=== PATIENT | female | born 1975 | race African-American/Black ===

== ENCOUNTER 2023-04-12 12:47 | Outpatient (AMB) | payer MEDICARE, MEDICAID, SELFPAY ==
[2023-04-12 13:08] VITALS: BP 121/64; PULSE 86; RESP 14; BMI 27.8
--- NOTE | 2023-04-12 13:08 | MHC.OFFVIS ---
Intake Vital Signs 04/12/23 13:08 Height 5 ft 1 in Weight 147 lb BMI 27.8 BP 121/64 Blood Pressure Location Rt brachial Position Sitting Respiration 14 Pulse 86 Pulse Source Pulse Oximeter Intake Visit Reasons: Chronic bilateral low back pain wo sciatica Allergies Penicillins Adverse Reaction (Severe, Verified 04/12/23 13:10) rash Medication List - Last Reconciled 04/12/23 by Flora Keyes LPN levothyroxine 50 mcg PO QAM mirtazapine 30 mg PO QAM mirtazapine 45 mg PO BEDTIME naproxen 500 mg PO pregabalin 150 mg PO DAILY PRN HPI Chronic bilateral low back pain wo sciatica HPI Details 48-year-old female is presenting today for a new patient evaluation of chronic bilateral low back pain without sciatica. The patient has a past medical history of hypothyroidism, depression, anxiety, chronic left foot pain, fibromyalgia, chronic back pain, chronic bilateral knee pain, and bilateral breast fibromas. The patient has a surgical history of left foot bunion in 2012 and 2014, cholecystectomy, excision of fibromas bilateral breast, excision of cyst from right ear pinna, and back injection by pain management in [place]. The patient is presenting today for an evaluation of pain in her bilateral neck and shoulders, chest, low back, and hip regions. This has been going on for a few years. She has a history of fibromyalgia. She rates her pain at 8?9/10 in intensity, which is worse with weather changes in motion. She is unable to sleep normally. She reports chest pain which is worse in the morning. She is currently on Lyrica, 200 milligrams a day. She is currently taking 500 milligrams of naproxen a day. She was previously on Cymbalta, which did not help much. She had previously gotten trigger point injections about 10 years ago with moderate relief of upper back symptoms. [facility] Medical History (Updated 04/12/23 @ 16:09 by Baltazar Baca MD) Anxiety Bilateral chronic knee pain Chronic back pain Chronic pain in left foot Depression Fibromyalgia Hypothyroidism Review of Systems Const All systems reviewed & are unremarkable except as noted in HPI and below Physical Exam Vital Signs: Last Vital Signs Pulse 86 04/12/23 13:08 Resp 14 04/12/23 13:08 BP 121/64 04/12/23 13:08 BMI result Body Mass Index 27.8 General: Appears afebrile. Alert and oriented. Mood and affect appropriate. Follows and participates in conversation appropriately. Respiratory effort is unlabored. Able to transition from sit to stand unassisted. Ambulates with bilaterally normal heel strike and toe off. Upper Back: Tenderness on palpation in the cervical paraspinal bilaterally (right side more than left) Trapezius and occipitalis are tender on palpation. Right SCM is taught and tender to palpation. Office Procedures Injection Trigger Point Multi Pre-procedure diagnosis: Myofascial pain Post-procedure diagnosis: Myofascial pain Site and number of trigger points: Right SCM, occipitalis and trapezius Solution: Total volume administered 5 ml (5 ml lidocaine 1%) The procedure, its benefits, and its risks were explained to the patient and all questions were answered. A pulse oximeter monitor was attached and the patient was monitored throughout the procedure. Prior to the start of the procedure, a ?time out? was performed to confirm correct patient, procedure, and laterality. Trigger points were identified by manual palpation and marked. The skin was cleaned with Chloraprep. A 1.5 inch 25 G needle was used. Each of the trigger points were approximated and elevated in the direction away from the body. Dry needling then took place for five seconds. Approximately 0.5 ml to 1 ml of injectate was delivered to the trigger point followed by dry needling for five seconds. This process was repeated at each trigger point site. The patient tolerated the procedure well. Post-procedure, breath sounds were equal at both sides of the chest. The patient tolerated the procedure well, without complication. The patient denied any numbness, paresthesias, or weakness. Post-procedure vitals were recorded as part of the nursing discharge note in electronic medical record. Following a period of observation, the patient was discharged in stable condition with written discharge instructions. Trigger Point Multiple: 81460- Trigger point injection =/>3 Results Reviewed Results Reviewed: No imaging is available for review. Assessment & Plan Assessment & Plan (1) Chronic neck pain: Code(s): M54.2 - Cervicalgia; G89.29 - Other chronic pain (2) Fibromyalgia: Code(s): M79.7 - Fibromyalgia (3) Myofascial pain: Code(s): M79.18 - Myalgia, other site Plan Patient is status post trigger point injections at right SCM, occipitalis and trapezius. Patient tolerated procedure well and was discharged home in stable condition with discharge instructions. All questions were answered. Ordered a cervical x-ray for further evaluation of spondylosis. A referral was provided to physical therapy. The patient will receive a call to schedule an appointment. We will follow-up in four to six weeks depending on response to trigger point injections and repeat as needed. Scribed for Dr. Baca by Oswaldo Leigh, medical laboratory technicians, on 04/12/2023. I, Dr. Baca, have personally reviewed and agree with the information entered by the scribe. Orders: Orders PT Evaluation and Treatment Today G89.29 - Other chronic pain, M54.2 - Cervicalgia XR cervical spine 2V Today G89.29 - Other chronic pain, M54.2 - Cervicalgia Coding Level of Care Code New Pt Level 4 (20392) Diagnoses Chronic neck pain M54.2; G89.29 Fibromyalgia M79.7 Myofascial pain M79.18 CPT Codes Details - Trigger Point Multiple: 55499- Trigger point injection =/>3 ([id number])
== END 2023-04-12 14:35 | disposition home or self-care (01) ==
PROVIDERS: PCP Emergency Medicine; Visit Provider Internal Medicine
DX: M79.7 Fibromyalgia (principal); M54.2 Cervicalgia; G89.29 Other chronic pain
CPT/HCPCS: 20553; 99204

== ENCOUNTER → 2023-04-12 12:47 | Outpatient (BNVA) | payer MEDICARE, MEDICAID, SELFPAY | PROVIDERS: PCP Emergency Medicine; Visit Provider Internal Medicine | DX: M54.2 Cervicalgia (principal); G89.29 Other chronic pain; M79.7 Fibromyalgia | CPT/HCPCS: 20553; 99202 ==

== ENCOUNTER 2023-04-20 10:02 | Outpatient (REF) | payer MEDICARE, MEDICAID, SELFPAY ==
--- NOTE | ~2023-04-20 | MM_ITS ---
EXAMINATION: MM SCREENING DIGITAL BREAST TOMOSYNTHESIS, BILATERAL CLINICAL INFORMATION: Screening. Asymptomatic. COMPARISON: Mammography: There are no prior mammograms for comparison. TECHNIQUE: Digital breast tomosynthesis is performed in both the craniocaudal and mediolateral oblique views along with computer-aided detection (CAD). Synthesized 2D images are generated from the tomosynthesis. FINDINGS: There are scattered areas of fibroglandular density (ACR BI-RADS breast composition Category b). The central portion of the left breast, there are grouped calcifications which warrant additional mammographic imaging magnification. In the right breast, there are no significant masses, abnormal calcifications, or other abnormalities. There is a tissue marker in the upper outer quadrant of the right breast from prior benign percutaneous biopsy. MM/MM tomosynthesis screening BI IMPRESSION: Calcifications in the left breast warrant additional mammographic imaging magnification. No mammographic signs of malignancy right breast. ASSESSMENT: BI-RADS BI-RADS 0 - Incomplete: Needs additional Imaging. RECOMMENDATION: Additional views of the left breast. Radiology department staff will contact the patient for additional imaging. Additional Imaging required This examination should not preclude the clinical evaluation of a suspicious palpable abnormality. This patient's information was entered into a reminder system with a target due date for their next mammogram.
== END 2023-04-20 10:03 | disposition home or self-care (01) ==
LOC: HO.MAMMO 10:02
PROVIDERS: PCP Emergency Medicine; Visit Provider Emergency Medicine
DX: Z12.31 Encounter for screening mammogram for malignant neoplasm of breast (principal)
CPT/HCPCS: 77063; 77067

== ENCOUNTER → 2023-04-20 10:15 | Outpatient (BNV) | payer MEDICARE, MEDICAID, SELFPAY | PROVIDERS: PCP Emergency Medicine; Visit Provider Radiology Diagnostic Radiology | DX: Z12.31 Encounter for screening mammogram for malignant neoplasm of breast (principal) | CPT/HCPCS: 77063; 77067 ==

== ENCOUNTER 2023-06-03 13:15 | Outpatient (REF) | payer MEDICARE, MEDICAID, SELFPAY ==
--- NOTE | ~2023-06-03 | MM_ITS ---
EXAMINATION: MM DIAGNOSTIC DIGITAL MAMMOGRAPHY, LEFT CLINICAL INFORMATION: Evaluate calcifications seen central left breast, posterior one third along the nipple line in both CC and LM projections. COMPARISON: Mammography: Screening mammography dated 04/20/2023. TECHNIQUE: Digital mammography is performed in the following views: 2-D spot magnification views left breast in the CC and mediolateral projection FINDINGS: The breasts are heterogeneously dense, which may obscure small masses (ACR BI-RADS breast composition Category c). Calcifications identified on magnification views within the central left breast along the nipple line in both views, mid to posterior one third are again identified. On the CC projection, morphology of these calcifications is round, punctate, and slightly smudgy/amorphous. On the ML view, morphology changes to several calcifications demonstrating T cupping and layering, highly suggesting milk of calcium. These findings are probably benign and six-month interval follow-up left diagnostic mammography to include standard magnification views recommended to ensure stability. Calcifications in the retroareolar region are vascular in nature, and benign. No additional abnormal findings identified. MM/MM added views LT IMPRESSION: Calcifications in the central left breast have a morphology most likely related to milk of calcium and are most likely benign. Recommend six-month interval follow-up mammogram to include standard magnification views. It may be of benefit to leave the patient in the 90 degree mediolateral projection for 2 to 3 minutes to maximize layering. Benign vascular calcifications retroareolar left breast. Results were provided to the patient at time of visit by the technologist. ASSESSMENT: BI-RADS BI-RADS 3 - Probably benign finding(s) - 6 month follow-up suggested RECOMMENDATION: 6 Month F/U This patient's information was entered into a reminder system with a target due date for their next mammogram.
== END 2023-06-03 13:16 | disposition home or self-care (01) ==
LOC: HO.MAMMO 13:15
PROVIDERS: PCP Emergency Medicine; Visit Provider Emergency Medicine
DX: R92.1 Mammographic calcification found on diagnostic imaging of breast (principal)
CPT/HCPCS: 77065

== ENCOUNTER → 2023-06-03 13:30 | Outpatient (BNV) | payer MEDICARE, MEDICAID, SELFPAY | PROVIDERS: PCP Emergency Medicine; Visit Provider Radiology Diagnostic Radiology | DX: R92.1 Mammographic calcification found on diagnostic imaging of breast (principal); R92.332 Mammographic heterogeneous density, left breast | CPT/HCPCS: 77065 ==

== ENCOUNTER 2023-08-11 07:14 | Outpatient (REF) | payer MEDICARE, MEDICAID, SELFPAY ==
--- NOTE | ~2023-08-11 | XR_ITS ---
EXAMINATION: XR KNEE, LEFT CLINICAL INFORMATION: Pain. COMPARISON: None available. TECHNIQUE: AP, lateral and sunrise views of the left knee are submitted. FINDINGS: There is a mild patella hansel configuration. The lateral, medial and patellofemoral joint space compartments are well-maintained. No fracture, dislocation or unusual degenerative change is seen. There is no joint effusion. No foreign body is seen. XR/XR knee LT 3V IMPRESSION: 1. No left knee fracture, dislocation or joint effusion is seen. 2. There is a mild patella hansel configuration.
== END 2023-08-11 07:15 | disposition home or self-care (01) ==
LOC: HO.HOSX 07:14
PROVIDERS: Visit Provider Orthopaedic Surgery
DX: M25.562 Pain in left knee (principal)
CPT/HCPCS: 73562; 99202

== ENCOUNTER 2023-08-11 12:49 | Outpatient (AMB) | payer MEDICARE, MEDICAID, SELFPAY ==
--- NOTE | 2023-08-11 12:54 | A.OFFVIS_ITS ---
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 Patient reports that she has had left knee pain for quite some time now, she has pain and instability of the knee the patient states that her left knee will give out several times per day. She has tried Tylenol and anti-inflammatory medicines which gave her minimal relief. She also has intermittent discomfort in her right knee. At this point her right knee pain is tolerable to her. She has done physical therapy exercises which aggravated her pain. Allergies Penicillins Adverse Reaction (Severe, Verified 04/12/23 13:10) rash [facility] Medical History Bilateral chronic knee pain Chronic back pain Fibromyalgia Chronic pain in left foot Anxiety Depression Hypothyroidism Social History (Updated 08/11/23 @ 13:01 by Marleen Moore CMA) Current occupational status: unemployed Physical Exam Vital Signs: BMI result Body Mass Index 27.8 Const Other: Well-nourished well-developed very friendly female awake alert and oriented x3 in no acute distress Extrem Other: Bilateral lower extremity examination shows good capillary refill, no skin lesions noted, normal sensation light touch Left knee examination shows a minimal effusion, minimal crepitus with range of motion, tenderness along her medial joint line, positive Hector's test, no instability Results Reviewed Results Reviewed: Standing full weight-bearing x-rays of the patient's left knee show grade 1 Kellgren diffuse degenerative changes, no acute bony abnormalities Assessment & Plan Assessment & Plan (1) Left knee pain: Code(s): M25.562 - Pain in left knee Plan Ms. Deandra Vallejo presents with progressively worsening left knee pain and mechanical symptoms most likely due to a tear of her medial meniscus. Thus, I will send her for an MRI of her left knee for further evaluation. I will see her back once the MRI is completed to discuss the findings and treatment options. Feel free to call me at any time should questions regarding her orthopedic management arise. Thank you very much for asking me to see this very friendly patient. I spent 22 minutes in reviewing the patient's records and imaging studies, seeing the patient and documenting in the medical record. Orders: Orders XR knee LT 3V Today M25.562 - Pain in left knee MR knee LT wo con Today S83.242A - Other tear of medial meniscus, current injury, left knee, initial encounter Coding Level of Care Code New Pt Level 2 (93269) Diagnoses Left knee pain M25.562
[2023-08-11 12:55] VITALS: BMI 27.8
== END 2023-08-11 13:16 | disposition home or self-care (01) ==
PROVIDERS: PCP Emergency Medicine; Visit Provider Orthopaedic Surgery
DX: M25.562 Pain in left knee (principal)
CPT/HCPCS: 99202

== ENCOUNTER 2023-08-31 16:04 | Outpatient (REF) | payer MEDICARE, MEDICAID, SELFPAY ==
--- NOTE | ~2023-08-31 | MR_ITS ---
EXAMINATION: MR KNEE WITHOUT CONTRAST, LEFT CLINICAL INFORMATION: Left knee pain for several months, difficulty climbing upstairs COMPARISON: Left knee x-rays on 06/11/2023 TECHNIQUE: MRI of the knee without contrast was performed using routine sequences on a high-field scanner. FINDINGS: MENISCUS: The Left medial meniscus is intact. The lateral meniscus is intact. CARTILAGE: Articular cartilage of the femoral condyles and tibial plateaus are intact. LIGAMENTS: The anterior and posterior cruciate ligaments are intact. Tibial and fibular collateral ligaments, iliotibial band, biceps femoris tendon attachment are intact. PATELLA: The Left patellar tendon and patellar articular cartilage are intact. There is mild left knee effusion. Even though the patella appears to be high riding, Insall Salvati ratio equals to 1.09, within normal limits. BONES: No focal bone lesions with abnormal signal can be seen. A left medial popliteal fossa cyst is seen measuring 2.3 cm in AP diameter, 1.6 cm in width, 3.2 cm in vertical height. MR/MR knee LT wo con IMPRESSION: 1. No meniscal tear. 2. Mild left knee effusion. 3. Hunt's cyst. 4. No diagnostic findings for patella hansel.
== END 2023-08-31 16:05 | disposition home or self-care (01) ==
LOC: HO.MRI 16:04
PROVIDERS: PCP Emergency Medicine; Visit Provider Orthopaedic Surgery
DX: S83.242A Other tear of medial meniscus, current injury, left knee, initial encounter (principal)
CPT/HCPCS: 73721

== ENCOUNTER 2023-09-16 11:12 | Outpatient (AMB) | payer MEDICARE, MEDICAID, SELFPAY ==
[2023-09-16 11:13] VITALS: BMI 27.8
--- NOTE | 2023-09-16 11:13 | MHC.OFFVIS ---
Intake Vital Signs 09/16/23 11:13 Height 5 ft 1 in Weight 147 lb BMI 27.8 Intake Visit Reasons: ov- MRI Knee LT WO review Intake Note: Chhaya is a 48 year old female who presents for a MRI review of her Left knee. The patient describes her left knee discomfort as sharp in nature. She also has intermittent right knee pain as well. She does not recall any specific traumatic event preceding the onset of her pain. She has tried Tylenol and anti-inflammatory medicines which gave her minimal relief. The patient states that she does have an appointments over the next few weeks with Dr. Baca to further discuss treatment options for her chronic neck pain. Allergies Penicillins Adverse Reaction (Severe, Verified 09/16/23 11:16) rash Medication List - Last Reconciled 09/16/23 by Zackary Todd MD levothyroxine 50 mcg PO QAM mirtazapine 30 mg PO QAM mirtazapine 45 mg PO BEDTIME naproxen 500 mg PO pregabalin 150 mg PO DAILY PRN PFSH Medical History Bilateral chronic knee pain Chronic back pain Fibromyalgia Chronic pain in left foot Anxiety Depression Hypothyroidism Social History Current occupational status: unemployed Physical Exam Vital Signs: BMI result Body Mass Index 27.8 Extrem Other: Bilateral lower extremity examination shows good capillary refill, no skin lesions noted, normal sensation light touch Left knee examination shows a minimal effusion, minimal crepitus with range of motion, negative Hector's test, no instability Results Reviewed Results Reviewed: MRI of the patient's left knee shows no significant degenerative changes, no evidence of meniscus tearing Assessment & Plan Assessment & Plan (1) Left knee pain: Code(s): M25.562 - Pain in left knee Plan Ms. Liriano presents with left knee pain due to early degenerative joint disease. I had a lengthy discussion with the patient regarding the treatment options. The patient wishes to hold off on a cortisone injection or a viscosupplementation injection at this time. I did discuss the possibility of platelet rich plasma injections. The patient states that she might be interested in this or other treatment options. She will further discuss this with Dr. Baca at her upcoming appointment. She will follow up with me on an as-needed basis. Feel free to call me at any time should questions regarding her orthopedic management arise. I spent 22 minutes in reviewing the patient's records and imaging studies, seeing the patient and documenting in the medical record. Coding Level of Care Code Est Pt Level 2 (06498) Diagnoses Left knee pain M25.562
== END 2023-09-16 11:40 | disposition home or self-care (01) ==
PROVIDERS: PCP Emergency Medicine; Visit Provider Orthopaedic Surgery
DX: M17.12 Unilateral primary osteoarthritis, left knee (principal)
CPT/HCPCS: 99213

== ENCOUNTER → 2023-09-16 11:12 | Outpatient (BNVA) | payer MEDICARE, MEDICAID, SELFPAY | PROVIDERS: PCP Emergency Medicine; Visit Provider Orthopaedic Surgery | DX: M25.562 Pain in left knee (principal) | CPT/HCPCS: 99212 ==

== ENCOUNTER 2023-09-21 13:40 | Outpatient (REF) | payer MEDICARE, MEDICAID, SELFPAY ==
[2023-09-21 16:08] LABS: TSH reflex Free T4 3.32 uIU/mL (0.32-4.0)
[2023-09-27 23:49] LABS: HPV mRNA E6/E7 rflx Not Detected (Not Detected)
== END 2023-09-21 13:41 | disposition home or self-care (01) ==
LOC: HO.CHCLDS 13:40
PROVIDERS: Advanced Practice Midwife; Visit Provider Internal Medicine
DX: E03.8 Other specified hypothyroidism (principal)
CPT/HCPCS: 36415; 84443; 87624; 88142

== ENCOUNTER 2023-10-01 09:33 | Outpatient (AMB) | payer MEDICARE, MEDICAID, SELFPAY ==
--- NOTE | 2023-10-01 10:11 | A.OFFVIS_ITS ---
Intake Vital Signs 10/01/23 10:12 Height 5 ft 1 in Weight 150 lb BMI 28.3 BP 119/67 Blood Pressure Location Lt brachial Respiration 12 Pulse 95 Pulse Source Pulse Oximeter Pulse Oximetry (%) 96 Oxygen Delivery Method Room Air Intake Visit Reasons: Follow Up/Low Back Pain Park Maintainer Required: Yes Park Maintainer Name: Karen Allergies Penicillins Adverse Reaction (Severe, Verified 10/01/23 10:14) rash Medication List - Last Reconciled 10/01/23 by Flora Keyes LPN levothyroxine 50 mcg PO QAM mirtazapine 30 mg PO QAM mirtazapine 45 mg PO BEDTIME naproxen 500 mg PO pregabalin 150 mg PO DAILY PRN HPI Follow Up/Low Back Pain HPI Details 48-year-old female who presents today to the office for a follow-up low back pain. The patient returns for follow up for generalized cervicalgia and low back pain. I had referred her for physical therapy in the last appointment, but she did not end up going for any physical therapy. The patient does not want to proceed with injections in the future. She requested an MRI scan for further evaluation. She wakes up in the morning with severe pain. She reports right knee pain, which has been bothersome for a long time. She has tried physical therapy in the past with no benefit. Past procedure: 04/12/23: Trigger point injections at ri ght SCM, occipitalis and trapezius: No relief. [facility] Medical History (Updated 10/05/23 @ 17:14 by Baltazar Baca MD) Bilateral chronic knee pain Chronic back pain Fibromyalgia Chronic pain in left foot Anxiety Depression Hypothyroidism Social History Current occupational status: unemployed Review of Systems Const All systems reviewed & are unremarkable except as noted in HPI and below Physical Exam Vital Signs: Last Vital Signs Pulse 95 10/01/23 10:12 Resp 12 10/01/23 10:12 BP 119/67 10/01/23 10:12 Pulse Ox 96 10/01/23 10:12 Oxygen Delivery Method Room Air 10/01/23 10:12 BMI result Body Mass Index 28.3 General: Appears afebrile. Alert and oriented. Mood and affect appropriate. Follows and participates in conversation appropriately. Respiratory effort is unlabored. Able to transition from sit to stand unassisted. Ambulates with bilaterally normal heel strike and toe off. Results Reviewed Results Reviewed: No imaging is available for review. Assessment & Plan Assessment & Plan (1) Chronic neck pain: Code(s): M54.2 - Cervicalgia; G89.29 - Other chronic pain (2) Fibromyalgia: Code(s): M79.7 - Fibromyalgia (3) Chronic back pain: Code(s): M54.9 - Dorsalgia, unspecified; G89.29 - Other chronic pain Plan The patient is not interested in receiving injections or surgery as a treatment option for her pain. I recommended physical therapy for at least 3 months. If her pain continues to persist after the physical therapy, we will order an MRI scan of the lumbar spine. I also provided contact details of PT to call and schedule her appointment. Follow-up in four months. Scribed for Dr. Baca by Oswaldo Leigh, medical coding technician, on 10/01/2023. I, Dr. Baca, have personally reviewed and agree with the information entered by the scribe. Coding Level of Care Code Est Pt Level 3 (83768) Diagnoses Chronic neck pain M54.2; G89.29 Fibromyalgia M79.7 Chronic back pain M54.9; G89.29
[2023-10-01 10:12] VITALS: BP 119/67; PULSE 95; RESP 12; O2SAT 96; BMI 28.3
== END 2023-10-01 10:45 | disposition home or self-care (01) ==
PROVIDERS: PCP Emergency Medicine; Visit Provider Internal Medicine
DX: M54.2 Cervicalgia (principal); G89.29 Other chronic pain; M79.7 Fibromyalgia; M54.9 Dorsalgia, unspecified
CPT/HCPCS: 99213

== ENCOUNTER → 2023-10-01 09:33 | Outpatient (BNVA) | payer MEDICARE, MEDICAID, SELFPAY | PROVIDERS: PCP Emergency Medicine; Visit Provider Internal Medicine | DX: M54.2 Cervicalgia (principal); M54.9 Dorsalgia, unspecified; M79.7 Fibromyalgia; G89.29 Other chronic pain | CPT/HCPCS: 99212 ==

== ENCOUNTER 2023-10-04 10:31 | Outpatient (REF) | payer MEDICARE, MEDICAID, SELFPAY ==
[2023-10-04 13:00] LABS: HBS Num1 0.54 mIU/mL (0-7.99); HBc Num1 0.14 S/CO (0.00-0.79); HBsAGNum1 0.37 S/CO (0.00-0.99); HIV AB/AG Nonreactive (Nonreactive); HIV Num 1 0.05 S/CO (0.00-0.99); Hepatitis A Antibody IgM 0.25 Index (0-0.79); Hepatitis B Core Antibody Nonreactive (Nonreactive); Hepatitis B Surface Antigen Negative (Negative); ~HepC Num1 0.12 S/CO (0.00-0.79); ~Hepatitis A Antibody IgM Nonreactive (Nonreactive); ~Hepatitis B Surface Antibody NONREACTIVE (Nonreactive); ~Hepatitis C Antibody Nonreactive (Nonreactive)
[2023-10-04 13:10] LABS: Alanine Aminotransferase 9 U/L (0-31); Alkaline Phosphatase 67 U/L (39-117); Anion Gap 12 (12-20); Aspartate Amino Transferase 18 U/L (5-31); Bilirubin Total 0.3 mg/dL (0.0-1.0); Blood Urea Nitrogen 6 mg/dL (9-16); Calcium 9.1 mg/dL (8.4-10.2); Carbon Dioxide 24 mmol/L (22-29); Chloride 108 mmol/L (96-108); Cholesterol 179 mg/dL (<200); Estimated Glomerular Filt Rate > 60; Glucose Random 79 mg/dL (60-115); HDL Cholesterol 58 mg/dL (>40); LDL Cholesterol Calculated 108 mg/dL (<100); Potassium 3.6 mmol/L (3.3-5.1); Sodium 140 mmol/L (135-145); Total Protein 7.4 g/dL (6.5-8.0); Triglycerides 66 mg/dL (<150); Vitamin D 25-OH Total 30.4 ng/mL (>30)
[2023-10-04 13:17] LABS: Reflex LDLD? No
[2023-10-05 11:43] LABS: Mumps Virus IgG Antibody <9.00 AU/mL; Rubella IgG Antibody 1.15 Index
[2023-10-05 13:03] LABS: RPR Rapid Plasma Reagin NON-REACTIVE (NON-REACTIVE)
[2023-10-07 14:03] LABS: TS Negative Control Passed; TS Panel A 0; TS Panel B 0; TS Positive Control Passed; TSpotTB Negative (Negative)
== END 2023-10-04 10:32 | disposition home or self-care (01) ==
LOC: HO.HHCL 10:31
PROVIDERS: Visit Provider Internal Medicine
DX: Z00.00 Encounter for general adult medical examination without abnormal findings (principal); J32.9 Chronic sinusitis, unspecified; L20.82 Flexural eczema; R53.1 Weakness; Z11.59 Encounter for screening for other viral diseases; Z72.89 Other problems related to lifestyle
CPT/HCPCS: 36415; 80053; 80061; 82306; 86481; 86592; 86704; 86706; 86709; 86735; 86762; 86765; 86803; 87340; 87389

== ENCOUNTER 2023-10-20 14:00 | Outpatient (REF) | payer MEDICARE, MEDICAID, SELFPAY ==
--- NOTE | ~2023-10-20 | US_ITS ---
EXAMINATION: MM DIAGNOSTIC DIGITAL BREAST TOMOSYNTHESIS, BILATERAL US BREAST LIMITED, RIGHT MAMMOGRAPHY: CLINICAL INFORMATION: Diagnostic right mammogram for the lateral upper right breast pain. Six-month follow-up left breast central probably benign calcifications. Patient due for bilateral screening. COMPARISON: Mammography: 06/03/2023, 04/20/2023; 04/10/2022 ultrasound from [place]. TECHNIQUE: Digital breast tomosynthesis is performed in both the craniocaudal and mediolateral oblique views along with computer-aided detection (CAD). Synthesized 2D images are generated from the tomosynthesis. In addition to standard views, 2-D spot magnification left CC and ML views were obtained, as well as full-field 3-D bilateral mediolateral views, and small paddle 3-D spot compression left MLO views x3. FINDINGS: The breasts are heterogeneously dense, which may obscure small masses (ACR BI-RADS breast composition Category c). Calcifications within the central LEFT breast are unchanged in number, morphology, and appearance. Again, some appear to layer on the true lateral projection. Findings suggest milk of calcium. Six-month follow-up mammography recommended. On the LEFT MLO view, in the upper far posterior aspect, there is a stellate asymmetry which appears to completely efface on spot compression views, consistent with superimposition artifact of overlapping normal breast tissue. Region of breast pain in the lateral upper RIGHT breast posterior one third has been marked by the technologist. There is no underlying mammographic abnormality or correlate. This will be evaluated by ultrasound. Stable biopsy clip in small mass in the anterior RIGHT breast. Otherwise, no suspicious masses, new suspicious calcifications, or new areas of architectural distortion are evident in either breast. The overall parenchymal pattern is similar to the prior study. No skin or axillary abnormalities are noted. ULTRASOUND: CLINICAL INFORMATION: Right upper lateral breast pain. COMPARISON: None contributory. TECHNIQUE: Targeted sonographic evaluation was performed right breast region of pain using a high frequency linear transducer. Selected archived documentation. FINDINGS: RIGHT BREAST: In the region of pain, 10:00 axis near axilla, 15 cm from the nipple, there is a normal-appearing lymph node in the tail of Quintana which appears to correlate well with the painful focus. This has normal shakir morphology with normal fatty hilum and normal thickness cortex. There is no additional abnormality identified in the far upper outer right breast. US/US breast RT limited mamm only IMPRESSION: There are no findings in either breast suggestive of malignancy. Probably benign calcifications are unchanged in the central LEFT breast, and additional six-month interval follow-up recommended (LEFT magnification views to be performed in May 2024) to ensure stability. Region of pain in the upper outer RIGHT breast appears to relate to a normal lymph node in the tail of Quintana with normal lymph shakir morphology. Recommend clinical management. OVERALL ASSESSMENT: Mammography: BI-RADS 3 - Probably benign finding(s) - 6 month follow-up suggested Ultrasound: BI-RADS 3 - Probably benign finding(s) - 6 month follow-up suggested RECOMMENDATION: 6 Month F/U This patient's information was entered into a reminder system with a target due date for their next mammogram.
== END 2023-10-20 14:01 | disposition home or self-care (01) ==
LOC: HO.MAMMO 14:00
PROVIDERS: PCP Internal Medicine; Visit Provider Emergency Medicine
DX: N64.4 Mastodynia (principal)
CPT/HCPCS: 76642; 77062; 77066

== ENCOUNTER → 2023-10-20 14:30 | Outpatient (BNV) | payer MEDICARE, MEDICAID, SELFPAY | PROVIDERS: PCP Internal Medicine; Visit Provider Radiology Diagnostic Radiology | DX: R92.1 Mammographic calcification found on diagnostic imaging of breast (principal); N64.4 Mastodynia | CPT/HCPCS: 76642; 77066; G0279 ==

== ENCOUNTER → 2024-03-30 14:00 | Outpatient (BNV) | payer MEDICARE, SELFPAY | PROVIDERS: PCP Internal Medicine; Visit Provider Radiology Diagnostic Radiology | DX: R92.1 Mammographic calcification found on diagnostic imaging of breast (principal) | CPT/HCPCS: 77065 ==

== ENCOUNTER 2024-03-30 14:03 | Outpatient (REF) | payer MEDICARE, SELFPAY ==
--- NOTE | ~2024-03-30 | MM_ITS ---
EXAMINATION: MM DIAGNOSTIC DIGITAL MAMMOGRAPHY, LEFT CLINICAL INFORMATION: 6 month Follow-up calcifications in the central left breast middle one third. COMPARISON: Mammography: 10/12/2023, 06/03/2023, 04/20/2023. TECHNIQUE: Digital mammography is performed in the following views: 2-D spot magnification left CC and ML views. FINDINGS: The breasts are heterogeneously dense, which may obscure small masses (ACR BI-RADS breast composition Category c). Calcifications within the central LEFT breast are unchanged in number, morphology, and appearance. Again, a few appear to layer on the true lateral projection. Findings suggest milk of calcium. Continued 6-month follow-up mammography recommended. MM/MM diagnostic mammo unilat LT IMPRESSION: -No findings suspicious for malignancy. -No significant interval change in the appearance of the calcifications in the central left breast which are probably benign in morphology. Six-month interval follow-up recommended when the patient is due for bilateral screening. (Standard magnification views) ASSESSMENT: BI-RADS BI-RADS 3 - Probably benign finding(s) - 6 month follow-up suggested RECOMMENDATION: 6 Month F/U This patient's information was entered into a reminder system with a target due date for their next mammogram.
== END 2024-03-30 14:04 | disposition home or self-care (01) ==
LOC: HO.MAMMO 14:03
PROVIDERS: PCP Internal Medicine; Visit Provider Internal Medicine
DX: R92.1 Mammographic calcification found on diagnostic imaging of breast (principal)
CPT/HCPCS: 77062; 77065

== ENCOUNTER 2024-05-10 13:04 | Outpatient (AMB) | payer MEDICARE, MEDICAID, SELFPAY ==
[2024-05-10 13:11] VITALS: BP 118/74; BMI 30.6
--- NOTE | 2024-05-10 13:11 | A.OFFVIS_ITS ---
Vital Signs 05/10/24 13:11 Height 5 ft 1 in Weight 162 lb BMI 30.6 BP 118/74 Blood Pressure Location Rt brachial Position Sitting Intake Visit Reasons: ENP-GILMRE- Intake Note: Patient presents for GILMER. patient not sleeping, mid sleep she wakes up choking and gagging. she also feels tired throughout the day she believes she has restless leg syndrome. Allergies Penicillins Adverse Reaction (Severe, Verified 05/10/24 13:22) rash Medication List - Last Reconciled 05/10/24 by Paris Ramirez, FREIGHT BROKER levothyroxine 50 mcg PO QAM mirtazapine 30 mg PO QAM mirtazapine 45 mg PO BEDTIME naproxen 500 mg PO pregabalin 150 mg PO DAILY PRN HPI Comments Details: 49-yr-old female presents for new in-person patient visit for sleep consultation. Patient reports she has had sleep difficulties for a long time. She is concerned that she has sleep apnea, as her mother has sleep apnea and needs to use a CPAP. Pt herself reports snoring, gasping arousals, difficulty sleeping. Sleep questionnaire: Have you ever been diagnosed with a sleep disorder? No Have you ever had a sleep study in the past? No Have you ever been treated for a sleep disorder? No Do you take medications for a sleep disorder? No Do you have difficulty initiating sleep? Yes Do you have difficulty maintaining sleep? Yes Wakes up many times per night. Do you wake up tired? Yes Do you have daytime tiredness or fatigue? Yes Do you easily fall asleep when inactive? Yes Do you snore? Yes Do you wake up gasping at night? Yes Do you have episodes of apneas? No Do you have episodes of nocturnal chest pain or dyspnea? Discomfort in her throat when she cannot breathe well at night. Do you have bruxism? Yes If yes, do you wear a mouth guard when sleeping? No Do you have headaches upon awakening? Yes. Wakes up everyday with headache- throbbing holocranial a/w dizziness. Do you wake up with dry mouth or throat? Dry throat Do you have GERD? Yes. Takes Omeprazole which helps. Do you have nocturia? Yes- has abd pressure r/t abd hernia Do you have nocturnal leg cramps? At times, more so in LLE has h/o left bunion surgery x's 2 (hardware has been removed). Do you have symptoms of restless legs? Yes, and has Urge to move, Restlessness/jerkiness, Creepy crawling sensation, Cramps. Starts in the evening. Do you act out your dreams? Denies Do you have sleep paralysis? Denies Do you have drop attacks? Denies Do you ever have hypnogenic hallucinations? Denies Hypersomnolence questionnaire: Have you ever had episodes of sudden weakness? No Have you ever had episodes of sudden weakness associated with strong emotions? No Sleep hygiene questionnaire: What is your usual sleep routine? Goes to bedroom around 5-6pm and spends time in her room, with usual bedtime is at 10-11pm; Usual wake-up time is at 7-10am. Do you take naps? No Is your sleep environment cool, dark, and quiet? Yes Do you exercise? None- limited by her foot pain. Do you take caffeine or other stimulants? Coffee and Coke- 6-7 12 oz cans per day- last drink up to 3am. Do you use electronics in bed? Watches TV in her room. What is your work schedule? On disability. 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 Mouth: moist mucous membranes Neck Other: Bilateral posterior cervical tightness. Resp Effort & Inspection: normal respiratory effort and able to speak in complete sentences Cardio Rate: regular rate Rhythm: regular rhythm Neuro General: patient oriented x3 Motor exam (neuro): 5/5 motor strength present throughout Psych Mental Status: mental status grossly normal Speech and movement: Clear speech present Attitude: cooperative Assessment & Plan Assessment & Plan (1) Snoring: Code(s): R06.83 - Snoring Category: Medical (2) Dysphagia: Code(s): R13.10 - Dysphagia, unspecified Category: Medical (3) Retrognathia: Code(s): M26.19 - Other specified anomalies of jaw-cranial base relationship Category: Medical (4) Excessive daytime sleepiness: Code(s): G47.19 - Other hypersomnia Category: Medical (5) RLS (restless legs syndrome): Code(s): G25.81 - Restless legs syndrome Category: Medical Plan Pt is advised to undergo sleep study to assess for sleep apnea and PLMS: in-lab sleep study Check labs for common etiologies RLS. Discussed strategies to optimize sleep hygiene- encouraged pt to limit caffeine use. Pt encouraged to try an OTC mouth guard for bruxism. Future considerations- oral surgeon, PT. Will take the liberty of referring pt for ENT and GI consult d/t dysphagia and GERD s/s. Will f/u with pt after study to discuss results and appropriate treatment options. Pt to call with any worsening concerns or questions. Pt seen in collaboration w/ Dr Bell. Orders: Orders RT PSG in-lab sleep study Today G25.81 - Restless legs syndrome, G47.19 - Other hypersomnia, G47.9 - Sleep disorder, unspecified, M26.19 - Other specified anomalies of jaw-cranial base relationship, R06.83 - Snoring, R13.10 - Dysphagia, unspecified Complete Blood Count Auto Diff Today D64.9 - Anemia, unspecified, E03.9 - Hypothyroidism, unspecified, F41.9 - Anxiety disorder, unspecified, G25.81 - Restless legs syndrome, G47.19 - Other hypersomnia Vitamin B12 and Folate Today D64.9 - Anemia, unspecified, E03.9 - Hypothyroidism, unspecified, F41.9 - Anxiety disorder, unspecified, G25.81 - Restless legs syndrome, G47.19 - Other hypersomnia Homocysteine Today D64.9 - Anemia, unspecified, E03.9 - Hypothyroidism, unspecified, F41.9 - Anxiety disorder, unspecified, G25.81 - Restless legs syndrome, G47.19 - Other hypersomnia Erythrocyte Sedimentation Rate Today D64.9 - Anemia, unspecified, E03.9 - Hypothyroidism, unspecified, F41.9 - Anxiety disorder, unspecified, G25.81 - Restless legs syndrome, G47.19 - Other hypersomnia Creatine Kinase Total Today D64.9 - Anemia, unspecified, E03.9 - Hypothyroidism, unspecified, F41.9 - Anxiety disorder, unspecified, G25.81 - Restless legs syndrome, G47.19 - Other hypersomnia Magnesium Today D64.9 - Anemia, unspecified, E03.9 - Hypothyroidism, unspec ified, F41.9 - Anxiety disorder, unspecified, G25.81 - Restless legs syndrome, G47.19 - Other hypersomnia Comprehensive Met. Panel Today D64.9 - Anemia, unspecified, E03.9 - Hypothyroidism, unspecified, F41.9 - Anxiety disorder, unspecified, G25.81 - Restless legs syndrome, G47.19 - Other hypersomnia Vitamin D 25-OH (D2 and D3) Today D64.9 - Anemia, unspecified, E03.9 - Hypothyroidism, unspecified, F41.9 - Anxiety disorder, unspecified, G25.81 - Restless legs syndrome, G47.19 - Other hypersomnia Methylmalonic Acid Today D64.9 - Anemia, unspecified, E03.9 - Hypothyroidism, unspecified, F41.9 - Anxiety disorder, unspecified, G25.81 - Restless legs syndrome, G47.19 - Other hypersomnia Ferritin Today D64.9 - Anemia, unspecified, E03.9 - Hypothyroidism, unspecified, F41.9 - Anxiety disorder, unspecified, G25.81 - Restless legs syndrome, G47.19 - Other hypersomnia IRON PROFILE Today D64.9 - Anemia, unspecified, E03.9 - Hypothyroidism, unspecified, F41.9 - Anxiety disorder, unspecified, G25.81 - Restless legs syndrome, G47.19 - Other hypersomnia CRP High Sensitivity Today D64.9 - Anemia, unspecified, E03.9 - Hypothyroidism, unspecified, F41.9 - Anxiety disorder, unspecified, G25.81 - Restless legs syndrome, G47.19 - Other hypersomnia Referrals Gastroenterology Referral K21.9 - Gastro-esophageal reflux disease without esophagitis, R13.10 - Dysphagia, unspecified Ear/Nose/Throat Referral G47.19 - Other hypersomnia, M26.19 - Other specified anomalies of jaw-cranial base relationship, R06.83 - Snoring, R13.10 - Dysphagia, unspecified Coding Level of Care Code New Pt Level 4 (03689) Diagnoses Snoring R06.83 Dysphagia R13.10 Retrognathia M26.19 Excessive daytime sleepiness G47.19 RLS (restless legs syndrome) G25.81 [place] Sleepiness Scale Questions Sitting and reading: high chance of dozing Watching TV: high chance of dozing Sitting inactive in a theater, movie etc.: moderate chance of dozing As a passenger in a car for an hour without break: would never doze Lying down in the afternoon when circumstances permit: moderate chance of dozing Sitting and talking to someone: slight chance of dozing Sitting quietly after lunch without alcohol: moderate chance of dozing In a car, while stopped for a few minutes in the traffic: would never doze ESS < 10: normal, ESS > 12: pathologic: 13
== END 2024-05-10 14:37 | disposition home or self-care (01) ==
PROVIDERS: PCP Internal Medicine; Visit Provider Nurse Practitioner Family
DX: R06.83 Snoring (principal); R13.10 Dysphagia, unspecified; M26.19 Other specified anomalies of jaw-cranial base relationship; G47.19 Other hypersomnia; G25.81 Restless legs syndrome
CPT/HCPCS: 99204

== ENCOUNTER → 2024-05-10 13:04 | Outpatient (BNVA) | payer MEDICARE, MEDICAID, SELFPAY | PROVIDERS: PCP Internal Medicine; Visit Provider Nurse Practitioner Family | DX: G47.33 Obstructive sleep apnea (adult) (pediatric) (principal); R06.83 Snoring; R13.10 Dysphagia, unspecified; M26.19 Other specified anomalies of jaw-cranial base relationship; G47.19 Other hypersomnia; G25.81 Restless legs syndrome | CPT/HCPCS: 99202 ==

== ENCOUNTER → 2024-06-30 19:30 | Outpatient (REF) | payer MEDICARE, MEDICAID, SELFPAY | LOC: HO.SL 19:30 | PROVIDERS: PCP Internal Medicine; Visit Provider Nurse Practitioner Family | DX: R06.83 Snoring (principal); R13.10 Dysphagia, unspecified; M26.19 Other specified anomalies of jaw-cranial base relationship; G47.19 Other hypersomnia; G47.9 Sleep disorder, unspecified; G25.81 Restless legs syndrome | CPT/HCPCS: 95810 ==

== ENCOUNTER → 2024-06-30 23:41 | Outpatient (BNV) | payer MEDICARE, MEDICAID, SELFPAY | PROVIDERS: PCP Internal Medicine; Visit Provider Psychiatry & Neurology Neurology | DX: R06.83 Snoring (principal); G47.19 Other hypersomnia | CPT/HCPCS: 95810 ==

== ENCOUNTER 2024-07-14 08:44 | Outpatient (REF) | payer MEDICARE, MEDICAID, SELFPAY ==
[2024-07-14 11:17] LABS: MANUAL DIFF FLAG NO
[2024-07-14 11:29] LABS: Basophils Percent Auto 0.8 % (0-2); Eosinophils Absolute Auto 0.1 X10*3/uL (0.0-0.4); Eosinophils Percent Auto 2.5 % (0-4); Hematocrit 29.7 % (37.0-47.0); Imm Gran Abs Auto 0.02 X10*3/uL (0.00-0.03); Imm Gran Pct Auto 0.4 % (0.0-0.4); Lymphocytes Absolute Auto 1.1 X10*3/uL (1.2-4.9); Lymphocytes Percent Auto 20.4 % (20-40); Mean Corpuscular HGB Conc 30.3 g/dl (31.0-35.0); Mean Corpuscular Hemoglobin 17.4 pg (27.0-33.0); Monocytes Absolute Auto 0.5 X10*3/uL (0.1-1.2); Monocytes Percent Auto 9.5 % (2-11); Neutrophils Absolute Auto 3.4 x10*3/uL (2.0-8.3); Neutrophils Percent Auto 66.4 % (45-73); Platelet Count 373 X10*3/uL (160-400); Red Blood Count 5.18 X10*6/uL (4.20-5.50); Red Cell Distribution Width 21.3 % (11.0-16.0); White Blood Count 5.2 X10*3/uL (4.8-10.8)
[2024-07-14 11:30] LABS: Mean Corpuscular Volume 57.3 fL (80.0-98.0)
[2024-07-14 11:47] LABS: Alanine Aminotransferase 9 U/L (0-31); Albumin Level 3.8 g/dL (3.5-5.0); Alkaline Phosphatase 59 U/L (39-117); Anion Gap 12 (12-20); Aspartate Amino Transferase 22 U/L (5-31); Bilirubin Total 0.3 mg/dL (0.0-1.0); Blood Urea Nitrogen 7 mg/dL (9-16); Calcium 8.8 mg/dL (8.4-10.2); Carbon Dioxide 22 mmol/L (22-29); Chloride 106 mmol/L (96-108); Estimated Glomerular Filt Rate > 60; Glucose Random 92 mg/dL (60-115); Iron 14 mcg/dL (30-160); Magnesium 2.3 mg/dL (1.6-2.6); Percent Iron Saturation 4 % (15-50); Potassium 3.8 mmol/L (3.3-5.1); Sodium 136 mmol/L (135-145); Total Iron Binding Capacity 367 mcg/dL (228-428); Total Protein 6.8 g/dL (6.5-8.0); Unsaturated Iron Binding 353 ug/dL
[2024-07-14 11:55] LABS: Ferritin 6 ng/mL (10-250)
[2024-07-14 12:06] LABS: Folate 6.7 ng/mL (> or = 4.0); Vitamin B12 192 pg/mL (200-900)
[2024-07-14 12:17] LABS: Erythrocyte Sedimentation Rate 12 MM/HR (0-20)
[2024-07-17 11:28] LABS: CRP High Sensitivity 2.2 mg/L
[2024-07-17 17:04] LABS: Homocysteine 16.1 umol/L (<10.4)
[2024-07-18 21:48] LABS: Methylmalonic Acid 121 nmol/L (55-335)
[2024-07-19 17:08] LABS: Vitamin D 25-OH, D2 <4 ng/mL; Vitamin D 25-OH, D3 40 ng/mL; Vitamin D 25-OH, Total 40 ng/mL (30-100)
== END 2024-07-14 08:45 | disposition home or self-care (01) ==
LOC: HO.HHCL 08:44
PROVIDERS: Visit Provider Nurse Practitioner Family
DX: D64.9 Anemia, unspecified (principal); G25.81 Restless legs syndrome; F41.9 Anxiety disorder, unspecified; E03.9 Hypothyroidism, unspecified; G47.19 Other hypersomnia
CPT/HCPCS: 36415; 80053; 82306; 82550; 82607; 82728; 82746; 83090; 83540; 83735; 83921; 85025; 85652; 86141

== ENCOUNTER 2024-07-31 10:32 | Outpatient (AMB) | payer MEDICARE, MEDICAID, SELFPAY ==
[2024-07-31 10:35] VITALS: BP 124/74; PULSE 94; O2SAT 97; BMI 30.2
--- NOTE | 2024-07-31 10:35 | MHC.OFFVIS ---
Vital Signs 07/31/24 10:35 Height 5 ft 1 in Weight 160 lb 0.889 oz BMI 30.2 BP 124/74 Blood Pressure Location Rt brachial Position Sitting Pulse 94 Pulse Source Pulse Oximeter Pulse Oximetry (%) 97 Oxygen Delivery Method Room Air Intake Visit Reasons: Dysphagia Intake Note: NEW PATIENT Chhaya presents in office today for a scheduled initial assessment. Prior hx of colo/egd? No prior hx of colo. Pt has prior hx of EGD via [facility]. Pt has prior hx of cholecystectomy Meds reviewed? Y Allergies reviewed? Y Any significant concerns or questions? Dysphagia. Pt also reporting difficulty with reflux. Pt has been taking omeprazole per PCP with some relief. Pharmacy verified? [facility] Required: No Allergies Penicillins Adverse Reaction (Severe, Verified 07/31/24 10:41) rash HPI HPI Dysphagia: Details: 49-year-old female with past medical history of hypothyroidism, anemia, RLS, hypothyroidism, GERD, fibromyalgia is here today for initial consultation. Patient was sent to us by Neurology. Patient has been complaining of difficulty swallowing and reflux. Patient reports that she has to drink liquids with every bite. Most difficulty with rice and bread. Patient feels when the food goes down and sometimes it feels like it is scratching her whole esophagus patient denies eating late at night. Patient was sent to do sleep study, awaiting results. For the most part patient is eating [place] food. Patient denies melena, hematochezia, unintentional weight loss or ribbon like stools. Patient was started on omeprazole by her PCP, however she reports that she still will have reflux and dysphagia. However patient did report that she seen mild improvement after starting it. [facility] Medical History Bilateral chronic knee pain Chronic back pain Fibromyalgia Chronic pain in left foot Anxiety Depression Hypothyroidism Social History Current occupational status: unemployed Review of Systems Const Denies weight gain and Denies weight loss ENT Reports no additional complaints, Denies dysphagia and Denies odynophagia Card Reports no additional complaints Resp Reports no additional complaints GI Denies abdominal pain, Denies belching, Denies melena, Reports bloating, Denies change in bowel habits, Denies dysphagia, Denies excessive flatus, Denies dyspepsia, Reports heartburn, Denies diarrhea, Denies loose stools, Denies nausea, Denies odynophagia and Denies vomiting Reports no additional complaints Musc Reports no additional complaints Neuro Reports no additional complaints Psych Reports no additional complaints Endo Reports no additional complaints Physical Exam Vital Signs: Last Vital Signs Pulse 94 07/31/24 10:35 BP 124/74 07/31/24 10:35 Pulse Ox 97 07/31/24 10:35 Oxygen Delivery Method Room Air 07/31/24 10:35 BMI result Body Mass Index 30.2 Const General: healthy appearing and no acute distress Nutritional Appearance: obese Orientation/consciousness: patient oriented x3 Resp Effort & Inspection: normal respiratory effort, able to speak in complete sentences, no tracheal deviation and symmetric chest movement Auscultation: clear to auscultation bilaterally Cardio Rate: regular rate GI Inspection: Yes normal to inspection, No distended and Yes obesity Palpation (GI): Soft to palpation, not firm, nontender and No hepatosplenomegaly present Auscultation: normal bowel sounds General: Yes no CVA tenderness Back/Spine/Pelvis Back: no CVA tenderness Skin General skin exam: elasticity normal, turgor normal and dry skin Neuro General: patient oriented x3 Psych Appearance: grossly normal Mental Status: mental status grossly normal Assessment & Plan Assessment & Plan (1) Dysphagia: Code(s): R13.10 - Dysphagia, unspecified Category: Medical Qualifiers: Dysphagia type: pharyngoesophageal phase Qualified Code(s): R13.14 - Dysphagia, pharyngoesophageal phase (2) GERD (gastroesophageal reflux disease): Code(s): K21.9 - Gastro-esophageal reflux disease without esophagitis Category: Medical Qualifiers: Esophagitis presence: esophagitis presence not specified Qualified Code(s): K21.9 - Gastro-esophageal reflux disease without esophagitis (3) Postprandial abdominal bloating: Code(s): R14.0 - Abdominal distension (gaseous) (4) Postprandial epigastric pain: Code(s): R10.13 - Epigastric pain Plan Will rule out celiac. Patient will go for upper GI with barium swallow in the meantime while we waiting endoscopy. Message sent to surgical instrument technician to schedule upper endoscopy for patient. Patient is also due to go for colonoscopy. Patient reports having upper endoscopy and colonoscopy several years ago when she lived in [place]. Denies any family history of CRC. Denies any melena, hematochezia, unintentional weight loss or ribbon like stools. Discussed with patient the importance of avoiding dietary triggers and late night snacking. Staying upright for minimum 3 hours after meals discussed with patient. Patient will return in 3 months we will discuss going for upper endoscopy and colonoscopy. Patient will call our office if she will have worsening symptoms or develop any other GI concerning symptoms. She is agreeable to this plan and verbalizes understanding of instructions. She was given the opportunity to ask questions and all questions. Thank you for allowing me partake in her care Orders: Orders Transglutaminase IgA Today R10.9 - Unspecified abdominal pain FL upper GI w Ba Swallow Today K21.9 - Gastro-esophageal reflux disease without esophagitis, R13.10 - Dysphagia, unspecified Transglutaminase Ab IgG Today R10.9 - Unspecified abdominal pain Medications: New esomeprazole magnesium (Nexium) 40 mg PO DAILY 30 caps 5RF K21.9 - Gastro-esophageal reflux disease without esophagitis Coding Level of Care Code New Pt Level 4 (11531) Diagnoses Pharyngoesophageal dysphagia R13.14 Dysphagia type: pharyngoesophageal phase Gastroesophageal reflux disease, unspecified whether esophagitis present K21.9 Esophagitis presence: esophagitis presence not specified Postprandial abdominal bloating R14.0 Postprandial epigastric pain R10.13 Time Spent (min) 45 Comment 30 minutes spent with patient and additional 15 minutes spent reviewing
== END 2024-07-31 11:13 | disposition home or self-care (01) ==
PROVIDERS: PCP Internal Medicine; Visit Provider Nurse Practitioner Family
DX: R13.14 Dysphagia, pharyngoesophageal phase (principal); K21.9 Gastro-esophageal reflux disease without esophagitis; R14.0 Abdominal distension (gaseous); R10.13 Epigastric pain
CPT/HCPCS: 99204

== ENCOUNTER 2024-07-31 11:49 | Outpatient (REF) | payer MEDICARE, MEDICAID, SELFPAY ==
[2024-08-02 21:13] LABS: Transglutaminase Ab IgG <1.0 U/mL; Transglutaminase IgA <1.0 U/mL
== END 2024-07-31 11:50 | disposition home or self-care (01) ==
LOC: HO.HHCL 11:49
PROVIDERS: Visit Provider Nurse Practitioner Family
DX: R10.9 Unspecified abdominal pain (principal); R13.14 Dysphagia, pharyngoesophageal phase; K21.9 Gastro-esophageal reflux disease without esophagitis; R14.0 Abdominal distension (gaseous); R10.13 Epigastric pain
CPT/HCPCS: 36415; 86364; 99202

== ENCOUNTER → 2024-08-29 13:03 | Outpatient (BNV) | payer MEDICARE, MEDICAID, SELFPAY | PROVIDERS: PCP Internal Medicine; Visit Provider Internal Medicine | DX: D64.9 Anemia, unspecified (principal) | CPT/HCPCS: 99204; G2211 ==

== ENCOUNTER 2024-09-01 07:47 | Outpatient (REF) | payer MEDICARE, MEDICAID, SELFPAY ==
--- NOTE | ~2024-09-01 | FL_ITS ---
EXAMINATION: XR FLUOROSCOPY UPPER GI WITH AIR CLINICAL INFORMATION: Reflux. Dysphagia. COMPARISON: None TECHNIQUE: Fluoroscopic air contrast upper GI examination was performed utilizing standard techniques with thin and thick barium and effervescent granules. Numerous spot images were obtained. FINDINGS: Lateral cine images of the oropharynx and hypopharynx demonstrate normal swallow mechanism with normal epiglottic inversion and soft palate elevation. No tracheal penetration, glottic or subglottic aspiration identified. No nasopharyngeal reflux present. Hypopharyngeal structures appear normal without evidence of mass or diverticulum. There was no significant cricopharyngeal achalasia. Dual and single contrast images of the esophagus demonstrate normal caliber, contour, and mucosal pattern. No masses or ulcerations are identified. Esophageal peristalsis was normal. A nonobstructing Schatzki's ring is present. Surgical clips are present in the right upper quadrant. A small type I hiatal hernia is present. No significant gastroesophageal reflux was seen during the course of the examination and on reflux views. Dual contrast and single contrast images of the stomach demonstrated a normal contour. The areae gastricae have a thickened appearance, suggestive of gastritis. No masses or ulcerations are seen Contrast freely passed into the gastric antrum and duodenal bulb without delay. Single and air-contrast images of the duodenal bulb demonstrate no abnormality. The duodenal sweep has a normal appearance, course, and mucosal fold appearance. The imaged proximal jejunum has a normal fold pattern and caliber. FLUOROSCOPY TIME: 4 minutes 54 seconds Number of Spot Images: 8 Number of Cine: 14 DOSE AREA PRODUCT: 2204 uGy-m2 (microgray-meter squared) FL/FL upper GI w air w Ba Swallow IMPRESSION: 1. Small type I hiatal hernia. 2. Nonobstructing Schatzki's ring. 3. Thickened appearance of the areae gastricae, suggestive of gastritis. 4. Status post cholecystectomy. This procedure was performed by Steven Covarrubias PA-C, and supervised by Dr. Felton Electronically signed by: Jesse Felton MD 09/01/2024 12:40 PM [facility] [place]
== END 2024-09-01 07:48 | disposition home or self-care (01) ==
LOC: HO.XRAY 07:47
PROVIDERS: PCP Internal Medicine; Visit Provider Nurse Practitioner Family
DX: K21.9 Gastro-esophageal reflux disease without esophagitis (principal)
CPT/HCPCS: 74246

== ENCOUNTER → 2024-09-01 07:49 | Outpatient (BNV) | payer MEDICARE, MEDICAID, SELFPAY | PROVIDERS: PCP Internal Medicine; Visit Provider Physician Assistant Surgical | DX: K44.9 Diaphragmatic hernia without obstruction or gangrene (principal) | CPT/HCPCS: 74246 ==

== ENCOUNTER 2024-09-05 07:48 | Outpatient (AMB) | payer MEDICARE, MEDICAID, SELFPAY ==
--- NOTE | 2024-09-05 07:49 | A.OFFVIS_ITS ---
Intake Visit Reasons: 4mo f/u Allergies Penicillins Adverse Reaction (Severe, Verified 09/05/24 07:49) rash Medication List - Last Reconciled 09/05/24 by RENETTA Egan cyanocobalamin (vitamin B-12) 500 mcg PO DAILY 30 days esomeprazole magnesium (Nexium) 40 mg PO DAILY levothyroxine 50 mcg PO QAM lidocaine-prilocaine 2.5-2.5 % 2.5 appl topical ONCE magnesium oxide 400 mg PO BEDTIME 30 days mirtazapine 30 mg PO QAM mirtazapine 45 mg PO BEDTIME naproxen 500 mg PO DAILY pregabalin 150 mg PO DAILY PRN riboflavin (vitamin B2) 400 mg PO DAILY 30 days HPI Comments Details: 49-year-old female presents for follow-up televideo visit to discuss sleep study and lab results, however she also would like to discuss a new onset headache. 06/30/2024 In-lab PSG, did not show sleep apnea however did show periodic limb movements of sleep (PLMS)- AHI 0.2/hour of sleep, REM AHI 0/hour O2 june 89% with average SpO2 95%, soft to moderate snoring, average heart rate 74 bpm with highest heart rate of 108 bpm, PLMS 78/hr with PLMS arousal index of 12 per hour. Interval blood work, did reveal anemia and vitamin B12 deficiency. Patient has since been referred to Hematology, and had initial consult last week. Patient is scheduled for weekly iron infusions starting today. Patient has also had consult with GI for dysphagia, and is undergoing dysphagia and celiac disease workup. When we had called to relay results of sleep study above, patient had reported that she has started to have a right-sided headache. She was taking ibuprofen multiple times every day and was having GI upset.. At that time, patient was advised to stop ibuprofen, trial Tylenol p.r.n. instead, and start riboflavin 400 mg q.a.m. and magnesium 400 mg q.h.s.- which he has done with not much effect. Pt reports she started having a constant moderate-severe right sided throbbing headache in June, some days worse than others. She denies associated symptoms of photophobia/phonophobia/nausea/dizziness. However, endorses associated symptom on activity intolerance- needs to lay down, close her eyes, and rest until her as needed ibuprofen or Tylenol kicks in. The headache can w hu her up from sleep. The headache can occur during the day or night. Denies any specific triggers- states the headache can wake her up from sleep. Denies triggers such a seating, chewing, talking. She denies precipitating causes- denies accident, infection. Her menstrual cycle is usually regular, however she has missed her recent menstrual cycle. Plans to follow-up with her resin maker. Now taking Tylenol 1500mg up to 3 x's a day. States typically she may have an occasional regular headache, triggered by heat or stress, however this headache is different. States she has a h/o migraine as a teenager but this was also different- was in different parts of her head. Interval labs: 09/21/23 07/14/24 08/29/24 13:46 08:47 13:51 WBC 5.3 RBC 5.22 RBC (Send Out) 5.21 H Hgb 9.0 L 8.9 L Hgb (Send Out) 8.8 L Hct 29.7 L 29.4 L Hct (Send Out) 30.3 L MCV 57.3 L 56.3 L MCV (Send Out) 58.2 L MCH 17.4 L 17.0 L MCH (Send Out) 16.9 L MCHC 30.3 L 30.3 L RDW 21.3 H 20.1 H Red Cell Dist (Send Out) 20.4 H Plt Count 373 357 Immature Gran % (Auto) 0.4 0.4 Neut % (Auto) 66.4 56.8 Lymph % (Auto) 20.4 26.2 [place] % (Auto) 9.5 11.2 H Eos % (Auto) 2.5 4.5 H Baso % (Auto) 0.8 0.9 Lymph # (Auto) 1.1 L 1.4 [place] # (Auto) 0.5 0.6 Eos # (Auto) 0.1 0.2 Baso # (Auto) 0.0 0.1 Abs Immat Gran (auto) 0.02 0.02 Absolute Neuts (auto) 3.4 3.0 Nucleated RBC % (auto) 0.0 0.0 ESR 12 Absolute Retic 0.068 Percent Retic 1.3 Immature Retic Fraction 25.4 H Retic Hgb Equivalent 18.3 L Hemoglobin A 72.1 L Hemoglobin A2 3.0 Hemoglobin F <1.0 Sodium 136 Potassium 3.8 Chloride 106 Carbon Dioxide 22 Anion Gap 12 BUN 7 L Creatinine 0.74 Estimated GFR > 60 Random Glucose 92 Calcium 8.8 Magnesium 2.3 Iron 14 L TIBC 367 % Saturation 4 L Unsat Iron Binding 353 Ferritin 6 L 6 L Total Bilirubin 0.3 AST 22 ALT 9 Alkaline Phosphatase 59 Lactate Dehydrogenase 190 Total Creatine Kinase 105 C-React Prot High Sens 2.2 Total Protein 6.8 Albumin 3.8 Vitamin B12 192 L Methylmalonic Acid 121 Folate 6.7 25-OH Vitamin D Total 40 25-Hydroxy Vitamin D2 <4 25-Hydroxy Vitamin D3 40 Homocysteine 16.1 H TSH 3.32 05/10/2024 initial HPI: 49-yr-old female presents for new in-person patient visit for sleep consultation. Patient reports she has had sleep difficulties for a long time. She is concerned that she has sleep apnea, as her mother has sleep apnea and needs to use a CPAP. Pt herself reports snoring, gasping arousals, difficulty sleeping. Sleep questionnaire: Have you ever been diagnosed with a sleep disorder? No Have you ever had a sleep study in the past? No Have you ever been treated for a sleep disorder? No Do you take medications for a sleep disorder? No Do you have difficulty initiating sleep? Yes Do you have difficulty maintaining sleep? Yes Wakes up many times per night. Do you wake up tired? Yes Do you have daytime tiredness or fatigue? Yes Do you easily fall asleep when inactive? Yes Do you snore? Yes Do you wake up gasping at night? Yes Do you have episodes of apneas? No Do you have episodes of nocturnal chest pain or dyspnea? Discomfort in her throat when she cannot breathe well at night. Do you have bruxism? Yes If yes, do you wear a mouth guard when sleeping? No Do you have headaches upon awakening? Yes. Wakes up everyday with headache- throbbing holocranial a/w dizziness. Do you wake up with dry mouth or throat? Dry throat Do you have GERD? Yes. Takes Omeprazole which helps. Do you have nocturia? Yes- has abd pressure r/t abd hernia Do you have nocturnal leg cramps? At times, more so in LLE has h/o left bunion surgery x's 2 (hardware has been removed). Do you have symptoms of restless legs? Yes, and has Urge to move, Restlessness/jerkiness, Creepy crawling sensation, Cramps. Starts in the evening. Do you act out your dreams? Denies Do you have sleep paralysis? Denies Do you have drop attacks? Denies Do you ever have hypnogenic hallucinations? Denies Hypersomnolence questionnaire: Have you ever had episodes of sudden weakness? No Have you ever had episodes of sudden weakness associated with strong emotions? No Sleep hygiene questionnaire: What is your usual sleep routine? Goes to bedroom around 5-6pm and spends time in her room, with usual bedtime is at 10-11pm; Usual wake-up time is at 7-10am. Do you take naps? No Is your sleep environment cool, dark, and quiet? Yes Do you exercise? None- limited by her foot pain. Do you take caffeine or other stimulants? Coffee and Coke- 6-7 12 oz cans per day- last drink up to 3am. Do you use electronics in bed? Watches TV in her room. What is your work schedule? On disability. [facility] Medical History Bilateral chronic knee pain Chronic back pain Fibromyalgia Chronic pain in left foot Anxiety Depression Hypothyroidism Social History Household Members: Family Patient Tobacco Use Status: Never used Tobacco Current occupational status: unemployed Gender identity: Female Physical Exam Const General: cooperative and no acute distress Orientation/consciousness: patient oriented x3 Resp Effort & Inspection: normal respiratory effort and able to speak in complete sentences Neuro General: patient oriented x3 Cognition (Neuro): normal cognition Psych Appearance: grossly normal Mental Status: mental status grossly normal Speech and movement: Normal speech and movement present Affect: normal affect Attitude: cooperative Telehealth Telehealth Telehealth Platform: 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 Code(s): G25.81 - Restless legs syndrome Category: Medical Plan Reviewed results of in-lab sleep study, no evidence for sleep apnea, however study does demonstrate some snoring and significant periodic limb movements of sleep. Reviewed labs, notable for anemia, iron/ferritin deficiency, vitamin B12 deficiency, Follow-up with Hematology for iron infusions as scheduled. Follow-up with GI for dysphagia and celiac disease workup as scheduled. ENT consult as previously ordered. For new onset headache: Patient is advised to undergo brain MRI w/wo to assess for secondary intracranial etiologies for new onset constant moderate to severe right side locked headache, suggestive of a new daily persistent headache phenotype. Continue riboflavin 400 mg q.a.m. Continue magnesium 400 mg q.h.s. Trial Topiramate 25-50 mg q.h.s.. Potential adverse effects of Topiramate, include but are not limited to fatigue, cognitive changes, paresthesias (tingling), vision changes, kidney stones. Trial Sumatriptan 100mg tab, 1/2 - 1 tab (50-100mg) at onset of headache, may repeat in 2 hours. Max of 2 tabs (200mg) per 24 hours. May take sumatriptan with OTC Tylenol 650-1,000mg every 4-6 hours prn. Potential adverse effects of triptans, include but are not limited to nausea, fatigue, chest tightness/tingling (usually passes within a few minutes), medication overuse headaches. OTC mouth guard for bruxism. Future considerations- oral surgeon, PT. Orders: Orders MR head/brain wo/w con Today R51.9 - Headache, unspecified Medications: New sumatriptan succinate max 2 tabs per day or 4 tabs/week (may take with Tylenol) 100 mg PO Q2H 30 days PRN 12 tabs 6RF migraine headache topiramate 25 - 50 mg (1 - 2 x 25 mg) PO BEDTIME 30 days 60 tabs 3RF Coding Level of Care Code Tele Est Pt Level 4 (73368) Diagnoses New onset headache R51.9 Snoring R06.83 Retrognathia M26.19 Excessive daytime sleepiness G47.19 RLS (restless legs syndrome) G25.81
== END 2024-09-05 14:48 | disposition home or self-care (01) ==
PROVIDERS: PCP Internal Medicine; Visit Provider Nurse Practitioner Family
DX: R51.9 Headache, unspecified (principal); R06.83 Snoring; M26.19 Other specified anomalies of jaw-cranial base relationship; G47.19 Other hypersomnia; G25.81 Restless legs syndrome
CPT/HCPCS: 98016; 99214

== ENCOUNTER → 2024-09-05 07:48 | Outpatient (BNVA) | payer MEDICARE, MEDICAID, SELFPAY | PROVIDERS: PCP Internal Medicine; Visit Provider Nurse Practitioner Family ==

== ENCOUNTER 2024-09-11 13:16 | Outpatient (AMB) | payer MEDICARE, MEDICAID, SELFPAY ==
[2024-09-11 13:21] VITALS: BP 108/56; PULSE 82; O2SAT 98; BMI 30.5
--- NOTE | 2024-09-11 13:21 | MHC.OFFVIS ---
Vital Signs 09/11/24 13:21 Height 5 ft 1 in Weight 161 lb 6.054 oz BMI 30.5 BP 108/56 L Blood Pressure Location Rt brachial Position Sitting Pulse 82 Pulse Source Pulse Oximeter Pulse Oximetry (%) 98 Oxygen Delivery Method Room Air Intake Visit Reasons: Discuss colo/egd Intake Note: ESTABLISHED PATIENT Reason; 1 mos FU. BA FL and Labs done. Changes/concerns? No significant GI concerns per pt. Financial Analyst Intern Required: No Allergies Penicillins Adverse Reaction (Severe, Verified 09/11/24 13:24) rash HPI HPI Discuss colo/egd: Details: LAST VISIT Dysphagia GERD (gastroesophageal reflux disease) Postprandial abdominal bloating Postprandial epigastric pain Plan Will rule out celiac. Patient will go for upper GI with barium swallow in the meantime while we waiting endoscopy. Message sent to felt cementer to schedule upper endoscopy for patient. Patient is also due to go for colonoscopy. Patient reports having upper endoscopy and colonoscopy several years ago when she lived in [place]. Denies any family history of CRC. Denies any melena, hematochezia, unintentional weight loss or ribbon like stools. Discussed with patient the importance of avoiding dietary triggers and late night snacking. Staying upright for minimum 3 hours after meals discussed with patient. Patient will return in 3 months we will discuss going for upper endoscopy and colonoscopy. Patient will call our office if she will have worsening symptoms or develop any other GI concerning symptoms. She is agreeable to this plan and verbalizes understanding of instructions. She was given the opportunity to ask questions and all questions. ? Thank you for allowing me partake in her care Orders Orders Transglutaminase IgA Today R10.9 FL upper GI w Ba Swallow Today K21.9, R13.10 Transglutaminase Ab IgG Today R10.9 Medications New esomeprazole magnesium (Nexium) 40 mg PO DAILY 30 caps 5RF K21.9 TODAY'S VISIT Patient is here today for follow-up. Patient reports that she has been doing well since last visit. Patient is taking as omeprazole daily. Trying to avoid dietary triggers. History of anemia. Patient reports blood transfusions in the past when she lived in [place]. Patient was seen by Hematology and is set up for iron infusion. She is due start iron infusion tomorrow for the next 6 weeks. Patient denies melena, hematochezia, anal weight loss or ribbon like stools. No family history of CRC. No trouble with anesthesia in the past. Not on any anticoagulation medication. Patient does report having menstruation. Upper GI Barium swallow x-ray showed nonobstructive Schatzki ring, thickened appearance of the areae gastricae suggestive of gastritis. Patient denies any dyspepsia, dysphagia or odynophagia. [facility] Medical History Bilateral chronic knee pain Chronic back pain Fibromyalgia Chronic pain in left foot Anxiety Depression Hypothyroidism Social History Household Members: Family Patient Tobacco Use Status: Never used Tobacco Current occupational status: unemployed Gender identity: Female Review of Systems Const Denies weight gain and Denies weight loss ENT Reports no additional complaints, Denies dysphagia and Denies odynophagia Card Reports no additional complaints Resp Reports no additional complaints GI Denies abdominal pain, Denies belching, Denies melena, Denies bloating, Denies change in bowel habits, Denies dysphagia, Denies excessive flatus, Denies dyspepsia, Reports heartburn (Improved), Denies diarrhea, Denies loose stools, Denies nausea, Denies odynophagia and Denies vomiting Reports no additional complaints Musc Reports no additional complaints Neuro Reports no additional complaints Psych Reports no additional complaints Endo Reports no additional complaints Physical Exam Vital Signs: Last Vital Signs Pulse 82 09/11/24 13:21 BP 108/56 L 09/11/24 13:21 Pulse Ox 98 09/11/24 13:21 Oxygen Delivery Method Room Air 09/11/24 13:21 BMI result Body Mass Index 30.5 Const General: healthy appearing and no acute distress Nutritional Appearance: obese Orientation/consciousness: patient oriented x3 Resp Effort & Inspection: normal respiratory effort, able to speak in complete sentences, no tracheal deviation and symmetric chest movement Auscultation: clear to auscultation bilaterally Cardio Rate: regular rate GI Inspection: Yes normal to inspection, No distended and Yes obesity Palpation (GI): Soft to palpation, not firm, nontender and No hepatosplenomegaly present Auscultation: normal bowel sounds General: Yes no CVA tenderness Back/Spine/Pelvis Back: no CVA tenderness Skin General skin exam: elasticity normal, turgor normal and dry skin Neuro General: patient oriented x3 Psych Appearance: grossly normal Mental Status: mental status grossly normal Results Reviewed Results Reviewed: UPPER GI BARIUM SWALLOW X-RAY 09/01/2024 FINDINGS: Lateral cine images of the oropharynx and hypopharynx demonstrate normal swallow mechanism with normal epiglottic inversion and soft palate elevation. No tracheal penetration, glottic or subglottic aspiration identified. No nasopharyngeal reflux present. Hypopharyngeal structures appear normal without evidence of mass or diverticulum. There was no significant cricopharyngeal achalasia. Dual and single contrast images of the esophagus demonstrate normal caliber, contour, and mucosal pattern. No masses or ulcerations are identified. Esophageal peristalsis was normal. A nonobstructing Schatzki's ring is present. Surgical clips are present in the right upper quadrant. A small type I hiatal hernia is present. No significant gastroesophageal reflux was seen during the course of the examination and on reflux views. Dual contrast and single contrast images of the stomach demonstrated a normal contour. The areae gastricae have a thickened appearance, suggestive of gastritis. No masses or ulcerations are seen Contrast freely passed into the gastric antrum and duodenal bulb without delay. Single and air-contrast images of the duodenal bulb demonstrate no abnormality. The duodenal sweep has a normal appearance, course, and mucosal fold appearance. The imaged proximal jejunum has a normal fold pattern and caliber. FLUOROSCOPY TIME: 4 minutes 54 seconds Number of Spot Images: 8 Number of Cine: 14 DOSE AREA PRODUCT: 2204 uGy-m2 (microgray-meter squared) FL/FL upper GI w air w Ba Swallow IMPRESSION: 1. Small type I hiatal hernia. 2. Nonobstructing Schatzki's ring. 3. Thickened appearance of the areae gastricae, suggestive of gastritis. 4. Status post cholecystectomy. Assessment & Plan Assessment & Plan (1) Iron deficiency: Code(s): E61.1 - Iron deficiency Category: Medical (2) Anemia: Code(s): D64.9 - Anemia, unspecified Category: Medical Qualifiers: Anemia type: iron deficiency Iron deficiency anemia type: other iron deficiency Qualified Code(s): D50.8 - Other iron deficiency anemias (3) GERD (gastroesophageal reflux disease): Code(s): K21.9 - Gastro-esophageal reflux disease without esophagitis Category: Medical Qualifiers: Esophagitis presence: esophagitis presence not specified Qualified Code(s): K21.9 - Gastro-esophageal reflux disease without esophagitis (4) Dysphagia: Code(s): R13.10 - Dysphagia, unspecified Category: Medical Qualifiers: Dysphagia type: pharyngoesophageal phase Qualified Code(s): R13.14 - Dysphagia, pharyngoesophageal phase (5) Postprandial abdominal bloating: Code(s): R14.0 - Abdominal distension (gaseous) (6) Postprandial epigastric pain: Code(s): R10.13 - Epigastric pain (7) Screen for colon cancer: Code(s): Z12.11 - Encounter for screening for malignant neoplasm of colon Plan Patient will be scheduled for upper endoscopy and colonoscopy. Message sent to surgical schedulers and patient will be sent to speak with them. Patient denies melena, hematochezia, unintentional weight loss or ribbon like stools. Patient reports that she is moving her bowels without any issues. Patient states that Nexium has been helpful. Patient denies any dyspepsia, dysphagia or odynophagia. Patient denies any family history of colorectal cancer. No issues with anesthesia in the past. No history of sleep apnea. Not on any anticoagulation medication. Patient denies any cardiac or respiratory symptoms. I will see her after the procedure. Patient is agreeable to this plan and verbalizes understanding of instructions. She was given the opportunity to ask questions and all questions answered. Thank you for allowing me to participate in her care Medications: New bisacodyl (Dulcolax (bisacodyl)) take 4 tabs at noon the day before your colonoscopy 20 mg (4 x 5 mg) PO ONCE 4 tabs 0RF 1 day Z12.11 - Encounter for screening for malignant neoplasm of colon polyethylene glycol 3350 (Miralax) As directed by gastroenterology department at [facility] 238 grams PO ONCE 238 grams 0RF Z12.11 - Encounter for screening for malignant neoplasm of colon Coding Level of Care Code Est Pt Level 4 (02379) Diagnoses Iron deficiency E61.1 Other iron deficiency anemia D50.8 Anemia type: iron deficiency Iron deficiency anemia type: other iron deficiency Gastroesophageal reflux disease, unspecified whether esophagitis present K21.9 Esophagitis presence: esophagitis presence not specified Pharyngoesophageal dysphagia R13.14 Dysphagia type: pharyngoesophageal phase Postprandial abdominal bloating R14.0 Postprandial epigastric pain R10.13 Screen for colon cancer Z12.11 Time Spent (min) 40 Comment 25 minutes spent with patient and additional 15 minutes spent reviewing her records
== END 2024-09-11 15:42 | disposition home or self-care (01) ==
PROVIDERS: PCP Internal Medicine; Visit Provider Nurse Practitioner Family
DX: D50.8 Other iron deficiency anemias (principal); K21.9 Gastro-esophageal reflux disease without esophagitis; R13.14 Dysphagia, pharyngoesophageal phase; R14.0 Abdominal distension (gaseous); Z12.11 Encounter for screening for malignant neoplasm of colon
CPT/HCPCS: 99214

== ENCOUNTER → 2024-09-11 13:16 | Outpatient (BNVA) | payer MEDICARE, MEDICAID, SELFPAY | PROVIDERS: PCP Internal Medicine; Visit Provider Nurse Practitioner Family | DX: Z12.11 Encounter for screening for malignant neoplasm of colon (principal); K21.9 Gastro-esophageal reflux disease without esophagitis; R13.14 Dysphagia, pharyngoesophageal phase; R14.0 Abdominal distension (gaseous); R10.13 Epigastric pain; D50.8 Other iron deficiency anemias | CPT/HCPCS: 99212 ==

== ENCOUNTER 2024-09-25 09:10 | Outpatient (REF) | payer MEDICARE, SELFPAY ==
--- NOTE | ~2024-09-25 | MR_ITS ---
EXAMINATION: MR BRAIN WITHOUT THEN WITH IV CONTRAST HISTORY: R51.9 - Headache, unspecified TECHNIQUE: Sagittal T1, and axial T1, FLAIR, T2, gradient echo, and diffusion weighted MR images of the brain were obtained. Subsequently, axial, and coronal T1-weighted images were obtained after the administration of intravenous gadolinium. 7 mL Gadavist was administered. COMPARISON: None FINDINGS: A single nonspecific white matter hyperintensities seen in the subcortical right frontal lobe. Noel/white differentiation is otherwise normal. There is no mass effect or midline shift. The ventricular system is normal in size and configuration. No intra or extra-axial fluid collections are identified. There are no foci of restricted diffusion. There is no abnormal contrast enhancement. Normal vascular flow voids are noted in the basilar and carotid arteries. There is mild mucosal thickening in the dependent portions of the bilateral maxillary sinuses. MR/MR head/brain wo/w con IMPRESSION: Essentially unremarkable MRI of the brain without and with contrast. Electronically signed by: Nitish Lin MD 09/25/2024 10:49 AM [facility]
--- OUTSIDE RECORDS SUMMARY | 2024-09-25 09:27 | XMS_ITS | Encounter Summary ---
Author Organization [employer] Address [address] [place] [address] Care Team Providers Care Ammunition Components Inspector Name Role Phone Richie Raines MD Primary Care Prov ider Encounter Details Date Type Department Care Team (Latest Contact Info) Description 09/21/2024 Travel Social History Tobacco Use Types Packs/Day Years Used Date Smoking Tobacco: Never Passive Smoke Exposure: Never Smokeless Tobacco: Never Alcohol Use Standard Drinks/Week Comments Never 0 (1 standard drink = 0.6 oz pur e alcohol) Depression Answer Date Recorded Patient Health Questionnaire-9 Score 0 08/10/2023 Patient Health Questionnaire-9 Score 0 08/10/2023 Last PHQ-9: Questionnaire Data Not on file 1 10/11/2022 Housing Stability Answer Date Recorded What is your housing situation today? I have eros rose 08/10/[address] you li ve. Do you have problems with any of the following? None of the above 08/10/2023 Food Insecurity Answer Date Recorded Within the past 12 months, y ou worried that your food would run out before you got money to buy more: Never True 08/10/2023 Within the past 12 months,th e food you bought just didn't last and you didn't have enough money to get more: Never True Transportation Answer Date Recorded In the past 12 months, has l ack of transportation kept you from medical appts, meetings, work or from getting things needed for daily living? I am not sure 08/10/2023 Utilities Answer Date Recorded In the past 12 months, has t he electric, gas, oil or water company threatened to shut off services in your home? I am not sure 08/10/2023 Depression Answer Date Recorded Patient Health Questionnaire-2 Score 0 08/10/2023 Comments No Sex and Gender Information Value Date Recorded Sex Assigned at Female 03/22/2023 10:40 AM EDT Legal Sex Female 4:11 PM EDT Gender Identity Female 03/22/2023 10:40 AM EDT Sexual Orientation Don't know 08/10/2023 2: 41 PM EST Sexual Orientation Demisexual 08/10/2023 2: 41 PM EST documented as of this encounter Plan of Treatment Upcoming Encounters Date Type Department Care Team (Late st Contact Info) Description 10/05/2024 9:00 AM EST Office Visit [facility] [address] [place] [address] Richie Raines MD [address] [place] [address] documented as of this encounter Visit Diagnoses Not on filedocumented in this encounter Additional Health Concerns Assessment Noted Time PHQ-9 Depression Total Score: 0 08/10/20 2:42 PM EST documented as of this encounter Care Teams Ammunition Components Inspector Relationship Specialty Start Date End Date Richie Raines MD [address] [place] [address] PCP - General Internal Medicine 08/19/23 documented as of this encounter
--- OUTSIDE RECORDS SUMMARY | 2024-09-25 09:27 | XMS_ITS | Encounter Summary ---
Author Organization [employer] Address [address] [facility] 7t [place] [address] Care Team Providers Care Artificial Limb Maker Name Role Phone Richie Raines MD Primary Care Prov ider Encounter Details Date Type Department Care Team ([facility] st Contact Info) Description 04/09/2024 Orders Only [facility] CHC MED & PEDS [address] [place], [place] [phone] Richie Raines MD [address] [place] [address] Social History Tobacco Use Types Packs/Day Years [...] Upcoming Encounters Date Type Department Care Team ([facility] st Contact Info) Description 10/05/2024 9:00 AM EST Office Visit [facility] MED & PEDS [address] [place] [address] Richie Raines MD [address] [place] [address] documented as of this encounter Visit Diagnoses Not on filedocumented in this encounter Additional Health Concerns Assessment Noted Time PHQ-9 Depression Total Score: 0 08/10/20 2:42 PM EST documented as of this encounter Care Teams Artificial Limb Maker Relationship Specialty Start Date End Date Richie Raines MD [address] [place] [address] PCP - General Internal Medicine 08/19/23 documented as of this encounter
--- OUTSIDE RECORDS SUMMARY | 2024-09-25 09:27 | XMS_ITS | Encounter Summary ---
Author Organization [employer] Address [address] [facility] 7t [place] [address] Care Team Providers Care Dental Biller Name Role Phone Richie Raines MD Primary Care Prov ider Encounter Details Date Type Department Care Team ([facility] st Contact Info) Description 09/28/2023 Telephone [facility] CHC MED & PEDS [address] [place], [place] [phone] Richie Raines MD [address] [place] [address] Social History Tobacco Use Types Packs/Day Years [...] Upcoming Encounters Date Type Department Care Team ([facility] st Contact Info) Description 10/05/2024 9:00 AM EST Office Visit [facility] MED & PEDS [address] [place] [address] Richie Raines MD [address] [place] [address] documented as of this encounter Visit Diagnoses Not on filedocumented in this encounter Additional Health Concerns Assessment Noted Time PHQ-9 Depression Total Score: 0 08/10/20 2:42 PM EST documented as of this encounter Care Teams Dental Biller Relationship Specialty Start Date End Date Richie Raines MD [address] [place] [address] PCP - General Internal Medicine 08/19/23 documented as of this encounter
--- OUTSIDE RECORDS SUMMARY | 2024-09-25 09:27 | XMS_ITS | Encounter Summary ---
Author Organization [employer] Address [address] [facility] 7t [place] [address] Care Team Providers Care Him Clerk Name Role Phone Richie Raines MD Primary Care Prov ider Encounter Details Date Type Department Care Team (Late st Contact Info) Description 09/01/2024 Orders Only [facility] External Provider, [facility] Social History Tobacco Use Types Packs/Day Years [...] Upcoming Encounters Date Type Department Care Team ([facility] st Contact Info) Description 10/05/2024 9:00 AM EST Office Visit [facility] CHC MED & PEDS [address] [place] [address] Richie Raines MD [address] [place] [address] documented as of this encounter Procedures Procedure Name Priority Date/Time Associated Diagnosis Comments FL UPPER GI W AIR W BARIUM SWALLOW Routine 09/01/2024 7:49 AM EST documented in this encounter Results * FL Upper GI w/air w/Barium Swallow (09/01/2024 7:49 AM EST) Anatomical Region Laterality Modality Body Radiographic Mariana ging 09/01/2024 7:49 AM EST Narrative 09/01/2024 12:43 PM EST ? [facility] ?[address] ?[place] [address] ? Fluoroscopy Report ? Signed ? Patient: Deandra Vallejo,Chhaya ?MR#: ?? [id number] ? : 1975 ?Acct:[id number] ? Age/Sex: 49 / F ?ADM Date: 01/10/25 ? Loc: HO.XRAY ? Attending : Deidre Dowling DIESEL ELECTRICIAN-BC ? Ordering Physician: Deidre Dowling [facility] ?? Date of Service: 09/01/24 ?? Procedure(s): FL upper GI w air w Ba Swallow ?? Accession Number(s): [id number] ? cc: Lolly French MD; Deidre Dowling [facility] ? EXAMINATION: ?? XR FLUOROSCOPY UPPER GI WITH AIR ? CLINICAL INFORMATION: ?? Reflux. Dysphagia. ? COMPARISON: ?? None ? TECHNIQUE: ?? Fluoroscopic air contrast upper GI examination was performed utilizing ?? standard techniques with thin and thick barium and effervescent ?? granules. Numerous spot images were obtained. ? FINDINGS: ?? Lateral cine images of the oropharynx and hypopharynx demonstrate ?? normal swallow mechanism with normal epiglottic inversion and soft ?? palate elevation. No tracheal penetration, glottic or subglottic ?? aspiration identified. No nasopharyngeal reflux present. Hypopharyngeal ?? structures appear normal without evidence of mass or diverticulum. ?? There was no significant cricopharyngeal achalasia. ? Dual and single contrast images of the esophagus demonstrate normal ?? caliber, contour, and mucosal pattern. No masses or ulcerations are ?? identified. Esophageal peristalsis was normal. A nonobstructing ?? Schatzki's ring is present. ? Surgical clips are present in the right upper quadrant. ? A small type I hiatal hernia is present. No significant ?? gastroesophageal reflux was seen during the course of the examination ?? and on reflux views. ? Dual contrast and single contrast images of the stomach demonstrated a ?? normal contour. The areae gastricae have a thickened appearance, ?? suggestive of gastritis. No masses or ulcerations are seen Contrast ?? freely passed into the gastric antrum and duodenal bulb without delay. ? Single and air-contrast images of the duodenal bulb demonstrate no ?? abnormality. The duodenal sweep has a normal appearance, course, and ?? mucosal fold appearance. The imaged proximal jejunum has a normal fold ?? pattern and caliber. ? FLUOROSCOPY TIME: ?? 4 minutes 54 seconds ? Number of Spot Images: 8 ?? Number of Cine: 14 ? DOSE AREA PRODUCT: ?? 2204 uGy-m2 (microgray-meter squared) ? FL/FL upper GI w air w Ba Swallow ?? IMPRESSION: ?? 1. Small type I hiatal hernia. ?? 2. Nonobstructing Schatzki's ring. ?? 3. Thickened appearance of the areae gastricae, suggestive of ?? gastritis. ? 4. Status post cholecystectomy. ? This procedure was performed by Steven Covarrubias PA-C, and supervised by ?? Dr. Felton ? Electronically signed by: ??Jesse Felton MD ??09/01/2024 12:40 PM EST RP ? Dictated By: ?Steven Covarrubias ? Signed By: ?<Electronically signed by Steven Covarrubias in OV> ? 09/01/24 124 ?<Electronically signed by Jesse Felton MD in OV> ? 09/01/24 124 ? DD/ 0749 ? TD/TT: 09/01/24 0836 ? Burner Tender: ? Procedure Note Donotuseinterpreter, Image - 09/01/2024 [place] [id number] Fluoroscopy Report Signed Patient: Shelia Dey#: [id number] : 1975Acct:[id number] Age/Sex: 49 / FADM Date: 09/01/24 Loc: [facility] Attending Dr: Deidre Dowling DIESEL ELECTRICIAN- Ordering Physician: Deidre Dowling Date of Service: 09/01/24 Procedure(s): FL upper GI w air w Ba Swallow Accession Number(s): [id number] cc: Lolly French MD; Deidre Dowling DIESEL ELECTRICIANTRACE EXAMINATION: XR FLUOROSCOPY UPPER GI WITH AIR CLINICAL INFORMATION: Reflux. Dysphagia. COMPARISON: None TECHNIQUE: Fluoroscopic air contrast upper GI examination was performed utilizing standard techniques with thin and thick barium and effervescent granules. Numerous spot images were obtained. FINDINGS: Lateral cine images of the oropharynx and hypopharynx demonstrate normal swallow mechanism with normal epiglottic inversion and soft palate elevation. No tracheal penetration, glottic or subglottic aspiration identified. No nasopharyngeal reflux present. Hypopharyngeal structures appear normal without evidence of mass or diverticulum. There was no significant cricopharyngeal achalasia. Dual and single contrast images of the esophagus demonstrate normal caliber, contour, and mucosal pattern. No masses or ulcerations are identified. Esophageal peristalsis was normal. A nonobstructing Schatzki's ring is present. Surgical clips are present in the right upper quadrant. A small type I hiatal hernia is present. No significant gastroesophageal reflux was seen during the course of the examination and on reflux views. Dual contrast and single contrast images of the stomach demonstrated a normal contour. The areae gastricae have a thickened appearance, suggestive of gastritis. No masses or ulcerations are seen Contrast freely passed into the gastric antrum and duodenal bulb without delay. Single and air-contrast images of the duodenal bulb demonstrate no abnormality. The duodenal sweep has a normal appearance, course, and mucosal fold appearance. The imaged proximal jejunum has a normal fold pattern and caliber. FLUOROSCOPY TIME: 4 minutes 54 seconds Number of Spot Images: 8 Number of Cine: 14 DOSE AREA PRODUCT: 2204 uGy-m2 (microgray-meter squared) FL/FL upper GI w air w Ba Swallow IMPRESSION: 1. Small type I hiatal hernia. 2. Nonobstructing Schatzki's ring. 3. Thickened appearance of the areae gastricae, suggestive of gastritis. 4. Status post cholecystectomy. This procedure was performed by Steven Covarrubias PA-C, and supervised by Dr. Felton Electronically signed by: Jesse eFlton MD 09/01/2024 12:40 PM EST RP Dictated By: Steven Covarrubias Signed By: <Electronically signed by Steven Covarrubias in OV> 09/01/24 1240 <Electronically signed by Jesse Felton MD in OV> 09/01/24 1242 DD/ 0749 TD/TT: 09/01/24 0836 Burner Tender: [facility] External Provider IMG FLU OROSCOPY PROCEDURES Final Result documented in this encounter Visit Diagnoses Not on filedocumented in this encounter Additional Health Concerns Assessment Noted Time PHQ-9 Depression Total Score: 0 08/10/20 2:42 PM EST documented as of this encounter Care Teams Him Clerk Relationship Specialty Start Date End Date Richie Raines MD [address] [place] [address] PCP - General Internal Medicine 08/19/23 documented as of this encounter
--- OUTSIDE RECORDS SUMMARY | 2024-09-25 09:27 | XMS_ITS | Encounter Summary ---
Author Organization [employer] Address [address] [facility] 7t [place] [address] Care Team Providers Care Early Intervention Specialist Name Role Phone Richie Raines MD Primary Care Prov ider Encounter Details Date Type Department Care Team ([facility] st Contact Info) Description 11/22/2023 Orders Only [facility] CHC MED & PEDS [address] [place], [place] [phone] Matthias Maria MD [address] [place] [address] Pain in both knees, unspecified chronicity (Primary Dx) Social History Tobacco Use Types Packs/Day Years [...] Upcoming Encounters Date Type Department Care Team ([facility] st Contact Info) Description 10/05/2024 9:00 AM EST Office Visit [facility] MED & PEDS [address] [place] [address] Richie Raines MD [address] [place] [address] documented as of this encounter Visit Diagnoses Diagnosis Pain in both knees, unspecified chronicity- Primary documented in this encounter Additional Health Concerns Assessment Noted Time PHQ-9 Depression Total Score: 0 08/10/20 2:42 PM EST documented as of this encounter Care Teams Early Intervention Specialist Relationship Specialty Start Date End Date Richie Raines MD [address] [place] [address] PCP - General Internal Medicine 08/19/23 documented as of this encounter
--- OUTSIDE RECORDS SUMMARY | 2024-09-25 09:27 | XMS_ITS | Encounter Summary ---
Author Organization [employer] Address [address] [facility] 7t [place] [address] Care Team Providers Care Lumber Grader Name Role Phone Richie Raines MD Primary Care Prov ider Reason for Visit * Reason Onset Date Comments Results 07/24/2024 Encounter Details Date Type Department Care Team (Late st Contact Info) Description 07/24/2024 Telephone [facility] MEDICINE [address] [place] [address] Richie Raines MD [address] [place], [place] [phone] Results Social History Tobacco Use Types Packs/Day Years [...] PM EST documented as of this encounter Miscellaneous Notes * Telephone Encounter - Yeni Orosco - 07/24/2024 11:22 AM EST Tc from pt requesting lab results and sleep study results. Please contact at [phone] Tongan documented in this encounter Plan of Treatment Upcoming Encounters Date Type Department Care Team (Late st Contact Info) Description 10/05/2024 9:00 AM EST Office Visit [facility] MED & PEDS [address] [place] [address] Richie Raines MD [address] [place] [address] documented as of this encounter Visit Diagnoses Not on filedocumented in this encounter Additional Health Concerns Assessment Noted Time PHQ-9 Depression Total Score: 0 08/10/20 2:42 PM EST documented as of this encounter Care Teams Lumber Grader Relationship Specialty Start Date End Date Richie Raines MD [address] [place] [address] PCP - General Internal Medicine 08/19/23 documented as of this encounter
--- OUTSIDE RECORDS SUMMARY | 2024-09-25 09:27 | XMS_ITS | Encounter Summary ---
Author Organization [employer] Address [address] [facility] 7t [place] [address] Care Team Providers Care Clerical Office Name Role Phone Richie Raines MD Primary Care Prov ider Reason for Referral * Imaging (Urgent) - Authorized Specialty Diagnoses / Procedures Referred By Contac t Referred To Contact Radiology Diagnoses Menorrhagia with regular cycle Procedures Us Pelvis complete Elizabeth Ring CNM [address] [place] [address] Phone: tel: fax: [address] Phone: tel: fax: Referral ID Status Reason Start Date Expiration Date V isits Requested Visits Authorized [id number] Authorized 09/21/2024 09/21/2025 1 1 * Imaging (Urgent) - Authorized Specialty Diagnoses / Procedures Referred By Contac t Referred To Contact Radiology Diagnoses Menorrhagia with regular cycle Procedures US Pelvis Transvaginal Elizabeth Ring CNM [address] [place] [address] Phone: tel: fax: [address] Phone: tel: fax: Referral ID Status Reason Start Date Expiration Date V isits Requested Visits Authorized [id number] Authorized 09/21/2024 09/21/2025 1 1 Reason for Visit * Reason Comments Gynecologic Exam Encounter Details Date Type Department Care Team (Late st Contact Info) Description 09/21/2024 1:45 PM EST Office Visit [facility] MEDICINE [address] [place] [address] Elizabeth Ring CNM [address] [place] [address] Menorrhagia with regular cycle (Primary Dx) Social History Tobacco Use Types [...] PM EST documented as of this encounter Last Filed Vital Signs Vital Sign Reading Time Taken Comments Blood Pressure 121/79 09/21/2024 1:56 PM EST Pulse 100 09/21/2024 1:56 PM EST Temperature 36.1 ??C (97 ??F) 09/21/2024 1:56 PM EST Respiratory Rate 16 09/21/2024 1:56 PM EST Oxygen Saturation 98% 09/21/2024 1:56 PM EST Inhaled Oxygen Concentration - - Weight 72.2 kg (159 lb 3.2 oz) 09/21/2024 1:56 P M EST Height 154.9 cm (5' 1 ) 09/21/2024 1:56 PM EST Body Mass Index 30.08 09/21/2024 1:56 PM EST documented in this encounter Progress Notes * Elizabeth Ring CNM - 09/21/2024 1:45 PM EST Subjective Patient ID: Chhaya Vallejo is a 49 y.o. female who presents for LOGISTICS OPERATIONS MANAGER visit Pap NIL/HPV neg 08/2023. Mammogram BIRADS 3 with benign appearing right breast lymph node and left breast calcifications 09/2023. Diagnostic mammogram and ultrasound from 03/2024 BIRADS 3, cat c. No appreciable change in calcifications, 6m followup advised with routine screening due 09/2024. Has appointment 10/03. Notes some right breast tenderness which seems to correlate with previously noted lymph node. Not sexually active, no new partners. Notes menstrual interval increased recently. LMP 09/05 x 7d. Previous menses 07/25 x 8 days. Typically approx 28d cycle. Can bleed up to 10 days at times, heavily. She was told by provider in [place] that this was normal. No intermenstrual bleeding. No vasomotor symptoms. Menarche at 16. Review of Systems HENT: Negative for nosebleeds. Genitourinary: Positive for menstrual problem. Negative for dyspareunia, dysuria, frequency, genital sores, hematuria, pelvic pain, urgency, vaginal bleeding, vaginal discharge and vaginal pain. No abnormal pap, no breast mass, no nipple discharge Hematological: Does not bruise/bleed easily. Objective BP 121/79 (BP Location: Left arm, Patient Position: Sitting, BP Cuff Size: Adult) Pulse 100 Temp 97 ??F (36.1 ??C) (Temporal) Resp 16 Ht 5' 1 (1.549 m) Wt 159 lb 3.2 oz (72.2 kg) SpO2 98% BMI 30.08 kg/m?? Physical Exam Constitutional: Appearance: Normal appearance. Chest: Breasts: Right: Normal. No swelling, bleeding, inverted nipple, mass, nipple discharge, skin change or tenderness. Left: Normal. No swelling, bleeding, inverted nipple, mass, nipple discharge, skin change or tenderness. Comments: Well healed scars bilateral periareolar. Tenderness right breast at 9'oclock Genitourinary: General: Normal vulva. Labia: Right: No rash, tenderness, lesion or injury. Left: No rash, tenderness, lesion or injury. Vagina: Normal. No signs of injury and foreign body. No vaginal discharge, erythema, tenderness, bleeding or lesions. Cervix: No cervical motion tenderness, discharge, friability, lesion, erythema, cervical bleeding or eversion. Uterus: Normal. Not enlarged and not tender. Adnexa: Right adnexa normal and left adnexa normal. Right: No mass, tenderness or fullness. Left: No mass, tenderness or fullness. Lymphadenopathy: Upper Body: Right upper body: No supraclavicular or axillary adenopathy. Left upper body: No supraclavicular or axillary adenopathy. Neurological: Mental Status: She is alert. Psychiatric: Mood and Affect: Mood normal. Behavior: Behavior normal. Assessment/Plan Diagnoses and all orders for this visit: Menorrhagia with regular cycle - US Pelvis Transvaginal; Future - Us Pelvis complete; Future Normal TSH 08/2023. Will check ultrasound and call with results. May need referral for Endometrial biopsy depending on ultrasound results and menstrual pattern. Continue to track cycles. Report prolonged (more than 7 days), heavy or frequent bleeding. Report bleeding after a year of no bleeding. Pap/HPV 2028. Keep mammogram appt for 10/03 as planned. Consider referral to breast surgeon depending on results. Chronic FLOYD followed by Dr. Roche. Last vist 08/29/2024, it sounds like plan is for iron infusions. documented in this encounter Plan of Treatment Upcoming Encounters Date Type Department Care Team (Late st Contact Info) Description 10/05/2024 9:00 AM EST Office Visit [facility] MED & PEDS [address] [place] [address] Richie Raines MD [address] [place] [address] Scheduled Orders Name Type Priority Associated Diagnoses Orde r Schedule US Pelvis Transvaginal Imaging Urgent Menorrhagia with regular cycle Expected: 09/21/2024, Expires: 09/21/2025 Us Pelvis complete Imaging Urgent Menorrhagia with regular cycle Expected: 09/21/2024, Expires: 09/21/2025 documented as of this encounter Visit Diagnoses Diagnosis Menorrhagia with regular cycle- Primary documented in this encounter Additional Health Concerns Assessment Noted Time PHQ-9 Depression Total Score: 0 08/10/20 2:42 PM EST documented as of this encounter Care Teams Clerical Office Relationship Specialty Start Date End Date Richie Raines MD [address] [place] [address] PCP - General Internal Medicine 08/19/23 documented as of this encounter
--- OUTSIDE RECORDS SUMMARY | 2024-09-25 09:27 | XMS_ITS | Encounter Summary ---
Author Organization [employer] Address [address] [facility] 7t [place] [address] Care Team Providers Care Tire Setter Name Role Phone Richie Raines MD Primary Care Prov ider Reason for Visit * Reason Onset Date Comments Appointment Request 09/16/2023 Encounter Details Date Type Department Care Team (Late st Contact Info) Description 09/16/2023 Telephone [facility] MEDICINE [address] [place] [address] Richie Raines MD [address] [place], [place] [phone] Appointment Request Social History Tobacco Use Types Packs/Day Years [...] Patient Health Questionnaire-2 Score 0 08/10/2023 Comments Unknown Sex and Gender Information Value Date Recorded Sex Assigned at Female 03/22/2023 10:40 AM EDT Legal Sex Female 4:11 PM EDT Gender Identity Female 03/22/2023 10:40 AM EDT Sexual Orientation Don't know 08/10/2023 2: 41 PM EST Sexual Orientation Demisexual 08/10/2023 2: 41 PM EST documented as of this encounter Miscellaneous Notes * Telephone Encounter - Marisela Feliciano - 09/16/2023 12:40 PM EST Tc from pt daughter requesting appt with PCP, no concerns at the moment with health, but is requesting blood work. documented in this encounter Plan of Treatment Upcoming Encounters Date Type Department Care Team (Late st Contact Info) Description 10/05/2024 9:00 AM EST Office Visit [facility] CHC MED & PEDS [address] [place] [address] Richie Raines MD [address] [place] [address] documented as of this encounter Visit Diagnoses Not on filedocumented in this encounter Additional Health Concerns Assessment Noted Time PHQ-9 Depression Total Score: 0 08/10/20 2:42 PM EST documented as of this encounter Care Teams Tire Setter Relationship Specialty Start Date End Date Richie Raines MD [address] [place] [address] PCP - General Internal Medicine 08/19/23 documented as of this encounter
--- OUTSIDE RECORDS SUMMARY | 2024-09-25 09:27 | XMS_ITS | Encounter Summary ---
Author Organization [employer] Address [address] [facility] 7t [place] [address] Care Team Providers Care Dental Practice Manager Name Role Phone Richie Raines MD Primary Care Prov ider Reason for Visit * Reason Onset Date Comments Referral 02/18/2024 Encounter Details Date Type Department Care Team (Late st Contact Info) Description 02/18/2024 Telephone [facility] MEDICINE [address] [place] [address] Richie Raines MD [address] [place], [place] [phone] Referral Social History Tobacco Use Types Packs/Day Years [...] encounter Miscellaneous Notes * Telephone Encounter - Wing Stephy RN - 03/28/2024 12:33 PM EDT Please review and advise, pt is requesting a referral to pulmonology in interim until pt can see sleep medicine in April. PCP last spoke to pt on 01/21/24 via telephone visit. * Telephone Encounter - Marisela Feliciano - 03/28/2024 12:17 PM EDT Tc from pt calling back in regards below, please advise. * Telephone Encounter - Jen Ramos RN - 02/23/2024 3:51 PM EDT Please review and advise. Pt last seen on 01/21/24 for telemedicine. Pt is requesting a referral to pulmonology in the interim until pt can see sleep medicine. * Telephone Encounter - Kenneth Garcia - 02/18/2024 11:15 AM EDT Images from the original note were not included. Tc from patient calling to request a referral for a Clamp Jig Assembler states has a appt for sleep studyin April and like is having breathing problems at night and the patient would like to be seen at [facility] [address] [place] [address] [place], [address] Dr. Dipesh Contreras MD documented in this encounter Plan of Treatment Upcoming Encounters Date Type Department Care Team (Late st Contact Info) Description 10/05/2024 9:00 AM EST Office Visit [facility] MED & PEDS [address] [place] [address] Richie Raines MD [address] [place] [address] documented as of this encounter Visit Diagnoses Diagnosis Fibromyalgia Unspecified myalgia and myositis documented in this encounter Additional Health Concerns Assessment Noted Time PHQ-9 Depression Total Score: 0 08/10/20 23 2:42 PM EST documented as of this encounter Care Teams Dental Practice Manager Relationship Specialty Start Date End Date Richie Raines MD [address] [place] [address] PCP - General Internal Medicine 08/19/23 documented as of this encounter
--- OUTSIDE RECORDS SUMMARY | 2024-09-25 09:27 | XMS_ITS | Encounter Summary ---
Author Organization [employer] Address [address] [facility] 7t [place] [address] Care Team Providers Care Tugboat Engineer Name Role Phone Richie Raines MD Primary Care Prov ider Reason for Visit * Reason Comments Med Change Request Encounter Details Date Type Department Care Team ([facility] st Contact Info) Description 11/11/2023 Refill [facility] [address] [place] [address] Matthias Maria MD [address] [place] [address] Chronic bilateral low back pain without sciatica Social History Tobacco Use Types Packs/Day Years [...] Upcoming Encounters Date Type Department Care Team ([facility] st Contact Info) Description 10/05/2024 9:00 AM EST Office Visit [facility] [address] [place] [address] Richie Raines MD [address] [place] [address] documented as of this encounter Visit Diagnoses Diagnosis Chronic bilateral low back pain without sciatica documented in this encounter Additional Health Concerns Assessment Noted Time PHQ-9 Depression Total Score: 0 08/10/20 2:42 PM EST documented as of this encounter Care Teams Tugboat Engineer Relationship Specialty Start Date End Date Richie Raines MD [address] [place] [address] PCP - General Internal Medicine 08/19/23 documented as of this encounter
--- OUTSIDE RECORDS SUMMARY | 2024-09-25 09:27 | XMS_ITS | Encounter Summary ---
Author Organization [employer] Address [address] [facility] 7t [place] [address] Care Team Providers Care Resizer Operator Name Role Phone Richie Raines MD Primary Care Prov ider Reason for Visit * Reason Comments Med Refill Encounter Details Date Type Department Care Team (Late Contact Info) Description 08/05/2023 Refill [facility] [address] [place] [address] Heath Woodson MD [address] [place] [address] Social History Tobacco Use Types Packs/Day Years Used Date Smoking Tobacco: Never Passive Smoke Exposure: Never Smokeless Tobacco: Never Depression Answer Date Recorded Patient Health Questionnaire-9 Score 17 07/08/2023 Patient Health Questionnaire-9 Score 17 07/08/2023 Last PHQ-9: Questionnaire Data Not on file 1 09/07/2022 Depression Answer Date Recorded Patient Health Questionnaire-2 Score 6 07/08/2023 Comments Unknown Sex and Gender Information Value Date Recorded Sex Assigned at Female 03/22/2023 10:40 AM EDT Legal Sex Female 4:11 PM EDT Gender Identity Female 03/22/2023 10:40 AM EDT Sexual Orientation Don't know 08/10/2023 2: 41 PM EST Sexual Orientation Demisexual 08/10/2023 2: 41 PM EST documented as of this encounter Plan of Treatment Upcoming Encounters Date Type Department Care Team ([facility] Contact Info) Description 10/05/2024 9:00 AM EST Office Visit [facility] [address] [place] [address] Richie Raines MD [address] [place] [address] documented as of this encounter Visit Diagnoses Not on filedocumented in this encounter Additional Health Concerns Assessment Noted Time PHQ-9 Depression Total Score: 17 023 4:25 PM EST documented as of this encounter Care Teams Resizer Operator Relationship Specialty Start Date End Date العراقيRichie Dean MD [address] [place] [address] PCP - General Internal Medicine 08/19/23 documented as of this encounter
--- OUTSIDE RECORDS SUMMARY | 2024-09-25 09:27 | XMS_ITS | Encounter Summary ---
Author Organization [employer] Address [address] [facility] 7t [place] [address] Care Team Providers Care Electric Switch Repairer Name Role Phone Richie Raines MD Primary Care Prov ider Reason for Visit * Reason Comments Med Change Request Encounter Details Date Type Department Care Team ([facility] st Contact Info) Description 11/02/2023 Refill [facility] [address] [place] [address] Matthias Maria MD [address] [place] [address] Chronic bilateral low back pain without sciatica [...] Upcoming Encounters Date Type Department Care Team ([facility] st Contact Info) Description 10/05/2024 9:00 AM EST Office Visit [facility] [address] [place] [address] Richie Raines MD [address] [place] [address] documented as of this encounter Visit Diagnoses Diagnosis Chronic bilateral low back pain without sciatica documented in this encounter Additional Health Concerns Assessment Noted Time PHQ-9 Depression Total Score: 0 08/10/20 2:42 PM EST documented as of this encounter Care Teams Electric Switch Repairer Relationship Specialty Start Date End Date Richie Raines MD [address] [place] [address] PCP - General Internal Medicine 08/19/23 documented as of this encounter
--- OUTSIDE RECORDS SUMMARY | 2024-09-25 09:27 | XMS_ITS | Encounter Summary ---
Author Organization [employer] Address [address] [facility] 7t [place] [address] Care Team Providers Care Community Director Name Role Phone Richie Raines MD Primary Care Prov ider Reason for Visit * Reason Comments Med Refill Encounter Details Date Type Department Care Team (Late Contact Info) Description 07/29/2023 Refill [facility] [address] [place] [address] Heath Woodson MD [address] [place] [address] Social History Tobacco Use Types Packs/Day Years [...] Description 10/05/2024 9:00 AM EST Office Visit [facility] [address] [place] [address] Richie Raines MD [address] [place] [address] documented as of this encounter Visit Diagnoses Not on filedocumented in this encounter Additional Health Concerns Assessment Noted Time PHQ-9 Depression Total Score: 17 023 4:25 PM EST documented as of this encounter Care Teams Community Director Relationship Specialty Start Date End Date العراقيRichie Dean MD [address] [place] [address] PCP - General Internal Medicine 08/19/23 documented as of this encounter
--- OUTSIDE RECORDS SUMMARY | 2024-09-25 09:27 | XMS_ITS | Encounter Summary ---
Author Organization [employer] Address [address] [facility] 7 [place] [address] Care Team Providers Care Supervisor Beet End Name Role Phone Richie Raines MD Primary Care Prov ider Reason for Visit * Reason Onset Date Comments Reschedule Request 11/30/2023 Encounter Details Date Type Department Care Team (Late st Contact Info) Description 11/30/2023 Telephone [facility] MEDICINE [address] [place] [address] Richie Raines MD [address] [place], [place] [id number] Reschedule Request Social History Tobacco Use Types Packs/Day [...] encounter Miscellaneous Notes * Telephone Encounter - Andra Thompson RN - 11/30/2023 11:51 AM EDT Triage call to Pt with Guild Supervisor [employer] Equipment ID [id number]. Pt didn't answer. Left voice message to call [facility] triage line [phone] * Telephone Encounter - Raimundo Contreras - 11/30/2023 11:41 AM EDT Tc from pt requesting to reschedule today's same day visit. Please contact pt at [phone]. documented in this encounter Plan of Treatment Upcoming Encounters Date Type Department Care Team (Late st Contact Info) Description 10/05/2024 9:00 AM EST Office Visit [facility] [address] [place] [address] Richie Raines MD [address] [place] [address] documented as of this encounter Visit Diagnoses Not on filedocumented in this encounter Additional Health Concerns Assessment Noted Time PHQ-9 Depression Total Score: 0 08/10/20 23 2:42 PM EST documented as of this encounter Care Teams Supervisor Beet End Relationship Specialty Start Date End Date Richie Raines MD [address] [place] [id number] PCP - General Internal Medicine 08/19/23 documented as of this encounter
--- OUTSIDE RECORDS SUMMARY | 2024-09-25 09:27 | XMS_ITS | Encounter Summary ---
Author Organization [employer] Address [address] [facility] 7t [place] [address] Care Team Providers Care Hand Bulldozer Name Role Phone Richie Raines MD Primary Care Prov ider Reason for Visit * Reason Comments Med Refill Encounter Details Date Type Department Care Team (Late st Contact Info) Description 09/20/2023 Refill [facility] [address] [place] [address] Kaleigh Kiran, MARV [address] [place] [address] Fibromyalgia Social History Tobacco Use Types Packs/Day Years [...] 9:00 AM EST Office Visit [facility] [address] [place] [address] Richie Raines MD [address] [place] [address] documented as of this encounter Visit Diagnoses Diagnosis Fibromyalgia Unspecified myalgia and myositis documented in this encounter Additional Health Concerns Assessment Noted Time PHQ-9 Depression Total Score: 0 08/10/20 2:42 PM EST documented as of this encounter Care Teams Hand Bulldozer Relationship Specialty Start Date End Date Richie Raines MD [address] [place] [address] PCP - General Internal Medicine 08/19/23 documented as of this encounter
--- OUTSIDE RECORDS SUMMARY | 2024-09-25 09:28 | XMS_ITS | Encounter Summary ---
Author Organization [employer] Address [address] [facility] 7t [place] [address] Care Team Providers Care Rn On Site Name Role Phone Richie Raines MD Primary Care Prov ider Reason for Visit * Reason Comments Med Refill Encounter Details Date Type Department Care Team ([facility] st Contact Info) Description 08/26/2024 Refill [facility] [address] [place] [address] Richie Raines MD [address] [place], [place] [id number] Social History Tobacco Use Types Packs/Day Years [...] 10/05/2024 9:00 AM EST Office Visit [facility] [address] [place] [address] Richie Raines MD [address] [place] [address] documented as of this encounter Visit Diagnoses Not on filedocumented in this encounter Additional Health Concerns Assessment Noted Time PHQ-9 Depression Total Score: 0 08/10/20 2:42 PM EST documented as of this encounter Care Teams Rn On Site Relationship Specialty Start Date End Date Richie Raines MD [address] [place] [address] PCP - General Internal Medicine 08/19/23 documented as of this encounter
--- OUTSIDE RECORDS SUMMARY | 2024-09-25 09:28 | XMS_ITS | Clinical Summary ---
Author Organization [employer] Address [address] [facility] [address] [place] [address] Care Team Providers Care Knife Operator Name Role Phone Richie Raines MD Primary Care Prov ider Allergies Active Allergy Reactions Criticality Noted Date Comments Penicillins 03/22/2023 Medications * This document contains information received from the source organization and may not represent a complete record from that organization. DULoxetine (Cymbalta) [address] capsule Take 1 capsule (30 mg) by mouth 2 times daily. Do not crush or chew. 60 capsule 11 09/22/19 24 Active fluticasone (Flonase) 50 MCG/ACT nasal sprayIndication s:Rhinosinusiti s Administer 1 spray into each nostril in the morning. 16 g 2 10/04/19 24 Active ammonium lactate (Amlactin) 12 % creamIndication s:Flexural eczema Apply topically if needed for dry skin. 385 g 10/04/19 24 025 Active naproxen (Naprosyn) 500 MG tabletIndicatio ns:Chronic bilateral low back pain without sciatica Take 1 tablet (500 mg) by mouth if needed in the morning and at bedtime for moderate pain. 30 tablet 03/29/20 24 025 Active Omeprazole 20 MG tablet delayed-release Take 20 mg by mouth Once per day. 90 tablet 3 04/17/20 24 025 Active naproxen (Naprosyn) 500 MG tabletIndicatio ns:Chronic bilateral low back pain without sciatica TAKE 1 TABLET BY MOUTH TWICE A DAY IF NEEDED FOR MODERATE PAIN 30 tablet 05/30/20 24 Active lidocaine-prilo esther (Emla) 2.5-2.5 % creamIndication s:Pain in both knees, unspecified chronicity APPLY TOPICALLY ONCE FOR 1 DOSE DIRECTED 30 g 2 07/24/20 24 Active pregabalin (Lyrica) 150 MG capsuleIndicati ons:Fibromyalgi a TAKE 1 CAPSULE BY MOUTH TWICE A DAY 60 capsule 07/28/20 24 Active mirtazapine (Remeron) 45 MG tablet TAKE 1 TABLET BY MOUTH AT BEDTIME 30 tablet 08/28/19 25 Active levothyroxine (Synthroid, Levoxyl) 50 MCG tablet TAKE 1 TABLET BY MOUTH ONCE DAILY BEFORE BREAKFAST 30 tablet 08/28/19 25 Active mirtazapine (Remeron) 30 MG tablet TAKE 1 TABLET BY MOUTH ONCE DAILY AT BEDTIME 30 tablet 08/28/19 25 Active levothyroxine (Synthroid, Levoxyl) 50 MCG tablet Take 1 tablet (50 mcg) by mouth before breakfast. 30 tablet 3 03/29/20 24 025 Discontinued mirtazapine (Remeron) 45 MG tablet Take 1 tablet (45 mg) by mouth at bedtime. 30 tablet 3 03/29/20 24 025 Discontinued mirtazapine (Remeron) 30 MG tablet Take 1 tablet (30 mg) by mouth at bedtime. 30 tablet 3 03/29/20 24 025 Discontinued Active Problems Problem Noted Date Diagnosed Date Menorrhagia with regular cycle 09/21/2024 Rhinosinusitis 10/04/2023 Assessment & Plan (10/06/2023 8:49 AM EST): Use Flonase prn, she will call for anti histaminic if sxs seem to last longer Re consult prn fever, change in color of rhinorrhea, worsening headache Flexural eczema 10/04/2023 Assessment & Plan (01/21/2024 1:35 PM EDT): Patient wants dermatology evaluation will place referal Assessment & Plan (10/06/2023 8:50 AM EST): On axillas and perineal area. Use lac hydrin cream, avoid scented soaps and laundry detergents. Use Lotrisone cream bid x 1-2w if irritation occurs on creases, re consult prn. Weakness 10/04/2023 Assessment & Plan (10/06/2023 8:59 AM EST): Order labs to ro organic condition Counseled re more frequent low calorie/carb meals. Encouraged physical activity as tolerated. FU with PCP Obstructive sleep apnea syndrome 09/22/2023 Assessment & Plan (07/25/2024 9:40 AM EST): Seen by neurologist, test ordered by specialist but not on chart, told to follow up with specialist, will also upload into chart for review Assessment & Plan (01/21/2024 1:26 PM EDT): Patient wants to be referred to [facility] for sleep study, will send new referal Assessment & Plan (09/22/2023 12:27 PM EST): Patient with stop bang score 4 points, will refer for sleep apnea study Fibromyalgia 08/11/2023 Assessment & Plan (09/22/2023 12:24 PM EST): Renewed cymbalta and pregabalin, follow up with therapist, increase physical activity Assessment & Plan (08/11/2023 8:26 AM EST): On cymbalta and pregabalin, no changes will be made, exercise daily as tolerated Screening for colon cancer 08/11/2023 Assessment & Plan (10/06/2023 8:51 AM EST): Reportedly done in [place] less than 5y ago She will bring report at next appt and FU with PCP Assessment & Plan (08/11/2023 8:34 AM EST): Will refer to gi for screening colon cancer Encounter for preventive health examination 07/24 Assessment & Plan (10/06/2023 8:58 AM EST): Patient is encouraged to exercise moderately 4-5x/week. Counseled to increase consumption of fresh fruit, veggies and water. To have frequent and small meals. I have discussed re having protected sex at all times for STI purposes. Pat does not smoke, uses alcohol or any illicit drugs, seems to feel safe at home PAP smear: Up to date, nest one due on 2024 Adult Izs: Over due, order MMR, Hep B titers, T-spot. I recommended Influenza, Covid and Tdap but she declined. Colonoscopy done in [place], she will bring report to PCP Mammogram: Up to date, has 6mo fu on 11/2023 BMD test: NA yet Ophthalmology : Over dueTo be referred Labs: [facility] Dental visit: Over due, I gave her info re dental clinics. Assessment & Plan (08/11/2023 8:36 AM EST): Urmila had mammogram done, need to be repeated in 6 months birads 3 Screening for cervical cancer 08/11/2023 Assessment & Plan (08/11/2023 8:37 AM EST): Will refer for screening cervical cancer Problem related to stress 07/05/2023 Assessment & Plan (07/08/2023 4:51 PM EST): Patient with symptoms of depression and severe anxiety. Reason for visit was to assess symptoms, provide intervention and offer referral. Chronic pain, relocation from [place] and severe depression are exacerbating symptoms. No risk for SI, nor self-harm. Provided psychoeducation around depression, anxiety and coping mechanisms to use when experiencing chronic pain. Recommended a referral for OP individual therapy and psychopharmacology, Patient hasn't been connected with a PCP yet. Provided [facility] number to get sooner appointment for psychiatry evaluation. At this time Chhaya Vallejo meets criteria for Visit Diagnoses: Problem List Items Addressed This Visit Other Depression Anxiety Problem related to stress Patient ready to address current needs Yes Strengths include motivation and readiness to take actions. PLAN: 1. Follow up with C: Not recommended for follow-up 2. Patient goal is to be connected with services (BH and PCP) 3. Behavioral Recommendations a. Referral for OP individual therapy b. Referral for psychopharmacology (needs to be connected with PCP; provided [facility] # to get sooner appt for psych eval) c. Incorporate breathing mechanisms into daily routine to decrease symptoms d. Follow PCP recommendations regarding pain management (see PCP note) Chronic bilateral low back pain without sciatica 03/22/2023 Chronic bilateral thoracic back pain 03/22/2023 Chronic pain of both knees 03/22/2023 Chronic pain in left foot 03/22/2023 Other specified hypothyroidism 03/22/2023 Assessment & Plan (09/22/2023 12:24 PM EST): Clinically and chemically stable, no changes will be made Assessment & Plan (08/11/2023 8:25 AM EST): On levothyroxine, will place new lab order for guidance of therapy Depression 03/22/2023 Assessment & Plan (08/11/2023 8:33 AM EST): No suicidal/homicidal ideas, she used to take mirtazapine 30mg am and 45mg pm provided by her psych, she has been refer to therapist, pending psych appointment Assessment & Plan (07/08/2023 4:50 PM EST): Patient with symptoms of depression and severe anxiety. Reason for visit was to assess symptoms, provide intervention and offer referral. Chronic pain, relocation from [place] and severe depression are exacerbating symptoms. No risk for SI, nor self-harm. Provided psychoeducation around depression, anxiety and coping mechanisms to use when experiencing chronic pain. Recommended a referral for OP individual therapy and psychopharmacology, Patient hasn't been connected with a PCP yet. Provided [facility] number to get sooner appointment for psychiatry evaluation. At this time Chhaya Vallejo meets criteria for Visit Diagnoses: Problem List Items Addressed This Visit Other Depression Anxiety Problem related to stress Patient ready to address current needs Yes Strengths include motivation and readiness to take actions. PLAN: 1. Follow up with [facility]: Not recommended for follow-up 2. Patient goal is to be connected with services ( and PCP) 3. Behavioral Recommendations a. Referral for OP individual therapy b. Referral for psychopharmacology (needs to be connected with PCP; provided [facility] # to get sooner appt for psych eval) c. Incorporate breathing mechanisms into daily routine to decrease symptoms d. Follow PCP recommendations regarding pain management (see PCP note) Anxiety 03/22/2023 Assessment & Plan (07/08/2023 4:50 PM EST): Patient with symptoms of depression and severe anxiety. Reason for visit was to assess symptoms, provide intervention and offer BH referral. Chronic pain, relocation from [place] and severe depression are exacerbating symptoms. No risk for SI, nor self-harm. Provided psychoeducation around depression, anxiety and coping mechanisms to use when experiencing chronic pain. Recommended a referral for OP individual therapy and psychopharmacology, Patient hasn't been connected with a PCP yet. Provided [facility] number to get sooner appointment for psychiatry evaluation. At this time Chhaya Vallejo meets criteria for Visit Diagnoses: Problem List Items Addressed This Visit Other Depression Anxiety Problem related to stress Patient ready to address current needs Yes Strengths include motivation and readiness to take actions. PLAN: 1. Follow up with C: Not recommended for follow-up 2. Patient goal is to be connected with services ( and PCP) 3. Behavioral Recommendations a. Referral for OP individual therapy b. Referral for psychopharmacology (needs to be connected with PCP; provided [facility] # to get sooner appt for psych eval) c. Incorporate breathing mechanisms into daily routine to decrease symptoms d. Follow PCP recommendations regarding pain management (see PCP note) History of cholecystectomy 03/22/2023 History of bunionectomy of left great toe 2022 Breast fibroadenoma, right 03/22/2023 Breast fibroadenoma, left 03/22/2023 Encounters Date Type Department Care Team Description 09/21/2024 1:45 PM EST Office Visit [facility] [address] [place] [address] Devi Diaz CNM Menorrhagia with regular cycle (Primary Dx) 09/21/2024 Travel 09/01/2024 Orders Only [facility] External Provider, [facility] 08/26/2024 Refill [facility] [address] [place] [address] Richie Raines MD 08/07/2024 Telephone [facility] & PEDS [address] [facility] [place] [address] Richie Raines MD Results 07/26/2024 Refill [facility] [address] [place] [address] Richie Raines MD Fibromyalgia 07/24/2024 2:30 PM EST Telemedicine [facility] [address] [place] [address] Richie Raines MD Obstructive sleep apnea syndrome (Primary Dx); Shortness of breath 07/24/2024 Travel 07/24/2024 Telephone [facility] P[facility] [address] [place] [address] Richie Raines MD 07/24/2024 Telephone [facility] [address] [place] [phone] Richie Raines MD Nurse Triage 07/24/2024 Telephone [facility] [address] [place] [phone] Richie Raines MD Results 07/21/2024 Refill [facility] [address] [place] [address] Richie Raines MD Pain in both knees, unspecified chronicity 07/13/2024 Travel from Last 3 Months Family History Medical History Relation Name Comments Hypothyroidism Brother No Known Problems Father Breast cancer Father's Sister Breast cancer Maternal Cousin Diabetes Mother Hypothyroidism Mother Hypothyroidism Sister Relation Name Status Comments Brother Father Father's Sister Maternal Cousin Other Mother Sister Social History Tobacco Use Types Packs/Day Years Used Date Smoking Tobacco: Never Passive Smoke Exposure: Never Smokeless Tobacco: Never Tobacco Cessation:Counseling Given: Not Answered Alcohol Use Standard Drinks/Week Comments Never 0 [...] Orientation Demisexual 08/10/2023 2: 41 PM EST Last Filed Vital Signs Vital Sign Reading [...] Mass Index 30.08 09/21/2024 1:56 PM EST Plan of Treatment Upcoming Encounters Date Type Department Care Team (Late st Contact Info) Description 10/05/2024 9:00 AM EST Office Visit [facility] P[facility] [address] [place] [address] Richie Raines MD [address] [place] [phone] Health Maintenance Due Date Last Done Comments CT Colonography 1977 Colonoscopy 1977 Colorectal Cancer Screening 1977 FIT DNA/Cologuard 1977 FIT 1975 FOBT 1975 Sigmoidoscopy 1977 Alcohol/Substance Use Screening 1989 DTaP/Tdap/Td Vaccines (1 - Tdap) 1996 Hepatitis B Vaccines (1 of 3 - 19+ 3-dose series) 1996 COVID-19 Vaccine ( - season) 2024 Influenza Vaccine (#1) 2024 Depression Screening 08/10/2024 08/10/2023, 08/10/20 23 SDOH Screening 08/10/2024 08/10/2023 Diagnostic Breast Imaging 09/30/20242023, 10/20/2023, 10/20/2023, Additional history exists Mammogram 09/30/2024 03/30/2024, 09/24, 10/20/2023, Additional history exists Tobacco Screening 04/06/2025 04/06/2024 Family Planning (PISQ) 09/21/2025 09/21/2024 Zoster Vaccines (1 of 2) 2027 Cervical Cancer Screening 09/21/2028 HPV/Cotest 09/21/2028 09/21/2023 Pap Smear 09/21/2028 09/21/2023 RSV Patients and Patients Aged 60 years or older (1 - 1-dose 75+ series) 2052 HIV Screening Completed 10/04/2023 Hepatitis C Screening Completed 10/04/2023 HIB Vaccines Aged Out No longer eligi ble based on patient's age to complete this topic HPV Vaccines Aged Out No longer eligi ble based on patient's age to complete this topic Hepatitis A Vaccines Aged Out No long er eligible based on patient's age to complete this topic IPV Vaccines Aged Out No longer eligi ble based on patient's age to complete this topic Meningococcal Vaccine Aged Out No gregoria mitch eligible based on patient's age to complete this topic Pneumococcal Vaccine: Pediatrics (0 to 5 Years) and At-Risk Patients (6 to 49) Years) Aged Out No longer eligible based on patient's age to complete this topic RSV under 20 months Aged Out No longe r eligible based on patient's age to complete this topic Rotavirus Vaccines Aged Out No longer eligible based on patient's age to complete this topic Procedures Procedure Name Priority Date/Time Associated Diagnosis Comments FL UPPER GI W AIR W BARIUM SWALLOW Routine 09/01/2024 7:49 AM EST BI MAMMOGRAM DIAGNOSTIC LEFT Routine 03/30/2024 2:30 PM EDT HEPATITIS PANEL, GENERAL Routine 10/04/2023 10:36 AM EST Encounter for preventive health examination Rhinosinusitis Flexural eczema Weakness Encounter for screening for other viral diseases HIV 1/2 ANTIGEN/ANTIBODY, FOURTH GENERATION W/RFL Routine 10/04/2023 10:36 AM EST Encounter for preventive health examination Rhinosinusitis Flexural eczema Weakness HPV MRNA E6/E7 REFLEX TO HPV 16, 18/45 Routine 09/21/2023 1:23 PM EST PAP SMEAR Routine 09/21/2023 1:23 PM EST Cervical cancer screening from Last 3 Months or Most Recently Relevant to Health Maintenance Results * FL Upper GI w/air w/Barium Swallow (09/01/2024 7:49 AM EST) Anatomical Region Laterality Modality Body Radiographic Mariana ging 09/01/2024 7:49 AM EST Narrative 09/01/2024 12:43 PM EST ? [facility] ?[address] ?[place] [address] ? Fluoroscopy Report ? Signed ? Patient: Antonetty Vallejo,Chhaya ?MR#: ?? [id number] ? : 1975 ?Acct:[id number] ? Age/Sex: 49 / F ?ADM Date: 01/10/25 ? Loc: HO.XRAY ? Attending Dr: Deidre INIGUEZ ? Ordering Physician: Deidre Dowling ?? Date of Service: 09/01/24 ?? Procedure(s): FL upper GI w air w Ba Swallow ?? Accession Number(s): [id number] ? cc: Lolly French MD; Deidre Dowling ? EXAMINATION: ?? XR FLUOROSCOPY UPPER GI [...] by Steven Covarrubias in OV> ? 09/01/24 1240 ?<Electronically signed by Jesse Felton MD in OV> ? 09/01/24 1242 ? DD/ 0749 ? TD/TT: 09/01/24 0836 ? Tactical Debriefer Officer: ? Procedure Note Donsandra, Image - 09/01/2024 [place] [address] Fluoroscopy Report Signed Patient: Chhaya DeyMR#: [id number] : 1975Acct:[id number] Age/Sex: 49 / FADM Date: 09/01/24 Loc: [facility] Attending Dr: Deidre GARCIAPMISTY Ordering Physician: Deidre Dowling Date of Service: 09/01/24 Procedure(s): FL upper GI w air w Ba Swallow Accession Number(s): [id number] cc: Lolly French MD; Deidre Dowling PIPE OUT WORKERTRACE EXAMINATION: XR FLUOROSCOPY UPPER GI WITH AIR [...] by Dr. Felton Electronically signed by: Jesse Felton MD 09/01/2024 12:40 PM [facility] Dictated By: Steven Covarrubias Signed By: <Electronically signed by Steven Covarrubias in OV> 09/01/24 1240 <Electronically signed by Jesse Felton MD in OV> 09/01/24 1242 DD/ 0749 TD/TT: 09/01/24 0836 Tactical Debriefer Officer: [facility] External Provider IMG FLU OROSCOPY PROCEDURES Final Result * BI Mammogram Diagnostic Left (03/30/2024 2:30 PM EDT) Anatomical Region Laterality Modality Breast Left Mammography 03/30/2024 2:30 PM EDT Narrative 03/30/2024 2:51 PM EDT ? [place] [facility] ? [address] ?[place] [address] ? Mammography Report ? Signed ? Patient: Antonetty Vallejo,Chhaya ?MR#: ?? [id number] ? : 1975 ?Acct:[id number] ? Age/Sex: 49 / F ?ADM Date: 03/30/24 ? Loc: HO.MAMMO ? Attending Dr: Lolly French MD ? Ordering Physician: Lolly French MD ?Results: 3.6MProbably Benign Finding - Short 6 M F/U ?? Suggested ? Date of Service: 03/30/24 ?Follow Up: 6 Month F/U ? Procedure(s): MM diagnostic mammo unilat LT ?? Accession Number(s): [id number] ? cc: Lolly French MD ? EXAMINATION: ?? MM DIAGNOSTIC DIGITAL MAMMOGRAPHY, LEFT ? CLINICAL INFORMATION: ? 6 month Follow-up calcifications in the central left breast middle one ?? third. ? COMPARISON: ?? Mammography: 10/12/2023, 06/03/2023, 04/20/2023. ? TECHNIQUE: ?? Digital mammography is performed in the following views: 2-D spot ?? magnification left CC and ML views. ? FINDINGS: ?? The breasts are heterogeneously dense, which may obscure small masses ?? (ACR BI-RADS breast composition Category c). ? Calcifications within the central LEFT breast are unchanged in number, ?? morphology, and appearance. Again, a few appear to layer on the true ?? lateral projection. Findings suggest milk of calcium. Continued 6-month ?? follow-up mammography recommended. ? MM/MM diagnostic mammo unilat LT ?? IMPRESSION: ?? -No findings suspicious for malignancy. ? -No significant interval change in the appearance of the calcifications ?? in the central left breast which are probably benign in morphology. ?? Six-month interval follow-up recommended when the patient is due for ?? bilateral screening. (Standard magnification views) ? ASSESSMENT: ? BI-RADS BI-RADS 3 - Probably benign finding(s) - 6 month follow-up ?? suggested ? RECOMMENDATION: ?? 6 Month F/U ? This patient's information was entered into a reminder system with a ?? target due date for their next mammogram. ? Dictated By: ?Jesse Felton MD ? Signed By: ?<Electronically signed by Jesse Felton MD in OV> ?03/30/24 1448 ? DD/ 1430 ? TD/TT: ? Tactical Debriefer Officer: ? Procedure Note Ivanna, Image - 03/30/2024 [facility] [address] [place] [address] [place] [address] Mammography Report Signed Patient: Chhaya DeyMR#: [id number] : 1975Acct:[id number] Age/Sex: 49 / FADM Date: 03/30/24 Loc: HASEE[facility] Attending Dr: Lolly French MD Ordering Physician: Lolly French MD Results: 3.6MProbably Benign Finding - Short 6 M F/U Suggested Date of Service: 03/30/24Follow Up: 6 Month F/U Procedure(s): MM diagnostic mammo unilat LT Accession Number(s): [id number] cc: Lolly French MD EXAMINATION: MM DIAGNOSTIC DIGITAL MAMMOGRAPHY, LEFT CLINICAL INFORMATION: 6 month Follow-up calcifications in the central left breast middle one third. COMPARISON: Mammography: 10/12/2023, 06/03/2023, 04/20/2023. TECHNIQUE: Digital mammography is performed in the following views: 2-D spot magnification left CC and ML views. FINDINGS: The breasts are heterogeneously dense, which may obscure small masses (ACR BI-RADS breast composition Category c). Calcifications within the central LEFT breast are unchanged in number, morphology, and appearance. Again, a few appear to layer on the true lateral projection. Findings suggest milk of calcium. Continued 6-month follow-up mammography recommended. MM/MM diagnostic mammo unilat LT IMPRESSION: -No findings suspicious for malignancy. -No significant interval change in the appearance of the calcifications in the central left breast which are probably benign in morphology. Six-month interval follow-up recommended when the patient is due for bilateral screening. (Standard magnification views) ASSESSMENT: BI-RADS BI-RADS 3 - Probably benign finding(s) - 6 month follow-up suggested RECOMMENDATION: 6 Month F/U This patient's information was entered into a reminder system with a target due date for their next mammogram. Dictated By: Jesse Felton MD Signed By: <Electronically signed by Jesse Felton MD in OV> 03/30/24 1448 DD/ 1430 TD/TT: Tactical Debriefer Officer: Lolly French MD IMG BI PROCEDURES Final Result * Hepatitis Panel, General (10/04/2023 10:36 AM EST) Hepatitis A IgM Nonreactive Nonreactive [facility] Comment:IgM antibodies to ARREAGA V not detected; does not exclude earlyacute or recovered HAV infection. ~Hepatitis B Surface Antibody NONREACTIVE Nonreactive [facility] Comment:Nonreactive: < 8.00 mIU/mL Hepatitis B Core Antibody Nonreactive Nonreactive [facility] Hepatitis C Antibody Nonreactive Nonreactive [facility] Comment:Antibodies to HCV no t detected; does not exclude early acuteHCV infection. Hepatitis B Surface Ag Negative Negative [facility] Blood 10/04/2023 10:3 6 AM EST 10/04/2023 11:34 AM EST Lolly French MD LAB BLOOD ORDERABLES Fin al Result Performing Organization Address City/[facility]/ZIP Co de Phone Number [facility] [address] [place] [address] [phone] * HIV-1/2 Antigen and Antibodies, Fourth Generation, with Reflexes (10/04/2023 10:36 AM EST) HIV AB/AG Nonreactive Nonreactive [facility] Comment:HIV-1 p24 Ag and/or HIV-1/HIV-2 Ab not detected.A test result that is nonreactive does not exclude thepossibility of exposure to or infection with HIV-1 and/orHIV-2. Nonreactive results in this assay for individualswith prior exposure to HIV-1 and/or HIV-2 may be due toantigen and antibody levels that are below the limit ofdetection of this assay.The [employer] HIV Ag/Ab Combo assay result andsupplemental assay results should be interpreted inconjunction with the patient's clinical presentation,history and other laboratory results. If the results areinconsistent with clinical evidence, additional testing issuggested to confirm the result. Blood Venous blood specimen / Unknown 10/04/2023 10:36 AM EST 10/04/2023 11:34 AM EST us Lolly French MD LAB BLOOD ORDERABLES Fin al Result Performing Organization Address City/[facility]/ZIP Co de Phone Number [facility] [address] [place] [phone] * HPV mRNA E6/E7 w/Reflex to HPV Genotypes 16, 18/45 (09/21/2023 1:23 PM EST) HPV nRNA E6/E7 Not Detected Not Detected [facility] Comment:Methodology: Transcr iption-Mediated AmplificationThis assay detects E6/E7 viral messenger RNA (mRNA) from 14high-risk HPV types (16,18,31,33,35,39,45,51,52,56,58,59,66,68).Cervical sources are required for HPV testing.If a vaginal source from a patient who has had atotal hysterectomy with removal of cervix wassubmitted, please contact the testing laboratoryfor alternative testing options.For additional information, please refer tohttp://education.[employer]faq/FKL735u8(This link if provided for information/educational purposes only.)THIS TEST WAS PERFORMED AT:[facility] [place] [phone] RIOS MD HPV mRNA E6/E7 [facility] HPV 16 RNA [facility] HPV 18/45 RNA [facility] 09/21/2023 1:23 PM EST 09/23/2023 9:50 AM EST us Devi Diaz [facility] CYTOLOGY ORDERABLES F inal Result [facility] [address] [place] [phone] * Pap Smear (09/21/2023 1:23 PM EST) Swab Cervix uteri structure / Unknown 09/21/2023 1:23 PM EST 09/23/2023 9:50 AM EST Narrative [facility] - 10/06/2023 2:23 PM EST ----- ------- Name: Antonetty Vallejo,Chhaya ? Age/Sex: 48/F ? : 1975 Unit#: [id number] ?? Attend Dr: Richie Raines MD ??Re09/21/23 ?Status: DEP REF ? Location: [facility]DS ? Disch: ? ----- ------- SPEC : [id number] ? RECD: 09/23/23 ? STATUS: ??SOUT ? REQ NUM: [id number] ? CAN: 09/21/23-3 ? SUBM DR: DEVI DIAZ CNM ? ENTERED: ??09/23/23 ?SP TYPE: Pap Smr ?OTHR : ? ORDERED: ??Pap Smear, PAP path review ? Interpretation ?? General Category: ? Negative for intraepithelial lesion/malignancy. ?? Adequacy: ? Endocervical component present. ?? Interpretation: ? Reactive cellular changes. ?Blood and few endometrial cells present. ? HPV mRNA E6/E7: ?Not Detected ? This assay detects E6/E7 viral messenger RNA (mRNA) from 14 high-risk HPV types (16, 18, ?? 31, 33, 35, 39, 45, 51, 52, 56, 58, 59, 66, 68) ? HPV testing performed by [facility], [place], [place]. ??See reference laboratory ?? portion of the EMR for entire report. ?Clinical Information LMP: Unknown date Previous PAP test:Unknown date/findings ? Material Received ?? ThinPrep-Cervical ----- ------- Signed (signature on file) Flori Delton 10/06/23 1423 ? ----- ------- ? END OF REPORT ? us Devi [facility] CYTOLOGY ORDERABLES F inal Result [facility] [address] [place] [address] [phone] from Last 3 Months or Most Recently Relevant to Health [place] [address] [facility] STANDARD [employer] MEDICARE REPLACEMENT Care Teams Knife Operator Relationship Specialty Start Date End Date Richie Raines MD [address] [place] [phone] PCP - General Internal Medicine 08/19/23
--- OUTSIDE RECORDS SUMMARY | 2024-09-25 09:28 | XMS_ITS | Encounter Summary ---
Author Organization [employer] Address 75 [facility] 7 [place] [address] Care Team Providers Care Multi Share Program Coordinator Name Role Phone Richie Raines MD Primary Care Prov ider Reason for Visit * Reason Onset Date Comments Med Refill 02/18/2024 Encounter Details Date Type Department Care Team (Late st Contact Info) Description 02/18/2024 Telephone [facility] MEDICINE [address] [place] [address] Richie Raines MD [address] [place], [place] [phone] Med Refill Social History Tobacco Use Types Packs/Day Years [...] encounter Miscellaneous Notes * Telephone Encounter - Kenneth Garcia - 02/18/2024 11:11 AM EDT TC from pt requesting medication refill. Medications needing refill : pregabalin (Lyrica) 150 MG capsule To be sent to: [facility][id number] - [address] documented in this encounter Plan of Treatment Upcoming Encounters Date Type Department Care Team (Late st Contact Info) Description 10/05/2024 9:00 AM EST Office Visit [facility] P[facility] [address] [place] [address] Richie Raines MD [address] [place] [address] documented as of this encounter Visit Diagnoses Not on filedocumented in this encounter Additional Health Concerns Assessment Noted Time PHQ-9 Depression Total Score: 0 08/10/20 2:42 PM EST documented as of this encounter Care Teams Multi Share Program Coordinator Relationship Specialty Start Date End Date Richie Raines MD [address] [place] [address] PCP - General Internal Medicine 08/19/23 documented as of this encounter
--- OUTSIDE RECORDS SUMMARY | 2024-09-25 09:28 | XMS_ITS | Encounter Summary ---
Author Organization [employer] Address 75 [facility] 7t [place] [address] Care Team Providers Care Planner Scheduler Name Role Phone Richie Raines MD Primary Care Prov ider Reason for Visit * Reason Onset Date Comments Referral 11/29/2023 Encounter Details Date Type Department Care Team (Late st Contact Info) Description 11/29/[address] [facility] MEDICINE [address] [place] [address] Richie Raines MD [address] [place], [place] [phone] Referral Social History Tobacco Use Types Packs/Day [...] encounter Miscellaneous Notes * Telephone Encounter - Eliot Olivo - 12/09/2023 11:48 AM EDT Tc from pt requesting status on location change for referral above. * Telephone Encounter - Raimundo Contreras - 11/29/2023 12:36 PM EDT Tc from [place] [facility] [place] they're not [place] out until April andpt is requesting a sooner appt. Pt would like to be referred to [facility] instead. Please contact pt at [phone]. documented in this encounter Plan of Treatment Upcoming Encounters Date Type Department Care Team (Late st Contact Info) Description 10/05/2024 9:00 AM EST Office Visit [facility]EDS [address] [place] [address] Richie Raines MD 505 [place] [address] documented as of this encounter Visit Diagnoses Not on filedocumented in this encounter Additional Health Concerns Assessment Noted Time PHQ-9 Depression Total Score: 0 08/10/20 23 2:42 PM EST documented as of this encounter Care Teams Planner Scheduler Relationship Specialty Start Date End Date Richie Raines MD [address] [place] [phone] PCP - General Internal Medicine 08/19/23 documented as of this encounter
[2024-09-25] MEDS: gadobutroL 7.5 ML VIAL IVPUSH (10:16)
== END 2024-09-25 09:11 | disposition home or self-care (01) ==
LOC: HO.MRI 09:10
PROVIDERS: PCP Internal Medicine; Visit Provider Nurse Practitioner Family
DX: R51.9 Headache, unspecified (principal)
CPT/HCPCS: 70553; A9585

== ENCOUNTER → 2024-09-25 09:15 | Outpatient (BNV) | payer MEDICARE, SELFPAY | PROVIDERS: PCP Internal Medicine; Visit Provider Radiology Diagnostic Radiology | DX: R90.82 White matter disease, unspecified (principal) | CPT/HCPCS: 70553 ==

== ENCOUNTER 2024-10-03 11:57 | Outpatient (REF) | payer MEDICARE, SELFPAY ==
--- NOTE | ~2024-10-03 | MM_ITS ---
EXAMINATION: MM DIAGNOSTIC DIGITAL BREAST TOMOSYNTHESIS, BILATERAL CLINICAL INFORMATION: Left retroareolar calcifications. COMPARISON: Mammography: Comparison is made with relevant prior exams. TECHNIQUE: Digital breast mammography with tomosynthesis is performed in both the craniocaudal and mediolateral oblique views along with computer-aided detection (CAD). FINDINGS: The breasts are heterogeneously dense, which may obscure small masses (ACR BI-RADS breast composition Category c). Left: Previously seen grouped punctate calcifications in the left retroareolar region are not significantly changed from priors dating back to May 2023. No suspicious masses or other abnormal findings. Right: Postsurgical changes are stable. Marker clip. There are no significant masses, abnormal calcifications, or other abnormalities. Results are provided to the patient at time of visit by the technologist. MM/MM tomosynthesis diagnostic BI IMPRESSION: Punctate calcifications in the retroareolar region of the left breast are not significantly changed from prior magnification views dating back for one year. Recommend 12 month follow-up with magnification views when the patient will be due for bilateral mammography. ASSESSMENT: BI-RADS BI-RADS 3 - Probably benign finding(s) - 12 month follow-up suggested RECOMMENDATION: 12 month diagnostic follow up This patient's information was entered into a reminder system with a target due date for their next mammogram. Electronically signed by: Alecia Rose DO 10/03/2024 01:41 PM YADI
--- OUTSIDE RECORDS SUMMARY | 2024-10-03 13:24 | XMS_ITS | Encounter Summary ---
Author Organization [employer] Address 75 [facility] 7t [place] [address] Care Team Providers Care Fur Farmer Name Role Phone Richie Raines MD Primary Care Prov ider Reason for Visit * Reason Comments Med Refill Encounter Details Date Type Department Care Team (Late Contact Info) Description 07/29/2023 Refill [facility] [address] [place] [address] Heath Woodson MD 230 [place] [address] Social History Tobacco Use Types Packs/Day Years [...] Encounters Date Type Department Care Team ([facility] Contact Info) Description 10/05/2024 9:00 AM EST Office Visit [facility] [address] [place] [address] Richie Raines MD [address] [place] [address] documented as of this encounter Visit Diagnoses Not on filedocumented in this encounter Additional Health Concerns Assessment Noted Time PHQ-9 Depression Total Score: 17 023 4:25 PM EST documented as of this encounter Care Teams Fur Farmer Relationship Specialty Start Date End Date العراقيRichie Dean MD 505 [place] [address] PCP - General Internal Medicine 08/19/23 documented as of this encounter
--- OUTSIDE RECORDS SUMMARY | 2024-10-03 13:24 | XMS_ITS | Encounter Summary ---
Author Organization [employer] Address 75 [facility] 7t [place] [address] Care Team Providers Care Principal Planner Name Role Phone Richie Raines MD Primary Care Prov ider Reason for Visit * Reason Comments Med Change Request Encounter Details Date Type Department Care Team ([facility] st Contact Info) Description 11/02/2023 Refill [facility] [address] [place] [address] Matthias Maria MD 505 [place] [address] Chronic bilateral low back pain without sciatica [...] Upcoming Encounters Date Type Department Care Team ([facility] st Contact Info) Description 10/05/2024 9:00 AM EST Office Visit [facility] MED & PEDS 505 [place] [address] Richie Raines MD [address] [place] [address] documented as of this encounter Visit Diagnoses Diagnosis Chronic bilateral low back pain without sciatica documented in this encounter Additional Health Concerns Assessment Noted Time PHQ-9 Depression Total Score: 0 08/10/20 2:42 PM EST documented as of this encounter Care Teams Principal Planner Relationship Specialty Start Date End Date Richie Raines MD [address] [place] [address] PCP - General Internal Medicine 08/19/23 documented as of this encounter
--- OUTSIDE RECORDS SUMMARY | 2024-10-03 13:24 | XMS_ITS | Encounter Summary ---
Author Organization [employer] Address 75 [facility] 7t [place] [address] Care Team Providers Care Seismometer Operator Name Role Phone Richie Raines MD Primary Care Prov ider Encounter Details Date Type Department Care Team ([facility] st Contact Info) Description 04/09/2024 Orders Only [facility]EDS [address] [place], [place] [phone] Richie Raines MD [address] [place] [address] Social History Tobacco Use Types Packs/Day Years [...] Upcoming Encounters Date Type Department Care Team ([facility] st Contact Info) Description 10/05/2024 9:00 AM EST Office Visit [facility] MED & PEDS [address] [place] [address] Richie Raines MD [address] [place] [address] documented as of this encounter Visit Diagnoses Not on filedocumented in this encounter Additional Health Concerns Assessment Noted Time PHQ-9 Depression Total Score: 0 08/10/20 2:42 PM EST documented as of this encounter Care Teams Seismometer Operator Relationship Specialty Start Date End Date Richie Raines MD [address] [place] [address] PCP - General Internal Medicine 08/19/23 documented as of this encounter
--- OUTSIDE RECORDS SUMMARY | 2024-10-03 13:24 | XMS_ITS | Encounter Summary ---
Author Organization [employer] Address 75 [facility] 7t [place] [address] Care Team Providers Care Machine Steak Tenderizer Name Role Phone Richie Raines MD Primary Care Prov ider Reason for Referral * Imaging (Urgent) - Authorized Specialty Diagnoses / Procedures Referred By Contac t Referred To Contact Radiology Diagnoses Menorrhagia with regular cycle Procedures Us Pelvis complete Elizabeth Ring CNM [address] [place] [address] Phone: tel: fax: [address] Phone: tel: fax: Referral ID Status Reason Start Date Expiration Date V isits Requested Visits Authorized [id number] Authorized 09/21/2024 09/21/2025 1 1 * Imaging (Urgent) - Authorized Specialty Diagnoses / Procedures Referred By Contac t Referred To Contact Radiology Diagnoses Menorrhagia with regular cycle Procedures US Pelvis Transvaginal Elizabeth Ring CNM [address] [place] [address] Phone: tel: fax: [address] Phone: tel: fax: Referral ID Status Reason Start Date Expiration Date V isits Requested Visits Authorized [id number] Authorized 09/21/2024 09/21/2025 1 1 Reason for Visit * Reason Comments Gynecologic Exam Encounter Details Date Type Department Care Team (Late st Contact Info) Description 09/21/2024 1:45 PM EST Office Visit [facility] MEDICINE [address] [place] [address] Elizabeth Ring CNM [address] [place] [address] Menorrhagia with regular cycle (Primary Dx) Social [...] a 49 y.o. female who presents for NONPROFIT FINANCIAL CONTROLLER visit Pap NIL/HPV neg 08/2023. Mammogram BIRADS [...] heavily. She was told by provider in [place] that this was normal. No intermenstrual bleeding. [...] AM EST Office Visit [facility] MED & PEDS [address] [place] [address] Richie Raines MD 505 [place] [address] Scheduled Orders Name Type Priority Associated Diagnoses [...] documented as of this encounter Care Teams Machine Steak Tenderizer Relationship Specialty Start Date End Date Richie Raines MD [address] [place] [address] PCP - General Internal Medicine 08/19/23 documented as of this encounter
--- OUTSIDE RECORDS SUMMARY | 2024-10-03 13:24 | XMS_ITS | Encounter Summary ---
Author Organization [employer] Address 75 [facility] 7t [place] [address] Care Team Providers Care Protozoology Teacher Name Role Phone Richie Raines MD Primary Care Prov ider Encounter Details Date Type Department Care Team ([facility] st Contact Info) Description 09/28/2023 Telephone [facility]S [address] [place], [place] [phone] Richie Raines MD [address] [place] [address] Social History Tobacco Use Types Packs/Day Years [...] Upcoming Encounters Date Type Department Care Team ([facility] st Contact Info) Description 10/05/2024 9:00 AM EST Office Visit [facility] MED & PEDS [address] [place] [address] Richie Raines MD [address] [place] [address] documented as of this encounter Visit Diagnoses Not on filedocumented in this encounter Additional Health Concerns Assessment Noted Time PHQ-9 Depression Total Score: 0 08/10/20 2:42 PM EST documented as of this encounter Care Teams Protozoology Teacher Relationship Specialty Start Date End Date Richie Raines MD [address] [place] [address] PCP - General Internal Medicine 08/19/23 documented as of this encounter
--- OUTSIDE RECORDS SUMMARY | 2024-10-03 13:24 | XMS_ITS | Encounter Summary ---
Author Organization [employer] Address [address] [facility] [address] 7t [place] [address] Care Team Providers Care Billet Heater Operator Name Role Phone Richie Raines MD [...] [facility] 505 [place] [address] Richie Raines MD [address] [place] [address] documented as of this encounter Visit Diagnoses Not on filedocumented in this encounter Additional Health Concerns Assessment Noted Time PHQ-9 Depression Total Score: 0 08/10/20 2:42 PM EST documented as of this encounter Care Teams Billet Heater Operator Relationship Specialty Start Date End Date Richie Raines MD [address] [place] [address] PCP - General Internal Medicine 08/19/23 documented as of this encounter
--- OUTSIDE RECORDS SUMMARY | 2024-10-03 13:24 | XMS_ITS | Encounter Summary ---
Author Organization [employer] Address 75 [facility] 7t [place] [address] Care Team Providers Care Electric Organ Assembler And Checker Name Role Phone Richie Raines MD Primary Care Prov ider Reason for Visit * Reason Comments Med Refill Encounter Details Date Type Department Care Team (Late st Contact Info) Description 09/20/2023 Refill [facility] 230 [place] [address] Kaleigh Kiran, MARV 230 [place] [address] Fibromyalgia Social History Tobacco Use Types Packs/Day [...] Description 10/05/2024 9:00 AM EST Office Visit [facility] MED & PEDS [address] [place] [address] Richie Raines MD [address] [place] [address] documented as of this encounter Visit Diagnoses Diagnosis Fibromyalgia Unspecified myalgia and myositis documented in this encounter Additional Health Concerns Assessment Noted Time PHQ-9 Depression Total Score: 0 08/10/20 2:42 PM EST documented as of this encounter Care Teams Electric Organ Assembler And Checker Relationship Specialty Start Date End Date Richie Raines MD [address] [place] [address] PCP - General Internal Medicine 08/19/23 documented as of this encounter
--- OUTSIDE RECORDS SUMMARY | 2024-10-03 13:24 | XMS_ITS | Encounter Summary ---
Author Organization [employer] Address 75 [facility] 7t [place] [address] Care Team Providers Care Dressing Room Porter Name Role Phone Richie Raines MD Primary Care Prov ider Encounter Details Date Type Department Care Team ([facility] st Contact Info) Description 11/22/2023 Orders Only [facility]EDS 505 [place], [place] [phone] Matthias Maria MD [address] [place] [address] Pain in both knees, unspecified chronicity (Primary [...] Upcoming Encounters Date Type Department Care Team ([facility] st Contact Info) Description 10/05/2024 9:00 AM EST Office Visit [facility] MED & PEDS [address] [place] [address] Richie Raines MD 505 [place] [address] documented as of this encounter Visit Diagnoses Diagnosis Pain in both knees, unspecified chronicity- Primary documented in this encounter Additional Health Concerns Assessment Noted Time PHQ-9 Depression Total Score: 0 08/10/20 2:42 PM EST documented as of this encounter Care Teams Dressing Room Porter Relationship Specialty Start Date End Date Richie Raines MD [address] [place] [address] PCP - General Internal Medicine 08/19/23 documented as of this encounter
--- OUTSIDE RECORDS SUMMARY | 2024-10-03 13:24 | XMS_ITS | Encounter Summary ---
Author Organization [employer] Address 75 [facility] 7t [place] [address] Care Team Providers Care Inventory Administrator Name Role Phone Richie Raines MD Primary Care Prov ider Reason for Visit * Reason Comments Med Refill Encounter Details Date Type Department Care Team (Late Contact Info) Description 08/05/[address] [facility] [address] [place] [address] Heath Wodoson MD [address] [place] [address] Social History Tobacco Use Types Packs/Day Years [...] Upcoming Encounters Date Type Department Care Team ([facility] Contact Info) Description 10/05/2024 9:00 AM EST Office Visit [facility]S 505 [place] [address] Richie Raines MD [address] [place] [address] documented as of this encounter Visit Diagnoses Not on filedocumented in this encounter Additional Health Concerns Assessment Noted Time PHQ-9 Depression Total Score: 17 023 4:25 PM EST documented as of this encounter Care Teams Inventory Administrator Relationship Specialty Start Date End Date العراقيRichie Dean MD [address] [place] [address] PCP - General Internal Medicine 08/19/23 documented as of this encounter
--- OUTSIDE RECORDS SUMMARY | 2024-10-03 13:24 | XMS_ITS | Encounter Summary ---
Author Organization [employer] Address 75 [facility] 7t [place] [address] Care Team Providers Care Band Salvager Name Role Phone Richie Raines MD Primary Care Prov ider Reason for Visit * Reason Onset Date Comments Appointment Request 09/16/2023 Encounter Details Date Type Department Care Team ([facility] st Contact Info) Description 09/16/2023 Telephone [facility] MEDICINE 230 [place] [address] Richie Raines MD [address] [place], [place] [phone] Appointment Request Social History Tobacco Use Types [...] Description 10/05/2024 9:00 AM EST Office Visit [facility] 505 [place] [address] Richie Raines MD [address] [place] [address] documented as of this encounter Visit Diagnoses Not on filedocumented in this encounter Additional Health Concerns Assessment Noted Time PHQ-9 Depression Total Score: 0 08/10/20 2:42 PM EST documented as of this encounter Care Teams Band Salvager Relationship Specialty Start Date End Date Richie Raines MD [address] [place] [address] PCP - General Internal Medicine 08/19/23 documented as of this encounter
--- OUTSIDE RECORDS SUMMARY | 2024-10-03 13:25 | XMS_ITS | Encounter Summary ---
Author Organization [employer] Address 75 [facility] 7t [place] [address] Care Team Providers Care Health Assistant Name Role Phone Richie Raines MD Primary Care Prov ider Reason for Visit * Reason Onset Date Comments Referral 11/29/2023 Encounter Details Date Type Department Care Team (Late st Contact Info) Description 11/29/2023 Telephone [facility]IC[facility] 230 [place] [address] Richie Raines MD 505 [place], [place] [phone] Referral Social History Tobacco Use Types Packs/Day [...] has a referral for sleep ap[place] [facility] [place] but they're not scheduling out until April andpt is requesting a sooner appt. Pt would like to be referred to [facility] instead. Please contact pt at [phone]. documented in this encounter Plan of Treatment Upcoming Encounters Date Type Department Care Team (Late st Contact Info) Description 10/05/2024 9:00 AM EST Office Visit [facility] [address] [place] [address] Richie Raines MD [address] [place] [address] documented as of this encounter Visit Diagnoses Not on filedocumented in this encounter Additional Health Concerns Assessment Noted Time PHQ-9 Depression Total Score: 0 08/10/20 23 2:42 PM EST documented as of this encounter Care Teams Health Assistant Relationship Specialty Start Date End Date Richie Raines MD [address] [place] [address] PCP - General Internal Medicine 08/19/23 documented as of this encounter
--- OUTSIDE RECORDS SUMMARY | 2024-10-03 13:25 | XMS_ITS | Encounter Summary ---
Author Organization [employer] Address 75 [facility] 7t [place] [address] Care Team Providers Care Saddle Mechanic Name Role Phone Richie Raines MD Primary Care Prov ider Reason for Visit * Reason Onset Date Comments Referral 02/18/2024 Encounter Details Date Type Department Care Team (Late st Contact Info) Description 02/18/2024 Telephone [facility] MEDICINE [address] [place] [address] Richie Raines MD [address] [place], [place] [phone] Referral Social History Tobacco Use Types Packs/Day [...] calling to request a referral for a Engine Designer states has a appt for sleep studyin April and like is having breathing problems at night and the patient would like to be seen at [facility] [address] [place] [address] [place], [address] Dr. Dipesh Contreras MD documented in this encounter Plan of Treatment Upcoming Encounters Date Type Department Care Team (Late st Contact Info) Description 10/05/2024 9:00 AM EST Office Visit [facility] 505 [place] [address] iRchie Raines MD [address] [place] [address] documented as of this encounter Visit Diagnoses Diagnosis Fibromyalgia Unspecified myalgia and myositis documented in this encounter Additional Health Concerns Assessment Noted Time PHQ-9 Depression Total Score: 0 08/10/20 23 2:42 PM EST documented as of this encounter Care Teams Saddle Mechanic Relationship Specialty Start Date End Date Richie Raines MD [address] [place] [address] PCP - General Internal Medicine 08/19/23 documented as of this encounter
--- OUTSIDE RECORDS SUMMARY | 2024-10-03 13:25 | XMS_ITS | Encounter Summary ---
Author Organization [employer] Address [address] [facility] 7 [place] [address] Care Team Providers Care Sheet Metal Pattern Cutter Name Role Phone Richie Raines MD Primary Care Prov ider Reason for Visit * Reason Onset Date Comments Med Refill 02/18/2024 Encounter Details Date Type Department Care Team (Late st Contact Info) Description 02/18/2024 Telephone [facility] [address] [place] [address] Richie Raines MD [address] [place], [place] [phone] Med Refill Social History Tobacco Use Types [...] 150 MG capsule To be sent to: [id number] - [address] documented in this encounter Plan of Treatment Upcoming Encounters Date Type Department Care Team (Late st Contact Info) Description 10/05/2024 9:00 AM EST Office Visit [facility] [address] [place] [address] Richie Raines MD [address] [place] [phone] documented as of this encounter Visit Diagnoses Not on filedocumented in this encounter Additional Health Concerns Assessment Noted Time PHQ-9 Depression Total Score: 0 08/10/20 2:42 PM EST documented as of this encounter Care Teams Sheet Metal Pattern Cutter Relationship Specialty Start Date End Date Richie Raines MD [address] [place] [address] PCP - General Internal Medicine 08/19/23 documented as of this encounter
--- OUTSIDE RECORDS SUMMARY | 2024-10-03 13:25 | XMS_ITS | Encounter Summary ---
Author Organization [employer] Address [address] [place] [address] 7 [place] [address] Care Team Providers Care Wastewater Treatment Supervisor Name Role Phone Richie Raines MD Primary Care Prov ider Reason for Visit * Reason Comments Pre-visit Planning SDOH negative, Tobac co screening negative. Encounter Details Date Type Department Care Team ([facility] Contact Info) Description 09/27/2024 Patient Outreach [facility] [address] [place], [place] [phone] Richie Raines MD [address] [place] [address] Pre-visit Planning (SDOH negative, Tobacco screening negative. ) Social History Tobacco Use Types Packs/Day Years [...] housing situation today? I have eros rose 09/27/[address] you li ve. Do you have problems with any of the following? None of the above 09/27/2024 Food Insecurity Answer Date Recorded Within the past 12 months, y ou worried that your food would run out before you got money to buy more: Never True 09/27/2024 Within the past 12 months,th e food you bought just didn't last and you didn't have enough money to get more: Never True 12/2024 Transportation Answer Date Recorded In the past 12 months, has l ack of transportation kept you from medical appts, meetings, work or from getting things needed for daily living? No 09/27/2024 Utilities Answer Date Recorded In the past 12 months, has t he electric, gas, oil or water company threatened to shut off services in your home? No 09/27/2024 Depression Answer Date Recorded Patient Health Questionnaire-2 Score 0 08/10/2023 Internet Access Answer Date Recorded Internet Access Q1 Yes 09/27/2024 Internet Access Q2 Not on file 09/27/2024 Comments No Sex and Gender Information Value Date Recorded Sex Assigned at Female 03/22/2023 10:40 AM EDT Legal Sex Female 4:11 PM EDT Gender Identity Female 03/22/2023 10:40 AM EDT Sexual Orientation Don't know 08/10/2023 2: 41 PM EST Sexual Orientation Demisexual 08/10/2023 2: 41 PM EST documented as of this encounter Progress Notes * Roxanna Munguia - 09/27/2024 2:38 PM EST GIFTY Ortez placed successful outbound call to patient for pre-visit planning. Patient name and confirmed. Patient confirms appt date and time, and has transportation arrangements. Biggest concern for appointment at this time is no concerns. Appropriate screenings completed in anticipation ofappointment. documented in this encounter Plan of Treatment Upcoming Encounters Date Type Department Care Team (Late st Contact Info) Description 10/05/2024 9:00 AM EST Office Visit [facility] [address] [place] [address] Richie Raines MD [address] [place] [address] documented as of this encounter Visit Diagnoses Not on filedocumented in this encounter Additional Health Concerns Assessment Noted Time PHQ-9 Depression Total Score: 0 08/10/20 2:42 PM EST documented as of this encounter Care Teams Wastewater Treatment Supervisor Relationship Specialty Start Date End Date Richie Raines MD [address] [place] [phone] PCP - General Internal Medicine 08/19/23 documented as of this encounter
--- OUTSIDE RECORDS SUMMARY | 2024-10-03 13:25 | XMS_ITS | Encounter Summary ---
Author Organization [employer] Address [address] [facility] 7t [place] [address] Care Team Providers Care Shredded Filler Cigar Maker Machine Name Role Phone Richie Raines MD Primary Care Prov ider Reason for Visit * Reason Comments Med Change Request Encounter Details Date Type Department Care Team ([facility] st Contact Info) Description 11/11/2023 Refill [facility] [address] [place] [address] Matthias Maria MD [address] [place] [address] Chronic bilateral low back pain without sciatica [...] Upcoming Encounters Date Type Department Care Team ([facility] st Contact Info) Description 10/05/2024 9:00 AM EST Office Visit [facility] & [facility]S [address] [place] [address] Richie Raines MD [address] [place] [address] documented as of this encounter Visit Diagnoses Diagnosis Chronic bilateral low back pain without sciatica documented in this encounter Additional Health Concerns Assessment Noted Time PHQ-9 Depression Total Score: 0 08/10/20 2:42 PM EST documented as of this encounter Care Teams Shredded Filler Cigar Maker Machine Relationship Specialty Start Date End Date Richie Raines MD [address] [place] [address] PCP - General Internal Medicine 08/19/23 documented as of this encounter
--- OUTSIDE RECORDS SUMMARY | 2024-10-03 13:25 | XMS_ITS | Clinical Summary ---
Author Organization [employer] Address 75 [facility] 7t [place] [address] Care Team Providers Care Black Top Spreader Machine Operator Name Role Phone Richie Raines MD [...] not crush or chew. 60 capsule 11 4 Active fluticasone (Flonase) 50 MCG/ACT nasal sprayIndications :Rhinosinusitis Administer 1 spray into each nostril in the morning. 16 g 2 4 Active ammonium lactate (Amlactin) 12 % creamIndications :Flexural eczema Apply topically if needed for dry skin. 385 g 4 10/03/19 25 Active naproxen (Naprosyn) 500 MG tabletIndication s:Chronic bilateral low back pain without sciatica Take 1 tablet (500 mg) by mouth if needed in the morning and at bedtime for moderate pain. 30 tablet 4 03/29/20 25 Active Omeprazole 20 MG tablet delayed-release Take 20 mg by mouth Once per day. 90 tablet 3 4 04/17/20 25 Active naproxen (Naprosyn) 500 MG tabletIndication s:Chronic bilateral low back pain without sciatica TAKE 1 TABLET BY MOUTH TWICE A DAY IF NEEDED FOR MODERATE PAIN 30 tablet 4 Active lidocaine-priloc mary (Emla) 2.5-2.5 % creamIndications :Pain in both knees, unspecified chronicity APPLY TOPICALLY ONCE FOR 1 DOSE DIRECTED 30 g 2 4 Active pregabalin (Lyrica) 150 MG capsuleIndicatio ns:Fibromyalgia TAKE 1 CAPSULE BY MOUTH TWICE A DAY 60 capsule 4 Active mirtazapine (Remeron) 45 MG tablet TAKE 1 TABLET BY MOUTH AT BEDTIME 30 tablet 5 Active levothyroxine (Synthroid, Levoxyl) 50 MCG tablet TAKE 1 TABLET BY MOUTH ONCE DAILY BEFORE BREAKFAST 30 tablet 5 Active mirtazapine (Remeron) 30 MG tablet TAKE 1 TABLET BY MOUTH ONCE DAILY AT BEDTIME 30 tablet 5 Active Active Problems Problem Noted Date Diagnosed Date [...] EDT): Patient wants to be referred to [facility] for sleep study, will send new referal [...] (10/06/2023 8:51 AM EST): Reportedly done in [place] less than 5y ago She will bring [...] Tdap but she declined. Colonoscopy done in [place], she will bring report to PCP Mammogram: [...] and offer referral. Chronic pain, relocation from [place] to [place] and severe depression are exacerbating symptoms. No [...] and offer referral. Chronic pain, relocation from [place] to [place] and severe depression are exacerbating symptoms. No [...] take actions. PLAN: 1. Follow up with [facility]: Not recommended for follow-up 2. Patient goal [...] and offer referral. Chronic pain, relocation from [place] to [place] and severe depression are exacerbating symptoms. No [...] take actions. PLAN: 1. Follow up with [facility]: Not recommended for follow-up 2. Patient goal [...] Encounters Date Type Department Care Team Description 09/27/2024 Patient Outreach [facility] [address] [place] [address] Richie Raines MD Pre-visit Planning (SDOH negative, Tobacco screening negative. ) 09/21/2024 1:45 PM EST Office Visit [facility] [address] [place] [phone] Devi Diaz, CNChepe Menorrhagia with regular cycle (Primary Dx) 09/21/2024 Travel 09/01/2024 Orders Only [facility] External Provider, [facility] 08/26/2024 Refill [facility] [address] [place] [phone] Richie Raines MD 08/07/2024 Telephone [facility] [address] [place] [address] Richie Raines MD Results 07/26/2024 Refill [facility] [address] [place] [address] Richie Raines MD Fibromyalgia 07/24/2024 2:30 PM EST Telemedicine [facility] [address] [place] [address] Richie Raines MD Obstructive sleep apnea syndrome (Primary Dx); Shortness of breath 07/24/2024 Travel 07/24/2024 Telephone [facility] [address] [place] [address] Richie Raines MD 07/24/2024 Telephone [facility] [address] [place] [address] Richie Raines MD Nurse Triage 07/24/2024 Telephone [facility] [address] [place] [address] Richie Raines MD Results 07/21/2024 Refill [facility] [address] [place] [address] Richie Raines MD Pain in both knees, [...] your housing situation today? I have eros sing 09/27/[address] you li [...] Description 10/05/2024 9:00 AM EST Office Visit [facility] [address] [place], [place] [phone] Richie Raines MD [address] [place], [place] [phone] Health Maintenance Due Date Last Done Comments CT Colonography 1975 Colonoscopy 1977 Colorectal Cancer Screening 1977 FIT DNA/Cologuard 1977 FIT 1975 FOBT 1975 Sigmoidoscopy 1977 Alcohol/Substance Use Screening 1989 DTaP/Tdap/Td Vaccines (1 - Tdap) 1996 Hepatitis B Vaccines (1 of 3 - 19+ 3-dose series) 1996 COVID-19 Vaccine ( - season) 2024 Influenza Vaccine (#1) 2024 Depression Screening 08/10/2024 08/10/2023, 08/10/20 23 Diagnostic Breast Imaging 09/30/20242023, 10/20/2023, 10/20/2023, Additional history exists Mammogram 09/30/2024 03/30/2024, 09/24, 10/20/2023, Additional history exists Tobacco Screening 04/06/2025 04/06/2024 Family Planning (PISQ) 09/21/2025 09/21/2024 SDOH Screening 09/27/2025 09/27/2024 Zoster Vaccines (1 of 2) 2027 Cervical [...] Procedure Name Priority Date/Time Associated Diagnosis Comments MR BRAIN W AND WO CONTRAST Routine 09/25/2024 9:15 AM EST FL UPPER GI W AIR W BARIUM [...] Recently Relevant to Health Maintenance Results * Mr Brain w/ and w/o Contrast (09/25/2024 9:15 AM EST) Anatomical Region Laterality Modality Brain Magnetic Resonan ce 09/25/2024 9:15 AM EST Narrative 09/25/2024 10:51 AM EST ? [facility] ?[address] ?[place] [address] ? Magnetic Resonance Report ? Signed ? Patient: Antonetty Vallejo,Chhaya ?MR#: ?? [id number] ? : 1975 ?Acct:[id number] ? Age/Sex: 49 / F ?ADM Date: 02/03/25 ? Loc: HO.MRI ? Attending Dr: Paris JACKSON ? Ordering Physician: Paris Ramirez ?? Date of Service: 09/25/24 ?? Procedure(s): MR head/brain wo/w con ?? Accession Number(s): [id number] ? cc: Lolly French MD; Paris Ramirez ? EXAMINATION: ??MR BRAIN WITHOUT THEN WITH IV CONTRAST ? HISTORY: ??R51.9 - Headache, unspecified ? TECHNIQUE: ?Sagittal T1, and axial T1, FLAIR, T2, gradient echo, and ?? diffusion weighted MR images of the brain were obtained. ??Subsequently, ?? axial, and coronal T1-weighted images were obtained after the ?? administration of intravenous gadolinium. ??7 mL Gadavist was ?? administered. ? COMPARISON: None ? FINDINGS: ? A single nonspecific white matter hyperintensities seen in the ?? subcortical right frontal lobe. Noel/white differentiation is otherwise ?? normal. ??There is no mass effect or midline shift. ??The ventricular ?? system is normal in size and configuration. No intra or extra-axial ?? fluid collections are identified. There are no foci of restricted ?? diffusion. ??There is no abnormal contrast enhancement. ? Normal vascular flow voids are noted in the basilar and carotid ?? arteries. ??There is mild mucosal thickening in the dependent portions ?? of the bilateral maxillary sinuses. ? MR/MR head/brain wo/w con ?? IMPRESSION: ? Essentially unremarkable MRI of the brain without and with contrast. ? Electronically signed by: ??Nitish Lin MD ??09/25/2024 10:49 AM EST ? Dictated By: ?Nitish Lin MD ? Signed By: ?<Electronically signed by Nitish Lin MD in OV> ?09/25/24 1049 ? DD/ 0915 ? TD/TT: 09/25/24 0958 ? Pile Operator: ? Procedure Note Ethel Goncalves - 09/25/[address] [address] Magnetic Resonance Report Signed Patient: Chhaya Dey#: [id number] : 1975Acct:[id number] Age/Sex: 49 / FADM Date: 09/25/24 Loc: HO.MRI Attending Dr: Paris JACKSON Ordering Physician: Paris Ramirez Date of Service: 09/25/24 Procedure(s): MR head/brain wo/w con Accession Number(s): [id number] cc: Lolly French MD; Paris Ramirez EXAMINATION: MR BRAIN WITHOUT THEN WITH IV CONTRAST HISTORY: R51.9 - Headache, unspecified TECHNIQUE: Sagittal T1, and axial T1, FLAIR, T2, gradient echo, and diffusion weighted MR images of the brain were obtained. Subsequently, axial, and coronal T1-weighted images were obtained after the administration of intravenous gadolinium. 7 mL Gadavist was administered. COMPARISON: None FINDINGS: A single nonspecific white matter hyperintensities seen in the subcortical right frontal lobe. Noel/white differentiation is otherwise normal. There is no mass effect or midline shift. The ventricular system is normal in size and configuration. No intra or extra-axial fluid collections are identified. There are no foci of restricted diffusion. There is no abnormal contrast enhancement. Normal vascular flow voids are noted in the basilar and carotid arteries. There is mild mucosal thickening in the dependent portions of the bilateral maxillary sinuses. MR/MR head/brain wo/w con IMPRESSION: Essentially unremarkable MRI of the brain without and with contrast. Electronically signed by: Nitish Lin MD 09/25/2024 10:49 AM EST Dictated By: Nitish Lin MD Signed By: <Electronically signed by Nitish Lin MD in OV> 09/25/24 1049 DD/ 0915 TD/TT: 09/25/24 0958 Pile Operator: [facility] External Provider IMG MRI PROCEDURES Final Result * FL Upper GI w/air w/Barium Swallow (09/01/2024 7:49 AM EST) Anatomical Region Laterality Modality Body Radiographic Mariana ging 09/01/2024 7:49 AM EST Narrative 09/01/2024 12:43 PM EST ? [facility] ?[address] ?[place], [place] [address] ? Fluoroscopy Report ? Signed ? Patient: Antonetty Vallejo,Chhaya ?MR#: ?? [id number] ? : 1975 ?Acct:[id number] ? Age/Sex: 49 / F ?ADM Date: 09/01/24 ? Loc: HO.XRAY ? Attending Dr: Deidre INIGUEZ ? Ordering Physician: Deidre Dowling ?? Date of Service: 09/01/24 ?? Procedure(s): FL upper GI w air w Ba Swallow ?? Accession Number(s): [id number] ? cc: Lolly French MD; Deidre Dowling [...] Felton MD ??09/01/2024 12:40 PM EST RP ?? Workstation: [id number] ? Dictated By: ?Steven Covarrubias ? Signed By: ?<Electronically signed by Steven Covarrubias in OV> ? 09/01/24 1240 ?<Electronically signed by Jesse Felton MD in OV> ? 09/01/24 1242 ? DD/ 0749 ? TD/TT: 09/01/24 0836 ? Pile Operator: ? Procedure Note Ethel Goncalves - 09/01/[address] [address] Fluoroscopy Report Signed Patient: Chhaya DeyMR#: [id number] : 1975Acct:[id number] Age/Sex: 49 / FADM Date: 09/01/24 Loc: [facility] Attending Dr: Deidre JACKSON-LLOYD Ordering Physician: Deidre Dowling Date of Service: 09/01/24 Procedure(s): FL upper GI w air w Ba Swallow Accession Number(s): [id number] cc: Lolly French MD; Deidre Dowling [facility]- EXAMINATION: XR FLUOROSCOPY UPPER GI WITH AIR [...] by: Jesse Felton MD 09/01/2024 12:[address] [facility] Dictated By: Steven Covarrubias Signed By: <Electronically signed by Steven Covarrubias in OV> 09/01/24 1240 <Electronically signed by Jesse Felton MD in OV> 09/01/24 1242 DD/ 0749 TD/TT: 09/01/24 0836 Pile Operator: [facility] External Provider IMG FLU OROSCOPY PROCEDURES Final Result * BI Mammogram Diagnostic Left (03/30/2024 2:30 PM EDT) Anatomical Region Laterality Modality Breast Left Mammography 03/30/2024 2:30 PM EDT Narrative 03/30/2024 2:51 PM EDT ? [facility] [place] ? [address] ?[place] [address] ? Mammography Report ? Signed ? Patient: Chhaya Dey ?MR#: ?? [id number] ? : 1975 ?Acct:[id number] ? Age/Sex: 49 / F ?ADM Date: 03/30/24 ? Loc: HO.MAMMO ? Attending Dr: Lolly French MD ? Ordering Physician: Lolly French MD ?Results: 3.6MProbably Benign Finding - Short 6 M F/U ?? Suggested ? Date of Service: 03/30/24 ?Follow Up: 6 Month F/U ? Procedure(s): MM diagnostic mammo unilat LT ?? Accession Number(s): [id number] ? cc: Lolly French MD ? EXAMINATION: [...] 1448 ? DD/ 1430 ? TD/TT: ? Pile Operator: ? Procedure Note Ethel Goncalves - 03/30/2024 [facility] [address] [place] [address] Mammography Report Signed Patient: Chhaya DeyMR#: [id number] : 1975Acct:[id number] Age/Sex: 49 / FADM Date: 03/30/24 Loc: HO.MAMMO Attending Dr: Lolly French MD Ordering Physician: Lolly French MD Results: 3.6MProbably Benign Finding - Short 6 M F/U Suggested Date of Service: 03/30/24Follow Up: 6 Month F/U Procedure(s): MM diagnostic mammo unilat LT Accession Number(s): [id number] cc: Lolly French MD EXAMINATION: MM DIAGNOSTIC [...] in OV> 03/30/24 1448 DD/ 1430 TD/TT: Pile Operator: us Lolly French MD IMG BI PROCEDURES Final Result * Hepatitis Panel, General (10/04/2023 10:36 AM EST) Hepatitis A IgM Nonreactive Nonreactive [facility] Comment:IgM antibodies to ARREAGA V not detected; does not exclude earlyacute or recovered HAV infection. ~Hepatitis B Surface Antibody NONREACTIVE Nonreactive [facility] Comment:Nonreactive: < 8.00 mIU/mL Hepatitis B Core Antibody Nonreactive Nonreactive [facility] Hepatitis C Antibody Nonreactive Nonreactive [facility] Comment:Antibodies to HCV no t detected; does not exclude early acuteHCV infection. Hepatitis B Surface Ag Negative Negative [facility] Blood 10/04/2023 10:3 6 AM EST 10/04/2023 11:34 AM EST Lolly French MD LAB BLOOD ORDERABLES Fin al Result [facility] [address] [place] [phone] * HIV-1/2 Antigen and Antibodies, Fourth Generation, with Reflexes (10/04/2023 10:36 AM EST) HIV AB/AG Nonreactive Nonreactive [facility] Comment:HIV-1 p24 Ag and/or HIV-1/HIV-2 Ab not detected.A test result that is nonreactive does not exclude thepossibility of exposure to or infection with HIV-1 and/orHIV-2. Nonreactive results in this assay for individualswith prior exposure to HIV-1 and/or HIV-2 may be due toantigen and antibody levels that are below the limit ofdetection of this assay.The Porphyrio HIV Ag/Ab Combo assay result andsupplemental assay results should be interpreted inconjunction with the patient's clinical presentation,history and other laboratory results. If the results areinconsistent with clinical evidence, additional testing issuggested to confirm the result. Blood Venous blood specimen / Unknown 10/04/2023 10:36 AM EST 10/04/2023 11:34 AM EST us Lolly French MD LAB BLOOD ORDERABLES Fin al Result Performing Organization Address [facility]/ZIP Co de Phone Number [facility] [address] [place] [phone] * HPV mRNA E6/E7 w/Reflex to HPV Genotypes 16, 18/45 (09/21/2023 1:23 PM EST) HPV nRNA E6/E7 Not Detected Not Detected [facility] Comment:Methodology: Transcr iption-Mediated AmplificationThis assay detects E6/E7 viral messenger RNA (mRNA) from 14high-risk HPV types (16,18,31,33,35,39,45,51,52,56,58,59,66,68).Cervical sources are required for HPV testing.If a vaginal source from a patient who has had atotal hysterectomy with removal of cervix wassubmitted, please contact the testing laboratoryfor alternative testing options.For additional information, please refer tohttp://education.Pufferfish/faq/SHQ477e6(This link if provided for information/educational purposes only.)THIS TEST WAS PERFORMED AT:[facility] [place] [phone] RIOS MD HPV mRNA E6/E7 [facility] HPV 16 RNA [facility] HPV 18/45 RNA [facility] 09/21/2023 1:23 PM EST 09/23/2023 9:50 AM EST us Devi Diaz CNM LAB CYTOLOGY ORDERABLES F inal Result Performing Organization Address City/[facility]/ZIP Co de Phone Number [facility] [address] [place] [phone] * Pap Smear (09/21/2023 1:23 PM EST) Swab Cervix uteri structure / Unknown 09/21/2023 1:23 PM EST 09/23/2023 9:50 AM EST Narrative [facility] - 10/06/2023 2:23 PM EST ----- ------- Name: Chhaya Dey ? Age/Sex: 48/F ? : 1975 Unit#: [id number] ?? Attend Dr: Richie Raines MD ??Re09/21/23 ?Status: DEP REF ? [facility] ? Disch: ? ----- ------- SPEC : [id number] ? RECD: 09/23/23 ? STATUS: ??SOUT ? REQ NUM: [id number] ? CAN: 09/21/23-1322 ? SUBM DR: DEVI DIAZ CNM ? ENTERED: ??09/23/23-1128 ?SP TYPE: Pap Smr ?OTHR : ? [...] 66, 68) ? HPV testing performed by [facility], [place], [place]. ??See reference laboratory ?? portion of the EMR for entire report. ?Clinical Information LMP: Unknown date Previous PAP test:Unknown date/findings ? Material Received ?? ThinPrep-Cervical ----- ------- Signed (signature on file) Flori Membreno 10/06/23 1423 ? ----- ------- ? END OF REPORT ? us Devi Diaz CNM LAB CYTOLOGY ORDERABLES F inal Result [facility] [address] [place] [address] [phone] from Last 3 Months or Most Recently Relevant to Health Maintenance Insurance [place] [id number] [facility] STANDARD [employer] MEDICARE REPLACEMENT Care Teams Black Top Spreader Machine Operator Relationship Specialty Start Date End Date Richie Raines MD [address] [place] [phone] PCP - General Internal Medicine 08/19/23
--- OUTSIDE RECORDS SUMMARY | 2024-10-03 13:25 | XMS_ITS | Encounter Summary ---
Author Organization [employer] Address 75 [facility] 7 [place] [address] Care Team Providers Care Library Media Assistant Name Role Phone Richie Raines MD Primary Care Prov ider Reason for Visit * Reason Onset Date Comments Reschedule Request 11/30/2023 Encounter Details Date Type Department Care Team (Late st Contact Info) Description 11/30/2023 Telephone [facility] MEDICINE [address] [place] [address] Richie Raines MD [address] [place], [place] [phone] Reschedule Request Social History Tobacco Use Types [...] AM EDT Triage call to Pt with [employer] ID [id number]. Pt didn't answer. Left voice message to call [facility] triage line [phone] * Telephone Encounter - Raimundo Contreras - 11/30/2023 11:41 AM EDT Tc from pt requesting to reschedule today's same day visit. Please contact pt at [phone]. documented in this encounter Plan of Treatment Upcoming Encounters Date Type Department Care Team (Late st Contact Info) Description 10/05/2024 9:00 AM EST Office Visit [facility] CHC MED & PEDS [address] [place] [address] Richie Raines MD [address] [place] [address] documented as of this encounter Visit Diagnoses Not on filedocumented in this encounter Additional Health Concerns Assessment Noted Time PHQ-9 Depression Total Score: 0 08/10/20 23 2:42 PM EST documented as of this encounter Care Teams Library Media Assistant Relationship Specialty Start Date End Date Richie Raines MD [address] [place] [address] PCP - General Internal Medicine 08/19/23 documented as of this encounter
== END 2024-10-03 11:58 | disposition home or self-care (01) ==
LOC: HO.MAMMO 11:57
PROVIDERS: PCP Internal Medicine; Visit Provider Internal Medicine
DX: R92.1 Mammographic calcification found on diagnostic imaging of breast (principal)
CPT/HCPCS: 77062; 77066

== ENCOUNTER → 2024-10-03 12:00 | Outpatient (BNV) | payer MEDICARE, SELFPAY | PROVIDERS: PCP Internal Medicine; Visit Provider Internal Medicine | DX: R92.1 Mammographic calcification found on diagnostic imaging of breast (principal) | CPT/HCPCS: 77066; G0279 ==

== ENCOUNTER 2024-10-10 08:45 | Outpatient (RCR) | payer MEDICARE, MEDICAID, SELFPAY ==
[2024-09-05 09:00] VITALS: BP 111/71; PULSE 83; RESP 20; TEMP 36.6; O2SAT 98
[2024-09-05] MEDS: Iron Sucrose Complex 200 MG/10 ML VIAL IVPUSH (09:06)
[2024-09-12 09:41] VITALS: BP 113/70; PULSE 85; RESP 20; TEMP 36.2; O2SAT 99
[2024-09-12] MEDS: Iron Sucrose Complex 200 MG/10 ML VIAL IVPUSH (09:48)
[2024-09-19 09:02] VITALS: BP 113/68; PULSE 88; RESP 14; TEMP 36.6; O2SAT 97
[2024-09-19] MEDS: Iron Sucrose Complex 200 MG/10 ML VIAL IVPUSH (09:06)
[2024-09-26 08:44] VITALS: BP 111/67; PULSE 88; RESP 14; TEMP 37; O2SAT 97
[2024-09-26] MEDS: Iron Sucrose Complex 200 MG/10 ML VIAL IVPUSH (08:47)
[2024-10-03 09:01] VITALS: TEMP 36.4
[2024-10-03] MEDS: Iron Sucrose Complex 200 MG/10 ML VIAL IVPUSH (09:22)
[2024-10-03] MEDS: 0.9 % Sodium Chloride Flush 10 ML SYRINGE 5 ML IVFLUSH (09:28)
[2024-10-10 08:38] VITALS: BP 108/58; PULSE 95; RESP 16; TEMP 36.2; O2SAT 97
[2024-10-10] MEDS: Iron Sucrose Complex 200 MG/10 ML VIAL IVPUSH (08:57)
[2024-10-10 09:09] LABS: Hematocrit 38.6 % (37.0-47.0); Hemoglobin 11.9 g/dl (12.0-16.0); Mean Corpuscular HGB Conc 30.8 g/dl (31.0-35.0); Mean Corpuscular Hemoglobin 20.1 pg (27.0-33.0); Mean Corpuscular Volume 65.1 fL (80.0-98.0); Platelet Count 290 X10*3/uL (160-400); Red Blood Count 5.93 X10*6/uL (4.20-5.50); White Blood Count 3.5 X10*3/uL (4.8-10.8)
[2024-10-10 09:41] LABS: Ferritin 295 ng/mL (10-250)
== END 2024-10-10 14:40 | disposition home or self-care (01) ==
LOC: HO.INF 08:45
PROVIDERS: Visit Provider Internal Medicine
DX: D64.9 Anemia, unspecified (principal)
CPT/HCPCS: 36415; 82728; 85027; 96374; J1756

== ENCOUNTER 2024-10-19 11:22 | Outpatient (REF) | payer MEDICARE, SELFPAY ==
--- NOTE | ~2024-10-19 | US_ITS ---
EXAMINATION: US PELVIS CLINICAL INFORMATION: Menorrhagia. COMPARISON: None available. TECHNIQUE: Ultrasound of the pelvis is performed using both transabdominal and transvaginal transducers along with Doppler. Transvaginal imaging is performed due to inadequate visualization transabdominally. FINDINGS: Uterus: The uterus is anteverted, anteflexed, and measures 8.0 x 4.4 x 4.7 cm. Normal sonographic appearance of the cervix. The double wall endometrial thickness is 17 mm. It is uniform without irregularity. The uterus is smooth in contour and has normal myometrial echogenicity. No visible fibroid. Adnexa: Both ovaries are visualized. There is normal color flow to the adnexa. There is no ovarian torsion. There is no pelvic ascites or fluid collection. There are no adnexal masses. Right ovary measures 3.4 x 3.2 x 3.3 cm. Volume = 18.8 mL. Sonographic appearance. Dominant follicle present measuring 1.9 cm. Left ovary is not well seen, obscured by gas. US/US pelvic and transvaginal IMPRESSION: 1. Normal-appearing uterus and endometrium. Normal endometrial thickness at 17 mm. It is uniform without irregularity. 2. No definite fibroid tumors identified. 3. Normal right ovary. The left ovary could not be definitively identified, obscured by gas. Electronically signed by: Jesse Felton MD 10/19/2024 11:59 AM [facility]
--- OUTSIDE RECORDS SUMMARY | 2024-10-19 13:48 | XMS_ITS | Encounter Summary ---
Author Organization [employer] Address 75 [facility] 7t [place] [address] Care Team Providers Care Seating And Mobility Technologist Name Role Phone Richie Raines MD Primary Care Prov ider Reason for Visit * Reason Comments Med Change Request Encounter Details Date Type Department Care Team ([facility] st Contact Info) Description 11/02/2023 Refill [facility]ALK[facility]IN [facility] [address] [place] [address] Matthias Maria MD [address] [place] [address] Chronic bilateral low back pain without sciatica [...] Care Team (Late st Contact Info) Description 11/28/2024 10:00 AM EDT Office Visit [facility] MEDICINE [address] [place] [address] Lolly French MD [address] [place] [address] documented as of this encounter Visit Diagnoses Diagnosis Chronic bilateral low back pain without sciatica documented in this encounter Additional Health Concerns Assessment Noted Time PHQ-9 Depression Total Score: 0 08/10/20 2:42 PM EST documented as of this encounter Care Teams Seating And Mobility Technologist Relationship Specialty Start Date End Date Richie Raines MD [address] [place] [address] PCP - General Internal Medicine 08/19/23 documented as of this encounter
--- OUTSIDE RECORDS SUMMARY | 2024-10-19 13:48 | XMS_ITS | Encounter Summary ---
Author Organization [employer] Address 75 [facility] 7t [place] [address] Care Team Providers Care Custodial Officer Name Role Phone Richie Raines MD Primary Care Prov ider Reason for Visit * Reason Comments Med Change Request Encounter Details Date Type Department Care Team ([facility] st Contact Info) Description 11/11/2023 Refill [facility] [address] [place] [address] Matthias Maria MD [address] [place] [address] Chronic bilateral low back pain without sciatica [...] Description 11/28/2024 10:00 AM EDT Office Visit [facility] MEDICINE [address] [place] [address] Lolly French MD [address] [place] [address] documented as of this encounter Visit Diagnoses Diagnosis Chronic bilateral low back pain without sciatica documented in this encounter Additional Health Concerns Assessment Noted Time PHQ-9 Depression Total Score: 0 08/10/20 2:42 PM EST documented as of this encounter Care Teams Custodial Officer Relationship Specialty Start Date End Date Richie Raines MD [address] [place] [address] PCP - General Internal Medicine 08/19/23 documented as of this encounter
--- OUTSIDE RECORDS SUMMARY | 2024-10-19 13:48 | XMS_ITS | Encounter Summary ---
Author Organization [employer] Address 75 [facility] 7t [place] [address] Care Team Providers Care Renal Technician Name Role Phone Richie Raines MD Primary Care Prov ider Reason for Visit * Reason Onset Date Comments Referral 02/18/2024 Encounter Details Date Type Department Care Team (Late st Contact Info) Description 02/18/2024 Telephone [facility] MEDICINE [address] [place] [address] Richie Raines MD [address] [place], [place] [phone] Referral Social History Tobacco Use Types Packs/Day [...] calling to request a referral for a Gripper Machine Operator states has a appt for sleep studyin April and fell like is having breathing problems at night and the patient would like to be seen at [facility] [address] [place] [address] [place], [address] Dr. Dipesh Contreras MD documented in this encounter Plan of Treatment Upcoming Encounters Date Type Department Care Team (Late st Contact Info) Description 11/28/2024 10:00 AM EDT Office Visit [facility] MEDICINE [address] [place], [place] [phone] Lolly French MD 230 [place], [place] [phone] documented as of this encounter Visit Diagnoses Diagnosis Fibromyalgia Unspecified myalgia and myositis documented in this encounter Additional Health Concerns Assessment Noted Time PHQ-9 Depression Total Score: 0 08/10/20 2:42 PM EST documented as of this encounter Care Teams Renal Technician Relationship Specialty Start Date End Date Richie Raines MD [address] [place] [address] PCP - General Internal Medicine 08/19/23 documented as of this encounter
--- OUTSIDE RECORDS SUMMARY | 2024-10-19 13:48 | XMS_ITS | Encounter Summary ---
Author Organization [employer] Address 75 [facility] [address], [place] [address] Care Team Providers Care Stone Carver Name Role Phone Richie Raines MD Primary Care Prov ider Reason for Referral * Consultation (Routine) - Authorized Specialty Diagnoses / Procedures Referred By Sindy burleson Referred To Contact Breast Surgery Diagnoses Breast pain, right Elizabeth Ring CNM [address] [place] [address] Phone: tel: fax: [address] Phone: tel: fax: Referral ID Status Reason Start Date Expiration Date Visits Requested Visits Authorized [id number] Authorized Specialty Services Required 10/04/2024 10/04/2025 1 1 Encounter Details Date Type Department Care Team (Late st Contact Info) Description 10/04/2024 Orders Only [facility] MEDICINE [address] [place] [address] Elizabeth Ring CNM [address] [place], [place] [phone] Cervical cancer screening (Primary Dx); Breast pain, right Social History Tobacco Use Types Packs/Day Years [...] Description 11/28/2024 10:00 AM EDT Office Visit [facility] MEDICINE [address] [place] [address] Lolly French MD [address] [place] [address] Scheduled Referrals Name Type Priority Associated Diagnoses Orde r Schedule Referral to Breast Surgery Outpatient Referral Routine Breast pain, right Expected: 10/04/2024 (Approximate), Expires: 10/04/2025 documented as of this encounter Visit Diagnoses Diagnosis Cervical cancer screening- Primary Screening for malignant neoplasm of the cervix Breast pain, right documented in this encounter Additional Health Concerns Assessment Noted Time PHQ-9 Depression Total Score: 0 08/10/20 2:42 PM EST documented as of this encounter Care Teams Stone Carver Relationship Specialty Start Date End Date Richie Raines MD [address] [place] [address] PCP - General Internal Medicine 08/19/23 documented as of this encounter
--- OUTSIDE RECORDS SUMMARY | 2024-10-19 13:48 | XMS_ITS | Encounter Summary ---
Author Organization [employer] Address 75 [facility] 7t [place] [address] Care Team Providers Care Route Supervisor Name Role Phone Richie Raines MD Primary Care Prov ider Encounter Details Date Type Department Care Team ([facility] st Contact Info) Description 11/22/2023 Orders Only [facility] CHC MED & PEDS [address] [place], [place] [phone] Matthias Maria MD 505 [place] [address] Pain in both knees, unspecified chronicity (Primary [...] Description 11/28/2024 10:00 AM EDT Office Visit [facility] MEDICINE [address] [place] [address] Lolly French MD [address] [place] [address] documented as of this encounter Visit Diagnoses Diagnosis Pain in both knees, unspecified chronicity- Primary documented in this encounter Additional Health Concerns Assessment Noted Time PHQ-9 Depression Total Score: 0 08/10/20 2:42 PM EST documented as of this encounter Care Teams Route Supervisor Relationship Specialty Start Date End Date Richie Raines MD [address] [place] [address] PCP - General Internal Medicine 08/19/23 documented as of this encounter
--- OUTSIDE RECORDS SUMMARY | 2024-10-19 13:48 | XMS_ITS | Encounter Summary ---
Author Organization [employer] Address 75 [facility] 7t [place] [address] Care Team Providers Care Quiller Operator Name Role Phone Richie Raines MD Primary Care Prov ider Encounter Details Date Type Department Care Team ([facility] st Contact Info) Description 10/19/2024 Telephone [facility] MEDICINE [address] [place] [address] Elizabeth Ring, CN [address] [place] [address] Social History Tobacco Use Types Packs/Day Years [...] encounter Miscellaneous Notes * Telephone Encounter - Zara Francis RN - 10/19/2024 1:12 PM EST Telephone call to pt who declined family educator. Explained results of pelvic ultrasound, that there were no obvious abnormalities however provider would like to correlate the results with the pt's lastmenstrual period. Pt reports that first day of LMP was around 09/27/24 to 09/29/24. Advised her to callback [facility] or message on [facility] if prolonged or frequent bleeding returns. Pt verbalized understanding, no further questions. * Telephone Encounter - Zara Francis RN - 10/19/2024 12:54 PM EST ----- Message from Elizabeth Ring sent at 10/19/2024 12:10 PM EST ----- Pelvic ultrasound reviewed. No obvious abnormalities, but I need to correlate with last menses. Please ask Chhaya for first day of last period. If she continues to have prolonged or frequent bleeding,I will refer to [facility] for further evaluation. Th juana! documented in this encounter Plan of Treatment Upcoming Encounters Date Type Department Care Team (Late st Contact Info) Description 11/28/2024 10:00 AM EDT Office Visit [facility] MEDICINE [address] [place] [address] Lolly French MD [address] [place] [address] documented as of this encounter Visit Diagnoses Not on filedocumented in this encounter Additional Health Concerns Assessment Noted Time PHQ-9 Depression Total Score: 0 08/10/20 2:42 PM EST documented as of this encounter Care Teams Quiller Operator Relationship Specialty Start Date End Date Richie Raines MD [address] [place] [address] PCP - General Internal Medicine 08/19/23 documented as of this encounter
--- OUTSIDE RECORDS SUMMARY | 2024-10-19 13:48 | XMS_ITS | Encounter Summary ---
Author Organization [employer] Address 75 [facility] 7t [place] [address] Care Team Providers Care Dairy Grazer Name Role Phone Richie Raines MD Primary Care Prov ider Reason for Visit * Reason Onset Date Comments Appointment Request 09/16/2023 Encounter Details Date Type Department Care Team ([facility] st Contact Info) Description 09/16/2023 Telephone [facility] MEDICINE [address] [place] [address] Richie Raines MD [address] [place], [place] [phone] Appointment Request Social History Tobacco Use Types [...] Description 11/28/2024 10:00 AM EDT Office Visit [facility] MEDICINE [address] [place] [address] Lolly French MD 230 [place] [address] documented as of this encounter Visit Diagnoses Not on filedocumented in this encounter Additional Health Concerns Assessment Noted Time PHQ-9 Depression Total Score: 0 08/10/20 2:42 PM EST documented as of this encounter Care Teams Dairy Grazer Relationship Specialty Start Date End Date Richie Raines MD [address] [place] [address] PCP - General Internal Medicine 08/19/23 documented as of this encounter
--- OUTSIDE RECORDS SUMMARY | 2024-10-19 13:48 | XMS_ITS | Encounter Summary ---
Author Organization [employer] Address 75 [facility] 7t [place] [address] Care Team Providers Care Assistant Community Director Name Role Phone Richie Raines MD Primary Care Prov ider Reason for Visit * Reason Comments Med Refill Encounter Details Date Type Department Care Team (Late st Contact Info) Description 08/05/2023 Refill [facility] WALK-IN CENTER 230 [place] [address] Heath Woodson MD [address] [place] [address] Social History Tobacco Use Types Packs/Day Years [...] Description 11/28/2024 10:00 AM EDT Office Visit [facility] MEDICINE 230 [place] [address] Lolly French MD [address] [place] [address] documented as of this encounter Visit Diagnoses Not on filedocumented in this encounter Additional Health Concerns Assessment Noted Time PHQ-9 Depression Total Score: 17 07/08/ 023 4:25 PM EST documented as of this encounter Care Teams Assistant Community Director Relationship Specialty Start Date End Date Richie Raines MD [address] [place] [address] PCP - General Internal Medicine 08/19/23 documented as of this encounter
--- OUTSIDE RECORDS SUMMARY | 2024-10-19 13:48 | XMS_ITS | Encounter Summary ---
Author Organization [employer] Address 75 [facility] 7t [place] [address] Care Team Providers Care Automatic Pilot Mechanic Name Role Phone Richie Raines MD Primary Care Prov ider Reason for Visit * Reason Comments Med Refill Encounter Details Date Type Department Care Team (Late st Contact Info) Description 07/29/2023 Refill [facility] WALK[facility]IN [facility] [address] [place] [address] Heath Woodson MD [address] [place] [address] Social History Tobacco Use Types Packs/Day Years [...] [facility] [address] [place] [address] Lolly French MD [address] [place] [address] documented as of this encounter Visit Diagnoses Not on filedocumented in this encounter Additional Health Concerns Assessment Noted Time PHQ-9 Depression Total Score: 17 07/08/ 023 4:25 PM EST documented as of this encounter Care Teams Automatic Pilot Mechanic Relationship Specialty Start Date End Date Richie Raines MD [address] [place] [address] PCP - General Internal Medicine 08/19/23 documented as of this encounter
--- OUTSIDE RECORDS SUMMARY | 2024-10-19 13:48 | XMS_ITS | Encounter Summary ---
Author Organization [employer] Address [address] [facility] 7t [place] [address] Care Team Providers Care Vp Communications Name Role Phone Richie Raines MD Primary Care Prov ider Reason for Referral * Imaging (Urgent) - Authorized Specialty Diagnoses / Procedures Referred By Contac t Referred To Contact Radiology Diagnoses Menorrhagia with regular cycle Procedures Us Pelvis complete Elizabeth Diaz CNM [address] [place] [address] Phone: tel: fax: [address] Phone: tel: fax: Referral ID Status Reason Start Date Expiration Date V isits Requested Visits Authorized [id number] Authorized 09/21/2024 09/21/2025 1 1 * Imaging (Urgent) - Authorized Specialty Diagnoses / Procedures Referred By Contac t Referred To Contact Radiology Diagnoses Menorrhagia with regular cycle Procedures US Pelvis Transvaginal Elizabeth Diaz CNM [address] [place] [address] Phone: tel: fax: [address] Phone: tel: fax: Referral ID Status Reason Start Date Expiration Date V isits Requested Visits Authorized [id number] Authorized 09/21/2024 09/21/2025 1 1 Reason for Visit * Reason Comments Gynecologic Exam Encounter Details Date Type Department Care Team (Late st Contact Info) Description 09/21/2024 1:45 PM EST Office Visit [facility] [address] [place] [address] Elizabeth Diaz CNM [address] [place] [address] Menorrhagia with regular cycle (Primary Dx) Social [...] in this encounter Progress Notes * Elizabeth Diaz CNM - 09/21/2024 1:45 PM EST Subjective Patient ID: Chhaya Vallejo is a 49 y.o. female who presents for [employer] visit Pap NIL/HPV neg 08/2023. Mammogram BIRADS [...] heavily. She was told by provider in [place] that this was normal. No intermenstrual bleeding. [...] for iron infusions. documented in this encounter Miscellaneous Notes * Result Encounter Note - Elizabeth Diaz CNM - 09/21/2024 1:45 PM EST Pelvic ultrasound reviewed. No obvious abnormalities, but I need to correlate with last menses. Please ask Chhaya for first day of last period. If she continues to have prolonged or frequent bleeding,I will refer to [employer] [facility] for further evaluation. Thanks! documented in this encounter Plan of Treatment Upcoming Encounters Date Type Department Care Team (Late st Contact Info) Description 11/28/2024 10:00 AM EDT Office Visit [facility] [address] [place] [address] Lolly French MD [address] [place] [address] Scheduled Orders Name Type Priority Associated Diagnoses Orde r Schedule Us Pelvis complete Imaging Urgent Menorrhagia with regular cycle Expected: 09/21/2024, Expires: 09/21/2025 documented as of this encounter Procedures Procedure Name Priority Date/Time Associated Diagnosis Comments US PELVIS TRANSVAGINAL Urgent 10/19/2024 11:29 AM EST Menorrhagia with regular cycle documented in this encounter Results * US Pelvis Transvaginal (10/19/2024 11:29 AM EST) Anatomical Region Laterality Modality Pelvis Ultrasound 10/19/2024 11:2 9 AM EST Narrative 10/19/2024 12:02 PM EST ? [facility] ?[address] ?[place] [address] ? Ultrasound Report ? Signed ? Patient: Antonetty Vallejo,Chhaya ?MR#: ?? [id number] ? : 1975 ?Acct:[id number] ? Age/Sex: 49 / F ?ADM Date: 02/27/25 ? Loc: HO.US ? Attending Dr: Elizabeth Diaz CNM ? Ordering Physician: ELIZABETH DIAZ CNM ?? Date of Service: 10/19/24 ?? Procedure(s): US pelvic and transvaginal ?? Accession Number(s): [id number] ? cc: Lolly French MD; ELIZABETH DIAZ CNM ? EXAMINATION: ? US PELVIS ? CLINICAL INFORMATION: ? Menorrhagia. ? COMPARISON: ?? None available. ? TECHNIQUE: ?? Ultrasound of the pelvis is performed using both transabdominal and ?? transvaginal transducers along with Doppler. Transvaginal imaging is ?? performed due to inadequate visualization transabdominally. ? FINDINGS: ?? Uterus: ?? The uterus is anteverted, anteflexed, and measures 8.0 x 4.4 x 4.7 cm. ? Normal sonographic appearance of the cervix. ? The double wall endometrial thickness is 17 mm. ??It is uniform without ?? irregularity. ? The uterus is smooth in contour and has normal myometrial echogenicity. ?No visible fibroid. ? Adnexa: ?? Both ovaries are visualized. There is normal color flow to the adnexa. ?? There is no ovarian torsion. ??There is no pelvic ascites or fluid ?? collection. There are no adnexal masses. ? Right ovary measures 3.4 x 3.2 x 3.3 cm. Volume = 18.8 mL. Sonographic ?? appearance. Dominant follicle present measuring 1.9 cm. ? Left ovary is not well seen, obscured by gas. ? US/US pelvic and transvaginal ?? IMPRESSION: ? 1. Normal-appearing uterus and endometrium. Normal endometrial ?? thickness at 17 mm. It is uniform without irregularity. ?? 2. No definite fibroid tumors identified. ?? 3. Normal right ovary. The left ovary could not be definitively ?? identified, obscured by gas. ? Electronically signed by: ??Jesse Felton MD ??10/19/2024 11:59 AM EST RP ? Dictated By: ?Jesse Felton MD ? Signed By: ?<Electronically signed by Jesse Felton MD in OV> ?10/19/24 1159 ? DD/ 1129 ? TD/TT: 10/19/24 1142 ? Director Of Advertising Sales: ? Procedure Note Donotuseinterpreter, Image - 10/19/2024 [place] [id number] Ultrasound Report Signed Patient: Chhaya DeyMR#: [id number] : 1975Acct:[id number] Age/Sex: 49 / FADM Date: 10/19/24 Loc: HO.US Attending Dr: Elizabeth Diaz CNM Ordering Physician: ELIZABETH DIAZ CNM Date of Service: 10/19/24 Procedure(s): US pelvic and transvaginal Accession Number(s): [id number] cc: Lolly French MD; ELIZABETH DIAZ CNM EXAMINATION: US PELVIS CLINICAL INFORMATION: Menorrhagia. COMPARISON: None available. TECHNIQUE: Ultrasound of the pelvis is performed using both transabdominal and transvaginal transducers along with Doppler. Transvaginal imaging is performed due to inadequate visualization transabdominally. FINDINGS: Uterus: The uterus is anteverted, anteflexed, and measures 8.0 x 4.4 x 4.7 cm. Normal sonographic appearance of the cervix. The double wall endometrial thickness is 17 mm. It is uniform without irregularity. The uterus is smooth in contour and has normal myometrial echogenicity. No visible fibroid. Adnexa: Both ovaries are visualized. There is normal color flow to the adnexa. There is no ovarian torsion. There is no pelvic ascites or fluid collection. There are no adnexal masses. Right ovary measures 3.4 x 3.2 x 3.3 cm. Volume = 18.8 mL. Sonographic appearance. Dominant follicle present measuring 1.9 cm. Left ovary is not well seen, obscured by gas. US/US pelvic and transvaginal IMPRESSION: 1. Normal-appearing uterus and endometrium. Normal endometrial thickness at 17 mm. It is uniform without irregularity. 2. No definite fibroid tumors identified. 3. Normal right ovary. The left ovary could not be definitively identified, obscured by gas. Electronically signed by: Jesse Felton MD 10/19/2024 11:59 AM EST RP Dictated By: Jesse Felton MD Signed By: <Electronically signed by Jesse Felton MD in OV> 10/19/24 1159 DD/ 1129 TD/TT: 10/19/24 1142 Director Of Advertising Sales: us Elizabeth Diaz CNM IMG US PROCEDURES Final R esult documented in this encounter Visit Diagnoses Diagnosis Menorrhagia with regular cycle- Primary documented in this encounter Additional Health Concerns Assessment Noted Time PHQ-9 Depression Total Score: 0 08/10/20 2:42 PM EST documented as of this encounter Care Teams Vp Communications Relationship Specialty Start Date End Date Richie Raines MD [address] [place] [address] PCP - General Internal Medicine 08/19/23 documented as of this encounter
--- OUTSIDE RECORDS SUMMARY | 2024-10-19 13:48 | XMS_ITS | Encounter Summary ---
Author Organization [employer] Address [address] [facility] 7 [place] [address] Care Team Providers Care It Business Process Architect Name Role Phone Richie Raines MD Primary Care Prov ider Reason for Visit * Reason Onset Date Comments Reschedule Request 11/30/2023 Encounter Details Date Type Department Care Team (Late st Contact Info) Description 11/30/2023 Telephone [facility] [address] [place] [address] Richie Raines MD [address] [place], [place] [phone] Reschedule Request Social History Tobacco Use Types [...] AM EDT Triage call to Pt with [place] Round Cutter Operator ID [id number]. Pt didn't answer. Left voice message to call [facility] triage line [phone] * Telephone Encounter - Raimundo Contreras - 11/30/2023 11:41 AM EDT Tc from pt requesting to reschedule today's same day visit. Please contact pt at [phone]. documented in this encounter Plan of Treatment Upcoming Encounters Date Type Department Care Team (Late st Contact Info) Description 11/28/2024 10:00 AM EDT Office Visit [facility] [address] [place] [address] Lolly French MD [address] [place] [address] documented as of this encounter Visit Diagnoses Not on filedocumented in this encounter Additional Health Concerns Assessment Noted Time PHQ-9 Depression Total Score: 0 08/10/20 23 2:42 PM EST documented as of this encounter Care Teams It Business Process Architect Relationship Specialty Start Date End Date Richie Raines MD [address] [place] [address] PCP - General Internal Medicine 08/19/23 documented as of this encounter
--- OUTSIDE RECORDS SUMMARY | 2024-10-19 13:48 | XMS_ITS | Encounter Summary ---
Author Organization [employer] Address [address] [facility] 7t [place] [address] Care Team Providers Care Machine Tailer Name Role Phone Richie Raines MD Primary Care Prov ider Encounter Details Date Type Department Care Team ([facility] st Contact Info) Description 09/28/2023 Telephone [facility] [address] [place], [place] [phone] Richie Raines MD [address] [place] [address] Social History Tobacco Use Types Packs/Day Years [...] Description 11/28/2024 10:00 AM EDT Office Visit [facility] [address] [place] [address] Lolly French MD [address] [place] [address] documented as of this encounter Visit Diagnoses Not on filedocumented in this encounter Additional Health Concerns Assessment Noted Time PHQ-9 Depression Total Score: 0 08/10/20 2:42 PM EST documented as of this encounter Care Teams Machine Tailer Relationship Specialty Start Date End Date Richie Raines MD [address] [place] [address] PCP - General Internal Medicine 08/19/23 documented as of this encounter
--- OUTSIDE RECORDS SUMMARY | 2024-10-19 13:48 | XMS_ITS | Encounter Summary ---
Author Organization [employer] Address [address] [facility] 7t [place] [address] Care Team Providers Care Telescope Maintenance Name Role Phone Richie Raines MD Primary Care Prov ider Encounter Details Date Type Department Care Team (Late st Contact Info) Description 10/03/2024 Orders Only [facility] [address] [place] [address] Lolly French MD [address] [place] [address] Social History Tobacco Use Types Packs/Day Years [...] Description 11/28/2024 10:00 AM EDT Office Visit [facility] [address] [place] [address] Lolly French MD [address] [place] [address] documented as of this encounter Procedures Procedure Name Priority Date/Time Associated Diagnosis Comments BI MAMMOGRAM DIAGNOSTIC TOMOSYNTHESIS BILATERAL Routine 10/03/2024 12:20 PM EST documented in this encounter Results * BI Mammogram Diagnostic Tomosynthesis Bilateral (10/03/2024 12:20 PM EST) Anatomical Region Laterality Modality Breast Bilateral Mammography 10/03/2024 12:2 0 PM EST Narrative 10/03/2024 1:44 PM EST ? [facility] ? [address] ?[place] [address] ? Mammography Report ? Signed ? Patient: Antonetty Vallejo,Chhaya ?MR#: ?? [id number] ? : 1975 ?Acct:[id number] ? Age/Sex: 49 / F ?ADM Date: //25 ? Loc: HO.MAMMO ? Attending Dr: Lolly French MD ? Ordering Physician: Lolly French MD ?Results: 3.12MProbably Benign Finding - 12 month F/U ?? Suggested ? Date of Service: 10/03/24 ?Follow Up: 12 month diagnos ?? tic follow up ? Procedure(s): MM tomosynthesis diagnostic BI ?? Accession Number(s): [id number] ? cc: Lolly French MD ? EXAMINATION: ?? MM DIAGNOSTIC DIGITAL BREAST TOMOSYNTHESIS, BILATERAL ? CLINICAL INFORMATION: ? Left retroareolar calcifications. ? COMPARISON: ?? Mammography: Comparison is made with relevant prior exams. ? TECHNIQUE: ?? Digital breast mammography with tomosynthesis is performed in both the ?? craniocaudal and mediolateral oblique views along with computer-aided ?? detection (CAD). ? FINDINGS: ?? The breasts are heterogeneously dense, which may obscure small masses ?? (ACR BI-RADS breast composition Category c). ?? Left: ?? Previously seen grouped punctate calcifications in the left ?? retroareolar region are not significantly changed from priors dating ?? back to May 2023. ?? No suspicious masses or other abnormal findings. ? Right: ?? Postsurgical changes are stable. ?? Marker clip. ?? There are no significant masses, abnormal calcifications, or other ?? abnormalities. ? Results are provided to the patient at time of visit by the ?? technologist. ? MM/MM tomosynthesis diagnostic BI ?? IMPRESSION: ?? Punctate calcifications in the retroareolar region of the left breast ?? are not significantly changed from prior magnification views dating ?? back for one year. Recommend 12 month follow-up with magnification ?? views when the patient will be due for bilateral mammography. ? ASSESSMENT: ? BI-RADS BI-RADS 3 - Probably benign finding(s) - 12 month follow-up ?? suggested ? RECOMMENDATION: ?? 12 month diagnostic follow up ? This patient's information was entered into a reminder system with a ?? target due date for their next mammogram. ? Electronically signed by: ??Alecia Rose DO ??10/03/2024 01:41 PM EST ? Dictated By: ?Alecia Rose DO ? Signed By: ?<Electronically signed by Alecia Rose, DO in OV> ? 10/03/24 1341 ? DD/ 1220 ? TD/TT: 10/03/24 1257 ? Barrel Builder: ? Procedure Note Ethel Goncalves - 10/03/2024 Jennifer [facility] [address] [place] [address] Mammography Report Signed Patient: Chhaya Dey#: [id number] : 1975Acct:[id number] Age/Sex: 49 / FADM Date: 10/03/24 Loc: HO.MAMMO Attending Dr: Lolly French MD Ordering Physician: Lolly French MD Results: 3.12MProbably Benign Finding - 12 month F/U Suggested Date of Service: 10/03/24Follow Up: 12 month diagnos tic follow up Procedure(s): MM tomosynthesis diagnostic BI Accession Number(s): [id number] cc: Lolly French MD EXAMINATION: MM DIAGNOSTIC DIGITAL BREAST TOMOSYNTHESIS, BILATERAL CLINICAL INFORMATION: Left retroareolar calcifications. COMPARISON: Mammography: Comparison is made with relevant prior exams. TECHNIQUE: Digital breast mammography with tomosynthesis is performed in both the craniocaudal and mediolateral oblique views along with computer-aided detection (CAD). FINDINGS: The breasts are heterogeneously dense, which may obscure small masses (ACR BI-RADS breast composition Category c). Left: Previously seen grouped punctate calcifications in the left retroareolar region are not significantly changed from priors dating back to May 2023. No suspicious masses or other abnormal findings. Right: Postsurgical changes are stable. Marker clip. There are no significant masses, abnormal calcifications, or other abnormalities. Results are provided to the patient at time of visit by the technologist. MM/MM tomosynthesis diagnostic BI IMPRESSION: Punctate calcifications in the retroareolar region of the left breast are not significantly changed from prior magnification views dating back for one year. Recommend 12 month follow-up with magnification views when the patient will be due for bilateral mammography. ASSESSMENT: BI-RADS BI-RADS 3 - Probably benign finding(s) - 12 month follow-up suggested RECOMMENDATION: 12 month diagnostic follow up This patient's information was entered into a reminder system with a target due date for their next mammogram. Electronically signed by: Alecia oRse DO 10/03/2024 01:41 PM EST Dictated By: Alecia Rose DO Signed By: <Electronically signed by Alecia Rose DO in OV> 10/03/24 1341 DD/ 1220 TD/TT: 10/03/24 1257 Barrel Builder: us Lolly French MD IMG BI PROCEDURES Final Result documented in this encounter Visit Diagnoses Not on filedocumented in this encounter Additional Health Concerns Assessment Noted Time PHQ-9 Depression Total Score: 0 08/10/20 2:42 PM EST documented as of this encounter Care Teams Telescope Maintenance Relationship Specialty Start Date End Date Richie Raines MD [address] [place] [address] PCP - General Internal Medicine 08/19/23 documented as of this encounter
--- OUTSIDE RECORDS SUMMARY | 2024-10-19 13:48 | XMS_ITS | Encounter Summary ---
Author Organization [employer] Address [address] [facility] [address] 7t [place] [address] Care Team Providers Care Iron Installer Name Role Phone Richie Raines MD Primary [...] your housing situation today? I have eros rsoe 08/10/[address] you li [...] Description 11/28/2024 10:00 AM EDT Office Visit [facility] [address] [place] [address] Lolly French MD [address] [place] [address] documented as of this encounter Visit Diagnoses Not on filedocumented in this encounter Additional Health Concerns Assessment Noted Time PHQ-9 Depression Total Score: 0 08/10/20 2:42 PM EST documented as of this encounter Care Teams Iron Installer Relationship Specialty Start Date End Date Richie Raines MD [address] [place] [address] PCP - General Internal Medicine 08/19/23 documented as of this encounter
--- OUTSIDE RECORDS SUMMARY | 2024-10-19 13:48 | XMS_ITS | Encounter Summary ---
Author Organization [employer] Address [address] [facility] 7t [place] [address] Care Team Providers Care Flying Ii Instructor Name Role Phone Richie Raines MD Primary Care Prov ider Reason for Visit * Reason Onset Date Comments Referral 11/29/2023 Encounter Details Date Type Department Care Team (Late st Contact Info) Description 11/29/2023 Telephone [facility] [address] [place] [address] Richie Raines MD [address] [place], [place] [phone] Referral Social History Tobacco Use Types Packs/Day [...] has a referral for sleep apnea in [facility] but they're not scheduling out until April andpt is requesting a sooner appt. Pt would like to be referred to [facility] instead. Please contact pt at [phone]. documented in this encounter Plan of Treatment Upcoming Encounters Date Type Department Care Team (Late st Contact Info) Description 11/28/2024 10:00 AM EDT Office Visit [facility] [address] [place] [address] Lolly French MD [address] [place] [address] documented as of this encounter Visit Diagnoses Not on filedocumented in this encounter Additional Health Concerns Assessment Noted Time PHQ-9 Depression Total Score: 0 08/10/20 23 2:42 PM EST documented as of this encounter Care Teams Flying Ii Instructor Relationship Specialty Start Date End Date Richie Raines MD [address] [place] [address] PCP - General Internal Medicine 08/19/23 documented as of this encounter
--- OUTSIDE RECORDS SUMMARY | 2024-10-19 13:48 | XMS_ITS | Encounter Summary ---
Author Organization [employer] Address [address] [facility] 7t [place] [address] Care Team Providers Care Hvac Sales Engineer Name Role Phone Richie Raines MD Primary Care Prov ider Reason for Visit * Reason Comments Med Refill Encounter Details Date Type Department Care Team (Late st Contact Info) Description 09/20/2023 Refill [facility] [address] [place] [address] Kaleigh Kiran, MARV [address] [place] [address] Fibromyalgia Social History Tobacco Use Types Packs/Day [...] Description 11/28/2024 10:00 AM EDT Office Visit [facility] [address] [place] [address] Lolly French MD [address] [place] [address] documented as of this encounter Visit Diagnoses Diagnosis Fibromyalgia Unspecified myalgia and myositis documented in this encounter Additional Health Concerns Assessment Noted Time PHQ-9 Depression Total Score: 0 08/10/20 2:42 PM EST documented as of this encounter Care Teams Hvac Sales Engineer Relationship Specialty Start Date End Date Richie Raines MD [address] [place] [address] PCP - General Internal Medicine 08/19/23 documented as of this encounter
--- OUTSIDE RECORDS SUMMARY | 2024-10-19 13:48 | XMS_ITS | Encounter Summary ---
Author Organization [employer] Address [address] [facility] 7 [place] [address] Care Team Providers Care Targeting Acquisition Officer Name Role Phone Richie Raines MD Primary Care Prov ider Reason for Visit * Reason Onset Date Comments Med Refill 02/18/2024 Encounter Details Date Type Department Care Team (Late st Contact Info) Description 02/18/2024 Telephone [facility] [address] [place] [address] Richie Raines MD [address] [place], [place] [phone] Med Refill Social History Tobacco Use Types [...] 150 MG capsule To be sent to: [id number] documented in this encounter Plan of Treatment Upcoming Encounters Date Type Department Care Team (Late st Contact Info) Description 11/28/2024 10:00 AM EDT Office Visit [facility] [address] [place] [address] Lolly French MD [address] [place] [address] documented as of this encounter Visit Diagnoses Not on filedocumented in this encounter Additional Health Concerns Assessment Noted Time PHQ-9 Depression Total Score: 0 08/10/20 2:42 PM EST documented as of this encounter Care Teams Targeting Acquisition Officer Relationship Specialty Start Date End Date Richie Raines MD [address] [place] [address] PCP - General Internal Medicine 08/19/23 documented as of this encounter
--- OUTSIDE RECORDS SUMMARY | 2024-10-19 13:48 | XMS_ITS | Encounter Summary ---
Author Organization [employer] Address [address] [place] [address] 7 [place] [address] Care Team Providers Care Neuropsychology Division Chief Name Role Phone Richie Raines MD Primary Care Prov ider Reason for Visit * Reason Onset Date Comments Med Refill 10/06/2024 Encounter Details Date Type Department Care Team ([facility] st Contact Info) Description 10/06/2024 Refill [facility] [address] [place] [address] Richie Raines MD [address] [place] [address] Social History Tobacco Use Types Packs/Day Years [...] Description 11/28/2024 10:00 AM EDT Office Visit [facility] MED[facility] [address] [place] [address] Lolly French MD [address] [place] [address] documented as of this encounter Visit Diagnoses Not on filedocumented in this encounter Additional Health Concerns Assessment Noted Time PHQ-9 Depression Total Score: 0 08/10/20 2:42 PM EST documented as of this encounter Care Teams Neuropsychology Division Chief Relationship Specialty Start Date End Date Richie Raines MD [address] [place] [address] PCP - General Internal Medicine 08/19/23 documented as of this encounter
--- OUTSIDE RECORDS SUMMARY | 2024-10-19 13:48 | XMS_ITS | Encounter Summary ---
Author Organization [employer] Address [address] [place] [address] 7 [place] [address] Care Team Providers Care Time Motion Analyst Name Role Phone Richie Raines MD Primary Care Prov ider Reason for Visit * Reason Comments Pre-visit Planning SDOH negative, Tobac co screening negative. Encounter Details Date Type Department Care Team ([facility] Contact Info) Description 09/27/2024 Patient Outreach [facility] [address] [place], [place] [phone] Richie Raines MD [address] [place] [address] Pre-visit Planning (SDOH negative, Tobacco screening negative. [...] Roxanna Munguia - 09/27/2024 2:38 PM EST CC Roxanna Ortez placed successful outbound call to patient [...] Description 11/28/2024 10:00 AM EDT Office Visit [facility] [address] [place] [address] Lolly French MD [address] [place] [address] documented as of this encounter Visit Diagnoses Not on filedocumented in this encounter Additional Health Concerns Assessment Noted Time PHQ-9 Depression Total Score: 0 08/10/20 2:42 PM EST documented as of this encounter Care Teams Time Motion Analyst Relationship Specialty Start Date End Date Richie Raines MD [address] [place] [id number] PCP - General Internal Medicine 08/19/23 documented as of this encounter
--- OUTSIDE RECORDS SUMMARY | 2024-10-19 13:48 | XMS_ITS | Encounter Summary ---
Author Organization [employer] Address [address] [place] [address] 7 [place] [address] Care Team Providers Care Tax Agent Name Role Phone Richie Raines MD Primary Care Prov ider Reason for Visit * Reason Onset Date Comments No Show 10/05/2024 Encounter Details Date Type Department Care Team ([facility] st Contact Info) Description 10/05/2024 Telephone [facility] [address] [place] [address] Richie Raines MD [address] [place] [address] No Show Social History Tobacco Use Types Packs/Day Years [...] encounter Miscellaneous Notes * Telephone Encounter - Hiram Ramos - 10/05/2024 11:39 AM EST No Show for pe 10/05/24 documented in this encounter Plan of Treatment Upcoming Encounters Date Type Department Care Team (Late st Contact Info) Description 11/28/2024 10:00 AM EDT Office Visit [facility] [address] [place] [address] Lolly French MD [address] [place] [address] documented as of this encounter Visit Diagnoses Not on filedocumented in this encounter Additional Health Concerns Assessment Noted Time PHQ-9 Depression Total Score: 0 08/10/20 2:42 PM EST documented as of this encounter Care Teams Tax Agent Relationship Specialty Start Date End Date Richie Raines MD [address] [place] [address] PCP - General Internal Medicine 08/19/23 documented as of this encounter
--- OUTSIDE RECORDS SUMMARY | 2024-10-19 13:48 | XMS_ITS | Encounter Summary ---
Author Organization [employer] Address [address] [facility] 7t [place] [address] Care Team Providers Care Dining Service Worker Name Role Phone Richie Raines MD Primary Care Prov ider Reason for Visit * Reason Onset Date Comments Results 10/04/2024 Encounter Details Date Type Department Care Team (Late st Contact Info) Description 10/04/2024 Telephone [facility] [address] [place] [address] Ratna Gonzalez RN [address] [place] [address] Results Social History Tobacco Use Types Packs/Day [...] encounter Miscellaneous Notes * Telephone Encounter - Elizabeth Ring CNM - 10/04/2024 9:14 AM EST Will do - thanks! * Telephone Encounter - Ratna Gonzalez RN - 10/04/2024 9:08 AM EST Telephone call placed to pt regarding below results and POC. Informed mammo with no worrisome findings. Inquired if still having pain. Pt reports ongoing right breast pain. Not worsened but also not improved since her appt. Pt agreeable to referral to breast surgeon for further evaluation. Informedreferral to be placed. If she doesn't hear from anyone to schedule an appt within 2 weeks, let us know. Pt verbalized understanding and denied having any further questions or concerns at this time. Please let Chhaya know her mammogram showed no worrisome findings. Is she still having breast pain?If so, I will refer to breast surgeon. Thanks! documented in this encounter Plan of Treatment Upcoming Encounters Date Type Department Care Team (Late st Contact Info) Description 11/28/2024 10:00 AM EDT Office Visit [facility] [address] [place] [address] Lolly French MD [address] [place] [address] documented as of this encounter Visit Diagnoses Not on filedocumented in this encounter Additional Health Concerns Assessment Noted Time PHQ-9 Depression Total Score: 0 08/10/20 2:42 PM EST documented as of this encounter Care Teams Dining Service Worker Relationship Specialty Start Date End Date Richie Raines MD [address] [place] [id number] PCP - General Internal Medicine 08/19/23 documented as of this encounter
--- OUTSIDE RECORDS SUMMARY | 2024-10-19 13:48 | XMS_ITS | Encounter Summary ---
Author Organization [employer] Address [address] [facility] 7t [place] [address] Care Team Providers Care Websphere Process Server Developer Name Role Phone Richie Raines MD Primary Care Prov ider Reason for Visit * Reason Comments Med Refill Encounter Details Date Type Department Care Team ([facility] [address] Contact Info) Description 10/03/2024 Refill [facility] [address] [place] [address] Richie Raines MD [address] [place] [address] Fibromyalgia Social History Tobacco Use Types Packs/Day [...] 10:00 AM EDT Office Visit [facility] [address] [place] [address] Lolly French MD [address] [place] [address] documented as of this encounter Visit Diagnoses Diagnosis Fibromyalgia Unspecified myalgia and myositis documented in this encounter Additional Health Concerns Assessment Noted Time PHQ-9 Depression Total Score: 0 08/10/20 2:42 PM EST documented as of this encounter Care Teams Websphere Process Server Developer Relationship Specialty Start Date End Date Richie Raines MD [address] [place] [id number] PCP - General Internal Medicine 08/19/23 documented as of this encounter
--- OUTSIDE RECORDS SUMMARY | 2024-10-19 13:48 | XMS_ITS | Encounter Summary ---
Author Organization [employer] Address [address] [facility] 7t [place] [address] Care Team Providers Care Tip Out Worker Name Role Phone Richie Raines MD Primary Care Prov ider Encounter Details Date Type Department Care Team ([facility] st Contact Info) Description 04/09/2024 Orders Only [facility] [address] [place], [place] [phone] Richie Raines MD [address] [place] [address] Social History Tobacco Use Types Packs/Day Years [...] Description 11/28/2024 10:00 AM EDT Office Visit [facility] [address] [place] [address] Lolly French MD [address] [place] [address] documented as of this encounter Visit Diagnoses Not on filedocumented in this encounter Additional Health Concerns Assessment Noted Time PHQ-9 Depression Total Score: 0 08/10/20 2:42 PM EST documented as of this encounter Care Teams Tip Out Worker Relationship Specialty Start Date End Date Richie Raines MD [address] [place] [address] PCP - General Internal Medicine 08/19/23 documented as of this encounter
--- OUTSIDE RECORDS SUMMARY | 2024-10-19 13:49 | XMS_ITS | Clinical Summary ---
Author Organization [employer] Address [address] [facility] [address] [place] [address] Care Team Providers Care Cage Shift Manager Name Role Phone Richie Raines MD [...] 24 Active fluticasone (Flonase) 50 MCG/ACT nasal sprayIndicatio ns:Rhinosinusi tis Administer 1 spray into each nostril in the morning. 16 g 2 10/04/19 24 Active naproxen (Naprosyn) 500 MG tabletIndicati ons:Chronic bilateral low back pain without sciatica Take 1 tablet (500 mg) by mouth if needed in the morning and at bedtime for moderate pain. 30 tablet 03/29/20 24 025 Active Omeprazole 20 MG tablet delayed-releas e Take 20 mg by mouth Once per day. 90 tablet 3 04/17/20 24 025 Active naproxen (Naprosyn) 500 MG tabletIndicati ons:Chronic bilateral low back pain without sciatica TAKE 1 TABLET BY MOUTH TWICE A DAY IF NEEDED FOR MODERATE PAIN 30 tablet 05/30/20 24 Active lidocaine-pril ocaine (Emla) 2.5-2.5 % creamIndicatio ns:Pain in both knees, unspecified chronicity APPLY TOPICALLY ONCE FOR 1 DOSE DIRECTED 30 g 2 07/24/20 24 Active pregabalin (Lyrica) 150 MG capsuleIndicat ions:Fibromyal felecia TAKE 1 CAPSULE BY MOUTH TWICE A DAY 60 capsule 10/04/19 25 Active levothyroxine (Synthroid, Levoxyl) 50 MCG tablet Take 1 tablet (50 mcg) by mouth before breakfast. TAKE 1 TABLET BY MOUTH ONCE DAILY BEFORE BREAKFAST 30 tablet 10/06/19 25 Active mirtazapine (Remeron) 45 MG tablet Take 1 tablet (45 mg) by mouth at bedtime. 30 tablet 10/06/19 25 Active mirtazapine (Remeron) 30 MG tablet Take 1 tablet (30 mg) by mouth at bedtime. 30 tablet 10/06/19 25 Active ammonium lactate (Amlactin) 12 % creamIndicatio ns:Flexural eczema Apply topically if needed for dry skin. 385 g 10/04/19 24 025 pregabalin (Lyrica) 150 MG capsuleIndicat ions:Fibromyal felecia TAKE 1 CAPSULE BY MOUTH TWICE A DAY 60 capsule 07/28/20 24 025 Discontinued mirtazapine (Remeron) 45 MG tablet TAKE 1 TABLET BY MOUTH AT BEDTIME 30 tablet 08/28/19 25 025 Discontinued(Re order (will not trigger notification to Pharmacy)) levothyroxine (Synthroid, Levoxyl) 50 MCG tablet TAKE 1 TABLET BY MOUTH ONCE DAILY BEFORE BREAKFAST 30 tablet 08/28/19 25 025 Discontinued(Re order (will not trigger notification to Pharmacy)) mirtazapine (Remeron) 30 MG tablet TAKE 1 TABLET BY MOUTH ONCE DAILY AT BEDTIME 30 tablet 08/28/19 25 025 Discontinued(Re order (will not trigger notification to Pharmacy)) Active Problems Problem Noted Date Diagnosed Date [...] EDT): Patient wants to be referred to [facility] for sleep study, will send new [...] (10/06/2023 8:51 AM EST): Reportedly done [place] less than 5y ago She will bring [...] Tdap but she declined. Colonoscopy done in [place], she will bring report to PCP Mammogram: [...] and offer referral. Chronic pain, relocation [place] and severe depression are exacerbating [...] take actions. PLAN: 1. Follow up with [facility] [place]: Not recommended for follow-up 2. Patient goal [...] and offer referral. Chronic pain, relocation [place] and severe depression are exacerbating [...] take actions. PLAN: 1. Follow up with [facility] [place]: Not recommended for follow-up 2. Patient goal [...] and offer referral. Chronic pain, relocation [place] and severe depression are exacerbating [...] take actions. PLAN: 1. Follow up with [facility] [place]: Not recommended for follow-up 2. Patient goal [...] Encounters Date Type Department Care Team Description 10/19/2024 Telephone [facility] [address] [place] [phone] Devi Diaz CNM 10/06/2024 Refill [facility] [address] [place] [address] Richie Raines MD 10/05/2024 Telephone [facility] [address] [place] [address] Richei Raines MD No Show 10/04/2024 Orders Only [facility] [address] [place] [phone] Devi Diaz CNM Cervical cancer screening (Primary Dx); Breast pain, right 10/04/2024 Telephone [facility] [address] [place] [phone] Ratna Gonzalez RN Results 10/03/2024 Refill [facility] [address] [place] [address] Richie Raines MD Fibromyalgia 10/03/2024 Orders Only [facility] [address] [place] [phone] Lolly French MD 09/27/2024 Patient Outreach [facility] [address] [place] [address] Richie Raines MD Pre-visit Planning (SDOH negative, Tobacco screening negative. ) 09/21/2024 1:45 PM EST Office Visit [facility] [address] [place] [phone] Devi Daiz CNM Menorrhagia with regular cycle (Primary Dx) 09/21/2024 Travel 09/01/2024 Orders Only [facility] External Provider, [facility] 08/26/2024 Refill [facility] [address] [place] [phone] Richie Raines MD 08/07/2024 Telephone [facility] [address] [place] [address] Richie Raines MD Results 07/26/2024 Refill [facility] [address] [place] [address] Richie Raines MD Fibromyalgia 07/24/2024 2:30 PM EST Telemedicine [facility] [address] [place] [address] Richie Raines MD Obstructive sleep apnea syndrome (Primary Dx); Shortness of breath 07/24/2024 Travel 07/24/2024 Telephone [facility] [address] [place] [address] Richie Raines MD 07/24/2024 Telephone [facility] [address] [place] [address] Richie Raines MD Nurse Triage 07/24/2024 Telephone [facility] [address] [place] [address] Richie Raines MD Results 07/21/2024 Refill [facility] [address] [place] [address] Richie Raines MD Pain in both knees, unspecified chronicity from Last 3 Months Family History Medical [...] Description 11/28/2024 10:00 AM EDT Office Visit [facility] [address] [place] [address] Lolly French MD [address] [place] [address] Health Maintenance Due Date Last Done Comments CT Colonography 1975 Colonoscopy 1977 Colorectal Cancer Screening 1975 FIT DNA/Cologuard 1975 FIT 1975 FOBT 1975 Sigmoidoscopy 1977 Alcohol/Substance Use Screening 1989 DTaP/Tdap/Td Vaccines (1 - Tdap) 1996 Hepatitis B Vaccines (1 of 3 - 19+ 3-dose series) 1996 COVID-19 Vaccine ( - season) 2024 Influenza Vaccine (#1) 2024 Depression Screening 08/10/2024 08/10/2023, 08/10/20 23 Tobacco Screening 04/06/2025 04/06/2024 Family Planning (PISQ) 09/21/2025 09/21/2024 SDOH Screening 09/27/2025 09/27/2024 Diagnostic Breast Imaging 10/03/20252024, 03/30/2024, 10/20/2023, Additional history exists Mammogram 10/03/2025 10/03/2024, 08/0 03/2024, 10/20/2023, Additional history exists Zoster Vaccines (1 of 2) 2027 Cervical [...] Associated Diagnosis Comments US PELVIS TRANSVAGINAL Urgent 11:29 AM EST Menorrhagia with regular cycle BI MAMMOGRAM DIAGNOSTIC TOMOSYNTHESIS BILATERAL Routine 10/03/2024 12:20 PM EST MR BRAIN W AND WO CONTRAST Routine 09/25/2024 9:15 AM EST FL UPPER GI W AIR W BARIUM SWALLOW Routine 09/01/2024 7:49 AM EST HEPATITIS PANEL, GENERAL Routine 10/04/2023 10:36 AM [...] Recently Relevant to Health Maintenance Results * US Pelvis Transvaginal (10/19/2024 11:29 AM EST) Anatomical Region Laterality Modality Pelvis Ultrasound 10/19/2024 11:2 9 AM EST Narrative 10/19/2024 12:02 PM EST ? [facility] ?[address] ?[place] [address] ? Ultrasound Report ? Signed ? Patient: Antonetty Vallejo,Chhaya ?MR#: ?? [id number] ? : 1975 ?Acct:[id number] ? Age/Sex: 49 / F ?ADM Date: 02/27/25 ? Loc: HO.US ? Attending Dr: Devi Diaz CNM ? Ordering Physician: DEVI DIAZ CNM ?? Date of Service: 10/19/24 ?? Procedure(s): US pelvic and transvaginal ?? Accession Number(s): [id number] ? cc: Lolly French MD; DEVI DIAZ CNM ? EXAMINATION: ? US PELVIS [...] DD/ 1129 ? TD/TT: 10/19/24 1142 ? Enrollment Coordinator: ? Procedure Note Donotuseinterpreter, Image - 10/19/[address] [address] Ultrasound Report Signed Patient: Chhaya DeyMR#: [id number] : 1975Acct:[id number] Age/Sex: 49 / FADM Date: 10/19/24 Loc: HO.US Attending Dr: Devi Diaz CNM Ordering Physician: DEVI DIAZ CNM Date of Service: 10/19/24 Procedure(s): US pelvic and transvaginal Accession Number(s): [id number] cc: Lolly French MD; DEVI DIAZ CNM EXAMINATION: US PELVIS CLINICAL INFORMATION: [...] 10/19/24 1159 DD/ 1129 TD/TT: 10/19/24 1142 Enrollment Coordinator: us Devi Diaz CNM IMG US PROCEDURES Final R esult * BI Mammogram Diagnostic Tomosynthesis Bilateral (10/03/2024 12:20 PM EST) Anatomical Region Laterality Modality Breast Bilateral Mammography 10/03/2024 12:2 0 PM EST Narrative 10/03/2024 1:44 PM EST ? [facility] ? [address] ?[place] [address] ? Mammography Report ? Signed ? Patient: Alfalolita Vallejo,Chhaya ?MR#: ?? [id number] ? : 1975 ?Acct:[id number] ? Age/Sex: 49 / F ?ADM Date: 10/03/ ? Loc: HO.MAMMO ? Attending Dr: Lolly French MD ? Ordering Physician: Lolly French MD ?Results: 3.12MProbably Benign Finding - 12 month F/U ?? Suggested ? Date of Service: 10/03/24 ?Follow Up: 12 month diagnos ?? tic follow up ? Procedure(s): MM tomosynthesis diagnostic BI ?? Accession Number(s): [id number] ? cc: Lolly French MD ? EXAMINATION: [...] ??Alecia Rose DO ??10/03/2024 01:41 PM EST ?? RP ? Dictated By: ?Alecia Rose DO ? Signed By: ?<Electronically signed by Alecia Rose, DO in OV> ? 10/03/24 1341 ? DD/ 1220 ? TD/TT: 10/03/24 1257 ? Enrollment Coordinator: ? Procedure Note Donotuseinterpreter, Image - 10/03/2024 [place] [facility] [address] [place], [place] [address] Mammography Report Signed Patient: Chhaya DeyMR#: [id number] : 1975Acct:[id number] Age/Sex: 49 / FADM Date: 10/03/24 Loc: HO.MAMMO Attending Dr: Lolly French MD Ordering Physician: Lolly French MD Results: 3.12MProbably Benign Finding - 12 month F/U Suggested Date of Service: 10/03/24Follow Up: 12 month diagnos tic follow up Procedure(s): MM tomosynthesis diagnostic BI Accession Number(s): [id number] cc: Lolly French MD EXAMINATION: MM DIAGNOSTIC [...] their next mammogram. Electronically signed by: Alecia Rose DO 10/03/2024 01:41 PM EST RP Dictated By: Alecia Rose DO Signed By: <Electronically signed by Alecia Rose DO in OV> 10/03/24 1341 DD/ 1220 TD/TT: 10/03/24 1257 Enrollment Coordinator: us Lolly French MD IMG BI PROCEDURES Final Result * Mr Brain w/ and w/o Contrast (09/25/2024 9:15 AM EST) Anatomical Region Laterality Modality Brain Magnetic Resonan ce 09/25/2024 9:15 AM EST Narrative 09/25/2024 10:51 AM EST ? [facility] ?[address] ?[place] [address] ? Magnetic Resonance Report ? Signed ? Patient: Chhaya Dey ?MR#: ?? [id number] ? : 1975 ?Acct:[id number] ? Age/Sex: 49 / F ?ADM Date: 09/25/24 ? Loc: HO.MRI ? Attending Dr: Paris Ramirez SUPERVISING LAW ENFORCEMENT ANALYST ? Ordering Physician: Paris Ramirez ?? Date of Service: 09/25/24 ?? Procedure(s): MR head/brain wo/w con ?? Accession Number(s): [id number] ? cc: Lolly French MD; Paris RamirezP ? EXAMINATION: ??MR BRAIN WITHOUT THEN WITH [...] DD/ 0915 ? TD/TT: 09/25/24 0958 ? Enrollment Coordinator: ? Procedure Note Ethel Goncalves - 09/25/2024 [place] [address] Magnetic Resonance Report Signed Patient: Chhaya Dey#: [id number] : 1975Acct:[id number] Age/Sex: 49 / FADM Date: 09/25/24 Loc: HO.MRI Attending Dr: Paris JACKSON Ordering Physician: Paris Ramirez Date of Service: 09/25/24 Procedure(s): MR head/brain wo/w con Accession Number(s): [id number] cc: Lolly French MD; Paris Ramirez EXAMINATION: [...] 09/25/24 1049 DD/ 0915 TD/TT: 09/25/24 0958 Enrollment Coordinator: [facility] External Provider IMG MRI PROCEDURES Final Result * FL Upper GI w/air w/Barium Swallow (09/01/2024 7:49 AM EST) Anatomical Region Laterality Modality Body Radiographic Mariana ging 09/01/2024 7:49 AM EST Narrative 09/01/2024 12:43 PM EST ? [facility] ?[address] ?[place] [address] ? Fluoroscopy Report ? Signed ? Patient: Antonetty Vallejo,Chhaya ?MR#: ?? [id number] ? : 1975 ?Acct:[id number] ? Age/Sex: 49 / F ?ADM Date: 01/10/25 ? Loc: HO.XRAY ? Attending Dr: Deidre INIGUEZ ? Ordering Physician: Deidre Dowling ?? Date of Service: 09/01/24 ?? Procedure(s): FL upper GI w air w Ba Swallow ?? Accession Number(s): [id number] ? cc: Lolly French MD; Deidre Dowling [...] signed by Steven Covarrubias in OV> ? 09/01/240 ?<Electronically signed by Jesse Felton MD in OV> ? 09/01/24 1242 ? DD/ 0749 ? TD/TT: 09/01/24 0836 ? Enrollment Coordinator: ? Procedure Note Donsandra, Image - 09/01/2024 [place] [address] Fluoroscopy Report Signed Patient: Chhaya DeyMR#: [id number] : 1975Acct:[id number] Age/Sex: 49 / FADM Date: 09/01/24 Loc: KOLBY Attending Dr: Deidre INIGUEZ Ordering Physician: Deidre Dowling Date of Service: 09/01/24 Procedure(s): FL upper GI w air w Ba Swallow Accession Number(s): [id number] cc: Lolly French MD; Deidre Dowling EXAMINATION: XR FLUOROSCOPY UPPER GI WITH AIR [...] by: Jesse Felton MD 09/01/2024 12:40 PM EST Dictated By: Steven Covarrubias Signed By: <Electronically signed by Steven Covarrubias in OV> 09/01/24 1240 <Electronically signed by Jesse Felton MD in OV> 09/01/24 1242 DD/ 0749 TD/TT: 09/01/24 0836 Enrollment Coordinator: us [facility] External Provider IMG FLU OROSCOPY PROCEDURES Final Result * Hepatitis Panel, General (10/04/2023 10:36 AM EST) Hepatitis A IgM Nonreactive Nonreactive [facility] Comment:IgM antibodies to ARREAGA V not detected; does not exclude earlyacute or recovered HAV infection. ~Hepatitis B Surface Antibody NONREACTIVE Nonreactive [facility] Comment:Nonreactive: < 8.00 mIU/mL Hepatitis B Core Antibody Nonreactive Nonreactive [facility] Hepatitis C Antibody Nonreactive Nonreactive [facility] Comment:Antibodies to HCV no t detected; does not exclude early acuteHCV infection. Hepatitis B Surface Ag Negative Negative [facility] Blood 10/04/2023 10:3 6 AM EST 10/04/2023 11:34 AM EST us Lolly French MD LAB BLOOD ORDERABLES Fin al Result Performing Organization Address [facility]/ZIP Co de Phone Number [facility] [address] [place] [phone] * HIV-1/2 Antigen and Antibodies, Fourth Generation, with Reflexes (10/04/2023 10:36 AM EST) HIV AB/AG Nonreactive Nonreactive [facility] Comment:HIV-1 p24 Ag and/or HIV-1/HIV-2 Ab not detected.A test result that is nonreactive does not exclude thepossibility of exposure to or infection with HIV-1 and/orHIV-2. Nonreactive results in this assay for individualswith prior exposure to HIV-1 and/or HIV-2 may be due toantigen and antibody levels that are below the limit ofdetection of this assay.The [employer] HIV Ag/Ab Combo assay result andsupplemental assay results should be interpreted inconjunction with the patient's clinical presentation,history and other laboratory results. If the results areinconsistent with clinical evidence, additional testing issuggested to confirm the result. Blood Venous blood specimen / Unknown 10/04/2023 10:36 AM EST 10/04/2023 11:34 AM EST us Lolly French MD LAB BLOOD ORDERABLES Fin al Result Performing Organization Address [facility]/ZIP Co de Phone Number [facility] [address] [place] [phone] * HPV mRNA E6/E7 w/Reflex to HPV Genotypes 16, 18/45 (09/21/2023 1:23 PM EST) HPV nRNA E6/E7 Not Detected Not Detected [facility] Comment:Methodology: Transcr iption-Mediated AmplificationThis assay detects E6/E7 viral messenger RNA (mRNA) from 14high-risk HPV types (16,18,31,33,35,39,45,51,52,56,58,59,66,68).Cervical sources are required for HPV testing.If a vaginal source from a patient who has had atotal hysterectomy with removal of cervix wassubmitted, please contact the testing laboratoryfor alternative testing options.For additional information, please refer tohttp://education.GRAVIDI/faq/AFX641o2(This link if provided for information/educational purposes only.)THIS TEST WAS PERFORMED AT:[facility] [place] [phone] RIOS MD HPV mRNA E6/E7 [facility] HPV 16 RNA [facility] HPV 18/45 RNA [facility] 09/21/2023 1:23 PM EST 09/23/2023 9:50 AM EST Devi Diaz [facility] CYTOLOGY ORDERABLES F inal Result [facility] [address] [place] [phone] * Pap Smear (09/21/2023 1:23 PM EST) Swab Cervix uteri structure / Unknown 09/21/2023 1:23 PM EST 09/23/2023 9:50 AM EST Narrative [facility] - 10/06/2023 2:23 PM EST ----- ------- Name: Ihsanfaith SmithChhaya sterling ? Age/Sex: 48/F ? : 1975 Unit#: [id number] ?? Attend Dr: Richie Raines MD ??Re09/21/23 ?Status: DEP REF ? Location: HO.[facility]CLDS ? Disch: ? ----- ------- SPEC : [id number] ? RECD: 09/23/23 ? STATUS: ??SOUT ? REQ NUM: [id number] ? CAN: 09/21/23 ? SUBM DR: DEVI DIAZ CNM ? [...] 66, 68) ? HPV testing performed by [facility], [place], [place]. ??See reference laboratory ?? portion of the EMR for entire report. ?Clinical Information LMP: Unknown date Previous PAP test:Unknown date/findings ? Material Received ?? ThinPrep-Cervical ----- ------- Signed (signature on file) Flori Haseeb 10/06/23 1423 ? ----- ------- ? END OF REPORT ? us Devi Diaz CNM LAB CYTOLOGY ORDERABLES F inal Result [facility] [address] [place] [phone] [phone] from Last 3 Months or Most Recently Relevant to Health Maintenance [place] [id number] [facility] STANDARD [employer] MEDICARE REPLACEMENT Care Teams Cage Shift Manager Relationship Specialty Start Date End Date Richie Raines MD [address] [place] [phone] PCP - General Internal Medicine 08/19/23
== END 2024-10-19 11:23 | disposition home or self-care (01) ==
LOC: HO.US 11:22
PROVIDERS: PCP Internal Medicine; Visit Provider Advanced Practice Midwife
DX: N92.0 Excessive and frequent menstruation with regular cycle (principal)
CPT/HCPCS: 76830; 76856

== ENCOUNTER → 2024-10-19 11:24 | Outpatient (BNV) | payer MEDICARE, SELFPAY | PROVIDERS: PCP Internal Medicine; Visit Provider Radiology Diagnostic Radiology | DX: N92.0 Excessive and frequent menstruation with regular cycle (principal) | CPT/HCPCS: 76830; 76856 ==

== ENCOUNTER 2024-10-31 10:29 | Day surgery (SDC) | payer MEDICARE, MEDICAID, SELFPAY ==
[2024-10-27 10:51] VITALS: BMI 30.5
--- NOTE | 2024-10-30 10:37 | HO.ANESPROP2 ---
Documented by User: Maryanne Cuello NP 10/30/24 10:38 HPI - Anesthesia Eval Consult details Narrative: 49yo F for Upper Endoscopy and Colonoscopy PMF Active Problems Active Problems: All Active Problems New onset headache (Acute) Vitamin B12 deficiency (Acute) Iron deficiency (Acute) Anemia (Chronic) Morning headache (Acute) RLS (restless legs syndrome) (Acute) GERD (gastroesophageal reflux disease) (Acute) Sleep difficulties (Acute) Excessive daytime sleepiness (Acute) Retrognathia (Acute) Dysphagia (Acute) Snoring (Acute) Left knee pain (Acute) Myofascial pain (Acute) Chronic neck pain (Acute) Hypothyroidism (Acute) Anxiety (Acute) Chronic back pain (Acute) Fibromyalgia (Acute) Past Medical History Medical History (Updated 10/27/24 @ 09:10 by Shae Abad RN) Dysphagia RLS (restless legs syndrome) GERD (gastroesophageal reflux disease) Bilateral chronic knee pain Chronic back pain Fibromyalgia Chronic pain in left foot Anxiety Depression Hypothyroidism Surgical History Surgical History (Updated 10/27/24 @ 09:42 by Shae Abad RN) History of esophagogastroduodenoscopy (EGD) H/O colonoscopy Social History Social History Household Members: Family Do you presently have visiting nurse or other home services: No Patient Tobacco Use Status: Never used Tobacco Use of substances other than those prescribed or required for medical reasons: No Have you been hit, kicked, punched, or otherwise hurt by someone within the past year? If so, by whom?: No Are you DNR?: No Advance Directives: No Advance Directives Information Provided: Yes Recently lost weight without trying: No Current occupational status: unemployed Gender identity: Female Meds Allergies Allergy/AdvReac Type Severity Reaction Status Date / Time Penicillins AdvReac Severe rash Verified 09/11/24 13:24 Home Medications ?Medication ?Instructions ?Recorded ?Confirmed ?Last Taken ?Type levothyroxine 50 mcg tablet 50 mcg PO QAM 04/12/23 10/27/24 Unknown History mirtazapine 30 mg tablet 30 mg PO QAM 04/12/23 10/27/24 Unknown History mirtazapine 45 mg tablet 45 mg PO BEDTIME 04/12/23 10/27/24 Unknown History naproxen 500 mg tablet 500 mg PO DAILY moderate pain 04/12/23 10/27/24 Unknown History pregabalin 150 mg capsule 150 mg PO DAILY PRN pain 04/12/23 10/27/24 Unknown History Exam Height,Weight and Vital Signs: Height 5 ft 1 in Weight 73.2 kg Assessment and Plan Assessment Anesthesia Assessment: Chart Reviewed Documented by User: Roddy Shaw MD 10/31/24 12:40 PMF Past Medical History Medical History (Updated 10/27/24 @ 09:10 by Shae Abad RN) Dysphagia RLS (restless legs syndrome) GERD (gastroesophageal reflux disease) Bilateral chronic knee pain Chronic back pain Fibromyalgia Chronic pain in left foot Anxiety Depression Hypothyroidism Family History Family history of problems with anesthesia: No Surgical History Surgical History (Updated 10/27/24 @ 09:42 by Shae Abad RN) History of esophagogastroduodenoscopy (EGD) H/O colonoscopy History of Problems with Anesthesia: No Social History Social History Household Members: Family Do you presently have visiting nurse or other home services: No Patient Tobacco Use Status: Never used Tobacco Use of substances other than those prescribed or required for medical reasons: No Have you been hit, kicked, punched, or otherwise hurt by someone within the past year? If so, by whom?: No Are you DNR?: No Advance Directives: No Advance Directives Information Provided: Yes Recently lost weight without trying: No Current occupational status: unemployed Gender identity: Female Meds Allergies Allergy/AdvReac Type Severity Reaction Status Date / Time Penicillins AdvReac Severe rash Verified 09/11/24 13:24 Home Medications ?Medication ?Instructions ?Recorded ?Confirmed ?Last Taken ?Type levothyroxine 50 mcg tablet 50 mcg PO QAM 04/12/23 10/27/24 Unknown History mirtazapine 30 mg tablet 30 mg PO QAM 04/12/23 10/27/24 Unknown History mirtazapine 45 mg tablet 45 mg PO BEDTIME 04/12/23 10/27/24 Unknown History naproxen 500 mg tablet 500 mg PO DAILY moderate pain 04/12/23 10/27/24 Unknown History pregabalin 150 mg capsule 150 mg PO DAILY PRN pain 04/12/23 10/27/24 Unknown History Exam Airway Mallampati Class: II TM Dist: <=3cm Neck ROM: Full Loose/Missing/Broken Teeth: Yes, Upper and Lower Heart: ok Lungs: ok Assessment and Plan Assessment Anesthesia Assessment: Anesthesia Plan Discussed Final Anesthetic Review Family History of Problems with Anesthesia: No History of Problems with Anesthesia: No NPO: Yes ASA Class: II Final Preanesthetic Review: No Changes in Pt Med Stat, Meds/Allgs Chart Reviewed, Consent Obtained/Reviewed and Anes Risks/Benef Reviewed Patient Risk: Intermediate Procedure Risk: Intermediate Anesthetic Plan Anesthetic Plan: Agree w/ Assess. and Plan and TIVA Disposition: Standard PACU
[2024-10-31 11:11] VITALS: BP 103/62; PULSE 100; RESP 16; TEMP 36.7; O2SAT 97
[2024-10-31 11:14] LABS: UPreg QC Valid YES; Urine Pregnancy NEGATIVE (NEGATIVE)
[2024-10-31] MEDS: Lactated Ringers 1,000 ML 100 ML IVCONT (11:19)
--- NOTE | 2024-10-31 12:22 | P.HPSUR_ITS ---
Pre-Procedural Eval Section A - 24 Hr Update-Section A only Date of Service: 10/31/24 Section B - Complete if H&P > 30 days Chief Complaint: Anemia, schatzki's ring Details of Present Illness: Medical History Bilateral chronic knee pain Chronic back pain Fibromyalgia Chronic pain in left foot Anxiety Depression Hypothyroidism Present Medications: see Short Stay Collaborative assessment Allergies: Allergies Allergy/AdvReac Type Severity Reaction Status Date / Time Penicillins AdvReac Severe rash Verified 09/11/24 13:24 Review of Systems Review of Systems Comment: 10 point ROS negative Exam Exam Comment: Gen appear: No acute distress HEENT: no icterus Chest: No overt resp distress Abd: soft, nontender, nondistended Psych: Stable affect, answering questions appropriately Neuro: A/Ox3 noted to move all extremities spontaneously Ext: no peripheral edema Plan Diagnosis/Plan: Unchanged I have reviewed the history and physical and performed a pertinent physical examination on my patient. No changes have occurred unless specified. Time Spent With Patient Time: Total time managing care of this patient today ____ minutes.
--- NOTE | 2024-10-31 13:27 | P.OPN-COLO_ITS ---
Colonoscopy Operative Note Operative Note Date of Service: 10/31/24 Narrative: Procedure: Upper endoscopy and colonoscopy Indication: Endoscopist: Cindi Moreno MD Anesthesia Provider: Anesthesia type: MAC Instrument: [id number] and [id number] EGD Procedure:?? The procedure, indications, preparation and potential complications were reviewed with the patient, who indicated understanding and gave written informed consent to proceed. The endoscope was introduced through the mouth, and advanced to the 2nd part of the duodenum. The mucosa was carefully examined on slow withdrawal of the endoscope. The patient tolerated the procedure well. There were no immediate complications.? EGD Findings:? * Esophagus:?Normal esophageal mucosa was noted. A non-obstructing Schatzki's ring was noted just above the GE junction. The Z-line was at 36 cm. Cold forceps biopsies were taken from middle and lower esophagus to rule out eosinophilic esophagitis. * Stomach:? Erythema and erosions in the antrum. Retroflexion was performed in the cardia. Random cold forceps biopsies were taken from the stomach. * Duodenum:? Normal duodenal mucosa. Cold forceps biopsies were taken from the duodenal bulb and 2nd portion of the duodenum to rule out celiac sprue. Additional intervention: A lcatgik-stk-shovp balloon dilator was advanced to the level of Schatzki's ring and then incrementally insufflated from 18 to 20 mm. A tear was not noted - as expected from non-obstructing schatzki's ring. Colonoscopy Procedure:? The patient was then turned for the colonoscopy. A digital rectal exam was performed which was abnormal for ext hemorrhoids.? A distal attachment cap was affixed to the tip of the scope and the colonoscope was then inserted through the anus and advanced through the colon and advanced to the cecum at 75 cm and terminal ileum.? Appendiceal orifice and ileocecal valve were identified. Mucosa was carefully examined under high definition white light as the instrument was slowly withdrawn in a retrograde panoramic fashion. Retroflexion was performed in ascending colon and rectum. The procedure was not difficult. The quality of the prep was BBPS: 3+2+3 = adequate Withdrawal time 7 minutes Limitations: No limitations Findings: Mucosa: Normal colon and terminal ileum mucosa. Protruding lesions: * Small internal hemorrhoids without stigmata of recent bleeding. Impression: 1. Normal esophagus (biopsy) 2. Non-obstructing Schatzki's ring (dilation) 3. Gastritis (biopsy) 4. Normal duodenum (biopsy) 5. Normal colon and terminal ileum mucosa 6. Internal and external hemorrhoids Recommendations:?? * Follow-up path results * Avoid NSAIDs * H Pylori treatment if biopsies + * Repeat colonoscopy for CRC screening in 10 years.
[2024-10-31 13:32] VITALS: BP 98/51; PULSE 92; RESP 18; TEMP 36.4; O2SAT 98
[2024-10-31 13:47] VITALS: BP 111/60; PULSE 78; RESP 18; O2SAT 98
== END 2024-10-31 14:10 | disposition home or self-care (01) ==
PROVIDERS: Nurse Practitioner; PCP Internal Medicine; Visit Provider Internal Medicine
PROC: (CPT 43249; principal; 2024-10-31 12:20)
DX: Z12.11 Encounter for screening for malignant neoplasm of colon (principal); K64.8 Other hemorrhoids; K64.4 Residual hemorrhoidal skin tags; K21.9 Gastro-esophageal reflux disease without esophagitis; R13.14 Dysphagia, pharyngoesophageal phase; K29.50 Unspecified chronic gastritis without bleeding; K22.2 Esophageal obstruction; D50.8 Other iron deficiency anemias; M79.7 Fibromyalgia; G89.29 Other chronic pain; M54.9 Dorsalgia, unspecified; M25.562 Pain in left knee; M25.561 Pain in right knee; M79.672 Pain in left foot; F32.A Depression, unspecified; F41.9 Anxiety disorder, unspecified; E03.9 Hypothyroidism, unspecified; Z88.0 Allergy status to penicillin
CPT/HCPCS: 43249; 43239; G0121; 81025; 88305; 88313; 88342; C1726; J2003; J2704; J3010

== ENCOUNTER → 2024-10-31 10:29 | Outpatient (BNV) | payer MEDICARE, MEDICAID, SELFPAY | PROVIDERS: PCP Internal Medicine; Visit Provider Internal Medicine | DX: Z12.11 Encounter for screening for malignant neoplasm of colon (principal); K64.8 Other hemorrhoids; K21.9 Gastro-esophageal reflux disease without esophagitis; K22.2 Esophageal obstruction; K29.70 Gastritis, unspecified, without bleeding | CPT/HCPCS: 43239; 43249; G0121 ==

== ENCOUNTER 2024-11-20 11:50 | Outpatient (AMB) | payer MEDICARE, MEDICAID, SELFPAY ==
--- NOTE | 2024-11-20 11:54 | A.OFFVIS_ITS ---
Vital Signs 11/20/24 11:56 Height 5 ft 1 in Weight 161 lb BMI 30.4 BP 107/58 L Blood Pressure Location Lt brachial Position Sitting Pulse 85 Pulse Oximetry (%) 97 Oxygen Delivery Method Room Air Intake Visit Reasons: S/P Double; Dr. Moreno Intake Note: Patient follow up for EGD/Colonoscopy results. Patient cc: acid reflex and esophagus discomfort when swallowing solid food and sometimes with liquid, too. Denies any other GI issues for today visit. Sports Writer Required: No Accompanied by: Self / Same As Patient Allergies Penicillins Adverse Reaction (Severe, Verified 11/20/24 11:54) rash HPI HPI S/P Double; Dr. Moreno: Details: LAST VISIT: Iron deficiency Anemia GERD (gastroesophageal reflux disease) Dysphagia Postprandial abdominal bloating Postprandial epigastric pain Screen for colon cancer Plan Patient will be scheduled for upper endoscopy and colonoscopy. Message sent to surgical schedulers and patient will be sent to speak with them. Patient denies melena, hematochezia, unintentional weight loss or ribbon like stools. Patient reports that she is moving her bowels without any issues. Patient states that Nexium has been helpful. Patient denies any dyspepsia, dysphagia or odynophagia. Patient denies any family history of colorectal cancer. No issues with anesthesia in the past. No history of sleep apnea. Not on any anticoagulation medication. Patient denies any cardiac or respiratory symptoms. I will see her after the procedure. Patient is agreeable to this plan and verbalizes understanding of instructions. She was given the opportunity to ask questions and all questions answered. ? Thank you for allowing me to participate in her care Medications New bisacodyl (Dulcolax (bisacodyl)) take 4 tabs at noon the day before your colonoscopy 20 mg (4 x 5 mg) PO ONCE 4 tabs 0RF 1 day Z12.11 polyethylene glycol 3350 (Miralax) As directed by gastroenterology department at [facility] 238 grams PO ONCE 238 grams 0RF Z12.11 UPPER ENDOSCOPY AND COLONOSCOPY: EGD Findings:? * Esophagus:?Normal esophageal mucosa was noted. A non-obstructing Schatzki's ring was noted just above the GE junction. The Z-line was at 36 cm. Cold forceps biopsies were taken from middle and lower esophagus to rule out eosinophilic esophagitis. * Stomach:? Erythema and erosions in the antrum. Retroflexion was performed in the cardia. Random cold forceps biopsies were taken from the stomach. * Duodenum:? Normal duodenal mucosa. Cold forceps biopsies were taken from the duodenal bulb and 2nd portion of the duodenum to rule out celiac sprue. Additional intervention: A jwxbnre-yaj-dzxvd balloon dilator was advanced to the level of Schatzki's ring and then incrementally insufflated from 18 to 20 mm. A tear was not noted - as expected from non-obstructing schatzki's ring. Colonoscopy Procedure:? The patient was then turned for the colonoscopy. A digital rectal exam was performed which was abnormal for ext hemorrhoids.? A distal attachment cap was affixed to the tip of the scope and the colonoscope was then inserted through the anus and advanced through the colon and advanced to the cecum at 75 cm and terminal ileum.? Appendiceal orifice and ileocecal valve were identified. Mucosa was carefully examined under high definition white light as the instrument was slowly withdrawn in a retrograde panoramic fashion. Retroflexion was performed in ascending colon and rectum. The procedure was not difficult. The quality of the prep was BBPS: 3+2+3 = adequate Withdrawal time 7 minutes Limitations: No limitations Findings: Mucosa: Normal colon and terminal ileum mucosa. Protruding lesions: * Small internal hemorrhoids without stigmata of recent bleeding.Impression: 1. Normal esophagus (biopsy) 2. Non-obstructing Schatzki's ring (dilation) 3. Gastritis (biopsy) 4. Normal duodenum (biopsy) 5. Normal colon and terminal ileum mucosa 6. Internal and external hemorrhoids Recommendations:?? * Follow-up path results * Avoid NSAIDs * H Pylori treatment if biopsies + * Repeat colonoscopy for CRC screening in 10 years. PATHOLOGY Diagnosis A. Duodenum, biopsy: Duodenal mucosa with predominantly preserved villi and features of chronic/non- specific duodenitis B. Stomach, biopsy: Gastric antral and body mucosa with mild reactive changes and minimal chronic inactive gastritis; negative for H. pylori, intestinal metaplasia and dysplasia. C. Esophagus, lower, biopsy: Squamous mucosa with no specific change; no columnar mucosa present. D. Esophagus, middle, biopsy: Squamous mucosa with no specific change; no columnar mucosa present. TODAY'S VISIT: Patient is here today for follow-up and to discuss upper endoscopy and colonoscopy results. Patient denies any ill effects from the prep, anesthesia or procedure itself. Patient reports that she continues to have reflux despite trying to change her diet. Patient avoids he waited night. Trouble swallowing solids and sometimes liquids. Upper endoscopy showed Schatzki ring and was dilated. No H pylori, mild reactive changes and minimal chronic inactive gastritis. Patient denies any nausea or vomiting. Denies any other GI concerning symptoms. Colonoscopy normal. Patient will return for colorectal screening in 10 years, sooner if clinically necessary. Patient reports that she is moving her bowels well without any issues. Denies any melena, hematochezia. She PFSH Medical History (Updated 11/27/24 @ 13:39 by Lucy Roche MD) Dysphagia RLS (restless legs syndrome) GERD (gastroesophageal reflux disease) Bilateral chronic knee pain Chronic back pain Fibromyalgia Chronic pain in left foot Anxiety Depression Hypothyroidism Surgical History History of esophagogastroduodenoscopy (EGD) H/O colonoscopy Social History Household Members: Family Do you presently have visiting nurse or other home services: No Patient Tobacco Use Status: Never used Tobacco Current occupational status: unemployed Gender identity: Female Review of Systems Const Denies weight gain and Denies weight loss ENT Reports no additional complaints, Reports dysphagia and Denies odynophagia Card Reports no additional complaints Resp Reports no additional complaints GI Denies abdominal pain, Denies belching, Denies melena, Denies bloating, Denies change in bowel habits, Reports dysphagia, Denies excessive flatus, Denies dyspepsia, Reports heartburn (Improved), Denies diarrhea, Denies loose stools, Denies nausea, Denies odynophagia and Denies vomiting Reports no additional complaints Musc Reports no additional complaints Neuro Reports no additional complaints Psych Reports no additional complaints Endo Reports no additional complaints Physical Exam Vital Signs: Last Vital Signs Pulse 85 11/20/24 11:56 BP 107/58 L 11/20/24 11:56 Pulse Ox 97 11/20/24 11:56 Oxygen Delivery Method Room Air 11/20/24 11:56 BMI result Body Mass Index 30.4 Const General: healthy appearing and no acute distress Nutritional Appearance: obese Orientation/consciousness: patient oriented x3 Resp Effort & Inspection: normal respiratory effort, able to speak in complete sentences, no tracheal deviation and symmetric chest movement Auscultation: clear to auscultation bilaterally Cardio Rate: regular rate GI Inspection: Yes normal to inspection, No distended and Yes obesity Palpation (GI): Soft to palpation, not firm, nontender and No hepatosplenomegaly present Auscultation: normal bowel sounds General: Yes no CVA tenderness Back/Spine/Pelvis Back: no CVA tenderness Skin General skin exam: elasticity normal, turgor normal and dry skin Neuro General: patient oriented x3 Psych Appearance: grossly normal Mental Status: mental status grossly normal Assessment & Plan Assessment & Plan (1) Dysphagia: Code(s): R13.10 - Dysphagia, unspecified Category: Medical Qualifiers: Dysphagia type: pharyngoesophageal phase Qualified Code(s): R13.14 - Dysphagia, pharyngoesophageal phase (2) GERD (gastroesophageal reflux disease): Code(s): K21.9 - Gastro-esophageal reflux disease without esophagitis Category: Medical Qualifiers: Esophagitis presence: esophagitis presence not specified Qualified Code(s): K21.9 - Gastro-esophageal reflux disease without esophagitis (3) Postprandial abdominal bloating: Code(s): R14.0 - Abdominal distension (gaseous) (4) Postprandial epigastric pain: Code(s): R10.13 - Epigastric pain Plan Will stop Nexium and patient will start taking lansoprazole in the morning and famotidine at bedtime. Avoid dietary triggers of late night snacking. Staying upright for minimum 3 hours after meals discussed with patient. Patient will try to change her diet. Colonoscopy in 10 years, sooner if clinically necessary. Patient will follow-up in 3 months, sooner on as needed basis. Patient is agreeable to this plan and verbalizes understanding of instructions. She was given the opportunity to ask questions and all questions answered. Thank you for allowing me to participate in her care Medications: New famotidine (Pepcid) 20 mg PO BEDTIME 30 tabs 3RF K21.9 - Gastro-esophageal reflux disease without esophagitis lansoprazole 30 mg PO DAILY 30 caps 3RF K21.9 - Gastro-esophageal reflux disease without esophagitis Discontinued esomeprazole magnesium Discontinued Reason: Doctor's Order 40 mg PO DAILY 30 caps 5RF K21.9 - Gastro-esophageal reflux disease without esophagitis Coding Level of Care Code Est Pt Level 4 (16088) Complex EM visit Add On G2211 Diagnoses Pharyngoesophageal dysphagia R13.14 Dysphagia type: pharyngoesophageal phase Gastroesophageal reflux disease, unspecified whether esophagitis present K21.9 Esophagitis presence: esophagitis presence not specified Postprandial abdominal bloating R14.0 Postprandial epigastric pain R10.13 Time Spent (min) 35 Comment 25 minutes spent with patient and additional 10 minutes spent reviewing her records he
[2024-11-20 11:56] VITALS: BP 107/58; PULSE 85; O2SAT 97; BMI 30.4
--- OUTSIDE RECORDS SUMMARY | 2024-11-20 13:37 | XMS_ITS | Encounter Summary ---
Author Organization [employer] Address [address] [facility] [address] [place] [address] Care Team Providers Care Scrapper Name Role Phone Richie Raines MD Primary Care Prov ider Encounter Details Date Type Department Care Team ([facility] st Contact Info) Description 11/22/2023 Orders Only [facility] [address] [place], [place] [phone] Matthias Maria MD [address] [place] [address] Pain in both knees, unspecified chronicity (Primary [...] 11/28/2024 10:00 AM EDT Office Visit [facility] [address] [place] [address] Lolly French MD [address] [place] [address] 01/10/2025 9:45 AM EDT Office Visit [facility] [address] [place] [address] Richie Rianes MD [address] [place] [address] documented as of this encounter Visit Diagnoses Diagnosis Pain in both knees, unspecified chronicity- Primary documented in this encounter Additional Health Concerns Assessment Noted Time PHQ-9 Depression Total Score: 0 08/10/20 2:42 PM EST documented as of this encounter Care Teams Scrapper Relationship Specialty Start Date End Date Richie Raines MD [address] [place] [address] PCP - General Internal Medicine 08/19/23 documented as of this encounter
--- OUTSIDE RECORDS SUMMARY | 2024-11-20 13:37 | XMS_ITS | Encounter Summary ---
Author Organization [employer] Address [address] [facility] [address] [place] [address] Care Team Providers Care Nail Maker Name Role Phone Richie Raines MD Primary Care Prov ider Reason for Visit * Reason Comments Med Refill Encounter Details Date Type Department Care Team (Late st Contact Info) Description 09/20/2023 Refill [facility] [address] [place] [address] Kaleigh Kiran, MARV [address] [place] [address] Fibromyalgia Social History Tobacco Use Types Packs/Day [...] Description 11/28/2024 10:00 AM EDT Office Visit [facility] [address] [place] [address] Lolly French MD [address] [place] [address] 01/10/2025 9:45 AM EDT Office Visit [facility] [address] [place] [address] Richie Raines MD [address] [place] [address] documented as of this encounter Visit Diagnoses Diagnosis Fibromyalgia Unspecified myalgia and myositis documented in this encounter Additional Health Concerns Assessment Noted Time PHQ-9 Depression Total Score: 0 08/10/20 2:42 PM EST documented as of this encounter Care Teams Nail Maker Relationship Specialty Start Date End Date Richie Raines MD [address] [place] [address] PCP - General Internal Medicine 08/19/23 documented as of this encounter
--- OUTSIDE RECORDS SUMMARY | 2024-11-20 13:37 | XMS_ITS | Encounter Summary ---
Author Organization [employer] Address [address] [facility] [address] [place] [address] Care Team Providers Care Sandfill Operator Name Role Phone Richie Raines MD Primary Care Prov ider Reason for Visit * Reason Onset Date Comments Appointment Request 09/16/2023 Encounter Details Date Type Department Care Team ([facility] st Contact Info) Description 09/16/2023 Telephone [facility] [address] [place] [address] Richie Raines MD [address] [place], [place] [phone] Appointment Request Social History Tobacco Use Types [...] 11/28/2024 10:00 AM EDT Office Visit [facility] [address] [place] [address] Lolly French MD [address] [place] [address] 01/10/2025 9:45 AM EDT Office Visit [facility] [address] [place] [address] Richie Raines MD [address] [place] [address] documented as of this encounter Visit Diagnoses Not on filedocumented in this encounter Additional Health Concerns Assessment Noted Time PHQ-9 Depression Total Score: 0 08/10/20 2:42 PM EST documented as of this encounter Care Teams Sandfill Operator Relationship Specialty Start Date End Date Richie Raines MD [address] [place] [id number] PCP - General Internal Medicine 08/19/23 documented as of this encounter
--- OUTSIDE RECORDS SUMMARY | 2024-11-20 13:37 | XMS_ITS | Encounter Summary ---
Author Organization [employer] Address [address] [facility] [address] [place] [address] Care Team Providers Care Flash Designer Name Role Phone Richie Raines MD Primary Care Prov ider Encounter Details Date Type Department Care Team ([facility] st Contact Info) Description 09/28/2023 Telephone [facility] [address] [place], [place] [phone] Richie Raines MD [address] [place] [address] Social History Tobacco Use Types Packs/Day Years [...] Description 11/28/2024 10:00 AM EDT Office Visit [facility] [address] [place] [address] Lolly French MD [address] [place] [address] 01/10/2025 9:45 AM EDT Office Visit [facility] [address] [place] [address] Richie Raines MD [address] [place] [address] documented as of this encounter Visit Diagnoses Not on filedocumented in this encounter Additional Health Concerns Assessment Noted Time PHQ-9 Depression Total Score: 0 08/10/20 2:42 PM EST documented as of this encounter Care Teams Flash Designer Relationship Specialty Start Date End Date Richie Raines MD [address] [place] [address] PCP - General Internal Medicine 08/19/23 documented as of this encounter
--- OUTSIDE RECORDS SUMMARY | 2024-11-20 13:37 | XMS_ITS | Encounter Summary ---
Author Organization [employer] Address [address] [facility] 7t [place] [address] Care Team Providers Care Marinator Name Role Phone Richie Raines MD Primary Care Prov ider Reason for Visit * Reason Comments Med Change Request Encounter Details Date Type Department Care Team ([facility] st Contact Info) Description 11/02/2023 Refill [facility] [address] [place] [address] Matthias Maria MD [address] [place] [address] Chronic bilateral low back pain without sciatica [...] Description 11/28/2024 10:00 AM EDT Office Visit [facility] MED[facility] [address] [place] [address] Lolly French MD 230 [place] [address] 01/10/2025 9:45 AM EDT Office Visit [facility] PEDS [address] [place] [address] Richie Raines MD [address] [place] [address] documented as of this encounter Visit Diagnoses Diagnosis Chronic bilateral low back pain without sciatica documented in this encounter Additional Health Concerns Assessment Noted Time PHQ-9 Depression Total Score: 0 08/10/20 2:42 PM EST documented as of this encounter Care Teams Marinator Relationship Specialty Start Date End Date Richie Raines MD [address] [place] [address] PCP - General Internal Medicine 08/19/23 documented as of this encounter
--- OUTSIDE RECORDS SUMMARY | 2024-11-20 13:37 | XMS_ITS | Encounter Summary ---
Author Organization [employer] Address 75 [facility] 7t [place] [address] Care Team Providers Care Die Repairer Stamping Name Role Phone Richie Raines MD Primary Care Prov ider Reason for Visit * Reason Comments Med Refill Encounter Details Date Type Department Care Team (Late st Contact Info) Description 08/05/[address] [facility] [address] [place] [address] Heath Woodson MD [address] [place] [address] Social History Tobacco Use Types Packs/Day Years [...] 11/28/2024 10:00 AM EDT Office Visit [facility] [address] [place] [address] Lolly French MD [address] [place] [address] 01/10/2025 9:45 AM EDT Office Visit [facility]S [address] [place], [place] [phone] Richie Raines MD [address] [place], [place] [phone] documented as of this encounter Visit Diagnoses Not on filedocumented in this encounter Additional Health Concerns Assessment Noted Time PHQ-9 Depression Total Score: 17 07/08/ 023 4:25 PM EST documented as of this encounter Care Teams Die Repairer Stamping Relationship Specialty Start Date End Date Richie Raines MD [address] [place], [place] [phone] PCP - General Internal Medicine 08/19/23 documented as of this encounter
--- OUTSIDE RECORDS SUMMARY | 2024-11-20 13:37 | XMS_ITS | Encounter Summary ---
Author Organization [employer] Address [address] [facility] 7 [place] [address] Care Team Providers Care Pathology Laboratory Aide Name Role Phone Richie Raines MD Primary Care Prov ider Reason for Visit * Reason Onset Date Comments Reschedule Request 11/30/2023 Encounter Details Date Type Department Care Team (Late st Contact Info) Description 11/30/2023 Telephone [facility] MEDICINE [address] [place] [address] Richie Raines MD [address] [place], [place] [phone] Reschedule Request Social History Tobacco Use Types [...] AM EDT Triage call to Pt with [place] [employer] ID [id number]. Pt didn't answer. Left voice message to call [facility] triage line [phone] * Telephone Encounter - Raimundo Contreras - 11/30/2023 11:41 AM EDT Tc from pt requesting to reschedule today's same day visit. Please contact pt at [phone]. documented in this encounter Plan of Treatment Upcoming Encounters Date Type Department Care Team (Late st Contact Info) Description 11/28/2024 10:00 AM EDT Office Visit [facility] MEDICINE [address] [place] [address] Lolly French MD [address] [place] [address] 01/10/2025 9:45 AM EDT Office Visit [facility] MED [facility] PEDS [address] [place] [address] Richie Raines MD [address] [place] [address] documented as of this encounter Visit Diagnoses Not on filedocumented in this encounter Additional Health Concerns Assessment Noted Time PHQ-9 Depression Total Score: 0 08/10/20 2:42 PM EST documented as of this encounter Care Teams Pathology Laboratory Aide Relationship Specialty Start Date End Date العراقيRichie Michaud MD [address] [place] [address] PCP - General Internal Medicine 08/19/23 documented as of this encounter
--- OUTSIDE RECORDS SUMMARY | 2024-11-20 13:37 | XMS_ITS | Encounter Summary ---
Author Organization [employer] Address [address] [facility] 7 [place] [address] Care Team Providers Care Preconstruction Manager Name Role Phone Richie Raines MD Primary Care Prov ider Reason for Visit * Reason Onset Date Comments Med Refill 02/18/2024 Encounter Details Date Type Department Care Team (Late st Contact Info) Description 02/18/2024 Telephone [facility] MED[facility] [address] [place] [address] Richie Raines MD [address] [place], [place] [phone] Med Refill Social History Tobacco Use Types [...] Miscellaneous Notes * Telephone Encounter - Kenneth Perez - 02/18/2024 11:11 AM EDT TC from pt requesting medication refill. Medications needing refill : pregabalin (Lyrica) 150 MG capsule To be sent to: [id number] documented in this encounter Plan of Treatment Upcoming Encounters Date Type Department Care Team (Late st Contact Info) Description 11/28/2024 10:00 AM EDT Office Visit [facility] MEDICINE [address] [place] [address] Lolly French MD [address] [place] [address] 01/10/2025 9:45 AM EDT Office Visit [facility]EDS [address] [place] [address] Richie Raines MD [address] [place] [address] documented as of this encounter Visit Diagnoses Not on filedocumented in this encounter Additional Health Concerns Assessment Noted Time PHQ-9 Depression Total Score: 0 08/10/20 23 2:42 PM EST documented as of this encounter Care Teams Preconstruction Manager Relationship Specialty Start Date End Date Richie Raines MD [address] [place] [address] PCP - General Internal Medicine 08/19/23 documented as of this encounter
--- OUTSIDE RECORDS SUMMARY | 2024-11-20 13:37 | XMS_ITS | Encounter Summary ---
Author Organization [employer] Address [address] [facility] 7t [place] [address] Care Team Providers Care Certified Surgical First Assistant Name Role Phone Richie Raines MD Primary Care Prov ider Encounter Details Date Type Department Care Team ([facility] st Contact Info) Description 04/09/2024 Orders Only [facility] MED & PEDS [address] [place], [place] [phone] Richie Raines MD [address] [place] [address] Social History Tobacco Use Types Packs/Day Years [...] Description 11/28/2024 10:00 AM EDT Office Visit [facility] MEDICINE [address] [place] [address] Lolly French MD [address] [place] [address] 01/10/2025 9:45 AM EDT Office Visit [facility] MED & PEDS [address] [place] [address] Richie Raines MD [address] [place] [address] documented as of this encounter Visit Diagnoses Not on filedocumented in this encounter Additional Health Concerns Assessment Noted Time PHQ-9 Depression Total Score: 0 08/10/20 2:42 PM EST documented as of this encounter Care Teams Certified Surgical First Assistant Relationship Specialty Start Date End Date Richie Raines MD [address] [place] [address] PCP - General Internal Medicine 08/19/23 documented as of this encounter
--- OUTSIDE RECORDS SUMMARY | 2024-11-20 13:37 | XMS_ITS | Encounter Summary ---
Author Organization [employer] Address [address] [facility] 7t [place] [address] Care Team Providers Care Dog Daycare Provider Name Role Phone Richie Raines MD Primary Care Prov ider Reason for Visit * Reason Onset Date Comments Referral 11/29/2023 Encounter Details Date Type Department Care Team (Late st Contact Info) Description 11/29/2023 Telephone [facility] MEDICINE [address] [place] [address] Richie Raines MD [address] [place], [place] [phone] Referral Social History Tobacco Use Types Packs/Day [...] has a referral for sleep apnea in [facility] but they're not scheduling out until April andpt is requesting a sooner appt. Pt would like to be referred to [facility] instead. Please contact pt at [phone]. documented in this encounter Plan of Treatment Upcoming Encounters Date Type Department Care Team (Late st Contact Info) Description 11/28/2024 10:00 AM EDT Office Visit [facility] MEDICINE [address] [place] [address] Lolly French MD [address] [place] [address] 01/10/2025 9:45 AM EDT Office Visit [facility] MED [facility] PEDS [address] [place] [address] Richie Raines MD [address] [place] [address] documented as of this encounter Visit Diagnoses Not on filedocumented in this encounter Additional Health Concerns Assessment Noted Time PHQ-9 Depression Total Score: 0 08/10/20 2:42 PM EST documented as of this encounter Care Teams Dog Daycare Provider Relationship Specialty Start Date End Date Richie Raines MD [address] [place] [address] PCP - General Internal Medicine 08/19/23 documented as of this encounter
--- OUTSIDE RECORDS SUMMARY | 2024-11-20 13:37 | XMS_ITS | Encounter Summary ---
Author Organization [employer] Address [address] [facility] 7t [place] [address] Care Team Providers Care Cost Recorder Name Role Phone Richie Raines MD Primary Care Prov ider Reason for Visit * Reason Comments Med Change Request Encounter Details Date Type Department Care Team ([facility] st Contact Info) Description 11/11/2023 Refill [facility] [address] [place] [address] Matthias Maria MD [address] [place] [address] Chronic bilateral low back pain without sciatica [...] Visit [facility] MEDICINE [address] [place] [address] Lolly French MD 230 [place] [address] 01/10/2025 9:45 AM EDT Office Visit [facility] MED & PEDS [address] [place] [address] Richie Raines MD [address] [place] [address] documented as of this encounter Visit Diagnoses Diagnosis Chronic bilateral low back pain without sciatica documented in this encounter Additional Health Concerns Assessment Noted Time PHQ-9 Depression Total Score: 0 08/10/20 2:42 PM EST documented as of this encounter Care Teams Cost Recorder Relationship Specialty Start Date End Date Richie Raines MD [address] [place] [address] PCP - General Internal Medicine 08/19/23 documented as of this encounter
--- OUTSIDE RECORDS SUMMARY | 2024-11-20 13:37 | XMS_ITS | Encounter Summary ---
Author Organization [employer] Address [address] [facility] 7 [place] [address] Care Team Providers Care Patient Educator Name Role Phone Richie Raines MD Primary Care Prov ider Reason for Visit * Reason Comments Pre-visit Planning SDOH screening compl eted on 09/27/2024 Encounter Details Date Type Department Care Team (Late st Contact Info) Description 11/20/2024 Patient Outreach [facility] [address] [place] [address] Richie Raines MD [address] [place] [phone] Pre-visit Planning (SDOH screening completed on 09/27/2024) Social History Tobacco Use Types Packs/Day Years [...] as of this encounter Progress Notes * Charissa Coto - 11/20/2024 9:50 AM EDT CC Charissa placed successful outbound call to patient for pre-visit planning. Patient name and confirmed. Patient confirms appt date and time, and has transportation. Biggest concern for appointment at this time is none Patient advised to bring to appointment a photo id and insurance card. Appropriate screenings completed in anticipation of appointment. documented in this encounter Plan of Treatment Upcoming Encounters Date Type Department Care Team (Late st Contact Info) Description 11/28/2024 10:00 AM EDT Office Visit [facility] MED[facility] [address] [place] [address] Lolly French MD [address] [place] [address] 01/10/2025 9:45 AM EDT Office Visit [facility] MED [facility] PEDS 505 [place] [address] Richie Raines MD [address] [place] [address] documented as of this encounter Visit Diagnoses Not on filedocumented in this encounter Additional Health Concerns Assessment Noted Time PHQ-9 Depression Total Score: 0 08/10/20 2:42 PM EST documented as of this encounter Care Teams Patient Educator Relationship Specialty Start Date End Date Richie Raines MD [address] [place] [id number] PCP - General Internal Medicine 08/19/23 documented as of this encounter
--- OUTSIDE RECORDS SUMMARY | 2024-11-20 13:37 | XMS_ITS | Encounter Summary ---
Author Organization [employer] Address [address] [facility] 7t [place] [address] Care Team Providers Care Drilling Engineering Manager Name Role Phone Richie Raines MD Primary Care Prov ider Reason for Visit * Reason Onset Date Comments Referral 02/18/2024 Encounter Details Date Type Department Care Team (Late st Contact Info) Description 02/18/2024 Telephone [facility] MEDICINE [address] [place] [address] Richie Raines MD [address] [place], [place] [phone] Referral Social History Tobacco Use Types Packs/Day [...] calling to request a referral for a Finance Associate states has a appt for sleep studyin April and like is having breathing problems at night and the patient would like to be seen at [facility] [address] [place] [address] [place], [address] Dr. Dipesh Contreras MD documented in this encounter Plan of Treatment Upcoming Encounters Date Type Department Care Team (Late st Contact Info) Description 11/28/2024 10:00 AM EDT Office Visit [facility] MEDICINE [address] [place] [address] Lolly French MD [address] [place] [address] 01/10/2025 9:45 AM EDT Office Visit [facility] MED [facility] PEDS [address] [place] [address] Richie Raines MD [address] [place] [address] documented as of this encounter Visit Diagnoses Diagnosis Fibromyalgia Unspecified myalgia and myositis documented in this encounter Additional Health Concerns Assessment Noted Time PHQ-9 Depression Total Score: 0 08/10/20 23 2:42 PM EST documented as of this encounter Care Teams Drilling Engineering Manager Relationship Specialty Start Date End Date Richie Raines MD [address] [place] [address] PCP - General Internal Medicine 08/19/23 documented as of this encounter
--- OUTSIDE RECORDS SUMMARY | 2024-11-20 13:37 | XMS_ITS | Encounter Summary ---
Author Organization [employer] Address [address] [facility] 7t [place] [address] Care Team Providers Care Rivet Catcher Name Role Phone Richie Raines MD Primary Care Prov ider Reason for Visit * Reason Comments Med Refill Encounter Details Date Type Department Care Team (Late st Contact Info) Description 07/29/2023 Refill [facility] [address] [place] [address] Heath Woodson MD [address] [place] [address] Social History Tobacco Use Types Packs/Day Years [...] Description 11/28/2024 10:00 AM EDT Office Visit [facility] MEDICINE [address] [place] [address] Lolly French MD [address] [place] [address] 01/10/2025 9:45 AM EDT Office Visit [facility] MED & PEDS 505 [place], [place] [phone] Richie Raines MD [address] [place], [place] [phone] documented as of this encounter Visit Diagnoses Not on filedocumented in this encounter Additional Health Concerns Assessment Noted Time PHQ-9 Depression Total Score: 17 07/08/ 023 4:25 PM EST documented as of this encounter Care Teams Rivet Catcher Relationship Specialty Start Date End Date Richie Raines MD [address] [place], [place] [phone] PCP - General Internal Medicine 08/19/23 documented as of this encounter
--- OUTSIDE RECORDS SUMMARY | 2024-11-20 13:38 | XMS_ITS | Clinical Summary ---
Author Organization [employer] Address [address] [facility] [address] [place] [address] Care Team Providers Care Monitoring And Evaluation Advisor Name Role Phone Richie Ranies MD Primary Care Prov ider Allergies Active [...] 90 tablet 3 04/17/20 24 025 Active lidocaine-pril ocaine (Emla) 2.5-2.5 % creamIndicatio [...] at bedtime. 30 tablet 10/06/19 25 Active naproxen (Naprosyn) 500 MG tabletIndicati ons:Chronic bilateral low back pain without sciatica TAKE 1 TABLET BY MOUTH TWICE A DAY IF NEEDED FOR MODERATE PAIN 30 tablet 11/07/19 25 Active naproxen (Naprosyn) 500 MG tabletIndicati ons:Chronic bilateral low back pain without sciatica TAKE 1 TABLET BY MOUTH TWICE A DAY IF NEEDED FOR MODERATE PAIN 30 tablet 05/30/20 24 025 Discontinued(Re order (will not trigger notification [...] EDT): Patient wants to be referred [facility] for [facility], will send new [...] (10/06/2023 8:51 AM EST): Reportedly done in [place] less than 5y ago She will bring [...] Tdap but she declined. Colonoscopy done in [place], she will bring report to PCP Mammogram: [...] and offer referral. Chronic pain, relocation from [place] to [place] and severe depression are exacerbating [...] take actions. PLAN: 1. Follow up with [facility]: Not recommended for follow-up 2. Patient goal [...] and offer referral. Chronic pain, relocation from [place] to [place] and severe depression are exacerbating [...] take actions. PLAN: 1. Follow up with [facility]: Not recommended for follow-up 2. Patient goal [...] and offer referral. Chronic pain, relocation from [place] and severe depression are exacerbating [...] take actions. PLAN: 1. Follow up with [facility]: Not recommended for follow-up 2. Patient goal [...] Encounters Date Type Department Care Team Description 11/20/2024 Patient Outreach [facility] [address] [place] [phone] Richie Raines MD Pre-visit Planning (SDOH screening completed on 09/27/2024) 11/06/2024 Refill [facility] [address] [place] [phone] Richie Raines MD Chronic bilateral low back pain without sciatica 10/31/2024 Orders Only GENERIC EXTERNAL DATA DEPARTMENT Provider, Generic External Data 10/31/2024 Travel 10/19/2024 Telephone [facility] [address] [place] [address] Devi Diaz CNM 10/06/2024 Refill [facility] [address] [place] [address] Richie Raines MD 10/05/2024 Telephone [facility] [address] [place] [address] Richie Raines MD No Show 10/04/2024 Orders Only [facility] [address] [place] [address] Devi Diaz CNM Cervical cancer screening (Primary Dx); Breast pain, right 10/04/2024 Telephone [facility] [address] [place] [address] Ratna Gonzalez RN Results 10/03/2024 Refill [facility] [address] [place] [address] Richie Raines MD Fibromyalgia 10/03/2024 Orders Only [facility] [address] [place] [address] Lolly French MD 09/27/2024 Patient Outreach [facility] [address] [place], [place] [phone] Richie Raines MD Pre-visit Planning (SDOH negative, Tobacco screening negative. ) 09/21/2024 1:45 PM EST Office Visit [facility] [address] [place] [address] Devi Diaz CNM Menorrhagia with regular cycle (Primary Dx) 09/21/2024 Travel 09/01/2024 Orders Only [facility] External Provider, [facility] 08/26/2024 Refill [facility] [address] [place] [address] Richie Raines MD from Last 3 Months Family History Medical [...] Description 11/28/2024 10:00 AM EDT Office Visit [facility] [address] [place], [place] [phone] Lolly French MD [address] [place], [place] [phone] 01/10/2025 9:45 AM EDT Office Visit [facility] [address] [place], [place] [phone] Richie Raines MD [address] [place], [place] [phone] Health Maintenance Due Date Last Done Comments [...] Procedure Name Priority Date/Time Associated Diagnosis Comments HEMATOXYLIN AND EOSIN STAIN Routine 10/31/2024 1:17 PM EDT HCG, QL, URINE Routine 10/31/2024 11:01 AM EDT US PELVIS TRANSVAGINAL Urgent 11:29 AM EST [...] Recently Relevant to Health Maintenance Results * Hematoxylin and Eosin Stain (10/31/2024 1:17 PM EDT) 10/31/2024 1:17 PM EDT 10/31/2024 1:33 PM EDT [facility] - 11/02/2024 10:48 AM EDT ----- ------- Name: Chhaya Dey ? Age/Sex: 49/F ? : 1975 Unit#: [id number] ?? Attend Dr: Cindi Moreno MD ?Re10/31/24 ?Status: DEP SDC ? Location: HO.SSS ?Disch: ? ----- ------- SPEC : [id number] ? RECD: 10/31/24 ? STATUS: ??SOUT ? REQ NUM: [id number] ? CAN: 10/31/24-1316 ? SUBM DR: Cindi Moreno MD ? ENTERED: ??10/31/24 ?SP TYPE: Surgical ? OTHR DR: Lolly French MD ? ORDERED: ??HE Stain/12, Gross Micro L4/4, IHC, Special st. 2, H. pylori, AB/PAS ? Diagnosis ?? A. ??Duodenum, biopsy: ??Duodenal mucosa with predominantly preserved villi and features of ?? chronic/non-specific duodenitis ? B. ??Stomach, biopsy: ??Gastric antral and body mucosa with mild reactive changes and ?? minimal chronic inactive gastritis; negative for H. pylori, intestinal metaplasia and ?? dysplasia. ? C. ??Esophagus, lower, biopsy: ??Squamous mucosa with no specific change; no columnar ?? mucosa present. ? D. ??Esophagus, middle, biopsy: ??Squamous mucosa with no specific change; no columnar ?? mucosa present. ?Clinical History Pre-Op Dx: ??GERD, anemia Post-Op Dx: Gastritis, Schatzki's ring, external hemorrhoids ?Microscopic Description Microscopic sections reviewed. ??AB/PAS on A shows evidence of chronic injury.? Immunostain for H. pylori on B is negative.? Controls stain appropriately. ? Material Received ?? A. Duodenum ?? B. Gastric ?? C. Lower esophagus ?? D. Middle esophagus ? Gross Description Received in four parts. Part A: ??Received in formalin labeled ?duodenum? are 3 medina-pink irregular tissue fragments each measuring 0.3 cm, submitted in toto in a cassette labeled A. Part B: ??Received in formalin labeled ?gastric? are 4 medina-pink irregular tissue fragments ranging from 0.2-0.3 cm, submitted in toto in a cassette labeled B. Part C: ??Received in formalin labeled ?lower esophagus? are 4 medina- pink irregular tissue fragments ranging from 0.2-0.25 cm, submitted in toto in a cassette labeled C. ? CONTINUED ON NEXT PAGE ----- ------- Name: Chhaya Dey ? Age/Sex: 49/F ? : 1975 Unit#: [id number] ?? Attend Dr: Cindi Moreno MD ?Re10/31/24 ?Status: DEP SDC ? Location: HO.SSS ?Disch: ? ----- ------- SPEC : [id number] ? RECD: 10/31/24 ? STATUS: ??SOUT ? REQ NUM: [id number] ? CAN: 10/31/24-1316 ? SUBM DR: Cindi Moreno MD ? ENTERED: ??10/31/24-1343 ?SP TYPE: Surgical ? OTHR DR: Lolly French MD ? ORDERED: ??HE Stain/12, Gross Micro L4/4, IHC, Special st. 2, H. pylori, AB/PAS ? Gross Description ?(Continued) Part D: ??Received in formalin labeled ?middle esophagus? are 3 noel- white irregular and rectangular tissue fragments ranging from 0.25-0.3 cm, submitted in toto in a cassette labeled D. CEDS Special studies ordered and performed: Immunostain for H. pylori on B1; AB/PAS stains on A1. Copies To: ?? Lolly French MD ?? [facility] ?? [address] [facility] ?? [place] [address] ?? [phone] ?? Cindi Moreno MD ?? [facility] ?? [address] ?? [place] [address] ?? [phone] ?? ----- ------- Signed (signature on file) Flori Van Alstyne 11/02/24 1048 ? ----- ------- ? END OF REPORT ? us Generic External Data Provider LAB BLOOD ORDERAB LES Final Result Performing Organization Address [facility] de Phone Number [facility] [address] [place] [phone] * HCG, Qualitative, Urine (10/31/2024 11:01 AM EDT) Pathologist [facility] Urine NEGATIVE NEGATIVE [facility] Comment:This test was develo ped to detect early . Falsenegative results may occur after the 5th - 7th week ofpregnancy when using this test method. If clinicallyindicated, consider a serum hCG. 10/31/2024 11:0 1 AM EDT 10/31/2024 11:10 AM EDT us Generic External Data Provider LAB URINE ORDERAB LES Final Result Performing Organization Address [facility] de Phone Number [facility] [address] [place] [phone] * US Pelvis Transvaginal (10/19/2024 11:29 AM EST) Anatomical Region Laterality Modality Pelvis Ultrasound 10/19/2024 11:2 9 AM EST Narrative 10/19/2024 12:02 PM EST ? [facility] ?[address] ?[place] [address] ? Ultrasound Report ? Signed ? Patient: Antonetty Vallejo,Chhaya ?MR#: ?? [id number] ? : 1975 ?Acct:[id number] ? Age/Sex: 49 / F ?ADM Date: 10/19/24 ? Loc: HO.US ? Attending Dr: Devi Diaz CNM ? Ordering Physician: DEVI DIAZ CNM ?? Date of Service: 10/19/24 ?? Procedure(s): US pelvic and transvaginal ?? Accession Number(s): [id number] ? cc: Lolly French MD; DEVI DIZA CNM ? EXAMINATION: ? US PELVIS ? [...] DD/ 1129 ? TD/TT: 10/19/24 1142 ? Heel Attacher: ? Procedure Note Dontejter, Image - 10/19/2024 [place] [address] Ultrasound Report Signed Patient: Chhaya DeyMR#: [id number] : 1975Acct:[id number] Age/Sex: 49 / FADM Date: 10/19/24 Loc: HO.US Attending Dr: Devi Diaz CNM Ordering Physician: DEVI DIAZ CNM Date of Service: 10/19/24 Procedure(s): US pelvic and transvaginal Accession Number(s): [id number] cc: Lolly French MD; DEVI DIAZ CNM [...] Jesse [place] MD 10/19/2024 11:59 AM EST Dictated By: Jesse [place] MD Signed By: <Electronically signed by Jesse [place] MD in OV> 10/19/24 1159 DD/ 1129 TD/TT: 10/19/24 1142 Heel Attacher: us Devi Diaz CNM IMG US PROCEDURES Final R esult * BI Mammogram Diagnostic Tomosynthesis Bilateral (10/03/2024 12:20 PM EST) Anatomical Region Laterality Modality Breast Bilateral Mammography 10/03/2024 12:2 0 PM EST Narrative 10/03/2024 1:44 PM EST ? [facility] [place] ? [address] ?[place] [address] ? Mammography Report ? Signed ? Patient: Antonetty Vallejo,Chhaya ?MR#: ?? [id number] ? : 1975 ?Acct:[id number] ? Age/Sex: 49 / F ?ADM Date: 02//25 ? Loc: HO.MAMMO ? Attending Dr: Lolly French MD ? Ordering Physician: Lolly French MD ?Results: 3.12MProbably Benign Finding - 12 month F/U ?? Suggested ? Date of Service: 10/03/24 ?Follow Up: 12 month diagnos ?? tic follow up ? Procedure(s): MM tomosynthesis diagnostic BI ?? Accession Number(s): [id number] ? cc: Lolly French MD ? EXAMINATION: [...] DD/ 1220 ? TD/TT: 10/03/24 1257 ? Heel Attacher: ? Procedure Note Donotuseinterpreter, Image - 10/03/2024 [place] [facility] [address] [place] [address] Mammography Report Signed Patient: Shelia Dey#: [id number] : 1975Acct:[id number] Age/Sex: 49 / FADM Date: 10/03/24 Loc: HO.MAMMO Attending Dr: Lolly French MD Ordering Physician: Lolly French MD Results: 3.12MProbably Benign Finding - 12 month F/U Suggested Date of Service: 10/03/24Follow Up: 12 month diagnos tic follow up Procedure(s): MM tomosynthesis diagnostic BI Accession Number(s): [id number] cc: Lolly French MD EXAMINATION: MM DIAGNOSTIC [...] 10/03/24 1341 DD/ 1220 TD/TT: 10/03/24 1257 Heel Attacher: Lolly French MD IMG BI PROCEDURES Final Result * Mr Brain w/ and w/o Contrast (09/25/2024 9:15 AM EST) Anatomical Region Laterality Modality Brain Magnetic Resonan ce 09/25/2024 9:15 AM EST Narrative 09/25/2024 10:51 AM EST ? [facility] ?[address] ?[place] [address] ? Magnetic Resonance Report ? Signed ? Patient: Antonetty Vallejo,Chhaya ?MR#: ?? [id number] ? : 1975 ?Acct:[id number] ? Age/Sex: 49 / F ?ADM Date: 02/03/25 ? Loc: HO.MRI ? Attending Dr: Paris JACKSON ? Ordering Physician: Paris Ramirez ?? Date of Service: 09/25/24 ?? Procedure(s): MR head/brain wo/w con ?? Accession Number(s): [id number] ? cc: Lolly French MD; Paris Ramirez [...] DD/ 0915 ? TD/TT: 09/25/24 0958 ? Heel Attacher: ? Procedure Note Ethel Goncalves - 09/25/[address] [address] Magnetic Resonance Report Signed Patient: Chhaya Dey#: [id number] : 1975Acct:[id number] Age/Sex: 49 / FADM Date: 09/25/24 Loc: HO.MRI Attending Dr: Paris JACKSON Ordering Physician: Paris Ramirez Date of Service: 09/25/24 Procedure(s): MR head/brain wo/w con Accession Number(s): [id number] cc: Lolly French MD; Paris Ramirez EXAMINATION: [...] 09/25/24 1049 DD/ 0915 TD/TT: 09/25/24 0958 Heel Attacher: [facility] External Provider IMG MRI PROCEDURES Final Result * FL Upper GI w/air w/Barium Swallow (09/01/2024 7:49 AM EST) Anatomical Region Laterality Modality Body Radiographic Mariana ging 09/01/2024 7:49 AM EST Narrative 09/01/2024 12:43 PM EST ? [facility] ?[address] ?[place], [place] [address] ? Fluoroscopy Report ? Signed ? Patient: Antonetty Vallejo,Chhaya ?MR#: ?? [id number] ? : 1975 ?Acct:[id number] ? Age/Sex: 49 / F ?ADM Date: 09/01/24 ? Loc: HO.XRAY ? Attending Dr: Deidre INIGUEZ ? Ordering Physician: Deidre Dowling ?? Date of Service: 09/01/24 ?? Procedure(s): FL upper GI w air w Ba Swallow ?? Accession Number(s): [id number] ? cc: Lolly French MD; Deidre Dowling [...] ??09/01/2024 12:40 PM EST RP ?? [id number] ? Dictated By: ?Steven Covarrubias ? Signed By: ?<Electronically signed by Steven Covarrubias in OV> ? 09/01/24 1240 ?<Electronically signed by Jesse [place] MD in OV> ? 09/01/24 1242 ? DD/ 0749 ? TD/TT: 09/01/24 0836 ? Heel Attacher: ? Procedure Note Ethel Goncalves - 09/01/[address] [address] Fluoroscopy Report Signed Patient: Chhaya DeyMR#: [id number] : 1975Acct:[id number] Age/Sex: 49 / FADM Date: 09/01/24 Loc: K[facility]BY Attending Dr: Diedre JACKSON-LLOYD Ordering Physician: Deidre Dowling Date of Service: 09/01/24 Procedure(s): FL upper GI w air w Ba Swallow Accession Number(s): [id number] cc: Lolly French MD; Deidre Dowling [facility]- EXAMINATION: XR FLUOROSCOPY UPPER GI WITH AIR [...] by: Jesse [place] MD 09/01/2024 12:40 PM [facility] Dictated By: Steven Covarrubias Signed By: <Electronically signed by Steven Covarrubias in OV> 09/01/24 1240 <Electronically signed by Jesse [place] MD in OV> 09/01/24 1242 DD/ 0749 TD/TT: 09/01/24 0836 Heel Attacher: [facility] External Provider IMG FLU OROSCOPY PROCEDURES Final Result * Hepatitis Panel, General (10/04/2023 10:36 AM EST) Hepatitis A IgM Nonreactive Nonreactive [facility] Comment:IgM antibodies to ARREAGA V not detected; does not exclude earlyacute or recovered HAV infection. ~Hepatitis B Surface Antibody NONREACTIVE Nonreactive [facility] Comment:Nonreactive: < 8.00 mIU/mL Hepatitis B Core Antibody Nonreactive Nonreactive [facility] Hepatitis C Antibody Nonreactive Nonreactive [facility] Comment:Antibodies to HCV no t detected; does not exclude early acuteHCV infection. Hepatitis B Surface Ag Negative Negative [facility] Blood 10/04/2023 10:3 6 AM EST 10/04/2023 11:34 AM EST Lolly French MD LAB BLOOD ORDERABLES Fin al Result [facility] [address] [place] [phone] * HIV-1/2 Antigen and Antibodies, Fourth Generation, with Reflexes (10/04/2023 10:36 AM EST) HIV AB/AG Nonreactive Nonreactive [facility] Comment:HIV-1 p24 Ag and/or HIV-1/HIV-2 Ab not detected.A test result that is nonreactive does not exclude thepossibility of exposure to or infection with HIV-1 and/orHIV-2. Nonreactive results in this assay for individualswith prior exposure to HIV-1 and/or HIV-2 may be due toantigen and antibody levels that are below the limit ofdetection of this assay.The Mashape HIV Ag/Ab Combo assay result andsupplemental assay results should be interpreted inconjunction with the patient's clinical presentation,history and other laboratory results. If the results areinconsistent with clinical evidence, additional testing issuggested to confirm the result. Blood Venous blood specimen / Unknown 10/04/2023 10:36 AM EST 10/04/2023 11:34 AM EST Lolly French MD LAB BLOOD ORDERABLES Fin al Result Performing Organization Address [facility] Co de Phone Number [facility] [address] [place] [phone] * HPV mRNA E6/E7 w/Reflex to HPV Genotypes 16, 18/45 (09/21/2023 1:23 PM EST) HPV nRNA E6/E7 Not Detected Not Detected [facility] Comment:Methodology: Transcr iption-Mediated AmplificationThis assay detects E6/E7 viral messenger RNA (mRNA) from 14high-risk HPV types (16,18,31,33,35,39,45,51,52,56,58,59,66,68).Cervical sources are required for HPV testing.If a vaginal source from a patient who has had atotal hysterectomy with removal of cervix wassubmitted, please contact the testing laboratoryfor alternative testing options.For additional information, please refer tohttp://education.Gini.net/faq/YBH349r7(This link if provided for information/educational purposes only.)THIS TEST WAS PERFORMED AT:[employer] [place] [phone] RIOS MD HPV mRNA E6/E7 [facility] HPV 16 RNA [facility] HPV 18/45 RNA [facility] 09/21/2023 1:23 PM EST 09/23/2023 9:50 AM EST us Devi Diaz CNM LAB CYTOLOGY ORDERABLES F inal Result Performing Organization Address [facility]/ZIP Co de Phone Number [facility] [address] [place] [phone] * Pap Smear (09/21/2023 1:23 PM EST) Swab Cervix uteri structure / Unknown 09/21/2023 1:23 PM EST 09/23/2023 9:50 AM EST Narrative [facility] - 10/06/2023 2:23 PM EST ----- ------- Name: Chhaya Dey ? Age/Sex: 48/F ? : 1975 Unit#: [id number] ?? Attend Dr: Richie Raines MD ??Re09/21/23 ?Status: DEP REF ? [facility] ? Disch: ? ----- ------- SPEC : [id number] ? RECD: 09/23/23-949 ? STATUS: ??SOUT ? REQ NUM: [id number] ? CAN: 09/21/23-2852 ? SUBM DR: DEVI DIAZ CNM ? [...] 66, 68) ? HPV testing performed by [facility], [place], [place]. ??See reference laboratory ?? portion of the EMR for entire report. ?Clinical Information LMP: Unknown date Previous PAP test:Unknown date/findings ? Material Received ?? ThinPrep-Cervical ----- ------- Signed (signature on file) Flori Van Alstyne 10/06/23 1423 ? ----- ------- ? END OF REPORT ? us Devi Diaz [facility] CYTOLOGY ORDERABLES F inal Result [facility] [address] [place] [phone] [phone] from Last 3 Months or Most Recently Relevant to Health [place] [address] [facility] STANDARD AETNA MEDICARE REPLACEMENT Care Teams Monitoring And Evaluation Advisor Relationship Specialty Start Date End Date Richie Raines MD [address] [place] [phone] PCP - General Internal Medicine 08/19/23
--- OUTSIDE RECORDS SUMMARY | 2024-11-20 13:38 | XMS_ITS | Clinical Summary ---
Author Organization [facility] Address [address] [place] [address] Phone Care Team Providers Care Wire Spinner Name Role Phone Unavailable Primary Care Provider Unavailabl e Social History Tobacco Use Types Packs/Day Years Used Date Smoking Tobacco: Never Assessed Comments Unknown Sex and Gender Information Value Date Recorded Sex Assigned at Not on file Legal Sex Female 1:05 PM EDT Gender Identity Not on file Sexual Orientation Not on file Plan of Treatment Upcoming Encounters Date Type Department Care Team ([facility] st Contact Info) Description 12/06/2024 9:15 AM EDT Consult [facility] [address] [facility] [address] [place] [address] Bogdan Souza MD [address] [facility] [address] [place] [address] Health Maintenance Due Date Last Done Comments Breast Cancer Screening 1975 DTaP,Tdap,and Td Vaccines (1 - Tdap) 1996 Hepatitis B Vaccines (1 of 3 - 19+ 3-dose series) 1996 Cervical Cancer Screening: P ap Smear 1998 COVID-19 Vaccine (2023-2 5 season) 2024 Influenza Vaccine (#1) 2024 Colorectal Cancer Screening: Colonoscopy 10/30/2024 Depression Screening 10/30/2024 HIV Screening 10/30/2024 Hepatitis C Screening 10/30/2024 Medicare Annual Wellness Visit 10/30/2024 Social Influencers of Health Screening 10/30/2024 HIB Vaccines Aged Out No longer eligi [...] on patient's age to complete this topic MMR Vaccines Aged Out No longer eligi ble based on patient's age to complete this topic Meningococcal ACWY Vaccine Aged Out N o longer eligible based on patient's age to complete this topic Meningococcal B Vacine Aged Out No lo nger eligible based on patient's age to complete this topic Pneumococcal Vaccine: Pediat rics (0 to 5 Years) and At-Risk Patients (6 to 64 Years) Aged Out No longer eligible b ased on patient's age to complete this topic RSV Immunization Patients Un jayson 20 months Aged Out No longer eligible b ased on patient's age to complete this topic Varicella Vaccines Aged Out No longer eligible based on patient's age to complete [place] [address] MEDICA[place] - [place] AET[place] MEDICARE ADVANTAGE
== END 2024-11-20 12:38 | disposition home or self-care (01) ==
LOC: HO.HGI 11:50
PROVIDERS: PCP Internal Medicine; Visit Provider Nurse Practitioner Family
DX: R13.14 Dysphagia, pharyngoesophageal phase (principal); K21.9 Gastro-esophageal reflux disease without esophagitis; R14.0 Abdominal distension (gaseous); R10.13 Epigastric pain
CPT/HCPCS: 99214; G2211

== ENCOUNTER → 2024-11-20 11:50 | Outpatient (BNVA) | payer MEDICARE, MEDICAID, SELFPAY | PROVIDERS: PCP Internal Medicine; Visit Provider Nurse Practitioner Family | DX: K21.9 Gastro-esophageal reflux disease without esophagitis (principal); R13.14 Dysphagia, pharyngoesophageal phase; R14.0 Abdominal distension (gaseous); R10.13 Epigastric pain | CPT/HCPCS: 99212 ==

== ENCOUNTER 2024-11-28 11:41 | Outpatient (REF) | payer MEDICARE, MEDICAID, SELFPAY ==
--- NOTE | ~2024-11-28 | XR_ITS ---
EXAMINATION: XR FOOT, LEFT CLINICAL INFORMATION: left heel pain COMPARISON: None available. TECHNIQUE: AP, lateral, and oblique views of the left foot. FINDINGS: The bones and soft tissues are normal. No fracture. Alignment is anatomic. Joint spaces are maintained. XR/XR foot LT min 3V IMPRESSION: Normal left foot. Electronically signed by: Jesse [place] MD 11/28/2024 01:05 PM EDT
[2024-11-28 13:33] LABS: Basophils Percent Auto 0.5 % (0-2); Eosinophils Absolute Auto 0.1 X10*3/uL (0.0-0.4); Eosinophils Percent Auto 2.5 % (0-4); Hematocrit 40.8 % (37.0-47.0); Hemoglobin 13.2 g/dl (12.0-16.0); Imm Gran Abs Auto 0.01 X10*3/uL (0.00-0.03); Imm Gran Pct Auto 0.2 % (0.0-0.4); Lymphocytes Absolute Auto 1.3 X10*3/uL (1.2-4.9); Lymphocytes Percent Auto 30.8 % (20-40); MANUAL DIFF FLAG SCAN; Mean Corpuscular HGB Conc 32.4 g/dl (31.0-35.0); Mean Corpuscular Hemoglobin 22.7 pg (27.0-33.0); Mean Corpuscular Volume 70.1 fL (80.0-98.0); Monocytes Absolute Auto 0.3 X10*3/uL (0.1-1.2); Monocytes Percent Auto 7.9 % (2-11); Neutrophils Absolute Auto 2.4 x10*3/uL (2.0-8.3); Neutrophils Percent Auto 58.1 % (45-73); PLT CLUMP 1; Red Blood Count 5.82 X10*6/uL (4.20-5.50); Red Cell Distribution Width 19.1 % (11.0-16.0); SCAN SMEAR FLAG 1
[2024-11-28 14:06] LABS: Platelet Count 275 X10*3/uL (160-400); SLIDE REVIEW VERIFIED; White Blood Count 4.1 X10*3/uL (4.8-10.8)
--- OUTSIDE RECORDS SUMMARY | 2024-11-28 14:23 | XMS_ITS | Clinical Summary ---
Author Organization [facility] Address [address] [place] [address] Phone Care Team Providers Care Converting Supervisor Name Role Phone Unavailable Primary Care Provider [...] [facility] st Contact Info) Description 12/06/2024 9:15 AM EDT Consult [facility] [address] [facility] [address] [place] [address] Bogdan Souza MD [address] [facility] [address] [place] [address] Health Maintenance Due Date Last Done Comments Breast Cancer Screening 1975 DTaP,Tdap,and Td Vaccines (1 - Tdap) 1996 Hepatitis B Vaccines (1 of 3 - 19+ 3-dose series) 1996 Cervical Cancer Screening: P ap Smear 1998 COVID-19 Vaccine (2023-2 5 season) 2024 Colorectal Cancer Screening: Colonoscopy 10/30/2024 Depression Screening 10/30/2024 HIV Screening 10/30/2024 Hepatitis C Screening 10/30/2024 Medicare Annual Wellness Visit 10/30/2024 Social Influencers of Health Screening 10/30/2024 Influenza Vaccine (Season Ended) 2025 HIB Vaccines Aged Out No longer eligi [...] age to complete this topic Meningococcal B Vaccine Aged Out No l onger eligible based on patient's age to complete [...] to [place] [address] MEDICA[place] AET[place] MEDICARE ADVANTAGE
[2024-11-28 14:35] LABS: Alanine Aminotransferase 13 U/L (0-31); Albumin Level 4.1 g/dL (3.5-5.0); Alkaline Phosphatase 56 U/L (39-117); Anion Gap 12 (12-20); Aspartate Amino Transferase 27 U/L (5-31); Bilirubin Total 0.3 mg/dL (0.0-1.0); Blood Urea Nitrogen 9 mg/dL (9-16); Calcium 9.2 mg/dL (8.4-10.2); Carbon Dioxide 23 mmol/L (22-29); Chloride 107 mmol/L (96-108); Estimated Glomerular Filt Rate > 60; Glucose Random 83 mg/dL (60-115); Iron 110 mcg/dL (30-160); Percent Iron Saturation 42 % (15-50); Potassium 3.9 mmol/L (3.3-5.1); Sodium 138 mmol/L (135-145); Total Iron Binding Capacity 261 mcg/dL (228-428); Total Protein 7.2 g/dL (6.5-8.0); Unsaturated Iron Binding 151 ug/dL
[2024-11-28 14:44] LABS: Ferritin 90 ng/mL (10-250)
[2024-11-28 14:46] LABS: Folate 6.5 ng/mL (> or = 4.0); Vitamin B12 198 pg/mL (200-900)
[2024-11-30 23:39] LABS: TS Negative Control Passed; TS Panel A 0; TS Panel B 0; TS Positive Control Passed; TSpotTB Negative (Negative)
[2024-12-01 01:29] LABS: Methylmalonic Acid 109 nmol/L (55-335)
== END 2024-11-28 11:42 | disposition home or self-care (01) ==
LOC: HO.HHCL 11:41
PROVIDERS: Nurse Practitioner Family; Visit Provider Internal Medicine
DX: Z00.00 Encounter for general adult medical examination without abnormal findings (principal); E53.8 Deficiency of other specified B group vitamins; E61.1 Iron deficiency; D64.9 Anemia, unspecified; M79.672 Pain in left foot; G89.29 Other chronic pain
CPT/HCPCS: 36415; 73630; 80053; 82607; 82728; 82746; 83540; 83921; 85025; 86481

== ENCOUNTER → 2024-11-28 12:11 | Outpatient (BNV) | payer MEDICARE, MEDICAID, SELFPAY | PROVIDERS: Visit Provider Radiology Diagnostic Radiology | DX: M79.672 Pain in left foot (principal) | CPT/HCPCS: 73630 ==

== ENCOUNTER 2025-01-05 10:51 | Outpatient (AMB) | payer MEDICARE, MEDICAID, SELFPAY ==
--- NOTE | 2025-01-05 10:56 | A.OFFVIS_ITS ---
Vital Signs 01/05/25 10:57 Height 5 ft 1 in Weight 164 lb BMI 31.0 BP 108/60 Intake Visit Reasons: Menorrhagia with regular cycle Intake Note: Heavy periods for a long time Pediatric Immunologist Required: Yes Pediatric Immunologist Language: Albanian Information Interpreted: non-clinical & clinical Shredded Filler Cigar Maker Machine: Shredded Filler Cigar Maker Machine Present Accompanied by: Self / Same As Patient Allergies Penicillins Adverse Reaction (Severe, Verified 01/05/25 10:58) rash Medication List - Last Reconciled 01/05/25 by Radha Loera CNM cyanocobalamin (vitamin B-12) 500 mcg PO DAILY 30 days famotidine (Pepcid) 20 mg PO BEDTIME lansoprazole 30 mg PO DAILY levothyroxine 50 mcg PO QAM magnesium oxide 400 mg PO BEDTIME 30 days mirtazapine 30 mg PO QAM mirtazapine 45 mg PO BEDTIME naproxen 500 mg PO DAILY pregabalin 150 mg PO DAILY PRN riboflavin (vitamin B2) 400 mg PO DAILY 30 days sumatriptan succinate 100 mg PO Q2H PRN 30 days topiramate 25 - 50 mg (1 - 2 x 25 mg) PO BEDTIME 30 days Is last menstrual period known: Yes Last menstrual period: 01/04/25 HPI HPI Menorrhagia with regular cycle: Details: Patient is here for visit to discuss heavy periods with regular cycle. She said she normally sees [facility] at the [facility] her listed primary care prefer provider's Dr. العراقي but she says she has never met him. She says she has never been here before most information was elicited on questioning she believes she was referred here. She tells me that she has always had regular periods but last fall she was found to be anemic so she started being seen by Hematology and she got iron transfusions because she has been unable to tolerate the oral iron it makes her sick and various ways. She tells me she also was sent for an ultrasound that she had some months ago and she did not talk with her provider after the results of that is so she does not know the results though she did see it on her portal she has a number of other health issues including various orthopedic and pain issues and mental health issues she does have a mental health provider and is on meds and she has fibromyalgia and she takes meds for her thyroid. She is not sexually active and has not been for 5 or 6 years she never needed to use any kind of control though what 1 time she was given control pills to help with her. They have always always always been long and heavy she does not get a lot of pain with them though although she gets pain in her joints that tells her that her periods coming. After this history was elicited as I did find a referral in the office. I reviewed her history with her I reviewed the ultrasound that I was able to find in the system that was done in September that showed normal findings. I reviewed her blood work and she indeed had been very anemic but her hemoglobin at the last draw was 12 so it has improved after the iron transfusions. Her periods started yesterday she she is not bleeding exceptionally heavy today but expects to. More the issue is that it lasts for 9 days. I reviewed with her that with their normal ultrasound that the next step to do would be to assess her endometrial lining to make sure there is no abnormal or cancerous cells there and the best thing to do would be an endometrial biopsy just to be sure. Discussed that it will hurt and cramps somewhat but since she is here and she has had this issue for a while it makes sense to try and do it now. Discussed that the depending on the results if there is no abnormal cells then the most likely recommendation would be hormone therapy to make her periods efficiency expert options usually would include control pills but not usually ones with estrogen or a Mirena with a hormone in it to help lighten her periods. [facility] Medical History Dysphagia RLS (restless legs syndrome) GERD (gastroesophageal reflux disease) Bilateral chronic knee pain Chronic back pain Fibromyalgia Chronic pain in left foot Anxiety Depression Hypothyroidism Surgical History History of esophagogastroduodenoscopy (EGD) H/O colonoscopy Family History (Updated 01/05/25 @ 11:05 by Liliya Mckeon CMA) Mother Diabetes Hypothyroid Family/Other Breast cancer Brother Hypothyroid Father Hypothyroid Daughter Hypothyroid Social History (Updated 01/05/25 @ 11:06 by Liliya Mckeon CMA) Household Members: Family Housing: Apartment Do you presently have visiting nurse or other home services: No Alcohol intake: never Patient Tobacco Use Status: Never used Tobacco Current occupational status: unemployed Sexual orientation: Straight/Heterosexual Gender identity: Female Female Reproductive History Menstrual Duration of menses: 8-10 days Date of last menstrual period: 01/04/25 Total pregnancies: 2 Full term: 2 Number of Living Children: 2 Date of last pap smear: 09/23/23 Date of Mammogram: 10/03/24 Physical Exam Vital Signs: Last Vital Signs BP 108/60 01/05/25 10:57 BMI result Body Mass Index 31.0 Other: Bimanual exam was done the cervix is anterior and the uterus is midposition to retroverted. Patient has moderate to heavy menses. Speculum was placed cultures obtained cervix swabbed with Betadine then held with tenaculum. Uterus sounded easily for 7-1/2 cm and Pipelle advanced x3 for adequate specimen. Patient tolerated well moderate bleeding consisted of mense s. Discussed possible findings... External Female Exam: normal external appearance Speculum Exam - Vagina: normal appearance of the vagina and normal vaginal discharge Speculum Exam - Cervix: normal appearance of the cervix Bimanual exam- vagina & uterus: normal bimanual exam, uterine size normal, consistency normal, uterine mobility normal, uterine shape normal and non-tender Bimanual Exam- Adnexa, other: normal adnexae, no masses and No adnexal tenderness Office Procedures Endometrial Biopsy Details: Patient is here for an endometrial biopsy. I explained the procedure and what the goal of the obtaining the sample is, and why we need need to do it today. Patient signed consent form, and appropriate testing was done beforehand. test is negative Patient was placed in recumbent position. Speculum was placed to visualize cervix the cervix was cleansed with Betadine. A tenaculum was gently placed to straighten the axis. The uterus was sounded to [7.5]cm. The endometrial biopsy Pipelle was inserted gently, and withdrawn to obtain sampling of the endometrial tissue for 3 passes. The tenaculum was removed and the cervix was swabbed gently as any bleeding sub sided. the patient sat up after removal of the speculum. She is to return for discussion of the results and review of any other testing. [id number] Biopsy Results Reviewed Results Reviewed: atient: Chhaya Dey MR#: [id number] : 1975 Acct:[id number] Age/Sex: 49 / F ADM Date: 10/19/24 Loc: HO.US Attending Dr: Devi Diaz CNM Ordering Physician: DEVI DIAZ CNM Date of Service: 10/19/24 Procedure(s): US pelvic and transvaginal Accession Number(s): [id number] cc: Lolly French MD; DEVI DIAZ CNM~ EXAMINATION: US PELVIS CLINICAL INFORMATION: Menorrhagia. COMPARISON: None available. TECHNIQUE: Ultrasound of the pelvis is performed using both transabdominal and transvaginal transducers along with Doppler. Transvaginal imaging is performed due to inadequate visualization transabdominally. FINDINGS: Uterus: The uterus is anteverted, anteflexed, and measures 8.0 x 4.4 x 4.7 cm. Normal sonographic appearance of the cervix. The double wall endometrial thickness is 17 mm. It is uniform without irregularity. The uterus is smooth in contour and has normal myometrial echogenicity. No visible fibroid. Adnexa: Both ovaries are visualized. There is normal color flow to the adnexa. There is no ovarian torsion. There is no pelvic ascites or fluid collection. There are no adnexal masses. Right ovary measures 3.4 x 3.2 x 3.3 cm. Volume = 18.8 mL. Sonographic appearance. Dominant follicle present measuring 1.9 cm. Left ovary is not well seen, obscured by gas. US/US pelvic and transvaginal IMPRESSION: 1. Normal-appearing uterus and endometrium. Normal endometrial thickness at 17 mm. It is uniform without irregularity. 2. No definite fibroid tumors identified. 3. Normal right ovary. The left ovary could not be definitively identified, obscured by gas. Electronically signed by: Jesse Felton MD 10/19/2024 11:59 AM [facility] Dictated By: Jesse Felton MD Signed By: <Electronically signed by Jesse Felton MD in OV> 10/19/24 1159 DD/ 1129 TD/TT: 10/19/24 1142 Endocrinology Nurse: Name: Chhaya Dey Age/Sex: 48/F Attending: Richie Raines MD : 1975 Submitted by: DEVI DIAZ [facility] Copies to: MR #: [id number] Status: DEP REF Collected: 09/21/23 Location: [facility] Received: 09/23/23 Interpretation General Category: Negative for intraepithelial lesion/malignancy. Adequacy: Endocervical component present. Interpretation: Reactive cellular changes. Blood and few endometrial cells present. HPV mRNA E6/E7: Not Detected This assay detects E6/E7 viral messenger RNA (mRNA) from 14 high-risk HPV types (16, 18, 31, 33, 35, 39, 45, 51, 52, 56, 58, 59, 66, 68) HPV testing performed by [facility], [place], [place]. See reference laboratory portion of the EMR for entire report. Clinical Information LMP: Unknown date Previous PAP test:Unknown date/findings Material Received ThinPrep-Cervical Electronically Signed By: Flori Membreno 10/06/23 1423 The Pap Test is a screening procedure with the inherent possibility of both false negative and false positive results. Results should be interpreted in the context of historic and current clinical findings. Reliability of the Pap Test is enhanced by performing the test on a regular repetitive basis. Patient: Chhaya Dey Age/Sex: 48/F MR#: [id number] Page 1 of 1 Assessment & Plan Assessment & Plan (1) Menorrhagia, premenopausal: Code(s): N92.4 - Excessive bleeding in the premenopausal period Category: Medical (2) Anemia: Comment: Improved with iron transfusions. Investigating menorrhagia 01/05/2025 with plan... Code(s): D64.9 - Anemia, unspecified Category: Medical Qualifiers: Anemia type: iron deficiency Iron deficiency anemia type: other iron deficiency Qualified Code(s): D50.8 - Other iron deficiency anemias Plan See HPI and physical notes and procedure notes. EMB done and patient we will be seen or possibly communicated with by a tele visit next week. I asked her permission for this as I normally do not like to give results by tele visit in case there is worrisome news we discussed that if there was worrisome findings such as cancer then we would be ordering extra testing and she would be referred to [facility]. If it turns out that that is not the case my recommendation is that we consider doing something to make her periods efficiency expert and the 2 most available options to her at this time would be oral contraceptive pills which would be progestin only and the Mirena IU S that would help make her periods efficiency expert and they might even go away and that would be my best recommendation given that she is on so many other medications. It is also easier to place with her period. As she tolerated this EMB very well with her menses so it would best be planned for with next menses but we will see with the results of the EMB 1st next week. Patient tolerated well and did not have any other questions and we discussed the range of possibilities. Orders: Orders AMB Endometrial Biopsy Today D50.8 - Other iron deficiency anemias, N92.4 - Excessive bleeding in the premenopausal period Coding Level of Care Code New Pt Level 4 (44285) Diagnoses Menorrhagia, premenopausal N92.4 Other iron deficiency anemia D50.8 Anemia type: iron deficiency Iron deficiency anemia type: other iron deficiency CPT Codes Endometrial Biopsy - CPT: [id number] Biopsy ([id number])
[2025-01-05 10:57] VITALS: BP 108/60; BMI 31.0
--- OUTSIDE RECORDS SUMMARY | 2025-01-05 11:22 | XMS_ITS | Encounter Summary ---
Author Organization [employer] Address [address] [facility] 7t [place] [address] Care Team Providers Care Cnc Mill Programmer Name Role Phone Richie Raines MD Primary Care Prov ider Encounter Details Date Type Department Care Team ([facility] st Contact Info) Description 04/09/2024 Orders Only [facility] MED & PEDS [address] [place], [place] [phone] Richie Raines MD [address] [place] [address] Social History Tobacco Use Types Packs/Day Years [...] Upcoming Encounters Date Type Department Care Team ([facility] st Contact Info) Description 01/10/2025 9:45 AM EDT Office Visit [facility] MED & PEDS [address] [place] [address] Richie Raines MD [address] [place] [address] documented as of this encounter Visit Diagnoses Not on filedocumented in this encounter Additional Health Concerns Assessment Noted Time PHQ-9 Depression Total Score: 0 08/10/20 2:42 PM EST documented as of this encounter Care Teams Cnc Mill Programmer Relationship Specialty Start Date End Date Richie Raines MD [address] [place] [address] PCP - General Internal Medicine 08/19/23 documented as of this encounter
--- OUTSIDE RECORDS SUMMARY | 2025-01-05 11:23 | XMS_ITS | Encounter Summary ---
Author Organization [employer] Address [address] [facility] 7 [place] [address] Care Team Providers Care Ssis Architect Name Role Phone Richie Raines MD Primary Care Prov ider Reason for Visit * Reason Onset Date Comments Med Refill 02/18/2024 Encounter Details Date Type Department Care Team (Late st Contact Info) Description 02/18/2024 Telephone [facility] MEDICINE [address] [place] [address] Richie Raines MD [address] [place], [place] [phone] Med Refill Social History Tobacco Use Types [...] 150 MG capsule To be sent to: [id number] - [address] documented in this encounter Plan of Treatment Upcoming Encounters Date Type Department Care Team (Late st Contact Info) Description 01/10/2025 9:45 AM EDT Office Visit [facility] MED & PEDS [address] [place] [address] Richie Raines MD [address] [place] [address] documented as of this encounter Visit Diagnoses Not on filedocumented in this encounter Additional Health Concerns Assessment Noted Time PHQ-9 Depression Total Score: 0 08/10/20 2:42 PM EST documented as of this encounter Care Teams Ssis Architect Relationship Specialty Start Date End Date Richie Raines MD [address] [place] [address] PCP - General Internal Medicine 08/19/23 documented as of this encounter
--- OUTSIDE RECORDS SUMMARY | 2025-01-05 11:23 | XMS_ITS | Encounter Summary ---
Author Organization [employer] Address [address] [facility] 7t [place] [address] Care Team Providers Care Brick Pointer Name Role Phone Richie Raines MD Primary Care Prov ider Reason for Visit * Reason Comments Med Change Request Encounter Details Date Type Department Care Team ([facility] st Contact Info) Description 11/02/2023 Refill [facility] [address] [place] [address] Matthias Maria MD [address] [place] [address] Chronic bilateral low back pain without sciatica [...] Upcoming Encounters Date Type Department Care Team ([facility] st Contact Info) Description 01/10/2025 9:45 AM EDT Office Visit [facility] MED & PEDS [address] [place] [address] Richie Raines MD [address] [place] [address] documented as of this encounter Visit Diagnoses Diagnosis Chronic bilateral low back pain without sciatica documented in this encounter Additional Health Concerns Assessment Noted Time PHQ-9 Depression Total Score: 0 08/10/20 2:42 PM EST documented as of this encounter Care Teams Brick Pointer Relationship Specialty Start Date End Date Richie Raines MD [address] [place] [address] PCP - General Internal Medicine 08/19/23 documented as of this encounter
--- OUTSIDE RECORDS SUMMARY | 2025-01-05 11:23 | XMS_ITS | Encounter Summary ---
Author Organization [employer] Address [address] [facility] 7t [place] [address] Care Team Providers Care Temper Mill Operator Name Role Phone Richie Raines MD Primary Care Prov ider Encounter Details Date Type Department Care Team ([facility] st Contact Info) Description 11/22/2023 Orders Only [facility] MED & PEDS [address] [place], [place] [phone] Matthias Maria MD [address] [place] [address] Pain in both knees, unspecified chronicity (Primary [...] Description 01/10/2025 9:45 AM EDT Office Visit [facility] MED & PEDS [address] [place] [address] Richie Raines MD [address] [place] [address] documented as of this encounter Visit Diagnoses Diagnosis Pain in both knees, unspecified chronicity- Primary documented in this encounter Additional Health Concerns Assessment Noted Time PHQ-9 Depression Total Score: 0 08/10/20 2:42 PM EST documented as of this encounter Care Teams Temper Mill Operator Relationship Specialty Start Date End Date Richie Raines MD [address] [place] [address] PCP - General Internal Medicine 08/19/23 documented as of this encounter
--- OUTSIDE RECORDS SUMMARY | 2025-01-05 11:23 | XMS_ITS | Encounter Summary ---
Author Organization [employer] Address [address] [facility] 7 [place] [address] Care Team Providers Care Structural Iron Worker Name Role Phone Richie Raines MD Primary Care Prov ider Reason for Visit * Reason Onset Date Comments Reschedule Request 11/30/2023 Encounter Details Date Type Department Care Team (Late st Contact Info) Description 11/30/2023 Telephone [facility] MEDICINE [address] [place] [address] Richie Raines MD [address] [place], [place] [phone] Reschedule Request Social History Tobacco Use Types [...] AM EDT Triage call to Pt with [employer] Cutting Machine Operator ID [id number]. Pt didn't answer. Left voice message to call [facility] triage line [phone] * Telephone Encounter - Raimundo Contreras - 11/30/2023 11:41 AM EDT Tc from pt requesting to reschedule today's same day visit. Please contact pt at [phone]. documented in this encounter Plan of Treatment Upcoming Encounters Date Type Department Care Team (Late st Contact Info) Description 01/10/2025 9:45 AM EDT Office Visit [facility] CHC MED & PEDS [address] [place] [address] Richie Raines MD [address] [place] [address] documented as of this encounter Visit Diagnoses Not on filedocumented in this encounter Additional Health Concerns Assessment Noted Time PHQ-9 Depression Total Score: 0 08/10/20 23 2:42 PM EST documented as of this encounter Care Teams Structural Iron Worker Relationship Specialty Start Date End Date Richie Raines MD [address] [place] [address] PCP - General Internal Medicine 08/19/23 documented as of this encounter
--- OUTSIDE RECORDS SUMMARY | 2025-01-05 11:23 | XMS_ITS | Encounter Summary ---
Author Organization [employer] Address [address] [facility] 7t [place] [address] Care Team Providers Care Vascular Tech Name Role Phone Richie Raines MD Primary Care Prov ider Reason for Visit * Reason Comments Med Refill Encounter Details Date Type Department Care Team ([facility] st Contact Info) Description 11/22/2024 Refill [facility] MED & PEDS [address] [place] [address] Richie Raines MD [address] [place] [address] Fibromyalgia Social History Tobacco Use Types Packs/Day [...] Upcoming Encounters Date Type Department Care Team ([facility] st Contact Info) Description 01/10/2025 9:45 AM EDT Office Visit [facility] MED & PEDS [address] [place] [address] Richie Raines MD [address] [place] [address] documented as of this encounter Visit Diagnoses Diagnosis Fibromyalgia Unspecified myalgia and myositis documented in this encounter Additional Health Concerns Assessment Noted Time PHQ-9 Depression Total Score: 0 08/10/20 2:42 PM EST documented as of this encounter Care Teams Vascular Tech Relationship Specialty Start Date End Date Richie Raines MD [address] [place] [address] PCP - General Internal Medicine 08/19/23 documented as of this encounter
--- OUTSIDE RECORDS SUMMARY | 2025-01-05 11:23 | XMS_ITS | Encounter Summary ---
Author Organization [employer] Address [address] [facility] 7t [place] [address] Care Team Providers Care Biometric Technician Name Role Phone Richie Raines MD Primary Care Prov ider Reason for Visit * Reason Comments Med Refill Encounter Details Date Type Department Care Team (Late st Contact Info) Description 09/20/2023 Refill [facility] [address] [place] [address] Kaleigh Kiran, MARV [address] [place] [address] Fibromyalgia Social History Tobacco Use Types Packs/Day [...] [facility] MED & PEDS [address] [place] [address] Richie Raines MD [address] [place] [address] documented as of this encounter Visit Diagnoses Diagnosis Fibromyalgia Unspecified myalgia and myositis documented in this encounter Additional Health Concerns Assessment Noted Time PHQ-9 Depression Total Score: 0 08/10/20 2:42 PM EST documented as of this encounter Care Teams Biometric Technician Relationship Specialty Start Date End Date Richie Raines MD [address] [place] [address] PCP - General Internal Medicine 08/19/23 documented as of this encounter
--- OUTSIDE RECORDS SUMMARY | 2025-01-05 11:23 | XMS_ITS | Encounter Summary ---
Author Organization [employer] Address [address] [facility] [address]t [place] [address] Care Team Providers Care Stoker Erector Name Role Phone Richie Raines MD Primary Care Prov ider Reason for Visit * Reason Comments Med Refill Encounter Details Date Type Department Care Team ([facility] Contact Info) Description 08/05/2023 Refill [facility] [address] [place] [address] Heath Woodson MD [address] [place] [address] Social History Tobacco Use Types Packs/Day Years [...] Upcoming Encounters Date Type Department Care Team ([facility] Contact Info) Description 01/10/2025 9:45 AM EDT Office Visit [facility] MED & PEDS [address] [place] [address] Richie Raines MD [address] [place] [address] documented as of this encounter Visit Diagnoses Not on filedocumented in this encounter Additional Health Concerns Assessment Noted Time PHQ-9 Depression Total Score: 17 023 4:25 PM EST documented as of this encounter Care Teams Stoker Erector Relationship Specialty Start Date End Date العراقي Richie Blanc MD [address] [place] [address] PCP - General Internal Medicine 08/19/23 documented as of this encounter
--- OUTSIDE RECORDS SUMMARY | 2025-01-05 11:23 | XMS_ITS | Encounter Summary ---
Author Organization [employer] Address [address] [facility] 7t [place] [address] Care Team Providers Care Disability Representative Name Role Phone Richie Raines MD Primary Care Prov ider Reason for Visit * Reason Onset Date Comments Appointment Request 09/16/2023 Encounter Details Date Type Department Care Team (Late st Contact Info) Description 09/16/2023 Telephone [facility] MEDICINE [address] [place] [address] Richie Raines MD [address] [place], [place] [phone] Appointment Request Social History Tobacco Use Types [...] Description 01/10/2025 9:45 AM EDT Office Visit [facility] MED & PEDS [address] [place] [address] Richie Raines MD [address] [place] [address] documented as of this encounter Visit Diagnoses Not on filedocumented in this encounter Additional Health Concerns Assessment Noted Time PHQ-9 Depression Total Score: 0 08/10/20 2:42 PM EST documented as of this encounter Care Teams Disability Representative Relationship Specialty Start Date End Date Richie Raines MD [address] [place] [address] PCP - General Internal Medicine 08/19/23 documented as of this encounter
--- OUTSIDE RECORDS SUMMARY | 2025-01-05 11:23 | XMS_ITS | Encounter Summary ---
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 Dipseh Contreras MD documented in this encounter Plan of Treatment Upcoming Encounters Date Type Department Care Team (Late st Contact Info) Description 01/10/2025 9:45 AM EDT Office Visit [facility] [address] [place] [address] Richie Raines MD [address] [place] [address] documented as of this encounter Visit Diagnoses Diagnosis Fibromyalgia Unspecified myalgia and myositis documented in this encounter Additional Health Concerns Assessment Noted Time PHQ-9 Depression Total Score: 0 08/10/20 23 2:42 PM EST documented as of this encounter Care Teams Student Advisor Relationship Specialty Start Date End Date Richie Raines MD [address] [place] [address] PCP - General Internal Medicine 08/19/23 documented as of this encounter
--- OUTSIDE RECORDS SUMMARY | 2025-01-05 11:23 | XMS_ITS | Clinical Summary ---
Author Organization [employer] Address [address] [place] [address] Care Team Providers Care Asset Coordinator Name Role Phone Richie Raines MD [...] DIRECTED 30 g 2 07/24/20 24 Active naproxen (Naprosyn) 500 MG tabletIndicati ons:Chronic bilateral low back pain without sciatica TAKE 1 TABLET BY MOUTH TWICE DAILY NEEDED FOR MODERATE PAIN 30 tablet 11/30/19 25 Active pregabalin (Lyrica) 150 MG capsuleIndicat ions:Fibromyal felecia TAKE 1 CAPSULE BY MOUTH TWICE DAILY 60 capsule 12/21/19 25 Active mirtazapine (Remeron) 30 MG tablet TAKE 1 TABLET BY MOUTH AT BEDTIME 30 tablet 3 01/06/20 25 Active mirtazapine (Remeron) 45 MG tablet TAKE 1 TABLET BY MOUTH AT BEDTIME 30 tablet 3 01/06/20 25 Active levothyroxine (Synthroid, Levoxyl) 50 MCG tablet TAKE 1 TABLET BY MOUTH EVERY DAY BEFORE BREAKFAST 30 tablet 3 01/06/20 25 Active pregabalin (Lyrica) 150 MG capsuleIndicat ions:Fibromyal felecia Take 1 capsule (150 mg) by mouth 2 times daily. 60 capsule 11/23/19 25 025 Discontinued levothyroxine (Synthroid, Levoxyl) 50 MCG tablet TAKE 1 TABLET BY MOUTH EVERY DAY BEFORE BREAKFAST 30 tablet 11/30/19 25 025 Discontinued(Re order (will not trigger notification to Pharmacy)) mirtazapine (Remeron) 45 MG tablet TAKE 1 TABLET BY MOUTH AT BEDTIME 30 tablet 11/30/19 25 025 Discontinued(Re order (will not trigger notification to Pharmacy)) mirtazapine (Remeron) 30 MG tablet TAKE 1 TABLET BY MOUTH AT BEDTIME 30 tablet 11/30/19 25 025 Discontinued(Re order (will not trigger notification to Pharmacy)) Active Problems Problem Noted Date Diagnosed Date Class 1 obesity due to exces s calories with serious comorbidity and body mass index (BMI) of 30.0 to 30.9 in adult 11/29/2024 Assessment & Plan (11/29/2024 7:24 PM EDT): Discussed re weight reduction options including exercise, life style modifications, diet. Recommended to decrease soda and sugary beverage consumption, increase protein intake with meals (at least 1 portion of protein with each meal) to assist with satiety, increase dietary fiber Recommended at least 150 min/week of moderate intensity exercise. Follow-up with PCP Sickle cell trait 11/28/2024 Assessment & Plan (11/28/2024 10:56 AM EDT): FU by Dr Roche Menorrhagia with regular cycle 09/21/2024 Assessment & Plan (11/28/2024 10:56 AM EDT): Has anemia, PAP smear and pelvic US wnl. will refer to CHILD AND FAMILY COUNSELOR Rhinosinusitis 10/04/2023 Assessment & Plan (10/06/2023 8:49 [...] Patient wants to be referred to [facility] for sleep study, will send new [...] (10/06/2023 8:51 AM EST): Reportedly done in [place] less than 5y ago She will bring report at next appt and FU with PCP Assessment & Plan (08/11/2023 8:34 AM EST): Will refer to gi for screening colon cancer Encounter for preventive health examination 07/24 Assessment & Plan (11/29/2024 7:22 PM EDT): Patient is encouraged to exercise moderately 4-5x/week. Counseled to increase consumption of fresh fruit, veggies and water. To have frequent and small meals. I have discussed re having protected sex at all times for STI purposes. Pat does not smoke, uses alcohol or any illicit drugs, seems to feel safe at home PAP smear: Up to date, next one due on 2028 Adult Izs: Agreed to MMR booster today, declined COVID or influenza immunization. Advised to follow-up with PCP for full immunization Colonoscopy: UTD, next one due on 2034 Mammogram: Up to date, has 6mo fu on 03/2025 Ophthalmology : Reportedly up-to-date, will obtain records from [facility] labs: UTD, follow-up with PCP, will order TB test for home care program Dental visit: Over due, I gave her info re dental clinics. Assessment & Plan (10/06/2023 8:58 AM EST): [...] Tdap but she declined. Colonoscopy done in [place], she will bring report to PCP Mammogram: [...] offer BH referral. Chronic pain, relocation from [place] to [place] and severe depression are exacerbating symptoms. No [...] take actions. PLAN: 1. Follow up with [facility]: Not recommended for follow-up 2. Patient goal [...] Chronic pain of both knees 03/22/2023 Chronic heel pain, left 03/22/2023 Assessment & Plan (11/29/2024 7:33 PM EDT): Get Xray and fu with PCP Other specified hypothyroidism 03/22/2023 Assessment & Plan [...] and offer referral. Chronic pain, relocation from [place] and severe depression are exacerbating symptoms. No [...] take actions. PLAN: 1. Follow up with [facility]: Not recommended for follow-up 2. Patient goal [...] offer BH referral. Chronic pain, relocation from [place] and severe depression are exacerbating symptoms. No [...] Encounters Date Type Department Care Team Description 01/02/2025 Refill [facility] MED & PEDS [address] [place] [address] Richie Raines MD 12/15/2024 Refill [facility] MEDIC[facility] [address] [place] [address] Richie Raines MD Fibromyalgia 12/12/2024 Refill [facility] MED & PEDS [address] [place] [address] Richie Raines MD Fibromyalgia 11/30/2024 Telephone [facility] [address] [place] [address] Richie Raines MD 11/30/2024 Abstract [facility] [address] [place] [address] Richie Raines MD 11/28/2024 10:00 AM EDT Office Visit [facility] [address] [place] [address] Lolly French MD Menorrhagia with regular cycle (Primary Dx); Sickle cell trait ([facility]); Encounter for preventive health examination; Class 1 obesity due to excess calories with serious comorbidity and body mass index (BMI) of 30.0 to 30.9 in adult; Chronic heel pain, left; Dietary counseling; Exercise counseling 11/28/2024 Orders Only GENERIC EXTERNAL DATA DEPARTMENT Provider, Generic External Data 11/28/2024 Refill [facility] MED & PEDS [address] [place] [address] Richie Raines MD Chronic bilateral low back pain without sciatica 11/28/2024 Travel 11/22/2024 Refill [facility] MED & PEDS [address] [place] [address] Richie Raines MD Fibromyalgia 11/22/2024 Refill [facility] [address] [place] [address] Richie Raines MD Fibromyalgia 11/20/2024 Patient Outreach [facility] [address] [place] [address] Richie Raines MD Pre-visit Planning ([facility] screening completed on 09/27/2024) 11/06/2024 Refill [facility] [address] [place] [address] Richie Raines MD Chronic bilateral low back pain without sciatica 10/31/2024 Orders Only GENERIC EXTERNAL DATA DEPARTMENT Provider, Generic External Data 10/31/2024 Travel 10/19/2024 Telephone [facility] [address] [place] [address] Devi Diaz CNM from Last 3 Months Immunizations Immunization Administration Dates Next Due MMR 11/28/2024 Family History Medical History Relation Name Comments [...] Answer Date Recorded Patient Health Questionnaire-9 Score 9 11/28/2024 Patient Health Questionnaire-9 Score 9 11/28/2024 Last PHQ-9: Questionnaire Data Not on file 0 11/28/2024 Housing Stability Answer Date Recorded What is [...] Answer Date Recorded Patient Health Questionnaire-2 Score 2 11/28/2024 Internet Access Answer Date Recorded Internet Access [...] Sign Reading Time Taken Comments Blood Pressure 117/71 11/28/2024 9:58 AM EDT Pulse 96 11/28/2024 9:58 AM EDT Temperature 36 ??C (96.8 ??F) 11/28/2024 9:58 AM EDT Respiratory Rate 16 11/28/2024 9:58 AM EDT Oxygen Saturation 98% 09/21/2024 1:56 PM EST Inhaled Oxygen Concentration - - Weight 74.3 kg (163 lb 12.8 oz) 11/28/2024 9:58 AM EDT Height 154.9 cm (5' 1 ) 11/28/2024 9:58 AM EDT Body Mass Index 30.95 11/28/2024 9:58 AM EDT Plan of Treatment Upcoming Encounters Date Type Department Care Team ([facility] st Contact Info) Description 01/10/2025 9:45 AM EDT Office Visit [facility] MED [facility] PEDS [address], [place] [phone] Richie Raines MD [address] [place], [place] [phone] Health Maintenance Due Date Last Done Comments CT Colonography 1975 FIT DNA/Cologuard 1975 FIT 1975 FOBT 1975 Sigmoidoscopy 1975 Alcohol/Substance Use Screening 1989 DTaP/Tdap/Td Vaccines (1 - Tdap) 1996 Hepatitis B Vaccines (1 of 3 - 19+ 3-dose series) 1996 COVID-19 Vaccine ( - season) 2024 Influenza Vaccine (#1) 2024 Family Planning (PISQ) 09/21/2025 09/21/2024 SDOH Screening 09/27/2025 09/27/2024 Diagnostic Breast Imaging 10/03/20252024, 03/30/2024, 10/20/2023, Additional history exists Mammogram 10/03/2025 10/03/2024, 08/0 03/2024, 10/20/2023, Additional history exists Depression Screening 11/28/2025 11/28/2024, 04/08/20 25 Tobacco Screening 11/28/2025 11/28/2024 Zoster Vaccines (1 of 2) 2027 Cervical Cancer Screening 09/21/2028 HPV/Cotest 09/21/2028 09/21/2023 Pap Smear 09/21/2028 09/21/2023 Lipid Panel 10/04/2028 10/04/2023 Colonoscopy 10/30/2034 10/30/2024 Colorectal Cancer Screening 10/30/2034 RSV Patients and Patients Aged 60 years [...] Procedure Name Priority Date/Time Associated Diagnosis Comments XR FOOT 3+ VIEWS LEFT Routine 11/28/2024 12:11 PM EDT Chronic heel pain, left METHYLMALONIC ACID Routine 11/28/2024 11 :45 AM EDT VITAMIN B12/FOLATE, SERUM PANEL Routine 11/28/2024 11:45 AM EDT FERRITIN Routine 11/28/2024 11:45 AM EDT IRON AND TOTAL IRON BINDING CAPACITY Routine 11/28/2024 11:45 AM EDT COMPREHENSIVE METABOLIC PANEL Routine 11/28/2024 11:45 AM EDT SLIDE REVIEW Routine 11/28/2024 11:45 AM EDT CBC WITH AUTO DIFFERENTIAL Routine 11/28/2024 11:45 AM EDT T-SPOT(R).TB Routine 11/28/2024 11:45 AM EDT Encounter for preventive health examination HEMATOXYLIN AND EOSIN STAIN Routine 10/31/2024 1:17 PM EDT HCG, QL, URINE Routine 10/31/2024 11:01 AM EDT HM COLONOSCOPY Routine 10/30/2024 US PELVIS TRANSVAGINAL Urgent 11:29 AM EST Menorrhagia with regular cycle BI MAMMOGRAM DIAGNOSTIC TOMOSYNTHESIS BILATERAL Routine 10/03/2024 12:20 PM EST HEPATITIS PANEL, GENERAL Routine 10/04/2023 10:36 AM EST Encounter for preventive health examination Rhinosinusitis Flexural eczema Weakness Encounter for screening for other viral diseases HIV 1/2 ANTIGEN/ANTIBODY, FOURTH GENERATION W/RFL Routine 10/04/2023 10:36 AM EST Encounter for preventive health examination Rhinosinusitis Flexural eczema Weakness LIPID PANEL WITH REFLEX TO DIRECT LDL Routine 10/04/2023 10:36 AM EST Encounter for preventive health examination Rhinosinusitis Flexural eczema HPV MRNA E6/E7 REFLEX TO HPV 16, 18/45 Routine 09/21/2023 1:23 PM EST PAP SMEAR Routine 09/21/2023 1:23 PM EST Cervical cancer screening from Last 3 Months or Most Recently Relevant to Health Maintenance Results * XR Foot 3+ Views Left (11/28/2024 12:11 PM EDT) Anatomical Region Laterality Modality Lower Extremities, Foot Left Radiogra phic Imaging 11/28/2024 12:1 1 PM EDT Narrative 11/28/2024 1:08 PM EDT ? [facility] ?[address] ?[place] [address] ?XRay Report ? Signed ? Patient: Antonetty Vallejo,Chhaya ?MR#: ?? [id number] ? : 1975 ?Acct:[id number] ? Age/Sex: 49 / F ?ADM Date: 11/28/24 ? Loc: HO.HHCL ? Attending Dr: Lolly French MD ? Ordering Physician: Lolly French MD ?? Date of Service: 11/28/24 ?? Procedure(s): XR foot LT min 3V ?? Accession Number(s): [id number] ? cc: Lolly French MD ? EXAMINATION: ?? XR FOOT, LEFT ? CLINICAL INFORMATION: ?? left heel pain ? COMPARISON: ?? None available. ? TECHNIQUE: ?? AP, lateral, and oblique views of the left foot. ? FINDINGS: ?? The bones and soft tissues are normal. No fracture. Alignment is ?? anatomic. Joint spaces are maintained. ? XR/XR foot LT min 3V ?? IMPRESSION: ?? Normal left foot. ? Electronically signed by: ??Jesse Felton MD ??11/28/2024 01:05 PM EDT RP ? Dictated By: ?Jesse Felton MD ? Signed By: ?<Electronically signed by Jesse Felton MD in OV> ?11/28/24 1305 ? DD/ 1211 ? TD/TT: 11/28/24 1220 ? Patient Financial Services Coordinator: ? Procedure Note Ethel Goncalves - 11/28/[address] [address] XRay Report Signed Patient: Chhaya DeyMR#: [id number] : 1975Acct:[id number] Age/Sex: 49 / FADM Date: 11/28/24 Loc: HO.HHCL Attending Dr: Lolly French MD Ordering Physician: Lolly French MD Date of Service: 11/28/24 Procedure(s): XR foot LT min 3V Accession Number(s): [id number] cc: Lolly French MD EXAMINATION: XR FOOT, LEFT CLINICAL INFORMATION: left heel pain COMPARISON: None available. TECHNIQUE: AP, lateral, and oblique views of the left foot. FINDINGS: The bones and soft tissues are normal. No fracture. Alignment is anatomic. Joint spaces are maintained. XR/XR foot LT min 3V IMPRESSION: Normal left foot. Electronically signed by: Jesse [place] MD 11/28/2024 01:05 PM EDT RP Dictated By: Jesse Felton MD Signed By: <Electronically signed by Jesse Felton MD in OV> 11/28/24 1305 DD/ 1211 TD/TT: 11/28/24 1220 Patient Financial Services Coordinator: us Lolly French MD IMG XR PROCEDURES Final Result * Slide Review (11/28/2024 11:45 AM EDT) Slide Review VERIFIED [facility] 11/28/2024 11:4 5 AM EDT 11/28/2024 1:12 PM EDT us Generic External Data Provider LAB BLOOD ORDERAB LES Final Result [facility] [address] [place] [address] [phone] * (ABNORMAL) Vitamin B12 (Cobalamin) and Folate Panel, Serum (11/28/2024 11:45 AM EDT) Vitamin B12 198(L) 200 - 900 pg/mL [facility] Comment:NORMAL 200-900 PG/ML INDETERMINATE 160-199 PG/ML DEFICIENT < 160 PG/ML Folate 6.5 > or = 4.0 ng/mL [facility] Comment:Reference Values:> o r = 4.0 ng/mL< 4.0 ng/mL suggests folate deficiency Methotrexate, aminopterin and folinic acid(leucovorin) are chemotherapeutic agents whose molecularstructures are similar to folate; therefore, the Architectfolate assay cannot be used for patients using these drugs. 11/28/2024 11:4 5 AM EDT 11/28/2024 1:12 PM EDT us Generic External Data Provider LAB BLOOD ORDERAB LES Final Result [facility] [address] [place] [address] [phone] * T-SPOT??.TB (11/28/2024 11:45 AM EDT) T Spot TB Negative Negative [facility] Comment:A negative test resu lt does not exclude the possibilityof exposure to or infection with Mycobacteriumtuberculosis (M. tuberculosis). Patients with recentexposure to TB infected individuals exhibiting anegative T-SPOT.TB result should be considered forretesting within 6 weeks or if other relevant clinicalsymptoms indicate. Results from T-SPOT.TB testing mustbe used in conjunction with each individual'sepidemiological history, current medical status,and results of other diagnostic evaluations.The T-SPOT.TB test is qualitative and results arereported as positive, borderline, or negative, giventhat the test controls perform as expected. In linewith the Centers for Disease Control and Prevention's2010 recommendation to report quantitative measurementsalongside the qualitative result, the laboratoryprovides spot counts for informational purposes only.The T-SPOT.TB test should not be interpreted as aquantitative test. TS PANEL A 0 [facility] TS PANEL B 0 [facility] Negative Control Passed [facility] Positive Control Passed [facility] Comment:For additional infor rojas, please refer [email or web address]/faq/EAZ454(This link is being provided for informational/educational purposes only.)THIS TEST WAS PERFORMED AT:[employer]/JARA [id number] [place] [id number] OVERTON MD,PHD 11/28/2024 11:4 5 AM EDT 11/28/2024 1:12 PM EDT us Lolly French MD LAB BLOOD ORDERABLES Fin al Result [facility] [address] [place] [phone] [phone] * (ABNORMAL) CBC auto differential (11/28/2024 11:45 AM EDT) White Blood Count 4.1(L) 4.8 - 10.8 X10*3/uL [facility] Red Blood Count 5.82(H) 4.20 - 5.50 X10*6/uL [facility] Hemoglobin 13.2 12.0 - 16.0 g/dl [facility] Hematocrit 40.8 37.0 - 47.0 % [facility] Mean Corpuscular Volume 70.1(L) 80.0 - 98.0 fL [facility] Mean Corpuscular Hemoglobin 22.7(L) 27.0 - 33.0 pg [facility] Mean Corpuscular HGB Conc 32.4 31.0 - 35.0 g/dl [facility] Red Cell Distribution Width 19.1(H) 11.0 - 16.0 % [facility] Platelet Count 275 160 - 400 X10*3/uL [facility] Neutrophils Percent Auto 58.1 45 - 73 % [facility] Imm Gran Pct Auto 0.2 0.0 - 0.4 % [facility] Lymphocytes Percent Auto 30.8 20 - 40 % [facility] Monocytes Percent Auto 7.9 2 - 11 % [facility] Eosinophils Percent Auto 2.5 0 - 4 % [facility] Basophils Percent Auto 0.5 0 - 2 % [facility] NRBC Pct Auto 0.0 0.0 - 0.2 /100WBC [facility] Neutrophils Absolute Auto 2.4 2.0 - 8.3 x10*3/uL [facility] Imm Gran Abs Auto 0.01 0.00 - 0.03 X10*3/uL [facility] Lymphocytes Absolute Auto 1.3 1.2 - 4.9 X10*3/uL [facility] Monocytes Absolute Auto 0.3 0.1 - 1.2 X10*3/uL [facility] Eosinophils Absolute Auto 0.1 0.0 - 0.4 X10*3/uL [facility] Basophils Absolute Auto 0.0 0.0 - 0.2 X10*3/uL [facility] NRBC Abs Auto 0.000 0.0 - 0.012 X10*3/uL [facility] 11/28/2024 11:4 5 AM EDT 11/28/2024 1:12 PM EDT us Generic External Data Provider LAB BLOOD ORDERAB LES Edited Result - Final [facility] [address] [place] [phone] * Methylmalonic Acid (11/28/2024 11:45 AM EDT) Methylmalonic Acid 109 55 - 335 nmol/L [facility] Comment: Serum methylmalonic acid (MMA) levels are used todiagnose and monitor several rare inborn errors ofmetabolism, including methylmalonic aciduria. Theenzymatic conversion of MMA to succinic acid requiresvitamin B12 (adenosyl-cobalamin) as a cofactor. SerumMMA levels are also used for assessing functionalvitamin B12 deficiency. Vitamin B12 is essential forfetal neurodevelopment, particularly early inpregnancy. Undiagnosed maternal vitamin B12 deficiencymay be associated with adverse / outcomes,such as neural tube defects and intrauterine growthrestriction.[employer] utilized Multi-Modal Decomposition(MMD) analysis to establish first and second trimester-specific MMA reference intervals in , as givenbelow:MMA, First trimester (<13 wks gestation): 58-167 nmol/LMMA, Second trimester (13-23 wks gestation):63-241 nmol/LThis test was developed and its analytical performancecharacteristics have been determined by [employer]. It has not been cleared or approved by theA. This assay has been validated pursuant to the CLIAregulations and is used for clinical purposes.THIS TEST WAS PERFORMED AT:[employer]/JARAFOX [facility] [id number] [place], [place] ??[id number] W. MASON,MD,PHD 11/28/2024 11:4 5 AM EDT 11/28/2024 1:12 PM EDT Generic External Data Provider LAB BLOOD ORDERAB LES Final Result Performing Organization Address City/[facility]/ZIP Co de Phone Number [facility] [address] [place] [phone] * Iron And Total Iron Binding Capacity (11/28/2024 11:45 AM EDT) Iron 110 30 - 160 mcg/dL [facility] Total Iron Binding Capacity 261 228 - 428 mcg/dL [facility] Percent Iron Saturation 42 15 - 50 % [facility] Unsaturated Iron Binding 151 ug/dL [facility] 11/28/2024 11:4 5 AM EDT 11/28/2024 1:12 PM EDT Generic External Data Provider LAB BLOOD ORDERAB LES Final Result Performing Organization Address City/[facility]/ZIP Co de Phone Number [facility] [address] [place] [phone] * Ferritin (11/28/2024 11:45 AM EDT) Ferritin 90 10 - 250 ng/mL [facility] 11/28/2024 11:4 5 AM EDT 11/28/2024 1:12 PM EDT us Generic External Data Provider LAB BLOOD ORDERAB LES Final Result Performing Organization Address City/[facility]/ZIP Co de Phone Number [facility] [address] [place] [phone] * Comprehensive Metabolic Panel (11/28/2024 11:45 AM EDT) Sodium 138 135 - 145 mmol/L [facility] Potassium 3.9 3.3 - 5.1 mmol/L [facility] Chloride 107 96 - 108 mmol/L [facility] Carbon Dioxide 23 22 - 29 mmol/L [facility] Anion Gap 12 12 - 20 [facility] Urea Nitrogen (BUN) 9 9 - 16 mg/dL [facility] Creatinine, Serum 0.69 0.5 - 1.4 mg/dL [facility] Estimated Glomerular Filt Rate >60 [facility] Comment:Chronic Kidney Disea se: Estimated GFR < 60 mL/min/1.87b8Hfnscq Kidney Disease: Estimated GFR < 15 mL/min/1.73m2 Glucose 83 60 - 115 mg/dL [facility] Calcium 9.2 8.4 - 10.2 mg/dL [facility] Bilirubin, Total 0.3 0.0 - 1.0 mg/dL [facility] Aspartate Amino Transferase 27 5 - 31 U/L [facility] Alanine Aminotransferase 13 0 - 31 U/L [facility] Total Protein 7.2 6.5 - 8.0 g/dL [facility] Albumin Level 4.1 3.5 - 5.0 g/dL [facility] Alkaline Phosphatase 56 39 - 117 U/L [facility] 11/28/2024 11:4 5 AM EDT 11/28/2024 1:12 PM EDT us Generic External Data Provider LAB BLOOD ORDERAB LES Final Result Performing Organization Address City/[facility]/ZIP Co de Phone Number [facility] [address] [place] [phone] * Hematoxylin and Eosin Stain (10/31/2024 1:17 PM EDT) 10/31/2024 1:17 PM EDT 10/31/2024 1:33 PM EDT [facility] - 11/02/2024 10:48 AM EDT ----- ------- Name: Chhaya Dey ? Age/Sex: 49/F ? : 1975 Unit#: [id number] ?? Attend Dr: Cindi Moreno MD ?Re10/31/24 ?Status: DEP SDC ? Location: HO.SSS ?Disch: ? ----- ------- SPEC : [id number] ? RECD: 10/31/24-1332 ? STATUS: ??SOUT ? REQ NUM: [id number] ? CAN: 10/31/24-1317 ? SUBM DR: Cindi Moreno MD ? ENTERED: ??10/31/24-4 ?SP TYPE: Surgical ? OTHR DR: Lolly [...] ? Age/Sex: 49/F ? : 1975 Unit#: [id number] ?? Attend Dr: Cindi Moreno MD ?Re10/31/24 ?Status: DEP SDC ? Location: HO.SSS ?Disch: ? ----- ------- SPEC : [id number] ? RECD: 10/31/24-1332 ? STATUS: ??SOUT ? REQ NUM: [id number] ? CAN: 10/31/24-1317 ? SUBM DR: Cindi Moreno MD ? ENTERED: ??10/31/24-4 ?SP TYPE: Surgical ? OTHR DR: Lolly French MD ? ORDERED: ??HE Stain/12, Gross Micro L4/4, IHC, Special st. 2, H. pylori, AB/PAS ? Gross Description ?(Continued) Part D: ??Received in formalin labeled ?middle esophagus? are 3 evangelista- white irregular and rectangular tissue fragments ranging from 0.25-0.3 cm, submitted in toto in a cassette labeled D. CEDS Special studies ordered and performed: Immunostain for H. pylori on B1; AB/PAS stains on A1. Copies To: ?? Lolly French MD ?? [facility] ?? [address] ?? [place] [address] ?? [phone] ?? Cindi Moreno MD ?? [facility] ?? [address] ?? [place] [address] ?? [phone] ?? [email or web address] ------- Signed (signature on file) [place]i [place] 11/02/24 1048 ? ----- ------- ? END OF REPORT ? Generic External Data Provider LAB BLOOD ORDERAB LES Final Result Performing Organization Address [facility] de Phone Number [facility] [address] [place] [phone] * HCG, Qualitative, Urine (10/31/2024 11:01 AM EDT) Urine NEGATIVE NEGATIVE [facility] Comment:This test was develo ped to detect early . Falsenegative results may occur after the 5th - 7th week ofpregnancy when using this test method. If clinicallyindicated, consider a serum hCG. 10/31/2024 11:0 1 AM EDT 10/31/2024 11:10 AM EDT Generic External Data Provider LAB URINE ORDERAB LES Final Result Performing Organization Address [facility] de Phone Number [facility] [address] [place] [phone] * Hm Colonoscopy (10/30/2024) Colonoscopy Normal Normal Richie Blanc MD HEALTH MAINTENANCE Final Result * US Pelvis Transvaginal (10/19/2024 11:29 AM EST) Anatomical Region Laterality Modality Pelvis Ultrasound 10/19/2024 11:2 9 AM EST Narrative 10/19/2024 12:02 PM EST ? [facility] ?[address] ?[place] [address] ? Ultrasound Report ? Signed ? Patient: Antonetty Vallejo,Chhaya ?MR#: ?? [id number] ? : 1975 ?Acct:[id number] ? Age/Sex: 49 / F ?ADM Date: 10/19/24 ? Loc: HO.US ? Attending Dr: Devi Diaz CNM ? Ordering Physician: DEVI DIAZ CNM ?? Date of Service: 10/19/24 ?? Procedure(s): US pelvic and transvaginal ?? Accession Number(s): [id number] ? cc: Lolly French MD; DEVI DIAZ [...] DD/ 1129 ? TD/TT: 10/19/24 1142 ? Patient Financial Services Coordinator: ? Procedure Note Donotuseinterpreter, Image - 10/19/[address] [address] Ultrasound Report Signed Patient: Chhaya DeyMR#: [id number] : 1975Acct:[id number] Age/Sex: 49 / FADM Date: 10/19/24 Loc: HO.US Attending Dr: Devi Diaz CNM Ordering Physician: DEVI DIAZ CNM Date of Service: 10/19/24 Procedure(s): US pelvic and transvaginal Accession Number(s): [id number] cc: Lolly French MD; DEVI DIAZ CNM [...] 10/19/24 1159 DD/ 1129 TD/TT: 10/19/24 1142 Patient Financial Services Coordinator: us Devi ARCINIEGAM IMG US PROCEDURES Final R esult * BI Mammogram Diagnostic Tomosynthesis Bilateral (10/03/2024 12:20 PM EST) Anatomical Region Laterality Modality Breast Bilateral Mammography 10/03/2024 12:2 0 PM EST Narrative 10/03/2024 1:44 PM EST ? [facility] ? [address] ?[place] [address] ? Mammography Report ? Signed ? Patient: Chhaya Dey ?MR#: ?? [id number] ? : 1975 ?Acct:[id number] ? Age/Sex: 49 / F ?ADM Date: 10/03/ ? Loc: HO.MAMMO ? Attending Dr: Lolly French MD ? Ordering Physician: Lolly French MD ?Results: 3.12MProbably Benign Finding - 12 month F/U ?? Suggested ? Date of Service: 10/03/24 ?Follow Up: 12 month diagnos ?? tic follow up ? Procedure(s): MM tomosynthesis diagnostic BI ?? Accession Number(s): [id number] ? cc: Lolly French MD ? EXAMINATION: [...] DD/ 1220 ? TD/TT: 10/03/24 1257 ? Patient Financial Services Coordinator: ? Procedure Note Donotnikolaiinterpreter, Image - 10/03/2024 [facility] [address] [place], [place] [address] Mammography Report Signed Patient: Shelia Dey#: [id number] : 1975Acct:[id number] Age/Sex: 49 / FADM Date: 10/03/24 Loc: HO.MAMMO Attending Dr: Lolly French MD Ordering Physician: Lolly French MD Results: 3.12MProbably Benign Finding - 12 month F/U Suggested Date of Service: 10/03/24Follow Up: 12 month diagnos tic follow up Procedure(s): MM tomosynthesis diagnostic BI Accession Number(s): [id number] cc: Lolly French MD EXAMINATION: MM DIAGNOSTIC [...] 10/03/24 1341 DD/ 1220 TD/TT: 10/03/24 1257 Patient Financial Services Coordinator: Lolly French MD IMG BI PROCEDURES Final Result * (ABNORMAL) Lipid Panel with Reflex to Direct LDL (10/04/2023 10:36 AM EST) Triglycerides 66 <150 mg/dL [facility] Comment:Desirable Triglyceri de: less than 150 mg/dLBorderline High Triglyceride 150-199 mg/dLHigh Triglyceride: 200-499 mg/dLVery High Triglyceride: greater than or equal to 5OO mg/dL Cholesterol 179 <200 mg/dL [facility] Comment:Desirable Cholestero l: less than 200 mg/dLBorderline High Cholesterol: 200-239 mg/dLHigh Cholesterol: greater than 239 mg/dL LDL Cholesterol Calculated 108(H) <100 mg/dL [facility] Comment:Desirable LDL: less than 100 mg/dLNear Optimal/Above Optimal LDL: 110- 129 mg/dLBorderline High LDL: 130-159 mg/dLHigh LDL: 160-189 mg/dLVery High LDL: greater than or equal to 190 mg/dL HDL Cholesterol 58 >40 mg/dL [facility] Comment:Desirable HDL: great er than 40 mg/dL Note: This HDL assay may give artificially low results in patients with liver disease. Blood 10/04/2023 10:3 6 AM EST 10/04/2023 11:34 AM EST Lolly French MD LAB BLOOD ORDERABLES Fin al Result Performing Organization Address [facility] Co de Phone Number [facility] [address] [place] [phone] * Hepatitis Panel, General (10/04/2023 10:36 AM EST) Hepatitis A IgM Nonreactive Nonreactive [facility] Comment:IgM antibodies to ARREAGA V not detected; does not exclude earlyacute or recovered HAV infection. ~Hepatitis B Surface Antibody NONREACTIVE Nonreactive [facility] Comment:Nonreactive: < 8.00 mIU/mL Hepatitis B Core Antibody Nonreactive Nonreactive [facility] Hepatitis C Antibody Nonreactive Nonreactive [facility] Comment:Antibodies to HCV no t detected; does not exclude early acuteHCV infection. Hepatitis B Surface Ag Negative Negative [facility] Blood 10/04/2023 10:3 6 AM EST 10/04/2023 11:34 AM EST Lolly French MD LAB BLOOD ORDERABLES Fin al Result Performing Organization Address [facility] de Phone Number [facility] [address] [place] [phone] * HIV-1/2 Antigen and Antibodies, Fourth Generation, with Reflexes (10/04/2023 10:36 AM EST) HIV AB/AG Nonreactive Nonreactive [facility] Comment:HIV-1 p24 Ag and/or HIV-1/HIV-2 Ab not detected.A test result that is nonreactive does not exclude thepossibility of exposure to or infection with HIV-1 and/orHIV-2. Nonreactive results in this assay for individualswith prior exposure to HIV-1 and/or HIV-2 may be due toantigen and antibody levels that are below the limit ofdetection of this assay.[employer] HIV Ag/Ab Combo assay result andsupplemental assay results should be interpreted inconjunction with the patient's clinical presentation,history and other laboratory results. If the results areinconsistent with clinical evidence, additional testing issuggested to confirm the result. Blood Venous blood specimen / Unknown 10/04/2023 10:36 AM EST 10/04/2023 11:34 AM EST us Lolly French MD LAB BLOOD ORDERABLES Fin al Result Performing Organization Address [facility]/ZIP Co de Phone Number [facility] [address] [place] [phone] * HPV mRNA E6/E7 w/Reflex to HPV Genotypes 16, 18/45 (09/21/2023 1:23 PM EST) HPV nRNA E6/E7 Not Detected Not Detected [facility] Comment:Methodology: Transcr iption-Mediated AmplificationThis assay detects E6/E7 viral messenger RNA (mRNA) from 14high-risk HPV types (16,18,31,33,35,39,45,51,52,56,58,59,66,68).Cervical sources are required for HPV testing.If a vaginal source from a patient who has had atotal hysterectomy with removal of cervix wassubmitted, please contact the testing laboratoryfor alternative testing options.For additional information, please refer tohttp://education.Embue/faq/CBG854f6(This link if provided for information/educational purposes only.)THIS TEST WAS PERFORMED AT:[facility] [place] [phone] RIOS MD HPV mRNA E6/E7 [facility] HPV 16 RNA [facility] HPV 18/45 RNA [facility] 09/21/2023 1:23 PM EST 09/23/2023 9:50 AM EST Devi Diaz CNM LAB CYTOLOGY ORDERABLES F inal Result [facility] [address] [place] [phone] * Pap Smear (09/21/2023 1:23 PM EST) Swab Cervix uteri structure / Unknown 09/21/2023 1:23 PM EST 09/23/2023 9:50 AM EST Narrative [facility] - 10/06/2023 2:23 PM EST ----- ------- Name: Chhaya Dey ? Age/Sex: 48/F ? : 1975 Unit#: [id number] ?? Attend Dr: Richie Raines MD ??Re09/21/23 ?Status: DEP REF ? [facility] ? Disch: ? ----- ------- SPEC : [id number] ? RECD: 09/23/23-949 ? STATUS: ??SOUT ? REQ NUM: [id number] ? CAN: 09/21/23-3 ? SUBM DR: DEVI DIAZ CNM ? ENTERED: ??09/23/23 ?SP TYPE: Pap Smr ?OTHR DR: ? ORDERED: ??Pap Smear, PAP path review [...] 66, 68) ? HPV testing performed by [facility], [place], [place]. ??See reference laboratory ?? portion of the EMR for entire report. ?Clinical Information LMP: Unknown date Previous PAP test:Unknown date/findings ? Material Received ?? ThinPrep-Cervical ----- ------- Signed (signature on file) Flori Haseeb 10/06/23 1423 ? ----- ------- ? END OF REPORT ? us Devi Diaz [facility] CYTOLOGY ORDERABLES F inal Result [facility] [address] [place] [phone] from Last 3 Months or Most Recently Relevant to Health [place] [address] [facility] STANDARD [employer] MEDICARE REPLACEMENT Care Teams Asset Coordinator Relationship Specialty Start Date End Date Richie Raines MD [address] [place] [address] [place] [address] PCP - General Internal Medicine 08/19/23
--- OUTSIDE RECORDS SUMMARY | 2025-01-05 11:23 | XMS_ITS | Encounter Summary ---
Author Organization [employer] Address [address] [facility] 7t [place] [address] Care Team Providers Care Flag Signaler Name Role Phone Richie Raines MD Primary Care Prov ider Reason for Visit * Reason Comments Med Change Request Encounter Details Date Type Department Care Team ([facility] st Contact Info) Description 11/11/2023 Refill [facility] [address] [place] [address] Matthias Maria MD [address] [place] [address] Chronic bilateral low back pain without sciatica [...] ([facility] st Contact Info) Description 01/10/2025 9:45 AM EDT Office Visit [facility] [address] [place] [address] Richie Raines MD [address] [place] [address] documented as of this encounter Visit Diagnoses Diagnosis Chronic bilateral low back pain without sciatica documented in this encounter Additional Health Concerns Assessment Noted Time PHQ-9 Depression Total Score: 0 08/10/20 2:42 PM EST documented as of this encounter Care Teams Flag Signaler Relationship Specialty Start Date End Date Richie Raines MD [address] [place] [address] PCP - General Internal Medicine 08/19/23 documented as of this encounter
--- OUTSIDE RECORDS SUMMARY | 2025-01-05 11:23 | XMS_ITS | Encounter Summary ---
Author Organization [employer] Address [address] [facility] 7t [place] [address] Care Team Providers Care Knot Saw Operator Name Role Phone Richie Raines MD Primary Care Prov ider Encounter Details Date Type Department Care Team (Late st Contact Info) Description 11/30/2024 Abstract [facility] [address] [facility] [place] [address] Richie Raines MD [address] [place], [place] [phone] Social History Tobacco Use Types Packs/Day Years [...] Upcoming Encounters Date Type Department Care Team ([facility] st Contact Info) Description 01/10/2025 9:45 AM EDT Office Visit [facility] MED & PEDS [address] [place] [address] Richie Raines MD [address] [place] [address] documented as of this encounter Procedures Procedure Name Priority Date/Time Associated Diagnosis Comments COLONOSCOPY Routine 10/30/2024 documented in this encounter Results * Colonoscopy (10/30/2024) Colonoscopy Normal Normal Richie Blanc MD HEALTH MAINTENANCE Final Result documented in this encounter Visit Diagnoses Not on filedocumented in this encounter Additional Health Concerns Assessment Noted Time PHQ-9 Depression Total Score: 9 11/29/19 25 9:59 AM EDT documented as of this encounter Care Teams Knot Saw Operator Relationship Specialty Start Date End Date Richie Raines MD [address] [place] [address] PCP - General Internal Medicine 08/19/23 documented as of this encounter
--- OUTSIDE RECORDS SUMMARY | 2025-01-05 11:23 | XMS_ITS | Encounter Summary ---
Author Organization [employer] Address [address] [facility] 7t [place] [address] Care Team Providers Care Youth Court Judge Name Role Phone Richie Raines MD Primary Care Prov ider Reason for Visit * Reason Comments Med Refill Encounter Details Date Type Department Care Team ([facility] Contact Info) Description 12/12/2024 Refill [facility]ED[facility] [address] [place] [address] Richie Raines MD [address] [place] [address] Fibromyalgia Social History Tobacco Use Types Packs/Day [...] Upcoming Encounters Date Type Department Care Team ([facility] st Contact Info) Description 01/10/2025 9:45 AM EDT Office Visit [facility] PEDS [address] [place] [address] Richie Raines MD [address] [place] [address] documented as of this encounter Visit Diagnoses Diagnosis Fibromyalgia Unspecified myalgia and myositis documented in this encounter Additional Health Concerns Assessment Noted Time PHQ-9 Depression Total Score: 9 11/29/19 25 9:59 AM EDT documented as of this encounter Care Teams Youth Court Judge Relationship Specialty Start Date End Date Richie Raines MD [address] [place] [address] PCP - General Internal Medicine 08/19/23 documented as of this encounter
--- OUTSIDE RECORDS SUMMARY | 2025-01-05 11:23 | XMS_ITS | Encounter Summary ---
Author Organization [employer] Address [address] [place] [address] 7 [place] [address] Care Team Providers Care Heel Top Lift Splitter Name Role Phone Richie Raines MD Primary Care Prov ider Reason for Visit * Reason Onset Date Comments Med Refill 01/02/2025 Encounter Details Date Type Department Care Team ([facility] st Contact Info) Description 01/02/2025 Refill [facility] & PEDS [address] [place] [address] Richie Raines MD [address] [place] [address] Social History Tobacco Use Types Packs/Day Years [...] encounter Miscellaneous Notes * Telephone Encounter - Janelle Casillas LPN - 01/02/2025 1:28 PM EDT Last seen 11/28/24. documented in this encounter Plan of Treatment Upcoming Encounters Date Type Department Care Team (Late st Contact Info) Description 01/10/2025 9:45 AM EDT Office Visit [facility] MED & PEDS [address] [place] [address] Richie Raines MD [address] [place] [address] documented as of this encounter Visit Diagnoses Not on filedocumented in this encounter Additional Health Concerns Assessment Noted Time PHQ-9 Depression Total Score: 9 11/29/19 25 9:59 AM EDT documented as of this encounter Care Teams Heel Top Lift Splitter Relationship Specialty Start Date End Date Richie Raines MD [address] [place] [address] PCP - General Internal Medicine 08/19/23 documented as of this encounter
--- OUTSIDE RECORDS SUMMARY | 2025-01-05 11:23 | XMS_ITS | Encounter Summary ---
Author Organization [employer] Address 75 [facility] 7t [place] [address] Care Team Providers Care Foreign Service Officer Name Role Phone Richie Raines MD Primary Care Prov ider Reason for Visit * Reason Comments Med Refill Encounter Details Date Type Department Care Team ([facility] Contact Info) Description 07/29/2023 Refill [facility] [address] [place] [address] Heath Woodson MD [address] [place] [address] Social History Tobacco Use Types Packs/Day Years [...] Upcoming Encounters Date Type Department Care Team ([facility] Contact Info) Description 01/10/2025 9:45 AM EDT Office Visit [facility] [address] [place] [address] Richie Raines MD [address] [place] [address] documented as of this encounter Visit Diagnoses Not on filedocumented in this encounter Additional Health Concerns Assessment Noted Time PHQ-9 Depression Total Score: 17 023 4:25 PM EST documented as of this encounter Care Teams Foreign Service Officer Relationship Specialty Start Date End Date العراقي Richie Blanc MD [address] [place] [address] PCP - General Internal Medicine 08/19/23 documented as of this encounter
--- OUTSIDE RECORDS SUMMARY | 2025-01-05 11:23 | XMS_ITS | Encounter Summary ---
Author Organization [employer] Address 75 [facility] 7t [place] [address] Care Team Providers Care Tax Auditor Name Role Phone Richie Raines MD Primary Care Prov ider Reason for Visit * Reason Onset Date Comments Referral 11/29/2023 Encounter Details Date Type Department Care Team (Late st Contact Info) Description 11/29/[address] [facility] MEDICINE [address] [place] [address] Richie Raines MD [address] [place], [place] [phone] Referral Social History Tobacco Use Types Packs/Day [...] has a referral for sleep apnea in [facility] but they're not scheduling out until April andpt is requesting a sooner appt. Pt would like to be referred to [facility] instead. Please contact pt at [phone]. documented in this encounter Plan of Treatment Upcoming Encounters Date Type Department Care Team (Late st Contact Info) Description 01/10/2025 9:45 AM EDT Office Visit [facility] MED & PEDS [address] [place] [address] Richie Raines MD [address] [place] [address] documented as of this encounter Visit Diagnoses Not on filedocumented in this encounter Additional Health Concerns Assessment Noted Time PHQ-9 Depression Total Score: 0 12/19/20 23 2:42 PM EST documented as of this encounter Care Teams Tax Auditor Relationship Specialty Start Date End Date Richie Raines MD [address] [place] [phone] PCP - General Internal Medicine 08/19/23 documented as of this encounter
--- OUTSIDE RECORDS SUMMARY | 2025-01-05 11:23 | XMS_ITS | Encounter Summary ---
Author Organization [employer] Address 75 [facility] 7t [place] [address] Care Team Providers Care Hat Sizer Name Role Phone Richie Raines MD Primary Care Prov ider Encounter Details Date Type Department Care Team ([facility] st Contact Info) Description 09/28/2023 Telephone [facility]ED[facility] [address] [place], [place] [phone] Richie Raines MD [address] [place] [address] Social History Tobacco Use Types Packs/Day Years [...] Upcoming Encounters Date Type Department Care Team ([facility] st Contact Info) Description 01/10/2025 9:45 AM EDT Office Visit [facility] MED & PEDS [address] [place] [address] Richie Raines MD [address] [place] [address] documented as of this encounter Visit Diagnoses Not on filedocumented in this encounter Additional Health Concerns Assessment Noted Time PHQ-9 Depression Total Score: 0 08/10/20 2:42 PM EST documented as of this encounter Care Teams Hat Sizer Relationship Specialty Start Date End Date Richie Raines MD [address] [place] [address] PCP - General Internal Medicine 08/19/23 documented as of this encounter
== END 2025-01-05 12:27 | disposition home or self-care (01) ==
LOC: HO.HWS 10:51
PROVIDERS: Visit Provider Advanced Practice Midwife
DX: N92.4 Excessive bleeding in the premenopausal period (principal); D50.8 Other iron deficiency anemias
CPT/HCPCS: 58100; 99204

== ENCOUNTER 2025-01-05 10:51 | Outpatient (REF) | payer MEDICARE, MEDICAID, SELFPAY ==
--- OUTSIDE RECORDS SUMMARY | 2025-01-05 12:58 | XMS_ITS | Encounter Summary ---
Author Organization [employer] Address [address] [facility] 7t [place] [address] Care Team Providers Care Learning Consultant Name Role Phone Richie Raines MD Primary Care Prov ider Encounter Details Date Type Department Care Team ([facility] st Contact Info) Description 04/09/2024 Orders Only [facility] MED [facility]ED[facility] [address] [place], [place] [phone] Richie Raines MD [address] [place] [address] Social History Tobacco Use Types Packs/Day Years [...] Upcoming Encounters Date Type Department Care Team ([facility] st Contact Info) Description 01/10/2025 9:45 AM EDT Office Visit [facility] MED & PED[facility] [address] [place] [address] Richie Raines MD [address] [place] [address] documented as of this encounter Visit Diagnoses Not on filedocumented in this encounter Additional Health Concerns Assessment Noted Time PHQ-9 Depression Total Score: 0 08/10/20 2:42 PM EST documented as of this encounter Care Teams Learning Consultant Relationship Specialty Start Date End Date Richie Raines MD [address] [place] [address] PCP - General Internal Medicine 08/19/23 documented as of this encounter
--- OUTSIDE RECORDS SUMMARY | 2025-01-05 12:58 | XMS_ITS | Encounter Summary ---
Author Organization [employer] Address [address] [facility] 7t [place] [address] Care Team Providers Care Research And Development Tester Name Role Phone Richie Raines MD Primary Care Prov ider Reason for Visit * Reason Comments Med Refill Encounter Details Date Type Department Care Team ([facility] Contact Info) Description 12/12/2024 Refill [facility] [address] [place] [address] Richie Raines MD [address] [place] [address] Fibromyalgia Social History Tobacco Use Types Packs/Day [...] Upcoming Encounters Date Type Department Care Team ([facility] st Contact Info) Description 01/10/2025 9:45 AM EDT Office Visit [facility] MED & PEDS [address] [place] [address] Richie Raines MD [address] [place] [address] documented as of this encounter Visit Diagnoses Diagnosis Fibromyalgia Unspecified myalgia and myositis documented in this encounter Additional Health Concerns Assessment Noted Time PHQ-9 Depression Total Score: 9 11/29/19 25 9:59 AM EDT documented as of this encounter Care Teams Research And Development Tester Relationship Specialty Start Date End Date Richie Raines MD [address] [place] [address] PCP - General Internal Medicine 08/19/23 documented as of this encounter
--- OUTSIDE RECORDS SUMMARY | 2025-01-05 12:58 | XMS_ITS | Encounter Summary ---
Author Organization [employer] Address [address] [facility] 7t [place] [address] Care Team Providers Care Jewelry Store Manager Name Role Phone Richie Raines MD Primary Care Prov ider Reason for Visit * Reason Comments Med Refill Encounter Details Date Type Department Care Team ([facility] Contact Info) Description 08/05/2023 Refill [facility] [address] [place] [address] Heath Woodson MD [address] [place] [address] Social History Tobacco Use Types Packs/Day Years [...] Upcoming Encounters Date Type Department Care Team ([facility] Contact Info) Description 01/10/2025 9:45 AM EDT Office Visit [facility] [address] [place] [address] Richie Raines MD [address] [place] [address] documented as of this encounter Visit Diagnoses Not on filedocumented in this encounter Additional Health Concerns Assessment Noted Time PHQ-9 Depression Total Score: 17 023 4:25 PM EST documented as of this encounter Care Teams Jewelry Store Manager Relationship Specialty Start Date End Date العراقي Richie Blanc MD [address] [place] [address] PCP - General Internal Medicine 08/19/23 documented as of this encounter
--- OUTSIDE RECORDS SUMMARY | 2025-01-05 12:58 | XMS_ITS | Encounter Summary ---
Author Organization [employer] Address [address] [facility] 7t [place] [address] Care Team Providers Care Charging Board Operator Name Role Phone Richie Raines MD Primary Care Prov ider Reason for Visit * Reason Comments Med Change Request Encounter Details Date Type Department Care Team ([facility] st Contact Info) Description 11/02/[address] [facility] [address] [place] [address] Matthias Maria MD [address] [place] [address] Chronic bilateral low back pain without sciatica [...] ([facility] st Contact Info) Description 01/10/2025 9:45 AM EDT Office Visit [facility] [address] [place] [address] Richie Raines MD [address] [place] [address] documented as of this encounter Visit Diagnoses Diagnosis Chronic bilateral low back pain without sciatica documented in this encounter Additional Health Concerns Assessment Noted Time PHQ-9 Depression Total Score: 0 08/10/20 2:42 PM EST documented as of this encounter Care Teams Charging Board Operator Relationship Specialty Start Date End Date Richie Raines MD [address] [place] [address] PCP - General Internal Medicine 08/19/23 documented as of this encounter
--- OUTSIDE RECORDS SUMMARY | 2025-01-05 12:58 | XMS_ITS | Encounter Summary ---
Author Organization [employer] Address [address] [place] [address] 7 [place] [address] Care Team Providers Care Cath Laboratory Technician Name Role Phone Richie Raines MD Primary Care Prov ider Reason for Visit * Reason Onset Date Comments Med Refill 01/02/2025 Encounter Details Date Type Department Care Team ([facility] st Contact Info) Description 01/02/2025 Refill [facility] MED & PEDS [address] [place] [address] Richie Raines MD [address] [place] [address] Social History Tobacco Use Types Packs/Day Years [...] Description 01/10/2025 9:45 AM EDT Office Visit [facility] MED & PEDS [address] [place] [address] Richie Raines MD [address] [place] [address] documented as of this encounter Visit Diagnoses Not on filedocumented in this encounter Additional Health Concerns Assessment Noted Time PHQ-9 Depression Total Score: 9 11/29/19 25 9:59 AM EDT documented as of this encounter Care Teams Cath Laboratory Technician Relationship Specialty Start Date End Date Richie Raines MD [address] [place] [address] PCP - General Internal Medicine 08/19/23 documented as of this encounter
--- OUTSIDE RECORDS SUMMARY | 2025-01-05 12:58 | XMS_ITS | Encounter Summary ---
Author Organization [employer] Address [address] [facility] 7t [place] [address] Care Team Providers Care Ergonomist Name Role Phone Richie Raines MD Primary Care Prov ider Reason for Visit * Reason Comments Med Refill Encounter Details Date Type Department Care Team ([facility] Contact Info) Description 07/29/2023 Refill [facility] [address] [place] [address] Heath Woodson MD [address] [place] [address] Social History Tobacco Use Types Packs/Day Years [...] Upcoming Encounters Date Type Department Care Team ([facility] Contact Info) Description 01/10/2025 9:45 AM EDT Office Visit [facility] MED & PEDS [address] [place] [address] Richie Raines MD [address] [place] [address] documented as of this encounter Visit Diagnoses Not on filedocumented in this encounter Additional Health Concerns Assessment Noted Time PHQ-9 Depression Total Score: 17 023 4:25 PM EST documented as of this encounter Care Teams Ergonomist Relationship Specialty Start Date End Date العراقي Richie Blanc MD [address] [place] [address] PCP - General Internal Medicine 08/19/23 documented as of this encounter
--- OUTSIDE RECORDS SUMMARY | 2025-01-05 12:58 | XMS_ITS | Encounter Summary ---
Author Organization [employer] Address [address] [facility] 7t [place] [address] Care Team Providers Care Search Lead Name Role Phone Richie Raines MD Primary Care Prov ider Reason for Visit * Reason Onset Date Comments Appointment Request 09/16/2023 Encounter Details Date Type Department Care Team (Late st Contact Info) Description 09/16/2023 Telephone [facility] MEDICINE [address] [place] [address] Richie Raines MD [address] [place], [place] [phone] Appointment Request Social History Tobacco Use Types [...] Description 01/10/2025 9:45 AM EDT Office Visit [facility] MED & PEDS [address] [place] [address] Richie Raines MD [address] [place] [address] documented as of this encounter Visit Diagnoses Not on filedocumented in this encounter Additional Health Concerns Assessment Noted Time PHQ-9 Depression Total Score: 0 08/10/20 2:42 PM EST documented as of this encounter Care Teams Search Lead Relationship Specialty Start Date End Date Richie Raines MD [address] [place] [address] PCP - General Internal Medicine 08/19/23 documented as of this encounter
--- OUTSIDE RECORDS SUMMARY | 2025-01-05 12:58 | XMS_ITS | Encounter Summary ---
Author Organization [employer] Address [address] [facility] 7t [place] [address] Care Team Providers Care Revenue Field Agent Name Role Phone Richie Raines MD Primary Care Prov ider Reason for Visit * Reason Comments Med Refill Encounter Details Date Type Department Care Team ([facility] st Contact Info) Description 11/22/2024 Refill [facility] MED & PEDS [address] [place] [address] Richie Raines MD [address] [place] [address] Fibromyalgia Social History Tobacco Use Types Packs/Day [...] Upcoming Encounters Date Type Department Care Team ([facility] st Contact Info) Description 01/10/2025 9:45 AM EDT Office Visit [facility] MED & PEDS [address] [place] [address] Richie Raines MD [address] [place] [address] documented as of this encounter Visit Diagnoses Diagnosis Fibromyalgia Unspecified myalgia and myositis documented in this encounter Additional Health Concerns Assessment Noted Time PHQ-9 Depression Total Score: 0 08/10/20 2:42 PM EST documented as of this encounter Care Teams Revenue Field Agent Relationship Specialty Start Date End Date Richie Raines MD [address] [place] [address] PCP - General Internal Medicine 08/19/23 documented as of this encounter
--- OUTSIDE RECORDS SUMMARY | 2025-01-05 12:58 | XMS_ITS | Encounter Summary ---
Author Organization [employer] Address [address] [facility] [address]t [place] [address] Care Team Providers Care Net Mobile Developer Name Role Phone Richie Raines MD Primary Care Prov ider Encounter Details Date Type Department Care Team ([facility] st Contact Info) Description 09/28/2023 Telephone [facility] CHC MED & PEDS [address] [place], [place] [phone] Richie Raines MD [address] [place] [address] Social History Tobacco Use Types Packs/Day Years [...] Upcoming Encounters Date Type Department Care Team ([facility] st Contact Info) Description 01/10/2025 9:45 AM EDT Office Visit [facility] MED & PEDS [address] [place] [address] Richie Raines MD [address] [place] [address] documented as of this encounter Visit Diagnoses Not on filedocumented in this encounter Additional Health Concerns Assessment Noted Time PHQ-9 Depression Total Score: 0 08/10/20 2:42 PM EST documented as of this encounter Care Teams Net Mobile Developer Relationship Specialty Start Date End Date Richie Raines MD [address] [place] [address] PCP - General Internal Medicine 08/19/23 documented as of this encounter
--- OUTSIDE RECORDS SUMMARY | 2025-01-05 12:58 | XMS_ITS | Encounter Summary ---
Author Organization [employer] Address [address] [facility] 7t [place] [address] Care Team Providers Care Marketing Services Rep Name Role Phone Richie Raines MD Primary Care Prov ider Encounter Details Date Type Department Care Team (Late st Contact Info) Description 11/30/2024 Abstract [facility] MEDICINE [address] [facility] [place] [address] Richie Raines MD [address] [place], [place] [phone] Social History Tobacco Use Types Packs/Day Years [...] Team ([facility] st Contact Info) Description 01/10/2025 9:45 AM EDT Office Visit [facility] MED & PEDS [address] [place] [address] Richie Raines MD [address] [place] [address] documented as of this encounter Procedures Procedure Name Priority Date/Time Associated Diagnosis Comments COLONOSCOPY Routine 10/30/2024 documented in this encounter Results * Colonoscopy (10/30/2024) Colonoscopy Normal Normal Richie Balnc MD HEALTH MAINTENANCE Final Result documented in this encounter Visit Diagnoses Not on filedocumented in this encounter Additional Health Concerns Assessment Noted Time PHQ-9 Depression Total Score: 9 11/29/19 25 9:59 AM EDT documented as of this encounter Care Teams Marketing Services Rep Relationship Specialty Start Date End Date Richie Raines MD [address] [place] [address] PCP - General Internal Medicine 08/19/23 documented as of this encounter
--- OUTSIDE RECORDS SUMMARY | 2025-01-05 12:58 | XMS_ITS | Encounter Summary ---
Author Organization [employer] Address [address] [facility] [address]t [place] [address] Care Team Providers Care Motor Assembler Name Role Phone Richie Raines MD Primary Care Prov ider Reason for Visit * Reason Comments Med Refill Encounter Details Date Type Department Care Team (Late st Contact Info) Description 09/20/2023 Refill [facility] [address] [place] [address] Kaleigh Kiran, MARV [address] [place] [address] Fibromyalgia Social History Tobacco Use Types Packs/Day [...] [facility] MED & PEDS [address] [place] [address] Richie Raines MD [address] [place] [address] documented as of this encounter Visit Diagnoses Diagnosis Fibromyalgia Unspecified myalgia and myositis documented in this encounter Additional Health Concerns Assessment Noted Time PHQ-9 Depression Total Score: 0 08/10/20 2:42 PM EST documented as of this encounter Care Teams Motor Assembler Relationship Specialty Start Date End Date Richie Raines MD [address] [place] [address] PCP - General Internal Medicine 08/19/23 documented as of this encounter
--- OUTSIDE RECORDS SUMMARY | 2025-01-05 12:59 | XMS_ITS | Clinical Summary ---
Author Organization [employer] Address [address] [facility] [address] [place] [address] Care Team Providers Care Shipyard Laborer Name Role Phone Richie Raines MD Primary [...] and pelvic US wnl. will refer to INSURANCE SERVICE REPRESENTATIVE Rhinosinusitis 10/04/2023 Assessment & Plan (10/06/2023 8:49 [...] EDT): Patient wants to be referred to [facility] for sleep study, will send new [...] (10/06/2023 8:51 AM EST): Reportedly done in [place] less than 5y ago She will bring [...] Tdap but she declined. Colonoscopy done in [place], she will bring report to PCP Mammogram: [...] offer BH referral. Chronic pain, relocation [place] and severe depression are exacerbating symptoms. No [...] actions. PLAN: 1. Follow up with [facility]: Not recommended for follow-up 2. Patient goal [...] and offer referral. Chronic pain, [place] and severe depression are exacerbating symptoms. No [...] actions. PLAN: 1. Follow up with [facility]: Not recommended for follow-up 2. Patient goal [...] offer BH referral. Chronic pain, [place] and severe depression are exacerbating symptoms. No [...] Type Department Care Team Description 01/02/2025 Refill [facility] [address] [place] [address] Richie Raines MD 12/15/2024 Refill [facility] [address] [place] [address] Richie Raines MD Fibromyalgia 12/12/2024 Refill [facility] [address] [place] [address] Richie Raines MD Fibromyalgia 11/30/2024 Telephone [facility] [address] [place] [address] Richie Raines MD 11/30/2024 Abstract [facility] [address] [place] [address] Richie Raines MD 11/28/2024 10:00 AM EDT Office Visit [facility] [address] [place] [address] Lolly French MD Menorrhagia with regular cycle (Primary Dx); Sickle cell trait (CMS/[facility]); Encounter for preventive health examination; Class 1 obesity due to excess calories with serious comorbidity and body mass index (BMI) of 30.0 to 30.9 in adult; Chronic heel pain, left; Dietary counseling; Exercise counseling 11/28/2024 Orders Only GENERIC EXTERNAL DATA DEPARTMENT Provider, Generic External Data 11/28/2024 Refill [facility] [address] [place] [address] Richie Raines MD Chronic bilateral low back pain without sciatica 11/28/2024 Travel 11/22/2024 Refill [facility] [address] [place] [address] Richie Raines MD Fibromyalgia 11/22/2024 Refill [facility] [address] [place] [address] Richie Raines MD Fibromyalgia 11/20/2024 Patient Outreach [facility] [address] [place] [address] Richie Raines MD Pre-visit Planning ([facility] screening completed on 09/27/2024) 11/06/2024 Refill [facility] [address] [place] [address] Richie Raines MD Chronic bilateral low back pain without sciatica 10/31/2024 Orders Only GENERIC EXTERNAL DATA DEPARTMENT Provider, Generic External Data 10/31/2024 Travel 10/19/2024 Telephone [facility] [address] [place] [address] Devi Diaz CNM from Last 3 Months [...] Description 01/10/2025 9:45 AM EDT Office Visit [facility] [address] [place], [place] [phone] Richie Raines MD [address] [place], [place] [phone] Health Maintenance Due Date Last Done Comments [...] EDT Narrative 11/28/2024 1:08 PM EDT ? [facility] ?[address] ?[place] [address] ?XRay Report ? Signed ? Patient: Antonetty Vallejo,Chhaya ?MR#: ?? [id number] ? : 1975 ?Acct:[id number] ? Age/Sex: 49 / F ?ADM Date: 11/28/24 ? Loc: HO.HHCL ? Attending Dr: Lolly French MD ? Ordering Physician: Lolly French MD ?? Date of Service: 11/28/24 ?? Procedure(s): XR foot LT min 3V ?? Accession Number(s): [id number] ? cc: Lolly French MD ? EXAMINATION: [...] DD/ 1211 ? TD/TT: 11/28/24 1220 ? Customer Relations Assistant: ? Procedure Note Ethel Goncalves - 11/28/[address] [address] XRay Report Signed Patient: Chhaya DeyMR#: [id number] : 1975Acct:[id number] Age/Sex: 49 / FADM Date: 11/28/24 Loc: HO.HHCL Attending Dr: Lolly French MD Ordering Physician: Lolly French MD Date of Service: 11/28/24 Procedure(s): XR foot LT min 3V Accession Number(s): [id number] cc: Lolly French MD EXAMINATION: XR FOOT, [...] 11/28/24 1305 DD/ 1211 TD/TT: 11/28/24 1220 Customer Relations Assistant: us Lolly French MD IMG XR PROCEDURES Final Result * Slide Review (11/28/2024 11:45 AM EDT) Slide Review VERIFIED [facility] 11/28/2024 11:4 5 AM EDT 11/28/2024 1:12 PM EDT us Generic External Data Provider LAB BLOOD ORDERAB LES Final Result [facility] [address] [place] [address] [phone] * (ABNORMAL) Vitamin B12 (Cobalamin) and Folate Panel, Serum (11/28/2024 11:45 AM EDT) Vitamin B12 198(L) 200 - 900 pg/mL [facility] Comment:NORMAL 200-900 PG/ML INDETERMINATE 160-199 PG/ML DEFICIENT < 160 PG/ML Folate 6.5 > or = 4.0 ng/mL [facility] Comment:Reference Values:> o r = 4.0 ng/mL< 4.0 ng/mL suggests folate deficiency Methotrexate, aminopterin and folinic acid(leucovorin) are chemotherapeutic agents whose molecularstructures are similar to folate; therefore, the Architectfolate assay cannot be used for patients using these drugs. 11/28/2024 11:4 5 AM EDT 11/28/2024 1:12 PM EDT us Generic External Data Provider LAB BLOOD ORDERAB LES Final Result [facility] [address] [place] [address] [phone] * T-SPOT??.TB (11/28/2024 11:45 AM EDT) T Spot TB Negative Negative [facility] Comment:A negative test resu lt [...] as aquantitative test. TS PANEL A 0 [facility] TS PANEL B 0 [facility] Negative Control Passed [facility] Positive Control Passed [facility] Comment:For additional infor rojas, please refer tohttp://education.[email or web address]/faq/[email or web address](This link is being provided for informational/educational purposes only.)THIS TEST WAS PERFORMED AT:[employer]/JARA [id number] [place] [address]NYIFSLGVICTORINA OVERTON MD,PHD 11/28/2024 11:4 5 AM EDT 11/28/2024 1:12 PM EDT us Lolly French MD LAB BLOOD ORDERABLES Fin al Result [facility] [address] [place] [address] [phone] * (ABNORMAL) CBC auto differential (11/28/2024 11:45 AM EDT) White Blood Count 4.1(L) 4.8 - 10.8 X10*3/uL [facility] Red Blood Count 5.82(H) 4.20 - 5.50 X10*6/uL [facility] Hemoglobin 13.2 12.0 - 16.0 g/dl [facility] Hematocrit 40.8 37.0 - 47.0 % [facility] Mean Corpuscular Volume 70.1(L) 80.0 - 98.0 fL [facility] Mean Corpuscular Hemoglobin 22.7(L) 27.0 - 33.0 pg [facility] Mean Corpuscular HGB Conc 32.4 31.0 - 35.0 g/dl [facility] Red Cell Distribution Width 19.1(H) 11.0 - 16.0 % [facility] Platelet Count 275 160 - 400 X10*3/uL [facility] Neutrophils Percent Auto 58.1 45 - 73 % [facility] Imm Gran Pct Auto 0.2 0.0 - 0.4 % [facility] Lymphocytes Percent Auto 30.8 20 - 40 % [facility] Monocytes Percent Auto 7.9 2 - 11 % [facility] Eosinophils Percent Auto 2.5 0 - 4 % [facility] Basophils Percent Auto 0.5 0 - 2 % [facility] NRBC Pct Auto 0.0 0.0 - 0.2 /100WBC [facility] Neutrophils Absolute Auto 2.4 2.0 - 8.3 x10*3/uL [facility] Imm Gran Abs Auto 0.01 0.00 - 0.03 X10*3/uL [facility] Lymphocytes Absolute Auto 1.3 1.2 - 4.9 X10*3/uL [facility] Monocytes Absolute Auto 0.3 0.1 - 1.2 X10*3/uL [facility] Eosinophils Absolute Auto 0.1 0.0 - 0.4 X10*3/uL [facility] Basophils Absolute Auto 0.0 0.0 - 0.2 X10*3/uL [facility] NRBC Abs Auto 0.000 0.0 - 0.012 X10*3/uL [facility] 11/28/2024 11:4 5 AM EDT 11/28/2024 1:12 PM EDT us Generic External Data Provider LAB BLOOD ORDERAB LES Edited Result - Final [facility] [address] [place] [phone] * Methylmalonic Acid (11/28/2024 11:45 AM EDT) Methylmalonic Acid 109 55 - 335 nmol/L [facility] Comment: Serum methylmalonic acid (MMA) [...] outcomes,such as neural tube defects and intrauterine growthrestriction.[facility] utilized Multi-Modal Decomposition(MMD) analysis to establish first and second trimester-specific MMA reference intervals in , as givenbelow:MMA, First trimester (<13 wks gestation): 58-167 nmol/LMMA, Second trimester (13-23 wks gestation):63-241 nmol/LThis test was developed and its analytical performancecharacteristics have been determined by [employer]. It has not been cleared or approved by theA. This assay has been validated pursuant to the CLIAregulations and is used for clinical purposes.THIS TEST WAS PERFORMED AT:[employer] [place], [place] ??[address]YEVHEQY W. MASON,MD,PHD 11/28/2024 11:4 5 AM EDT 11/28/2024 1:12 PM EDT Generic External Data Provider LAB BLOOD ORDERAB LES Final Result Performing Organization Address City/[facility]/ZIP Co de Phone Number [facility] [address] [place] [phone] * Iron And Total Iron Binding Capacity (11/28/2024 11:45 AM EDT) Iron 110 30 - 160 mcg/dL [facility] Total Iron Binding Capacity 261 228 - 428 mcg/dL [facility] Percent Iron Saturation 42 15 - 50 % [facility] Unsaturated Iron Binding 151 ug/dL [facility] 11/28/2024 11:4 5 AM EDT 11/28/2024 1:12 PM EDT Generic External Data Provider LAB BLOOD ORDERAB LES Final Result Performing Organization Address City/[facility]/ZIP Co de Phone Number [facility] [address] [place] [phone] * Ferritin (11/28/2024 11:45 AM EDT) Ferritin 90 10 - 250 ng/mL [facility] 11/28/2024 11:4 5 AM EDT 11/28/2024 1:12 PM EDT us Generic External Data Provider LAB BLOOD ORDERAB LES Final Result Performing Organization Address City/[facility]/ZIP Co de Phone Number [facility] [address] [place] [address] [phone] * Comprehensive Metabolic Panel (11/28/2024 11:45 AM EDT) Sodium 138 135 - 145 mmol/L [facility] Potassium 3.9 3.3 - 5.1 mmol/L [facility] Chloride 107 96 - 108 mmol/L [facility] Carbon Dioxide 23 22 - 29 mmol/L [facility] Anion Gap 12 12 - 20 [facility] Urea Nitrogen (BUN) 9 9 - 16 mg/dL [facility] Creatinine, Serum 0.69 0.5 - 1.4 mg/dL [facility] Estimated Glomerular Filt Rate >60 [facility] Comment:Chronic Kidney Disea se: Estimated GFR < 60 mL/min/1.21g5Ylowgx Kidney Disease: Estimated GFR < 15 mL/min/1.73m2 Glucose 83 60 - 115 mg/dL [facility] Calcium 9.2 8.4 - 10.2 mg/dL [facility] Bilirubin, Total 0.3 0.0 - 1.0 mg/dL [facility] Aspartate Amino Transferase 27 5 - 31 U/L [facility] Alanine Aminotransferase 13 0 - 31 U/L [facility] Total Protein 7.2 6.5 - 8.0 g/dL [facility] Albumin Level 4.1 3.5 - 5.0 g/dL [facility] Alkaline Phosphatase 56 39 - 117 U/L [facility] 11/28/2024 11:4 5 AM EDT 11/28/2024 1:12 PM EDT us Generic External Data Provider LAB BLOOD ORDERAB LES Final Result Performing Organization Address City/[facility]/ZIP Co de Phone Number [facility] [address] [place] [address] [phone] * Hematoxylin and Eosin Stain (10/31/2024 1:17 PM EDT) 10/31/2024 1:17 PM EDT 10/31/2024 1:33 PM EDT [facility] - 11/02/2024 10:48 AM EDT ----- ------- Name: Chhaya Dey ? Age/Sex: 49/F ? : 1975 Unit#: [id number] ?? Attend Dr: Cindi Moreno MD ?Re10/31/24 ?Status: DEP SDC ? Location: HO.SSS ?Disch: ? ----- ------- SPEC : [id number] ? RECD: 10/31/24-1332 ? STATUS: ??SOUT ? REQ NUM: [id number] ? CAN: 10/31/24-1317 ? SUBM DR: Cindi [...] ? Age/Sex: 49/F ? : 1975 Unit#: [id number] ?? Attend Dr: Cindi Moreno MD ?Re10/31/24 ?Status: DEP SDC ? Location: HO.SSS ?Disch: ? ----- ------- SPEC : [id number] ? RECD: 10/31/24-1332 ? STATUS: ??SOUT ? REQ NUM: [id number] ? CAN: 10/31/24-1317 ? SUBM DR: Cindi [...] stains on A1. Copies To: ?? Lolly Frnech MD ?? [facility] ?? [address] [facility] ?? [place] [address] ?? [phone] ?? Cindi Moreno MD ?? [facility] ?? [address] ?? [place] [address] ?? [phone] ?? [email or web address] ----- ------- Signed (signature on file) Flori [place] 11/02/24 1048 ? ----- ------- ? END OF REPORT ? Generic External Data Provider LAB BLOOD ORDERAB LES Final Result Performing Organization Address [facility] de Phone Number [facility] [address] [place] [address] [phone] * HCG, Qualitative, Urine (10/31/2024 11:01 AM EDT) Urine NEGATIVE NEGATIVE [facility] Comment:This test was develo ped to detect early . Falsenegative results may occur after the 5th - 7th week ofpregnancy when using this test method. If clinicallyindicated, consider a serum hCG. 10/31/2024 11:0 1 AM EDT 10/31/2024 11:10 AM EDT Generic External Data Provider LAB URINE ORDERAB LES Final Result Performing Organization Address [facility] de Phone Number [facility] [address] [place] [address] [phone] * Hm Colonoscopy (10/30/2024) Colonoscopy Normal Normal Richie Blanc MD HEALTH MAINTENANCE Final Result * US Pelvis Transvaginal (10/19/2024 11:29 AM EST) Anatomical Region Laterality Modality Pelvis Ultrasound 10/19/2024 11:2 9 AM EST Narrative 10/19/2024 12:02 PM EST ? [facility] [place] [facility] ?[address] ?[place] [address] ? Ultrasound Report ? Signed ? Patient: Antonetty Vallejo,Chhaya ?MR#: ?? [id number] ? : 1975 ?Acct:[id number] ? Age/Sex: 49 / F ?ADM Date: 10/19/24 ? Loc: HO.US ? Attending Dr: Devi Diaz CNM ? Ordering Physician: DEVI DIAZ CNM ?? Date of Service: 10/19/24 ?? Procedure(s): US pelvic and transvaginal ?? Accession Number(s): [id number] ? cc: Lolly French MD; DEVI DIAZ [...] DD/ 1129 ? TD/TT: 10/19/24 1142 ? Customer Relations Assistant: ? Procedure Note Donotuseinterpreter, Image - 10/19/[address] [address] Ultrasound Report Signed Patient: Chhaya DeyMR#: [id number] : 1975Acct:[id number] Age/Sex: 49 / FADM Date: 10/19/24 Loc: HO.US Attending Dr: Devi Diaz CNM Ordering Physician: DEVI DIAZ CNM Date of Service: 10/19/24 Procedure(s): US pelvic and transvaginal Accession Number(s): [id number] cc: Lolly French MD; DEVI DIAZ CNM [...] 10/19/24 1159 DD/ 1129 TD/TT: 10/19/24 1142 Customer Relations Assistant: us Devi ARCINIEGAM IMG US PROCEDURES Final R esult * BI Mammogram Diagnostic Tomosynthesis Bilateral (10/03/2024 12:20 PM EST) Anatomical Region Laterality Modality Breast Bilateral Mammography 10/03/2024 12:2 0 PM EST Narrative 10/03/2024 1:44 PM EST ? [facility] ? [address] ?[place] [address] ? Mammography Report ? Signed ? Patient: Chhaya Dey ?MR#: ?? [id number] ? : 1975 ?Acct:[id number] ? Age/Sex: 49 / F ?ADM Date: 10/03/ ? Loc: HO.MAMMO ? Attending Dr: Lolly French MD ? Ordering Physician: Lolly French MD ?Results: 3.12MProbably Benign Finding - 12 month F/U ?? Suggested ? Date of Service: 10/03/24 ?Follow Up: 12 month diagnos ?? tic follow up ? Procedure(s): MM tomosynthesis diagnostic BI ?? Accession Number(s): [id number] ? cc: Lolly French MD ? EXAMINATION: [...] DD/ 1220 ? TD/TT: 10/03/24 1257 ? Customer Relations Assistant: ? Procedure Note Donotnikolaiinterpreter, Image - [facility]03[facility] [address] [place], [place] [address] Mammography Report Signed Patient: Shelia Dey#: [id number] : 1975Acct:[id number] Age/Sex: 49 / FADM Date: 10/03/24 Loc: HO.MAMMO Attending Dr: Lolly French MD Ordering Physician: Lolly French MD Results: 3.12MProbably Benign Finding - 12 month F/U Suggested Date of Service: 10/03/24Follow Up: 12 month diagnos tic follow up Procedure(s): MM tomosynthesis diagnostic BI Accession Number(s): [id number] cc: Lolly French MD EXAMINATION: MM DIAGNOSTIC [...] 10/03/24 1341 DD/ 1220 TD/TT: 10/03/24 1257 Customer Relations Assistant: Lolly French MD IMG BI PROCEDURES Final Result * (ABNORMAL) Lipid Panel with Reflex to Direct LDL (10/04/2023 10:36 AM EST) Triglycerides 66 <150 mg/dL [facility] Comment:Desirable Triglyceri de: less than 150 mg/dLBorderline High Triglyceride 150-199 mg/dLHigh Triglyceride: 200-499 mg/dLVery High Triglyceride: greater than or equal to 5OO mg/dL Cholesterol 179 <200 mg/dL [facility] Comment:Desirable Cholestero l: less than 200 mg/dLBorderline High Cholesterol: 200-239 mg/dLHigh Cholesterol: greater than 239 mg/dL LDL Cholesterol Calculated 108(H) <100 mg/dL [facility] Comment:Desirable LDL: less than 100 mg/dLNear Optimal/Above Optimal LDL: 110- 129 mg/dLBorderline High LDL: 130-159 mg/dLHigh LDL: 160-189 mg/dLVery High LDL: greater than or equal to 190 mg/dL HDL Cholesterol 58 >40 mg/dL [facility] Comment:Desirable HDL: great er than 40 mg/dL Note: This HDL assay may give artificially low results in patients with liver disease. Blood 10/04/2023 10:3 6 AM EST 10/04/2023 11:34 AM EST Lolly French MD LAB BLOOD ORDERABLES Fin al Result Performing Organization Address [facility] Co de Phone Number [facility] [address] [place] [phone] * Hepatitis Panel, General (10/04/2023 10:36 AM EST) Hepatitis A IgM Nonreactive Nonreactive [facility] Comment:IgM antibodies to ARREAGA V not detected; does not exclude earlyacute or recovered HAV infection. ~Hepatitis B Surface Antibody NONREACTIVE Nonreactive [facility] Comment:Nonreactive: < 8.00 mIU/mL Hepatitis B Core Antibody Nonreactive Nonreactive [facility] Hepatitis C Antibody Nonreactive Nonreactive [facility] Comment:Antibodies to HCV no t detected; does not exclude early acuteHCV infection. Hepatitis B Surface Ag Negative Negative [facility] Blood 10/04/2023 10:3 6 AM EST 10/04/2023 11:34 AM EST Lolly French MD LAB BLOOD ORDERABLES Fin al Result Performing Organization Address [facility] de Phone Number [facility] [address] [place] [phone] * HIV-1/2 Antigen and Antibodies, Fourth Generation, with Reflexes (10/04/2023 10:36 AM EST) HIV AB/AG Nonreactive Nonreactive [facility] Comment:HIV-1 p24 Ag and/or HIV-1/HIV-2 Ab not detected.A test result that is nonreactive does not exclude thepossibility of exposure to or infection with HIV-1 and/orHIV-2. Nonreactive results in this assay for individualswith prior exposure to HIV-1 and/or HIV-2 may be due toantigen and antibody levels that are below the limit ofdetection of this assay.The [employer] HIV Ag/Ab Combo assay result andsupplemental assay results should be interpreted inconjunction with the patient's clinical presentation,history and other laboratory results. If the results areinconsistent with clinical evidence, additional testing issuggested to confirm the result. Blood Venous blood specimen / Unknown 10/04/2023 10:36 AM EST 10/04/2023 11:34 AM EST us Lolly French MD LAB BLOOD ORDERABLES Fin al Result Performing Organization Address [facility]/ZIP Co de Phone Number [facility] [address] [place] [address] [phone] * HPV mRNA E6/E7 w/Reflex to HPV Genotypes 16, 18/45 (09/21/2023 1:23 PM EST) HPV nRNA E6/E7 Not Detected Not Detected [facility] Comment:Methodology: Transcr iption-Mediated AmplificationThis assay detects E6/E7 viral messenger RNA (mRNA) from 14high-risk HPV types (16,18,31,33,35,39,45,51,52,56,58,59,66,68).Cervical sources are required for HPV testing.If a vaginal source from a patient who has had atotal hysterectomy with removal of cervix wassubmitted, please contact the testing laboratoryfor alternative testing options.For additional information, please refer tohttp://education.IntelliGeneScan/faq/YJB767i3(This link if provided for information/educational purposes only.)THIS TEST WAS PERFORMED AT:[employer] [place] [address]HDQIZALVARO RIOS MD HPV mRNA E6/E7 [facility] HPV 16 RNA [facility] HPV 18/45 RNA [facility] 09/21/2023 1:23 PM EST 09/23/2023 9:50 AM EST Devi Diaz CNM LAB CYTOLOGY ORDERABLES F inal Result [facility] [address] [place] [phone] [phone] * Pap Smear (09/21/2023 1:23 PM EST) Swab Cervix uteri structure / Unknown 09/21/2023 1:23 PM EST 09/23/2023 9:50 AM EST Narrative [facility] - 10/06/2023 2:23 PM EST ----- ------- Name: Chhaya Dey ? Age/Sex: 48/F ? : 1975 Unit#: [id number] ?? Attend Dr: Richie Raines MD ??Re09/21/23 ?Status: DEP REF ? [facility] ? Disch: ? ----- ------- SPEC : [id number] ? RECD: 09/23/23-949 ? STATUS: ??SOUT ? REQ NUM: [id number] ? CAN: 09/21/23-3 ? SUBM DR: DEVI [...] 66, 68) ? HPV testing performed by [facility], [place], [place]. ??See reference laboratory ?? portion of the EMR for entire report. ?Clinical Information LMP: Unknown date Previous PAP test:Unknown date/findings ? Material Received ?? ThinPrep-Cervical ----- ------- Signed (signature on file) Flori Haseeb 10/06/23 1423 ? ----- ------- ? END OF REPORT ? us Devi Diaz [facility] CYTOLOGY ORDERABLES F inal Result [facility] [address] [place] [phone] from Last 3 Months or Most Recently Relevant to Health Maintenance [place] [address] [facility] [employer] MEDICARE REPLACEMENT Care Teams Shipyard Laborer Relationship Specialty Start Date End Date Richie Raines MD [address] [place] [address] [place] [address] PCP - General Internal Medicine 08/19/23
--- OUTSIDE RECORDS SUMMARY | 2025-01-05 12:59 | XMS_ITS | Encounter Summary ---
Author Organization [employer] Address [address] [facility] [address] [place] [address] Care Team Providers Care Worm Farm Laborer Name Role Phone Richie Raines MD Primary Care Prov ider Encounter Details Date Type Department Care Team ([facility] st Contact Info) Description 11/22/[address] [facility] [address] [place], [place] [phone] Matthias Maria MD [address] [place] [address] Pain in both knees, unspecified chronicity (Primary [...] Description 01/10/2025 9:45 AM EDT Office Visit [facility] [address] [place] [address] Richie Raines MD [address] [place] [address] documented as of this encounter Visit Diagnoses Diagnosis Pain in both knees, unspecified chronicity- Primary documented in this encounter Additional Health Concerns Assessment Noted Time PHQ-9 Depression Total Score: 0 08/10/20 2:42 PM EST documented as of this encounter Care Teams Worm Farm Laborer Relationship Specialty Start Date End Date Richie Raines MD [address] [place] [address] PCP - General Internal Medicine 08/19/23 documented as of this encounter
--- OUTSIDE RECORDS SUMMARY | 2025-01-05 12:59 | XMS_ITS | Encounter Summary ---
Author Organization [employer] Address [address] [facility] 7 [place] [address] Care Team Providers Care Brake Specialist Name Role Phone Richie Raines MD Primary Care Prov ider Reason for Visit * Reason Onset Date Comments Reschedule Request 11/30/2023 Encounter Details Date Type Department Care Team (Late st Contact Info) Description 11/30/2023 Telephone [facility] MEDICINE [address] [place] [address] Richie Raines MD [address] [place], [place] [phone] Reschedule Request Social History Tobacco Use Types [...] AM EDT Triage call to Pt with [place] Occup Ther ID [id number]. Pt didn't answer. Left voice message to call [facility] triage line [phone] * Telephone Encounter - Raimundo Contreras - 11/30/2023 11:41 AM EDT Tc from pt requesting to reschedule today's same day visit. Please contact pt at [phone]. documented in this encounter Plan of Treatment Upcoming Encounters Date Type Department Care Team (Late st Contact Info) Description 01/10/2025 9:45 AM EDT Office Visit [facility] CHC MED & PEDS [address] [place] [address] Richie Raines MD [address] [place] [address] documented as of this encounter Visit Diagnoses Not on filedocumented in this encounter Additional Health Concerns Assessment Noted Time PHQ-9 Depression Total Score: 0 08/10/20 23 2:42 PM EST documented as of this encounter Care Teams Brake Specialist Relationship Specialty Start Date End Date Richie Raines MD [address] [place] [address] PCP - General Internal Medicine 08/19/23 documented as of this encounter
--- OUTSIDE RECORDS SUMMARY | 2025-01-05 12:59 | XMS_ITS | Encounter Summary ---
Author Organization [employer] Address [address] [facility] 7t [place] [address] Care Team Providers Care Bookkeeping Assistant Name Role Phone Richie Raines MD Primary Care Prov ider Reason for Visit * Reason Comments Med Change Request Encounter Details Date Type Department Care Team ([facility] st Contact Info) Description 11/11/2023 Refill [facility] [address] [place] [address] Mtathias Maria MD [address] [place] [address] Chronic bilateral low back pain without sciatica [...] Upcoming Encounters Date Type Department Care Team ([facility] st Contact Info) Description 01/10/2025 9:45 AM EDT Office Visit [facility] CHC MED & PEDS [address] [place] [address] Richie Raines MD [address] [place] [address] documented as of this encounter Visit Diagnoses Diagnosis Chronic bilateral low back pain without sciatica documented in this encounter Additional Health Concerns Assessment Noted Time PHQ-9 Depression Total Score: 0 08/10/20 2:42 PM EST documented as of this encounter Care Teams Bookkeeping Assistant Relationship Specialty Start Date End Date Richie Raines MD [address] [place] [address] PCP - General Internal Medicine 08/19/23 documented as of this encounter
--- OUTSIDE RECORDS SUMMARY | 2025-01-05 12:59 | XMS_ITS | Encounter Summary ---
Author Organization [employer] Address 75 [facility] 7t [place] [address] Care Team Providers Care Evaporator Helper Name Role Phone Richie Raines MD Primary Care Prov ider Reason for Visit * Reason Onset Date Comments Referral 02/18/2024 Encounter Details Date Type Department Care Team (Late st Contact Info) Description 02/18/2024 Telephone [facility] MEDICINE [address] [place] [address] Richie Raines MD [address] [place], [place] [phone] Referral Social History Tobacco Use Types Packs/Day [...] calling to request a referral for a Roll Forger states has a appt for sleep studyin April and like is having breathing problems at night and the patient would like to be seen at [facility] [address] [place] [address] [place], [address] Dr. Dipesh Contreras MD documented in this encounter Plan of Treatment Upcoming Encounters Date Type Department Care Team (Late st Contact Info) Description 01/10/2025 9:45 AM EDT Office Visit [facility] CHC MED & PEDS [address] [place] [address] Richie Raines MD [address] [place] [address] documented as of this encounter Visit Diagnoses Diagnosis Fibromyalgia Unspecified myalgia and myositis documented in this encounter Additional Health Concerns Assessment Noted Time PHQ-9 Depression Total Score: 0 08/10/20 23 2:42 PM EST documented as of this encounter Care Teams Evaporator Helper Relationship Specialty Start Date End Date Richie Raines MD [address] [place] [address] PCP - General Internal Medicine 08/19/23 documented as of this encounter
--- OUTSIDE RECORDS SUMMARY | 2025-01-05 12:59 | XMS_ITS | Encounter Summary ---
Author Organization [employer] Address 75 [facility] 7 [place] [address] Care Team Providers Care Chicken And Fish Cleaner Name Role Phone Richie Raines MD Primary Care Prov ider Reason for Visit * Reason Onset Date Comments Med Refill 02/18/2024 Encounter Details Date Type Department Care Team (Late st Contact Info) Description 02/18/2024 Telephone [facility] [address] [place] [address] Richie Raines MD [address] [place], [place] [phone] Med Refill Social History Tobacco Use Types [...] 150 MG capsule To be sent to: [facility][id number] - [address] documented in this encounter Plan of Treatment Upcoming Encounters Date Type Department Care Team (Late st Contact Info) Description 01/10/2025 9:45 AM EDT Office Visit [facility] MED & PEDS [address] [place] [address] Richie Raines MD [address] [place] [address] documented as of this encounter Visit Diagnoses Not on filedocumented in this encounter Additional Health Concerns Assessment Noted Time PHQ-9 Depression Total Score: 0 08/10/20 2:42 PM EST documented as of this encounter Care Teams Chicken And Fish Cleaner Relationship Specialty Start Date End Date Richie Raines MD [address] [place] [address] PCP - General Internal Medicine 08/19/23 documented as of this encounter
--- OUTSIDE RECORDS SUMMARY | 2025-01-05 12:59 | XMS_ITS | Encounter Summary ---
Author Organization [employer] Address 75 [facility] 7t [place] [address] Care Team Providers Care Sack Maker Name Role Phone Richie Raines MD Primary Care Prov ider Reason for Visit * Reason Onset Date Comments Referral 11/29/2023 Encounter Details Date Type Department Care Team (Late st Contact Info) Description 11/29/2023 Telephone [facility] MEDICINE 230 [place] [address] Richie Raines MD 505 [place], [place] [phone] Referral Social History Tobacco Use Types Packs/Day [...] Pt would like to be referred to [facility] instead. Please contact pt at [phone]. documented in this encounter Plan of Treatment Upcoming Encounters Date Type Department Care Team (Late st Contact Info) Description 01/10/2025 9:45 AM EDT Office Visit [facility] CHC MED & PEDS [address] [place] [address] Richie Raines MD [address] [place] [address] documented as of this encounter Visit Diagnoses Not on filedocumented in this encounter Additional Health Concerns Assessment Noted Time PHQ-9 Depression Total Score: 0 12/19/20 23 2:42 PM EST documented as of this encounter Care Teams Sack Maker Relationship Specialty Start Date End Date Richie Raines MD [address] [place] [address] PCP - General Internal Medicine 08/19/23 documented as of this encounter
[2025-01-06 15:06] LABS: Bacterial Vaginosis PCR NEGATIVE (Negative); Candida Group PCR NOT DETECTED (Not Detect); Candida glab krusei PCR NOT DETECTED (Not Detect); Trichomonas vaginalis PCR NOT DETECTED (Not Detect)
[2025-01-06 15:37] LABS: CT PCR NOT DETECTED (Not Detect.); NG PCR NOT DETECTED (Not Detect.)
== END 2025-01-05 10:52 | disposition home or self-care (01) ==
LOC: HO.LNP 10:51
PROVIDERS: Visit Provider Advanced Practice Midwife
DX: N92.4 Excessive bleeding in the premenopausal period (principal); D50.8 Other iron deficiency anemias; Z92.89 Personal history of other medical treatment; Z11.3 Encounter for screening for infections with a predominantly sexual mode of transmission
CPT/HCPCS: 58100; 81515; 87491; 87591; 88305; 99202

== ENCOUNTER 2025-01-10 10:38 | Outpatient (REF) | payer MEDICARE, MEDICAID, SELFPAY ==
[2025-01-10 14:52] LABS: Rheumatoid Factor < 13.0 IU/mL (<15.0)
[2025-01-10 15:09] LABS: C Reactive Protein < 0.10 mg/dL (< or = 0.50); Cholesterol 192 mg/dL (<200); HDL Cholesterol 45 mg/dL (>40); LDL Cholesterol Calculated 119 mg/dL (<100); Triglycerides 140 mg/dL (<150)
[2025-01-10 15:24] LABS: TSH reflex Free T4 2.33 uIU/mL (0.32-4.0)
[2025-01-10 15:25] LABS: Erythrocyte Sedimentation Rate 2 MM/HR (0-20)
[2025-01-11 16:04] LABS: Anti DNA DS Antibody 1 IU/mL
[2025-01-12 10:53] LABS: Cyclic Citrullinated Peptide <16 UNITS
[2025-01-12 15:14] LABS: Anti Nuclear Antibody Screen NEGATIVE (NEGATIVE)
== END 2025-01-10 10:39 | disposition home or self-care (01) ==
LOC: HO.CHCLDS 10:38
PROVIDERS: Visit Provider Internal Medicine
DX: M25.50 Pain in unspecified joint (principal); E03.9 Hypothyroidism, unspecified
CPT/HCPCS: 36415; 80061; 84443; 85652; 86038; 86140; 86200; 86225; 86431

== ENCOUNTER 2025-01-11 11:48 | Outpatient (AMB) | payer MEDICARE, MEDICAID, SELFPAY ==
--- NOTE | 2025-01-11 11:49 | MHC.OFFVIS ---
Intake Visit Reasons: EMB results Allergies Penicillins Adverse Reaction (Severe, Verified 01/05/25 10:58) rash HPI HPI EMB results: Details: pt is scheduled for emb results. pleases see below for details of last visit: Menorrhagia with regular cycle: Details: Patient is here for visit to discuss heavy periods with regular cycle. She said she normally sees My GOODRCIH at the [facility] her listed primary care prefer provider's Dr. العراقي but she says she has never met him. She says she has never been here before most information was elicited on questioning she believes she was referred here. She tells me that she has always had regular periods but last fall she was found to be anemic so she started being seen by Hematology and she got iron transfusions because she has been unable to tolerate the oral iron it makes her sick and various ways. She tells me she also was sent for an ultrasound that she had some months ago and she did not talk with her provider after the results of that is so she does not know the results though she did see it on her portal she has a number of other health issues including various orthopedic and pain issues and mental health issues she does have a mental health provider and is on meds and she has fibromyalgia and she takes meds for her thyroid. She is not sexually active and has not been for 5 or 6 years she never needed to use any kind of control though what 1 time she was given control pills to help with her. They have always always always been long and heavy she does not get a lot of pain with them though although she gets pain in her joints that tells her that her periods coming. After this history was elicited as I did find a referral in the office. I reviewed her history with her I reviewed the ultrasound that I was able to find in the system that was done in September that showed normal findings. I reviewed her blood work and she indeed had been very anemic but her hemoglobin at the last draw was 12 so it has improved after the iron transfusions. Her periods started yesterday she she is not bleeding exceptionally heavy today but expects to. More the issue is that it lasts for 9 days. I reviewed with her that with their normal ultrasound that the next step to do would be to assess her endometrial lining to make sure there is no abnormal or cancerous cells there and the best thing to do would be an endometrial biopsy just to be sure. Discussed that it will hurt and cramps somewhat but since she is here and she has had this issue for a while it makes sense to try and do it now. 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 [facility] Medical History Dysphagia RLS (restless legs syndrome) GERD (gastroesophageal reflux disease) Bilateral chronic knee pain Chronic back pain Fibromyalgia Chronic pain in left foot Anxiety Depression Hypothyroidism Surgical History History of esophagogastroduodenoscopy (EGD) H/O colonoscopy Family History (Updated 01/05/25 @ 11:05 by Liliya Mckeon CMA) Mother Diabetes Hypothyroid Family/Other Breast cancer Brother Hypothyroid Father Hypothyroid Daughter Hypothyroid Social History (Updated 01/05/25 @ 11:06 by Liliya Mckeon CMA) Household Members: Family Housing: Apartment Do you presently have visiting nurse or other home services: No Alcohol intake: never Patient Tobacco Use Status: Never used Tobacco Current occupational status: unemployed Sexual orientation: Straight/Heterosexual Gender identity: Female Telehealth Telehealth Telehealth Platform: [email or web address] Location of provider rendering services: other Location of patient: address on file Patient Identification confirmed using: Name, : Yes Telehealth method: voice only Patient verbally consented to treatment: Yes Patient verbally consented to billing insurance company: Yes Patient informed of any privacy concerns related to visit: Yes Minutes spent on Phone/Video with Pt.: 12 (5cr/12 speaking w pt/10 charting=27) Results Reviewed Results Reviewed: Name: Chhaya Dey Age/Sex: 49/F Attending: Radha Loera CNM : 1975 Submitted by: Radha Loera CNM Copies to: MR #: [id number] Status: DEP REF Collected: 01/05/25 Location: [facility] Received: 01/08/25 Diagnosis Endometrium, biopsy: - Lytic endometrium; no atypia or hyperplasia identified. - Rare fragment of squamous epithelium within normal limits. Clinical History Menorrhagia Microscopic Description Microscopic sections reviewed. Material Received EMB Gross Description Received in formalin labeled ?EMB? is a 1.8 x 1.5 x 0.5 cm aggregate of multiple tubular cast fragments of congested and hemorrhagic red-maroon tissue and blood, submitted in toto in a cassette labeled A. CEDS NOTE: Unless otherwise stated, all tissue is formalin-fixed and paraffin-embedded. Some or all of the immunohistochemical tests reported herein may have been developed and their performance characteristics determined by [facility]. They have not been cleared or approved by the U.S. Food and Drug Administration (FDA). However, the FDA has determined that such clearance or approval is not necessary. This laboratory is certified under the Clinical Laboratory Improvement Amendments of 1988 (CLIA) as qualified to perform high complexity clinical laboratory testing. Electronically Signed By: Satinder Thomas MD 01/09/25 1152 Patient: Chhaya Dey Age/Sex: 49/F MR#: [id number] Page 1 of 1 Patient: Chhaya Dey MR#: [id number] : 1975 Acct:[id number] Age/Sex: 49 / F ADM Date: 10/19/24 Loc: Attending Dr: Devi Diaz CNM Ordering Physician: DEVI DIAZ CNM Date of Service: 10/19/24 Procedure(s): US pelvic and transvaginal Accession Number(s): [id number] cc: Lolly French MD; DEVI DIAZ CNM~ EXAMINATION: US PELVIS CLINICAL INFORMATION: Menorrhagia. COMPARISON: None available. TECHNIQUE: Ultrasound of the pelvis is performed using both transabdominal and transvaginal transducers along with Doppler. Transvaginal imaging is performed due to inadequate visualization transabdominally. FINDINGS: Uterus: The uterus is anteverted, anteflexed, and measures 8.0 x 4.4 x 4.7 cm. Normal sonographic appearance of the cervix. The double wall endometrial thickness is 17 mm. It is uniform without irregularity. The uterus is smooth in contour and has normal myometrial echogenicity. No visible fibroid. Adnexa: Both ovaries are visualized. There is normal color flow to the adnexa. There is no ovarian torsion. There is no pelvic ascites or fluid collection. There are no adnexal masses. Right ovary measures 3.4 x 3.2 x 3.3 cm. Volume = 18.8 mL. Sonographic appearance. Dominant follicle present measuring 1.9 cm. Left ovary is not well seen, obscured by gas. US/US pelvic and transvaginal IMPRESSION: 1. Normal-appearing uterus and endometrium. Normal endometrial thickness at 17 mm. It is uniform without irregularity. 2. No definite fibroid tumors identified. 3. Normal right ovary. The left ovary could not be definitively identified, obscured by gas. Electronically signed by: Jesse Felton MD 10/19/2024 11:59 AM [facility] Dictated By: Jesse Felton MD Signed By: <Electronically signed by Jesse Felton MD in OV> 10/19/24 1159 DD/ 1129 TD/TT: 10/19/24 1142 Machinist 2Nd Shift: Name: Chhaya Dey Age/Sex: 48/F Attending: Richie Raines MD : 1975 Submitted by: DEVI DIAZ CNM Copies to: MR #: [id number] Status: DEP REF Collected: 09/21/23 [facility] Received: 09/23/23 Interpretation General Category: Negative for intraepithelial lesion/malignancy. Adequacy: Endocervical component present. Interpretation: Reactive cellular changes. Blood and few endometrial cells present. HPV mRNA E6/E7: Not Detected This assay detects E6/E7 viral messenger RNA (mRNA) from 14 high-risk HPV types (16, 18, 31, 33, 35, 39, 45, 51, 52, 56, 58, 59, 66, 68) HPV testing performed by [facility], [place], [place]. See reference laboratory portion of the EMR for entire report. Clinical Information LMP: Unknown date Previous PAP test:Unknown date/findings Material Received ThinPrep-Cervical Electronically Signed By: Flori Membreno 10/06/23 1423 The Pap Test is a screening procedure with the inherent possibility of both false negative and false positive results. Results should be interpreted in the context of historic and current clinical findings. Reliability of the Pap Test is enhanced by performing the test on a regular repetitive basis. Patient: Chhaya Dey Age/Sex: 48/[id number] MR#: [id number] Page 1 of 1 Assessment & Plan Assessment & Plan (1) Menorrhagia, premenopausal: Code(s): N92.4 - Excessive bleeding in the premenopausal period Category: Medical Plan I reviewed the patient's ultrasound again with her and I reviewed the biopsy results which essentially negative and reassuring. 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 She reviewed her history of anemia she is being followed by Hematology hemoglobin was on November 27 I reviewed with her in the chart 13.2. And she also saw her primary care the other day yesterday, and is being followed. She remembers our discussion that if the bleeding continued to be very heavy and was problematic that 1 thing is often considered at this stage is a Mirena IU S and she considered it after discussion at the last visit and she has decided that if everything turns out okay she is going to keep going a long as she is going since she is not anemic at this time and she is following up with allergy her primary care provider and all of the other provider's and she is doing well she is not able to take ibuprofen anymore because she was told not to but she can take Tylenol but she does not get bad cramps with the. So she is good and she does not want to do that, and she will just keep on with her periods as they are. I reviewed her last Pap smear and that she sees My Diaz every year, and she probably be due for Pap smear for another 5 years from 2023 as because it was negative and she has no history of abnormal. She is not sexually active and does not need anything for control either. She is going to continue her care with the [facility]. Coding Level of Care Code Tele Est Pt Level 3 (22811) Diagnoses Menorrhagia, premenopausal N92.4
--- OUTSIDE RECORDS SUMMARY | 2025-01-11 12:19 | XMS_ITS | Encounter Summary ---
Author Organization [employer] Address 75 [facility] 7t [place] [address] Care Team Providers Care Precision Inspector Name Role Phone Richie Raines MD Primary Care Prov ider Reason for Visit * Reason Comments Med Refill Encounter Details Date Type Department Care Team (Late st Contact Info) Description 08/05/2023 Refill [facility] [address] [place] [address] Heath Woodson MD [address] [place] [address] Social History Tobacco Use Types Packs/Day Years [...] Care Team (Late st Contact Info) Description 01/17/2025 1:00 PM EDT Office Visit [facility] [address] [place] [address] Rod Ramos 505 [place] [address] documented as of this encounter Visit Diagnoses Not on filedocumented in this encounter Additional Health Concerns Assessment Noted Time PHQ-9 Depression Total Score: 17 023 4:25 PM EST documented as of this encounter Care Teams Precision Inspector Relationship Specialty Start Date End Date Richie Raines MD 505 [place] [address] PCP - General Internal Medicine 08/19/23 documented as of this encounter
--- OUTSIDE RECORDS SUMMARY | 2025-01-11 12:19 | XMS_ITS | Encounter Summary ---
Author Organization [employer] Address [address] [place] [address] 7 [place] [address] Care Team Providers Care Orchestra Musician Name Role Phone Richie Raines MD Primary Care Prov ider Reason for Visit * Reason Comments Med Refill Encounter Details Date Type Department Care Team ([facility] st Contact Info) Description 11/22/2024 Refill [facility] MED [facility] PEDS [address] [place] [address] Richie Raines MD [address] [place] [address] Fibromyalgia Social History Tobacco Use Types Packs/Day [...] Description 01/17/2025 1:00 PM EDT Office Visit [facility] [address] [place] [address] Rod Ramos [address] [place] [address] documented as of this encounter Visit Diagnoses Diagnosis Fibromyalgia Unspecified myalgia and myositis documented in this encounter Additional Health Concerns Assessment Noted Time PHQ-9 Depression Total Score: 0 08/10/20 23 2:42 PM EST documented as of this encounter Care Teams Orchestra Musician Relationship Specialty Start Date End Date Richie Raines MD [address] [place] [address] PCP - General Internal Medicine 08/19/23 documented as of this encounter
--- OUTSIDE RECORDS SUMMARY | 2025-01-11 12:19 | XMS_ITS | Encounter Summary ---
Author Organization [employer] Address 75 [facility] 7t [place] [address] Care Team Providers Care Swatch Checker Name Role Phone Richie Raines MD Primary Care Prov ider Encounter Details Date Type Department Care Team ([facility] st Contact Info) Description 09/28/2023 Telephone [facility] CHC MED & PEDS [address] [place], [place] [phone] Richie Raines MD [address] [place] [address] Social History Tobacco Use Types Packs/Day Years [...] [facility] st Contact Info) Description 01/17/2025 1:00 PM EDT Office Visit [facility] [address] [place] [address] Ramos Jdshawn [address] [place] [address] documented as of this encounter Visit Diagnoses Not on filedocumented in this encounter Additional Health Concerns Assessment Noted Time PHQ-9 Depression Total Score: 0 08/10/20 2:42 PM EST documented as of this encounter Care Teams Swatch Checker Relationship Specialty Start Date End Date Richie Raines MD [address] [place] [address] PCP - General Internal Medicine 08/19/23 documented as of this encounter
--- OUTSIDE RECORDS SUMMARY | 2025-01-11 12:19 | XMS_ITS | Encounter Summary ---
Author Organization [employer] Address [address] [facility] 7t [place] [address] Care Team Providers Care Stem Frazer Name Role Phone Richie Raines MD Primary Care Prov ider Reason for Visit * Reason Comments Med Refill Encounter Details Date Type Department Care Team (Late st Contact Info) Description 07/29/[address] [facility] [address] [place] [address] Heath Woodson MD [address] [place] [address] Social History Tobacco Use Types Packs/Day Years [...] Description 01/17/2025 1:00 PM EDT Office Visit [facility] ADULT DENTAL 505 [place] [address] Rod Ramos [address] [place] [address] documented as of this encounter Visit Diagnoses Not on filedocumented in this encounter Additional Health Concerns Assessment Noted Time PHQ-9 Depression Total Score: 17 023 4:25 PM EST documented as of this encounter Care Teams Stem Frazer Relationship Specialty Start Date End Date Richie Raines MD [address] [place] [address] PCP - General Internal Medicine 08/19/23 documented as of this encounter
--- OUTSIDE RECORDS SUMMARY | 2025-01-11 12:19 | XMS_ITS | Encounter Summary ---
Author Organization [employer] Address [address] [facility] 7 [place] [address] Care Team Providers Care Medical Practice Assistant Name Role Phone Rihcie Raines MD Primary Care Prov ider Reason for Visit * Reason Onset Date Comments Appointment Request 09/16/2023 Encounter Details Date Type Department Care Team ([facility] st Contact Info) Description 09/16/2023 Telephone [facility] MEDICINE [address] [place] [address] Richie Raines MD [address] [place], [place] [phone] Appointment Request Social History Tobacco Use Types [...] Description 01/17/2025 1:00 PM EDT Office Visit [facility] CHC ADULT DENTAL [address] [place] [address] Tavo Ramosvegasheng [address] [place] [address] documented as of this encounter Visit Diagnoses Not on filedocumented in this encounter Additional Health Concerns Assessment Noted Time PHQ-9 Depression Total Score: 0 08/10/20 2:42 PM EST documented as of this encounter Care Teams Medical Practice Assistant Relationship Specialty Start Date End Date Richie Raines MD [address] [place] [address] PCP - General Internal Medicine 08/19/23 documented as of this encounter
--- OUTSIDE RECORDS SUMMARY | 2025-01-11 12:19 | XMS_ITS | Encounter Summary ---
Author Organization [employer] Address [address] [facility] 7t [place] [address] Care Team Providers Care Promotions Associate Name Role Phone Richie Raines MD Primary Care Prov ider Reason for Visit * Reason Comments Med Refill Encounter Details Date Type Department Care Team (Late st Contact Info) Description 09/20/[address] [facility] WALK-IN CENTER [address] [place] [address] Kaleigh Kiran, MARV [address] [place] [address] Fibromyalgia Social History Tobacco Use Types Packs/Day [...] Description 01/17/2025 1:00 PM EDT Office Visit [facility] ADULT DENTAL [address] [place] [address] Rod Ramos 505 [place] [address] documented as of this encounter Visit Diagnoses Diagnosis Fibromyalgia Unspecified myalgia and myositis documented in this encounter Additional Health Concerns Assessment Noted Time PHQ-9 Depression Total Score: 0 08/10/20 2:42 PM EST documented as of this encounter Care Teams Promotions Associate Relationship Specialty Start Date End Date Richie Raines MD [address] [place] [address] PCP - General Internal Medicine 08/19/23 documented as of this encounter
--- OUTSIDE RECORDS SUMMARY | 2025-01-11 12:19 | XMS_ITS | Encounter Summary ---
Author Organization [employer] Address [address] [facility] 7t [place] [address] Care Team Providers Care Cable Assembler Name Role Phone Richie Raines MD Primary Care Prov ider Encounter Details Date Type Department Care Team ([facility] st Contact Info) Description 04/09/2024 Orders Only [facility] CHC MED & PEDS [address] [place], [place] [phone] Richie Raines MD [address] [place] [address] Social History Tobacco Use Types Packs/Day Years [...] Upcoming Encounters Date Type Department Care Team ([facility] st Contact Info) Description 01/17/2025 1:00 PM EDT Office Visit [facility] ADULT DENTAL [address] [place] [address] RamosJd trinidadshawn [address] [place] [address] documented as of this encounter Visit Diagnoses Not on filedocumented in this encounter Additional Health Concerns Assessment Noted Time PHQ-9 Depression Total Score: 0 08/10/20 2:42 PM EST documented as of this encounter Care Teams Cable Assembler Relationship Specialty Start Date End Date Richie Raines MD [address] [place] [address] PCP - General Internal Medicine 08/19/23 documented as of this encounter
--- OUTSIDE RECORDS SUMMARY | 2025-01-11 12:19 | XMS_ITS | Encounter Summary ---
Author Organization [employer] Address [address] [place] [address] 7 [place] [address] Care Team Providers Care Ceramic Coater Machine Name Role Phone Richie Raines MD Primary Care Prov ider Reason for Visit * Reason Comments Med Refill Encounter Details Date Type Department Care Team ([facility] st Contact Info) Description 12/12/2024 Refill [facility] CHC MED & PEDS [address] [place] [address] Richie Raines MD [address] [place] [address] Fibromyalgia Social History Tobacco Use Types Packs/Day [...] Description 01/17/2025 1:00 PM EDT Office Visit [facility] ADULT DENTAL [address] [place] [address] Rod Ramos [address] [place] [address] documented as of this encounter Visit Diagnoses Diagnosis Fibromyalgia Unspecified myalgia and myositis documented in this encounter Additional Health Concerns Assessment Noted Time PHQ-9 Depression Total Score: 9 11/29/19 25 9:59 AM EDT documented as of this encounter Care Teams Ceramic Coater Machine Relationship Specialty Start Date End Date Richie Raines MD [address] [place] [address] PCP - General Internal Medicine 08/19/23 documented as of this encounter
--- OUTSIDE RECORDS SUMMARY | 2025-01-11 12:19 | XMS_ITS | Encounter Summary ---
Author Organization [employer] Address [address] [facility] 7t [place] [address] Care Team Providers Care Conference Interpreter Name Role Phone Richie Raines MD Primary Care Prov ider Encounter Details Date Type Department Care Team (Late st Contact Info) Description 11/30/2024 Abstract [facility] MEDICINE [address] [place] [address] Richie Raines MD [address] [place] [address] Social History Tobacco Use Types Packs/Day Years [...] Description 01/17/2025 1:00 PM EDT Office Visit [facility] CHC ADULT DENTAL [address] [place] [address] Jd Ramosanpreet [address] [place] [address] documented as of this encounter Procedures Procedure Name Priority Date/Time Associated Diagnosis Comments COLONOSCOPY Routine 10/30/2024 documented in this encounter Results * Hm Colonoscopy (10/30/2024) Colonoscopy Normal Normal Richie Blanc MD HEALTH MAINTENANCE Final Result documented in this encounter Visit Diagnoses Not on filedocumented in this encounter Additional Health Concerns Assessment Noted Time PHQ-9 Depression Total Score: 9 11/29/19 25 9:59 AM EDT documented as of this encounter Care Teams Conference Interpreter Relationship Specialty Start Date End Date Richie Raines MD [address] [place] [address] PCP - General Internal Medicine 08/19/23 documented as of this encounter
--- OUTSIDE RECORDS SUMMARY | 2025-01-11 12:20 | XMS_ITS | Encounter Summary ---
Author Organization [employer] Address [address] [facility] 7t [place] [address] Care Team Providers Care Quality Control Engineer Name Role Phone Richie Raines MD Primary Care Prov ider Reason for Visit * Reason Onset Date Comments Referral 02/18/2024 Encounter Details Date Type Department Care Team (Late st Contact Info) Description 02/18/2024 Telephone [facility] MEDICINE [address] [place] [address] Richie Raines MD [address] [place], [place] [phone] Referral Social History Tobacco Use Types Packs/Day [...] calling to request a referral for a Photo Mask Cleaner states has a appt for sleep studyin April and fells like is having breathing problems at night and the patient would like to be seen at [facility] [address] [place] [address] [place], [address] Dr. Dipesh Contreras MD documented in this encounter Plan of Treatment Upcoming Encounters Date Type Department Care Team (Late st Contact Info) Description 01/17/2025 1:00 PM EDT Office Visit [facility] ADULT DENTAL [address] [place] [address] Rod Ramos [address] [place] [address] documented as of this encounter Visit Diagnoses Diagnosis Fibromyalgia Unspecified myalgia and myositis documented in this encounter Additional Health Concerns Assessment Noted Time PHQ-9 Depression Total Score: 0 08/10/20 23 2:42 PM EST documented as of this encounter Care Teams Quality Control Engineer Relationship Specialty Start Date End Date Richie Raines MD [address] [place] [address] PCP - General Internal Medicine 08/19/23 documented as of this encounter
--- OUTSIDE RECORDS SUMMARY | 2025-01-11 12:20 | XMS_ITS | Encounter Summary ---
Author Organization [employer] Address [address] [facility] 7 [place] [address] Care Team Providers Care Garbage Pick Up Worker Name Role Phone Richie Raines MD Primary Care Prov ider Reason for Visit * Reason Onset Date Comments Reschedule Request 11/30/2023 Encounter Details Date Type Department Care Team ([facility] st Contact Info) Description 11/30/2023 Telephone [facility] MEDICINE [address] [place] [address] Richie Raines MD [address] [place] [address] Reschedule Request Social History Tobacco Use Types [...] AM EDT Triage call to Pt with [place] Drainlayer ID [id number]. Pt didn't answer. Left voice message to call [facility] triage line [phone] * Telephone Encounter - Raimundo Contreras - 11/30/2023 11:41 AM EDT Tc from pt requesting to reschedule today's same day visit. Please contact pt at [phone]. documented in this encounter Plan of Treatment Upcoming Encounters Date Type Department Care Team (Late st Contact Info) Description 01/17/2025 1:00 PM EDT Office Visit [facility] CHC ADULT DENTAL [address] [place] [address] Rod Ramos [address] [place] [address] documented as of this encounter Visit Diagnoses Not on filedocumented in this encounter Additional Health Concerns Assessment Noted Time PHQ-9 Depression Total Score: 0 08/10/20 2:42 PM EST documented as of this encounter Care Teams Garbage Pick Up Worker Relationship Specialty Start Date End Date Richie Raines MD [address] [place] [address] PCP - General Internal Medicine 08/19/23 documented as of this encounter
--- OUTSIDE RECORDS SUMMARY | 2025-01-11 12:20 | XMS_ITS | Encounter Summary ---
Author Organization [employer] Address [address] [facility] 7 [place] [address] Care Team Providers Care Paper Products Printer Name Role Phone Richie Raines MD Primary Care Prov ider Reason for Visit * Reason Onset Date Comments Med Refill 02/18/2024 Encounter Details Date Type Department Care Team (Late st Contact Info) Description 02/18/2024 Telephone [facility] MEDICINE [address] [place] [address] Richie Raines MD [address] [place], [place] [phone] Med Refill Social History Tobacco Use Types [...] 150 MG capsule To be sent to: [id number] - [address] documented in this encounter Plan of Treatment Upcoming Encounters Date Type Department Care Team (Late st Contact Info) Description 01/17/2025 1:00 PM EDT Office Visit [facility] ADULT DENTAL [address] [place] [address] Rod Ramos [address] [place] [address] documented as of this encounter Visit Diagnoses Not on filedocumented in this encounter Additional Health Concerns Assessment Noted Time PHQ-9 Depression Total Score: 0 08/10/20 2:42 PM EST documented as of this encounter Care Teams Paper Products Printer Relationship Specialty Start Date End Date Richie Raines MD [address] [place] [address] PCP - General Internal Medicine 08/19/23 documented as of this encounter
--- OUTSIDE RECORDS SUMMARY | 2025-01-11 12:20 | XMS_ITS | Clinical Summary ---
Author Organization [employer] Address [address] [place] [address] Care Team Providers Care Fun House Attendant Name Role Phone Richie Raines MD Primary [...] morning. 16 g 2 10/04/19 24 Active Omeprazole 20 MG tablet delayed-releas e [...] BREAKFAST 30 tablet 3 01/06/20 25 Active cyclobenzaprin e (Flexeril) 10 MG tablet Take 1 tablet (10 mg) by mouth 3 times daily for 10 days. 30 tablet 01/11/20 25 025 Active naproxen (Naprosyn) 500 MG tabletIndicati ons:Chronic bilateral low back pain without sciatica Take 1 tablet (500 mg) by mouth if needed in the morning and at bedtime for moderate pain. 30 tablet 01/11/20 25 026 Active predniSONE (Deltasone) 20 MG tablet Take 2 tablets (40 mg) by mouth Once per day for 5 days. 10 tablet 01/11/20 25 025 Active naproxen (Naprosyn) 500 MG tabletIndicati ons:Chronic bilateral low back pain without sciatica Take 1 tablet (500 mg) by mouth if needed in the morning and at bedtime for moderate pain. 30 tablet 03/29/20 24 025 Discontinued(Re order (will not trigger notification to Pharmacy)) pregabalin (Lyrica) 150 MG capsuleIndicat ions:Fibromyal felecia [...] order (will not trigger notification to Pharmacy)) naproxen (Naprosyn) 500 MG tabletIndicati ons:Chronic bilateral low back pain without sciatica Take 1 tablet (500 mg) by mouth if needed in the morning and at bedtime for moderate pain. 30 tablet 01/11/20 25 025 Discontinued cyclobenzaprin e (Flexeril) 10 MG tablet Take 1 tablet (10 mg) by mouth 3 times daily for 10 days. 30 tablet 01/11/20 25 025 Discontinued predniSONE (Deltasone) 20 MG tablet Take 2 tablets (40 mg) by mouth Once per day for 5 days. 10 tablet 01/11/20 25 025 Discontinued Active Problems Problem Noted Date Diagnosed Date Neck pain 01/10/2025 Assessment & Plan (01/10/2025 10:36 AM EDT): Chronic neck pain with associated right arm tingling, will order a MRI and will refer to ortho for evaluation, for pain relief, will prescribe naproxen/cyclobenzaprine/prednisone, er precaution reviewed Class 1 obesity due to exces s [...] and pelvic US wnl. will refer to [facility] Rhinosinusitis 10/04/2023 Assessment & Plan (10/06/2023 8:49 [...] EDT): Patient wants to be referred to [facility] for sleep study, will send new [...] (10/06/2023 8:51 AM EST): Reportedly done in [place] less than 5y ago She will bring [...] Tdap but she declined. Colonoscopy done in [place], she will bring report to PCP Mammogram: [...] and offer referral. Chronic pain, relocation [place] and severe depression are exacerbating symptoms. No risk for SI, nor self-harm. Provided psychoeducation around depression, anxiety and coping mechanisms to use when experiencing chronic pain. Recommended a referral for OP individual therapy and psychopharmacology, Patient hasn't been connected with a PCP yet. Provided [facility] number to get sooner appointment for psychiatry evaluation. At this time Chhaya Valljeo meets criteria for Visit Diagnoses: Problem List [...] and offer referral. Chronic pain, relocation from [place] and severe depression are exacerbating [...] take actions. PLAN: 1. Follow up with [facility]: Not recommended for follow-up 2. Patient [...] and offer referral. Chronic pain, relocation from [place] and severe depression are exacerbating [...] take actions. PLAN: 1. Follow up with [facility]: Not recommended for follow-up 2. Patient [...] Encounters Date Type Department Care Team Description 01/10/2025 11:00 AM EDT Office Visit [facility] ADULT DENTAL [address] [place] [address] Ramos, Maxwellet Abfraction (Primary Dx) 01/10/2025 9:45 AM EDT Office Visit [facility] MED & PEDS [address] [place] [address] Richie Raines MD Acquired hypothyroidism (Primary Dx); Chronic bilateral low back pain without sciatica; Multiple joint pain; Neck pain 01/10/2025 Travel 01/02/2025 Refill [facility] [address] [place] [address] Richie Raines MD 12/15/2024 Refill [facility] [address], [place] [phone] Richie Raines MD Fibromyalgia 12/12/2024 Refill [facility] [address] [place] [address] Richie Raines MD Fibromyalgia 11/30/2024 Telephone [facility] [address] [place] [phone] Richie Raines MD 11/30/[address] [address] Richie Raines MD 11/28/2024 10:00 AM EDT Office Visit [address] [address] Lolly French MD Menorrhagia with regular cycle (Primary Dx); Sickle cell trait ([facility]/HCC); Encounter for preventive health examination; Class 1 obesity due to excess calories with serious comorbidity and body mass index (BMI) of 30.0 to 30.9 in adult; Chronic heel pain, left; Dietary counseling; Exercise counseling 11/28/2024 Orders Only GENERIC EXTERNAL DATA DEPARTMENT Provider, Generic External Data 11/28/2024 Refill [facility] [address] [place] [address] Richie Raines MD Chronic bilateral low back pain without sciatica 11/28/2024 Travel 11/22/2024 Refill [facility] [address] [place] [address] Richie Raines MD Fibromyalgia 11/22/2024 Refill [facility] [address] [place] [phone] Richie Raines MD Fibromyalgia 11/20/2024 Patient Outreach [address] [address] Richie Raines MD Pre-visit Planning ([facility] screening completed on 09/27/2024) 11/06/2024 Refill [facility] [address] [place] [phone] Richie Raines MD Chronic bilateral low back pain without sciatica 10/31/2024 Orders Only GENERIC EXTERNAL DATA DEPARTMENT Provider, Generic External Data 10/31/2024 Travel 10/19/2024 Telephone [facility] [address] [place] [phone] Devi Diaz CNM from Last 3 Months [...] Sign Reading Time Taken Comments Blood Pressure 109/69 01/10/2025 9:39 AM EDT Pulse 92 01/10/2025 9:39 AM EDT Temperature 36.7 ??C (98 ??F) 01/10/2025 9:39 AM EDT Respiratory Rate 20 01/10/2025 9:39 AM EDT Oxygen Saturation 98% 09/21/2024 1:56 PM EST Inhaled Oxygen Concentration - - Weight 72.2 kg (159 lb 3.2 oz) 01/10/2025 9:39 A M EDT Height 154.9 cm (5' 1 ) 01/10/2025 9:39 AM EDT Body Mass Index 30.08 01/10/2025 9:39 AM EDT Plan of Treatment Upcoming Encounters Date Type Department Care Team (Late st Contact Info) Description 01/17/2025 1:00 PM EDT Office Visit [facility] ADULT DENTAL [address] [place] [address] RamosJdanpreet [address] [place] [address] Health Maintenance Due Date Last Done Comments CT Colonography 1975 FIT DNA/Cologuard 1975 FIT 1975 FOBT 1975 Sigmoidoscopy 1975 Disability Screening 1975 DTaP/Tdap/Td Vaccines (1 - Tdap) 1996 Hepatitis B Vaccines (1 of 3 - 19+ 3-dose series) 1996 COVID-19 Vaccine ( - season) 2024 Influenza Vaccine (#1) 2024 Dental Oral Exam 07/14/2025 01/10/2025 Dental Prophylaxis 07/14/2025 01/10/2025 Family Planning (PISQ) 09/21/2025 09/21/2024 SDOH Screening 09/27/2025 09/27/2024 Diagnostic Breast Imaging 10/03/20252024, 03/30/2024, 10/20/2023, Additional history exists Mammogram 10/03/2025 10/03/2024, 08/0 03/2024, 10/20/2023, Additional history exists Depression Screening 11/28/2025 11/28/2024, 11/29/19 Tobacco Screening 11/28/2025 11/28/2024 Alcohol/Substance Use Screening 01/10/2026 01/10/2025 Dental X-Ray: Bitewings 01/11/2026 01/10/2025 Zoster Vaccines (1 of 2) 2027 Dental X-Ray: Full Mouth 01/12/2028 01/10/2025 Cervical Cancer Screening 09/21/2028 HPV/Cotest 09/21/2028 09/21/2023 Pap Smear 09/21/2028 09/21/2023 Lipid Panel 01/10/2030 01/10/2025, 10/04/2023 Colonoscopy 10/30/2034 10/30/2024 Colorectal Cancer Screening [...] Procedure Name Priority Date/Time Associated Diagnosis Comments PROPHYLAXIS - ADULT Routine 01/10/2025 1 1:00 AM EDT COMPREHENSIVE PERIODONTAL EVALUATION - NEW OR ESTABLISHED PATIENT Routine 01/10/2025 11:00 AM EDT ORAL HYGIENE INSTRUCTIONS Routine 01/10/2025 11:00 AM EDT INTRAORAL - COMPLETE SERIES OF RADIOGRAPHIC IMAGES Routine 01/10/2025 11:00 AM EDT COMPREHENSIVE ORAL EVALUATION - NEW OR ESTABLISHED PATIENT Routine 01/10/2025 11:00 AM EDT RHEUMATOID FACTOR Routine 01/10/2025 10: 40 AM EDT Multiple joint pain C-REACTIVE PROTEIN Routine 01/10/2025 10 :40 AM EDT Multiple joint pain SED RATE BY MODIFIED WESTERGREN Routine 01/10/2025 10:40 AM EDT Multiple joint pain TSH W/REFLEX TO FT4 Routine 01/10/2025 1 0:40 AM EDT Acquired hypothyroidism LIPID PANEL, STANDARD Routine 01/10/2025 10:40 AM EDT Acquired hypothyroidism 31 MOL AMALGAM FILLING Routine 01/10/2025 12:00 AM EDT 30 MODL AMALGAM FILLING Routine 01/10/2025 12:00 AM EDT 29 CROWN - PORCELAIN/CERAMIC Routine 01/10/2025 12:00 AM EDT 19 MODBL AMALGAM FILLING Routine 01/10/2025 12:00 AM EDT 18 VINNY AMALGAM FILLING Routine 01/10/2025 12:00 AM EDT 17 O AMALGAM FILLING Routine 01/10/2025 12:00 AM EDT 15 LO AMALGAM FILLING Routine 01/10/2025 12:00 AM EDT 14 MOL AMALGAM FILLING Routine 01/10/2025 12:00 AM EDT 2 LO AMALGAM FILLING Routine 01/10/2025 12:00 AM EDT 12 MOD AMALGAM FILLING Routine 01/10/2025 12:00 AM EDT 4 MOD AMALGAM FILLING Routine 01/10/2025 12:00 AM EDT 4 MOD COMPOSITE FILLING Routine 01/10/2025 12:00 AM EDT XR FOOT 3+ VIEWS LEFT Routine 11/28/2024 [...] COLONOSCOPY Routine 10/30/2024 US PELVIS TRANSVAGINAL Urgent 10/19/2024 11:29 AM [...] Recently Relevant to Health Maintenance Results * TSH W/Reflex to FT4 (01/10/2025 10:40 AM EDT) TSH reflex Free T4 2.33 0.32 - 4.0 uIU/mL [facility] Blood Venous blood specimen / Unknown 01/10/2025 10:40 AM EDT 01/10/2025 2:08 PM EDT Richie Blanc MD LAB BLOOD ORDERABL ES Final Result Performing Organization Address [facility]/ZIP Co de Phone Number [facility] [address] [place] [phone] * Sed Rate by Modified Colleenren (01/10/2025 10:40 AM EDT) Pathologist [facility] Erythrocyte Sedimentation Rate 2 0 - 20 MM/HR [facility] Comment:Patients with polycy themia and many hemoglobin abnormalitiesmay have depressed sed rates whereas patients with anemiamay have elevated sed rates. Blood Venous blood specimen / Unknown 01/10/2025 10:40 AM EDT 01/10/2025 2:08 PM EDT Richie Blanc MD LAB BLOOD ORDERABL ES Final Result [facility] [address] [place] [phone] * Rheumatoid Factor (01/10/2025 10:40 AM EDT) Pathologist [facility] Rheumatoid Factor <13.0 <15.0 IU/mL [facility] Blood Venous blood specimen / Unknown 01/10/2025 10:40 AM EDT 01/10/2025 2:08 PM EDT Richie Blanc MD LAB BLOOD ORDERABL ES Final Result Performing Organization Address [facility]/ZIP Co de Phone Number [facility] [address] [place] [address] [phone] * C-reactive Protein (01/10/2025 10:40 AM EDT) C Reactive Protein <0.10 < or = 0.50 mg/dL [facility] Blood Venous blood specimen / Unknown 01/10/2025 10:40 AM EDT 01/10/2025 2:08 PM EDT Richie Blanc MD LAB BLOOD ORDERABL ES Final Result Performing Organization Address [facility] Co de Phone Number [facility] [address] [place] [phone] * (ABNORMAL) Lipid Panel, Standard (01/10/2025 10:40 AM EDT) Triglycerides 140 <150 mg/dL [facility] Comment:Desirable Triglyceri de: less than 150 mg/dLBorderline High Triglyceride 150-199 mg/dLHigh Triglyceride: 200-499 mg/dLVery High Triglyceride: greater than or equal to 5OO mg/dL Cholesterol 192 <200 mg/dL [facility] Comment:Desirable Cholestero l: less than 200 mg/dLBorderline High Cholesterol: 200-239 mg/dLHigh Cholesterol: greater than 239 mg/dL LDL Cholesterol Calculated 119(H) <100 mg/dL [facility] Comment:Desirable LDL: less than 100 mg/dLNear Optimal/Above Optimal LDL: 110- 129 mg/dLBorderline High LDL: 130-159 mg/dLHigh LDL: 160-189 mg/dLVery High LDL: greater than or equal to 190 mg/dL HDL Cholesterol 45 >40 mg/dL [facility] Comment:Desirable HDL: great er than 40 mg/dL Note: This HDL assay may give artificially low results in patients with liver disease. Blood Venous blood specimen / Unknown 01/10/2025 10:40 AM EDT 01/10/2025 2:08 PM EDT us Richie Blanc MD LAB BLOOD ORDERABL ES Final Result [facility] [address] [facility] [place] [phone] * XR Foot 3+ Views Left (11/28/2024 12:11 PM EDT) Anatomical Region Laterality Modality Lower Extremities, Foot Left Radiogra phic Imaging 11/28/2024 12:1 1 PM EDT Narrative 11/28/2024 1:08 PM EDT ? [facility] ?[address] ?[place] [address] ?XRay Report ? Signed ? Patient: Antonetty Vallejo,Chhaya ?MR#: ?? [id number] ? : 1975 ?Acct:[id number] ? Age/Sex: 49 / F ?ADM Date: 11/28/24 ? Loc: HO.HHCL ? Attending Dr: Lolly French MD ? Ordering Physician: Lolly French MD ?? Date of Service: 11/28/24 ?? Procedure(s): XR foot LT min 3V ?? Accession Number(s): [id number] ? cc: Lolly French MD ? EXAMINATION: [...] DD/ 1211 ? TD/TT: 11/28/24 1220 ? District Attorney: ? Procedure Note Donotuseinterpreter, Image - 11/28/[address] [address] XRay Report Signed Patient: Chhaya DeyMR#: [id number] : 1975Acct:[id number] Age/Sex: 49 / FADM Date: 11/28/24 Loc: HO.[facility] Attending Dr: Lolly French MD Ordering Physician: Lolly French MD Date of Service: 11/28/24 Procedure(s): XR foot LT min 3V Accession Number(s): [id number] cc: Lolly French MD EXAMINATION: XR FOOT, LEFT CLINICAL INFORMATION: left heel pain COMPARISON: None available. TECHNIQUE: AP, lateral, and oblique views of the left foot. FINDINGS: The bones and soft tissues are normal. No fracture. Alignment is anatomic. Joint spaces are maintained. XR/XR foot LT min 3V IMPRESSION: Normal left foot. Electronically signed by: Jesse [place] MD 11/28/2024 01:05 PM EDT Dictated By: Jesse Felton MD Signed By: <Electronically signed by Jesse Felton MD in OV> 11/28/24 1305 DD/ 1211 TD/TT: 11/28/24 1220 District Attorney: us Lolly French MD IMG XR PROCEDURES Final Result * Slide Review (11/28/2024 11:45 AM EDT) Slide Review VERIFIED [facility] 11/28/2024 11:4 5 AM EDT 11/28/2024 1:12 PM EDT us Generic External Data Provider LAB BLOOD ORDERAB LES Final Result [facility] [address] [place] [phone] * (ABNORMAL) Vitamin B12 (Cobalamin) and Folate Panel, Serum (11/28/2024 11:45 AM EDT) Vitamin B12 198(L) 200 - 900 pg/mL [facility] Comment:NORMAL 200-900 PG/M L INDETERMINATE 160-199 PG/ML DEFICIENT < 160 PG/ML Folate 6.5 > or = 4.0 ng/mL [facility] Comment:Reference Values:> o r = 4.0 ng/mL< 4.0 ng/mL suggests folate deficiency Methotrexate, aminopterin and folinic acid(leucovorin) are chemotherapeutic agents whose molecularstructures are similar to folate; therefore, the Architectfolate assay cannot be used for patients using these drugs. 11/28/2024 11:4 5 AM EDT 11/28/2024 1:12 PM EDT us Generic External Data Provider LAB BLOOD ORDERAB LES Final Result [facility] [address] [place] [phone] * T-SPOT??.TB (11/28/2024 11:45 AM EDT) [facility] T Spot TB Negative Negative [facility] Comment:A negative test resu lt [...] as aquantitative test. TS PANEL A 0 [facility] TS PANEL B 0 [facility] Negative Control Passed [facility] Positive Control Passed [facility] Comment:For additional infor rojas, please refer tohttp://education.1006.tv/faq/QNJ878(This link is being provided for informational/educational purposes only.)THIS TEST WAS PERFORMED AT:[employer] [id number] [place] [id number] OVERTON MD,PHD 11/28/2024 11:4 5 AM EDT 11/28/2024 1:12 PM EDT us Lolly French MD LAB BLOOD ORDERABLES Fin al Result [facility] [address] [place] [address] [phone] * (ABNORMAL) CBC auto differential (11/28/2024 11:45 AM EDT) White Blood Count 4.1(L) 4.8 - 10.8 X10*3/uL [facility] Red Blood Count 5.82(H) 4.20 - 5.50 X10*6/uL [facility] Hemoglobin 13.2 12.0 - 16.0 g/dl [facility] Hematocrit 40.8 37.0 - 47.0 % [facility] Mean Corpuscular Volume 70.1(L) 80.0 - 98.0 fL [facility] Mean Corpuscular Hemoglobin 22.7(L) 27.0 - 33.0 pg [facility] Mean Corpuscular HGB Conc 32.4 31.0 - 35.0 g/dl [facility] Red Cell Distribution Width 19.1(H) 11.0 - 16.0 % [facility] Platelet Count 275 160 - 400 X10*3/uL [facility] Neutrophils Percent Auto 58.1 45 - 73 % [facility] Imm Gran Pct Auto 0.2 0.0 - 0.4 % [facility] Lymphocytes Percent Auto 30.8 20 - 40 % [facility] Monocytes Percent Auto 7.9 2 - 11 % [facility] Eosinophils Percent Auto 2.5 0 - 4 % [facility] Basophils Percent Auto 0.5 0 - 2 % [facility] NRBC Pct Auto 0.0 0.0 - 0.2 /100WBC [facility] Neutrophils Absolute Auto 2.4 2.0 - 8.3 x10*3/uL [facility] Imm Gran Abs Auto 0.01 0.00 - 0.03 X10*3/uL [facility] Lymphocytes Absolute Auto 1.3 1.2 - 4.9 X10*3/uL [facility] Monocytes Absolute Auto 0.3 0.1 - 1.2 X10*3/uL [facility] Eosinophils Absolute Auto 0.1 0.0 - 0.4 X10*3/uL [facility] Basophils Absolute Auto 0.0 0.0 - 0.2 X10*3/uL [facility] NRBC Abs Auto 0.000 0.0 - 0.012 X10*3/uL [facility] 11/28/2024 11:4 5 AM EDT 11/28/2024 1:12 PM EDT us Generic External Data Provider LAB BLOOD ORDERAB LES Edited Result - Final [facility] [address] [place] [phone] * Methylmalonic Acid (11/28/2024 11:45 AM EDT) Methylmalonic Acid 109 55 - 335 nmol/L [facility] Comment: Serum methylmalonic acid (MMA) [...] outcomes,such as neural tube defects and intrauterine growthrestriction.Sonalight utilized Multi-Modal Decomposition(MMD) analysis to establish first and second trimester-specific MMA reference intervals in , as givenbelow:MMA, First trimester (<13 wks gestation): 58-167 nmol/LMMA, Second trimester (13-23 wks gestation):63-241 nmol/LThis test was developed and its analytical performancecharacteristics have been determined by [employer]. It has not been cleared or approved by theA. This assay has been validated pursuant to the CLIAregulations and is used for clinical purposes.THIS TEST WAS PERFORMED AT:[employer]/[id number] [place], [place] ??[id number] W. MASON,MD,PHD 11/28/2024 11:4 5 AM EDT 11/28/2024 1:12 PM EDT us Generic External Data Provider LAB BLOOD ORDERAB LES Final Result Performing Organization Address [facility] Co de Phone Number [facility] [address] [place] [phone] * Iron And Total Iron Binding Capacity (11/28/2024 11:45 AM EDT) Iron 110 30 - 160 mcg/dL [facility] Total Iron Binding Capacity 261 228 - 428 mcg/dL [facility] Percent Iron Saturation 42 15 - 50 % [facility] Unsaturated Iron Binding 151 ug/dL [facility] 11/28/2024 11:4 5 AM EDT 11/28/2024 1:12 PM EDT us Generic External Data Provider LAB BLOOD ORDERAB LES Final Result Performing Organization Address [facility]/ZIP Co de Phone Number [facility] [address] [place] [phone] * Ferritin (11/28/2024 11:45 AM EDT) Ferritin 90 10 - 250 ng/mL [facility] 11/28/2024 11:4 5 AM EDT 11/28/2024 1:12 PM EDT us Generic External Data Provider LAB BLOOD ORDERAB LES Final Result [facility] [address] [place] [phone] [phone] * Comprehensive Metabolic Panel (11/28/2024 11:45 AM EDT) Sodium 138 135 - 145 mmol/L [facility] Potassium 3.9 3.3 - 5.1 mmol/L [facility] Chloride 107 96 - 108 mmol/L [facility] Carbon Dioxide 23 22 - 29 mmol/L [facility] Anion Gap 12 12 - 20 [facility] Urea Nitrogen (BUN) 9 9 - 16 mg/dL [facility] Creatinine, Serum 0.69 0.5 - 1.4 mg/dL [facility] Estimated Glomerular Filt Rate >60 [facility] Comment:Chronic Kidney Disea se: Estimated GFR < 60 mL/min/1.57o8Duswxd Kidney Disease: Estimated GFR < 15 mL/min/1.73m2 Glucose 83 60 - 115 mg/dL [facility] Calcium 9.2 8.4 - 10.2 mg/dL [facility] Bilirubin, Total 0.3 0.0 - 1.0 mg/dL [facility] Aspartate Amino Transferase 27 5 - 31 U/L [facility] Alanine Aminotransferase 13 0 - 31 U/L [facility] Total Protein 7.2 6.5 - 8.0 g/dL [facility] Albumin Level 4.1 3.5 - 5.0 g/dL [facility] Alkaline Phosphatase 56 39 - 117 U/L [facility] 11/28/2024 11:4 5 AM EDT 11/28/2024 1:12 PM EDT us Generic External Data Provider LAB BLOOD ORDERAB LES Final Result [facility] [address] [place] [phone] * Hematoxylin and Eosin Stain (10/31/2024 1:17 PM EDT) 10/31/2024 1:17 PM EDT 10/31/2024 1:33 PM EDT Narrative [facility] - 11/02/2024 10:48 AM EDT ----- ------- Name: Chhaya Dey ? Age/Sex: 49/F ? : 1975 Unit#: [id number] ?? Attend Dr: Cindi Moreno MD ?Re10/31/24 ?Status: DEP SDC ? Location: HO.SSS ?Disch: ? ----- ------- SPEC : [id number] ? RECD: 10/31/24-3 ? STATUS: ??SOUT ? REQ NUM: [id number] ? CAN: 10/31/24-1317 ? SUBM DR: Cindi [...] ? Age/Sex: 49/F ? : 1975 Unit#: [id number] ?? Attend Dr: Cindi Moreno MD ?Re10/31/24 ?Status: DEP SDC ? Location: HO.SSS ?Disch: ? ----- ------- SPEC : [id number] ? RECD: 10/31/24-1332 ? STATUS: ??SOUT ? REQ NUM: [id number] ? CAN: 10/31/24-7 ? SUBM DR: Cindi Moreno MD ? [...] Copies To: ?? Lolly French MD ?? [facility] ?? [address] [facility] ?? [place] [address] ?? [phone] ?? Cindi Moreno MD ?? [facility] ?? [address] ?? [place] [address] ?? [phone] ?? [email or web address] ----- ------- Signed (signature on file) Flori Haseeb 11/02/24 1048 ? ----- ------- ? END OF REPORT ? Generic External Data Provider LAB BLOOD ORDERAB LES Final Result Performing Organization Address [facility] Co de Phone Number [facility] [address] [place] [address] [phone] * HCG, Qualitative, Urine (10/31/2024 11:01 AM EDT) Urine NEGATIVE NEGATIVE [facility] Comment:This test was develo ped to detect early . Falsenegative results may occur after the 5th - 7th week ofpregnancy when using this test method. If clinicallyindicated, consider a serum hCG. 10/31/2024 11:0 1 AM EDT 10/31/2024 11:10 AM EDT us Generic External Data Provider LAB URINE ORDERAB LES Final Result Performing Organization Address [facility] Co de Phone Number [facility] [address] [place], [place] [phone] * Hm Colonoscopy (10/30/2024) Colonoscopy Normal Normal Richie Blanc MD HEALTH MAINTENANCE Final Result * US Pelvis Transvaginal (10/19/2024 11:29 AM EST) Anatomical Region Laterality Modality Pelvis Ultrasound 10/19/2024 11:2 9 AM EST Narrative 10/19/2024 12:02 PM EST ? [facility] ?[address] ?[place] [address] ? Ultrasound Report ? Signed ? Patient: Antonetty Vallejo,Chhaya ?MR#: ?? [id number] ? : 1975 ?Acct:[id number] ? Age/Sex: 49 / F ?ADM Date: 10/19/24 ? Loc: HO.US ? Attending Dr: Devi Diaz CNM ? Ordering Physician: DEVI DIAZ CNM ?? Date of Service: 10/19/24 ?? Procedure(s): US pelvic and transvaginal ?? Accession Number(s): [id number] ? cc: Lolly French MD; DEVI DIAZ [...] DD/ 1129 ? TD/TT: 10/19/24 1142 ? District Attorney: ? Procedure Note Elfegomecca, Image - 10/19/2024 [place] [address] Ultrasound Report Signed Patient: Chhaya DeyMR#: [id number] : 1975Acct:[id number] Age/Sex: 49 / FADM Date: 10/19/24 Loc: HO.US Attending Dr: Devi Diaz CNM Ordering Physician: DEVI DIAZ CNM Date of Service: 10/19/24 Procedure(s): US pelvic and transvaginal Accession Number(s): [id number] cc: Lolly French MD; DEVI DIAZ CNM [...] 10/19/24 1159 DD/ 1129 TD/TT: 10/19/24 1142 District Attorney: Devi Diaz CN IMG US PROCEDURES Final R esult * BI Mammogram Diagnostic Tomosynthesis Bilateral (10/03/2024 12:20 PM EST) Anatomical Region Laterality Modality Breast Bilateral Mammography 10/03/2024 12:2 0 PM EST Narrative 10/03/2024 1:44 PM EST ? [facility] [place] ? [address] [facility] ?[place] [address] ? Mammography Report ? Signed ? Patient: Deandra Vallejo,Chhaya ?MR#: ?? [id number] ? : 1975 ?Acct:[id number] ? Age/Sex: 49 / F ?ADM Date: //25 ? Loc: HO.MAMMO ? Attending Dr: Lolly French MD ? Ordering Physician: Lolly French MD ?Results: 3.12MProbably Benign Finding - 12 month F/U ?? Suggested ? Date of Service: 10/03/24 ?Follow Up: 12 month diagnos ?? tic follow up ? Procedure(s): MM tomosynthesis diagnostic BI ?? Accession Number(s): [id number] ? cc: Lolly French MD ? EXAMINATION: [...] DD/ 1220 ? TD/TT: 10/03/24 1257 ? District Attorney: ? Procedure Note Ivanna, Image - 10/03/2024 [place] [facility] [address] [place] [address] Mammography Report Signed Patient: Chhaya Dey#: [id number] : 1975Acct:[id number] Age/Sex: 49 / FADM Date: 10/03/24 Loc: HO.MAMMO Attending Dr: Lolly French MD Ordering Physician: Lolly French MD Results: 3.12MProbably Benign Finding - 12 month F/U Suggested Date of Service: 10/03/24Follow Up: 12 month diagnos tic follow up Procedure(s): MM tomosynthesis diagnostic BI Accession Number(s): [id number] cc: Lolly French MD EXAMINATION: MM DIAGNOSTIC [...] Alecia Rose DO 10/03/2024 01:41 PM EST Dictated By: Alecia Rose DO Signed By: <Electronically signed by Alecia Rose DO in OV> 10/03/24 1341 DD/ 1220 TD/TT: 10/03/24 1257 District Attorney: Lolly French MD IMG BI PROCEDURES Final Result * Hepatitis Panel, General (10/04/2023 10:36 AM EST) Hepatitis A IgM Nonreactive Nonreactive [facility] Comment:IgM antibodies to ARREAGA V not detected; does not exclude earlyacute or recovered HAV infection. ~Hepatitis B Surface Antibody NONREACTIVE Nonreactive [facility] Comment:Nonreactive: < 8.00 mIU/mL Hepatitis B Core Antibody Nonreactive Nonreactive [facility] Hepatitis C Antibody Nonreactive Nonreactive [facility] Comment:Antibodies to HCV no t detected; does not exclude early acuteHCV infection. Hepatitis B Surface Ag Negative Negative [facility] Blood 10/04/2023 10:3 6 AM EST 10/04/2023 11:34 AM EST Lolly French MD LAB BLOOD ORDERABLES Fin al Result Performing Organization Address City/[facility] Co de Phone Number [facility] [address] [place] [phone] * HIV-1/2 Antigen and Antibodies, Fourth [...] below the limit ofdetection of this assay.The zuuka! HIV Ag/Ab Combo assay result andsupplemental assay results should be interpreted inconjunction with the patient's clinical presentation,history and other laboratory results. If the results areinconsistent with clinical evidence, additional testing issuggested to confirm the result. Blood Venous blood specimen / Unknown 10/04/2023 10:36 AM EST 10/04/2023 11:34 AM EST Lolly French MD LAB BLOOD ORDERABLES Fin al Result Performing Organization Address [facility] Co de Phone Number [facility] [address] [place] [phone] * HPV mRNA E6/E7 w/Reflex to HPV Genotypes 16, 18/45 (09/21/2023 1:23 PM EST) HPV nRNA E6/E7 Not Detected Not Detected [facility] Comment:Methodology: Transcr iption-Mediated AmplificationThis assay detects E6/E7 viral messenger RNA (mRNA) from 14high-risk HPV types (16,18,31,33,35,39,45,51,52,56,58,59,66,68).Cervical sources are required for HPV testing.If a vaginal source from a patient who has had atotal hysterectomy with removal of cervix wassubmitted, please contact the testing laboratoryfor alternative testing options.For additional information, please refer tohttp://education.1006.tv/faq/ONI136u9(This link if provided for information/educational purposes only.)THIS TEST WAS PERFORMED AT:[facility] [place] [phone] RIOS MD HPV mRNA E6/E7 [facility] HPV 16 RNA [facility] HPV 18/45 RNA [facility] 09/21/2023 1:23 PM EST 09/23/2023 9:50 AM EST Devi Diaz [facility] CYTOLOGY ORDERABLES F inal Result Performing Organization Address City/State/[facility] Co de Phone Number [facility] [address] [place] [phone] * Pap Smear (09/21/2023 1:23 PM EST) Swab Cervix uteri structure / Unknown 09/21/2023 1:23 PM EST 09/23/2023 9:50 AM EST Narrative [facility] - 10/06/2023 2:23 PM EST ----- ------- Name: Deandra VallejoChhaya ? Age/Sex: 48/F ? : 1975 Unit#: [id number] ?? Attend Dr: Richie Raines MD ??Re09/21/23 ?Status: DEP REF ? [facility] ? Disch: ? ----- ------- SPEC : [id number] ? RECD: 09/23/23 ? STATUS: ??SOUT ? REQ NUM: [id number] ? CAN: 09/21/23-3 ? SUBM DR: DEVI [...] 66, 68) ? HPV testing performed by [facility], [place], [place]. ??See reference laboratory ?? portion of the EMR for entire report. ?Clinical Information LMP: Unknown date Previous PAP test:Unknown date/findings ? Material Received ?? ThinPrep-Cervical ----- ------- Signed (signature on file) Flori Haseeb 10/06/23 1423 ? ----- ------- ? END OF REPORT ? us Devi Diaz [facility] CYTOLOGY ORDERABLES F inal Result [facility] [address] [place] [phone] from Last 3 Months or Most Recently Relevant to Health Maintenance Insurance [facility] AET MEDICARE REPLACEMENT DENTAL - T MEDICARE DENTAL-[facility] MEDICAID STAND ADULT Care Teams Fun House Attendant Relationship Specialty Start Date End Date Richie Raines MD [address] [place] [phone] PCP - General Internal Medicine 08/19/23
--- OUTSIDE RECORDS SUMMARY | 2025-01-11 12:20 | XMS_ITS | Encounter Summary ---
Author Organization [employer] Address [address] [facility] [address] [place] [address] Care Team Providers Care Teller Head Name Role Phone Richie Raines MD Primary Care Prov ider Reason for Visit * Reason Comments Dental Exam Encounter Details Date Type Department Care Team ([facility] st Contact Info) Description 01/10/2025 11:00 AM EDT Office Visit [facility] [address] [place] [address] Tavo Ramospresheng [address] [place] [address] Abfraction (Primary Dx) Social History Tobacco Use Types [...] as of this encounter Progress Notes * Rod Ramos - 01/10/2025 11:00 AM EDT Images from the original note were not included. Dental procedures in this visit D0150 - COMPREHENSIVE ORAL EVALUATION - NEW OR ESTABLISHED PATIENT (Completed) Service provider: Rod Ramos Billfranki provider: Rod Ramos D0210 - INTRAORAL - COMPLETE SERIES OF RADIOGRAPHIC IMAGES (Completed) Service provider: Rod Ramos Billfranki provider: Rod Ramos D1330 - ORAL HYGIENE INSTRUCTIONS (Completed) Service provider: Rod Ramos Billfranki provider: Rod Ramos D0180 - COMPREHENSIVE PERIODONTAL EVALUATION - NEW OR ESTABLISHED PATIENT (Completed) Service provider: Rod Ramos Billfranki provider: Rod Ramos D1110 - PROPHYLAXIS - ADULT (Completed) Service provider: Rod Ramos Billfranki provider: Rod Ramos Patient ID: Chhaya Vallejo is a 49 y.o. female. Time Out: Timeout Date: 01/10/25, Timeout Time: 1137 (dental exam) Location: [facility] Tooth: Maxilla and Mandible Procedure: Exam, X-rays, and Prophylaxis Verified the above with patient, laboratory assistant, and provider. Confirmed via patient's chart, intraorally and by radiographs. [place] Head Former: not applicable Chief Complaint Patient presents with Dental Exam Medical Hx: Vitals: There were no vitals taken for this visit. Medical History[1] Medications: Encounter Medications[2] 49 y/o male presents for a periodic exam seen by Dr. Rod Ramos, ELE. Chief Complaint: I came for appointment Medical History: Patient does not report any changes in health issues that could alter the Treatment Plan. Medical consult / medical clearance needed: no Allergies: Reviewed in EHR Medications: Reviewed in EHR Radiographs X-rays taken today: FMX taken today - had problems during x-rays, so BWs taken separately Discussion: -Pt stated that patient experiences sharp pain today when patient consumes cold foods and beverages. 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 -Generalized plaque deposits ++ , calculus deposits present as evident clinically. -Restorations planned as charted. - #8, #9 incisal edges - attrition evident - monitor as of now. Patient is asymptomatic. - #12 fractured with lingual cusp missing along with existing MOD amalgam evident- Patient is asymptomatic. Dx: Non-restorable #12 -Patient was recommended extraction. -Patient was recommended replacement of missing teeth with implant/fixed partial denture/removable partial denture. Patient wanted to think about replacement options before finalizing treatment plan due to financialrestraint. -Patient was informed that pt needs to contact it help desk analyst for any financial queries related to recommended treatment. -OHI reviewed. Emphasis was laid on maintaining good oral hygiene regimen at home along with regular visits to dentist. -Pt understood, was satisfied with our conversation and agreed with tx plan; dismissed in good condition. -All questions answered. Soft tissue exam: no significant findings; OCS- negative Head and neck exam: Lymph Nodes, Lips, Palate, Buccal Mucosa, Floor of Mouth, Tongue, Tonsils, Alveolar Ridges, Oropharynx, Salivary Ducts, Vestibules - no abnormal findings. TMJ/Occlusal - crepitus present - patient denied referral to OS [id number] as of now Oral Cancer Risk - low Perio Risk- moderate Oral Hygiene Instruction Provided - Yes Oral Hygiene Instructions: Hackberry two times daily, modified garza technique, Floss daily, Electric toothbrush, Soft bristle toothbrush, Hackberry Tongue. Referrals - None Treatment plan: -prophy - completed today by me -restorative -Extraction #12 -Prostho -re-care NV: restorative Lumber Hacker: Sofi Dentist: Dr. 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 30 tablet 0 DULoxetine (Cymbalta) [address] capsule Take 1 capsule (30 mg) by mouth 2 times daily. Do not crush or chew. 60 capsule 11 fluticasone (Flonase) 50 MCG/ACT nasal spray Administer 1 spray into each nostril in the morning. 16 g 2 levothyroxine (Synthroid, Levoxyl) 50 MCG tablet TAKE 1 TABLET BY MOUTH EVERY DAY BEFORE BREAKFAST 30 tablet 3 lidocaine-prilocaine (Emla) 2.5-2.5 % cream APPLY TOPICALLY ONCE FOR 1 DOSE DIRECTED 30 g 2 mirtazapine (Remeron) 30 MG tablet TAKE 1 TABLET BY MOUTH AT BEDTIME 30 tablet 3 mirtazapine (Remeron) 45 MG tablet TAKE 1 TABLET BY MOUTH AT BEDTIME 30 tablet 3 naproxen (Naprosyn) 500 MG tablet TAKE 1 TABLET BY MOUTH TWICE DAILY NEEDED FOR MODERATE PAIN 30tablet 0 naproxen (Naprosyn) 500 MG tablet Take 1 tablet (500 mg) by mouth if needed in the morning and at bedtime for moderate pain. 30 tablet 0 Omeprazole 20 MG tablet delayed-release Take 20 mg by mouth Once per day. 90 tablet 3 predniSONE (Deltasone) 20 MG tablet Take 2 tablets (40 mg) by mouth Once per day for 5 days. 10 tablet 0 pregabalin (Lyrica) 150 MG capsule TAKE 1 CAPSULE BY MOUTH TWICE DAILY 60 capsule 0 [DISCONTINUED] cyclobenzaprine (Flexeril) 10 MG tablet Take 1 tablet (10 mg) by mouth 3 times dailyfor 10 days. 30 tablet 0 [DISCONTINUED] naproxen (Naprosyn) 500 MG tablet Take 1 tablet (500 mg) by mouth if needed in the morning and at bedtime for moderate pain. 30 tablet 0 [DISCONTINUED] naproxen (Naprosyn) 500 MG tablet Take 1 tablet (500 mg) by mouth if needed in the morning and at bedtime for moderate pain. 30 tablet 0 [DISCONTINUED] predniSONE (Deltasone) 20 MG tablet Take 2 tablets (40 mg) by mouth Once per day for5 days. 10 tablet 0 No facility-administered encounter medications on file as of 01/10/2025. documented in this encounter Plan of Treatment Upcoming Encounters Date Type Department Care Team (Late st Contact Info) Description 01/17/2025 1:00 PM EDT Office Visit [facility] [address] [place] [address] Rod Ramos [address] [place] [address] Scheduled Orders Name Type Priority Associated Diagnoses Orde r Schedule 4 B(V) 4 B(V) RESIN-BASED COMPOSITE - 1 SURF, POSTERIOR Dental Routine 1 Occurrences starting 01/10/2025 12 12 EXTRACTION, ERUPTED TOOTH OR EXPOSED ROOT (ELEVATION/FORCEPS REMOVAL) Dental Routine [address] arting 01/10/2025 3,5,12,13 3,5,12,13 MAXILLARY PARTIAL DENTURE - RESIN BASE (INCLUDING, RETENTIVE/CLASPING MATERIALS, RESTS, AND TEETH) Dental Routine [address] arting 01/10/2025 21 21 ABUTMENT SUPPORTED RETAINER FOR PORCELAIN/CERAMIC FPD Dental Routine 1 Occurren braxton starting 01/10/2025 19 19 ABUTMENT SUPPORTED RETAINER FOR PORCELAIN/CERAMIC FPD Dental Routine 1 Occurren braxton starting 01/10/2025 20 20 PONTIC - PORCELAIN/CERAMIC Dental Routine 1 Occurrences starting 01/10/2025 2 MO 2 MO RESIN-BASED COMPOSITE - 2 SURF, POSTERIOR Dental Routine [address] arting 01/10/2025 20 20 MANDIBULAR PARTIAL DENTURE - RESIN BASE (INCLUDING, RETENTIVE/CLASPING MATERIALS, RESTS, AND TEETH) Dental Routine [address] arting 01/10/2025 documented as of this encounter Procedures Procedure Name Priority Date/Time Associated Diagnosis Comments PROPHYLAXIS - ADULT Routine 01/10/2025 1 1:00 AM EDT ORAL HYGIENE INSTRUCTIONS Routine 2024 11:00 AM EDT INTRAORAL - COMPLETE SERIES OF RADIOGRAPHIC IMAGES Routine 01/10/2025 11:00 AM EDT COMPREHENSIVE PERIODONTAL EVALUATION - NEW OR ESTABLISHED PATIENT Routine 01/10/2025 11:00 AM EDT COMPREHENSIVE ORAL EVALUATION - NEW OR ESTABLISHED PATIENT Routine 01/10/2025 11:00 AM EDT 29 CROWN - PORCELAIN/CERAMIC Routine 01/10/2025 12:00 AM EDT 4 MOD COMPOSITE FILLING Routine 01/11/20 12:00 AM EDT 31 MOL AMALGAM FILLING Routine 5 12:00 AM EDT 30 MODL AMALGAM FILLING Routine 01/11/20 12:00 AM EDT 19 MODBL AMALGAM FILLING Routine 025 12:00 AM EDT 18 VINNY AMALGAM FILLING Routine 01/10/2025 12:00 AM EDT 17 O AMALGAM FILLING Routine 01/10/2025 12:00 AM EDT 15 LO AMALGAM FILLING Routine 01/10/2025 12:00 AM EDT 14 MOL AMALGAM FILLING Routine 12:00 AM EDT 2 LO AMALGAM FILLING Routine 01/10/2025 12:00 AM EDT 12 MOD AMALGAM FILLING Routine 5 12:00 AM EDT 4 MOD AMALGAM FILLING Routine 01/10/2025 12:00 AM EDT documented in this encounter Visit Diagnoses Diagnosis Abfraction- Primary documented in this encounter Additional Health Concerns Assessment Noted Time PHQ-9 Depression Total Score: 9 11/29/19 25 9:59 AM EDT documented as of this encounter Care Teams Teller Head Relationship Specialty Start Date End Date Richie Raines MD [address] [place] [phone] PCP - General Internal Medicine 08/19/23 documented as of this encounter
--- OUTSIDE RECORDS SUMMARY | 2025-01-11 12:20 | XMS_ITS | Encounter Summary ---
Author Organization [employer] Address [address] [place] [address] 7 [place] [address] Care Team Providers Care Geography Faculty Member Name Role Phone Richie Raines MD Primary Care Prov ider Reason for Referral * Consultation (Routine) - Authorized Specialty Diagnoses / Procedures Referred By Sindy burleson Referred To Contact Orthopaedic Surgery Diagnoses Neck pain Richie Raines MD [address] [place] [address] Phone: tel: fax: [facility] [address] [place] [address] Phone: tel: Referral ID Status Reason Start Date Expiration Date Visits Requested Visits Authorized [id number] Authorized Specialty Services Required 01/10/2025 01/10/2026 1 1 * Imaging (Routine) - Pending Review Specialty Diagnoses / Procedures Referred By Sindy burleson Referred To Contact Radiology Diagnoses Neck pain Procedures MR Cervical Spine w/o Contrast Richie Raines MD [address] [place] [address] Phone: tel: fax: [address] Phone: tel: fax: Referral ID Status Reason Start Date Expiration Date V isits Requested Visits Authorized [id number] Pending Review 01/10/2025 01/10/2026 1 1 Encounter Details Date Type Department Care Team (Latest Contact Info) Description 01/10/2025 9:45 AM EDT Office Visit [facility] CH[facility] MED & PEDS [address] [place] [address] Richie Raines MD [address] [place] [address] Acquired hypothyroidism (Primary Dx); Chronic bilateral low back pain without sciatica; Multiple joint pain; Neck pain Social History Tobacco Use Types Packs/Day Years [...] 20 01/10/2025 9:39 AM EDT Oxygen Saturation - - Inhaled Oxygen Concentration - - Weight 72.2 kg (159 lb 3.2 oz) 01/10/2025 9:39 A M EDT Height 154.9 cm (5' 1 ) 01/10/2025 9:39 AM EDT Body Mass Index 30.08 01/10/2025 9:39 AM EDT documented in this encounter Progress Notes * Richie Blanc MD - 01/10/2025 9:45 AM EDT Subjective Patient ID: Chhaya Vallejo is a 49 y.o. female who presents for No chief complaint on file.. Neck Pain This is a chronic problem. The pain is present in the left side and right side. The quality of the pain is described as aching, shooting and stabbing. The pain is at a severity of 6/10. The symptoms are aggravated by bending and position. Associated symptoms include numbness and tingling. Pertinentnegatives include no fever or visual change. Review of Systems Constitutional: Negative for fever. Musculoskeletal: Positive for neck pain. Neurological: Positive for tingling and numbness. Objective Physical Exam Constitutional: Appearance: Normal appearance. Cardiovascular: Rate and Rhythm: Normal rate. Heart sounds: No murmur heard. Pulmonary: Effort: Pulmonary effort is normal. No respiratory distress. Breath sounds: No stridor. No wheezing or rhonchi. Musculoskeletal: General: Tenderness present. No swelling, deformity or signs of injury. Neurological: General: No focal deficit present. Mental Status: She is alert and oriented to person, place, and time. Psychiatric: Mood and Affect: Mood normal. Behavior: Behavior normal. Assessment/Plan Problem List Items Addressed This Visit Chronic bilateral low back pain without sciatica Relevant Medications naproxen (Naprosyn) 500 MG tablet predniSONE (Deltasone) 20 MG tablet Neck pain Chronic neck pain with associated right arm tingling, will order a MRI and will refer to ortho for evaluation, for pain relief, will prescribe naproxen/cyclobenzaprine/prednisone, er precaution reviewed Relevant Medications naproxen (Naprosyn) 500 MG tablet predniSONE (Deltasone) 20 MG tablet Other Relevant Orders MR Cervical Spine w/o Contrast Referral to Orthopaedic Surgery Other Visit Diagnoses Acquired hypothyroidism - Primary Relevant Medications naproxen (Naprosyn) 500 MG tablet predniSONE (Deltasone) 20 MG tablet Other Relevant Orders Lipid Panel, Standard TSH W/Reflex to FT4 Multiple joint pain Relevant Medications naproxen (Naprosyn) 500 MG tablet predniSONE (Deltasone) 20 MG tablet Other Relevant Orders Sed Rate by Modified Westergren C-reactive Protein Rheumatoid Factor Cyclic Citrullinated Peptide (CCP) Antibody (IgG) TOBI Screen,IFA, with Reflex to Titer and Pattern DNA (ds) Antibody documented in this encounter Miscellaneous Notes * Assessment & Plan Note - Richie Blanc MD - 01/10/2025 10:36 AM EDTAssociated Problem(s): Neck pain Chronic neck pain with associated right arm tingling, will order a MRI and will refer to ortho for evaluation, for pain relief, will prescribe naproxen/cyclobenzaprine/prednisone, er precaution reviewed documented in this encounter Plan of Treatment Upcoming Encounters Date Type Department Care Team (Late st Contact Info) Description 01/17/2025 1:00 PM EDT Office Visit [facility] ADULT DENTAL [address] [place] [address] Jd Ramosshawn [address] [place] [address] Scheduled Orders Name Type Priority Associated Diagnoses Orde r Schedule Cyclic Citrullinated Peptide (CCP) Antibody (IgG) Lab Routine Multiple joint pain Expected: 01/10/2025 (Approximate), Expires: 01/10/2026 TOBI Screen,IFA, with Reflex to Titer and Pattern Lab Routine Multiple joint pain Expected: 01/10/2025 (Approximate), Expires: 01/10/2026 DNA (ds) Antibody Lab Routine Multiple joint pain Expected: 01/10/2025 (Approximate), Expires: 01/10/2026 MR Cervical Spine w/o Contrast Imaging Routine Neck pain Expected: 01/10/2025, Expires: 01/10/2026 Scheduled Referrals Name Type Priority Associated Diagnoses Order Schedule Referral to Orthopaedic Surgery Outpatient Referral Routine Neck pain Expected: 01/10/2025 (Approximate), Expires: 01/10/2026 documented as of this encounter Procedures Procedure Name Priority Date/Time Associated Diagnosis Comments TSH W/REFLEX TO FT4 Routine 01/10/2025 1 0:40 AM EDT Acquired hypothyroidism SED RATE BY MODIFIED WESTERGREN Routine 01/10/2025 10:40 AM EDT Multiple joint pain RHEUMATOID FACTOR Routine 01/10/2025 10: 40 AM EDT Multiple joint pain C-REACTIVE PROTEIN Routine 01/10/2025 10 :40 AM EDT Multiple joint pain LIPID PANEL, STANDARD Routine 01/10/2025 10:40 AM EDT Acquired hypothyroidism documented in this encounter Results * Rheumatoid Factor (01/10/2025 10:40 AM EDT) Rheumatoid Factor <13.0 <15.0 IU/mL [facility] Blood Venous blood specimen / Unknown 01/10/2025 10:40 AM EDT 01/10/2025 2:08 PM EDT us Richie Blanc MD LAB BLOOD ORDERABL ES Final Result [facility] [address] [place] [phone] * C-reactive Protein (01/10/2025 10:40 AM EDT) C Reactive Protein <0.10 < or = 0.50 mg/dL [facility] Blood Venous blood specimen / Unknown 01/10/2025 10:40 AM EDT 01/10/2025 2:08 PM EDT Richie Blanc MD LAB BLOOD ORDERABL ES Final Result Performing Organization Address City/[facility]/ZIP Co de Phone Number [facility] [address] [place] [phone] * Sed Rate by Modified Colleenren (01/10/2025 10:40 AM EDT) Erythrocyte Sedimentation Rate 2 0 - 20 MM/HR [facility] Comment:Patients with polycy themia and many hemoglobin abnormalitiesmay have depressed sed rates whereas patients with anemiamay have elevated sed rates. Blood Venous blood specimen / Unknown 01/10/2025 10:40 AM EDT 01/10/2025 2:08 PM EDT Richie Blanc MD LAB BLOOD ORDERABL ES Final Result Performing Organization Address [facility] Co de Phone Number [facility] [address] [place] [phone] * TSH W/Reflex to FT4 (01/10/2025 10:40 AM EDT) TSH reflex Free T4 2.33 0.32 - 4.0 uIU/mL [facility] Blood Venous blood specimen / Unknown 01/10/2025 10:40 AM EDT 01/10/2025 2:08 PM EDT Richie Blanc MD LAB BLOOD ORDERABL ES Final Result Performing Organization Address City/[facility]/ZIP Co de Phone Number [facility] [address] [place] [phone] * (ABNORMAL) Lipid Panel, Standard (01/10/2025 10:40 AM EDT) Triglycerides 140 <150 mg/dL [facility] Comment:Desirable Triglyceri de: less than 150 mg/dLBorderline High Triglyceride 150-199 mg/dLHigh Triglyceride: 200-499 mg/dLVery High Triglyceride: greater than or equal to 5OO mg/dL Cholesterol 192 <200 mg/dL [facility] Comment:Desirable Cholestero l: less than 200 mg/dLBorderline High Cholesterol: 200-239 mg/dLHigh Cholesterol: greater than 239 mg/dL LDL Cholesterol Calculated 119(H) <100 mg/dL [facility] Comment:Desirable LDL: less than 100 mg/dLNear Optimal/Above Optimal LDL: 110- 129 mg/dLBorderline High LDL: 130-159 mg/dLHigh LDL: 160-189 mg/dLVery High LDL: greater than or equal to 190 mg/dL HDL Cholesterol 45 >40 mg/dL [facility] Comment:Desirable HDL: great er than 40 mg/dL Note: This HDL assay may give artificially low results in patients with liver disease. Blood Venous blood specimen / Unknown 01/10/2025 10:40 AM EDT 01/10/2025 2:08 PM EDT us Richie Blanc MD LAB BLOOD ORDERABL ES Final Result [facility] [address] [place] [phone] documented in this encounter Visit Diagnoses Diagnosis Acquired hypothyroidism- Primary Unspecified hypothyroidism Chronic bilateral low back pain without sciatica Multiple joint pain Pain in joint, multiple sites Neck pain Cervicalgia documented in this encounter Additional Health Concerns Assessment Noted Time PHQ-9 Depression Total Score: 9 11/29/19 25 9:59 AM EDT documented as of this encounter Care Teams Geography Faculty Member Relationship Specialty Start Date End Date Richie Raines MD [address] [place] [phone] PCP - General Internal Medicine 08/19/23 documented as of this encounter
--- OUTSIDE RECORDS SUMMARY | 2025-01-11 12:20 | XMS_ITS | Encounter Summary ---
Author Organization [employer] Address [address] [facility] [address] [place] [address] Care Team Providers Care Tool Designer Name Role Phone Richie Raines MD Primary Care Prov ider Encounter Details Date Type Department Care Team ([facility] st Contact Info) Description 11/22/2023 Orders Only [facility] MED & PEDS [address] [place], [place] [phone] Matthias Maria MD [address] [place] [address] Pain in both knees, unspecified chronicity (Primary [...] 01/17/2025 1:00 PM EDT Office Visit [facility] ADULT D[facility] [address] [place] [address] Rod Ramos [address] [place] [address] documented as of this encounter Visit Diagnoses Diagnosis Pain in both knees, unspecified chronicity- Primary documented in this encounter Additional Health Concerns Assessment Noted Time PHQ-9 Depression Total Score: 0 08/10/20 2:42 PM EST documented as of this encounter Care Teams Tool Designer Relationship Specialty Start Date End Date Richie Raines MD [address] [place] [address] PCP - General Internal Medicine 08/19/23 documented as of this encounter
--- OUTSIDE RECORDS SUMMARY | 2025-01-11 12:20 | XMS_ITS | Encounter Summary ---
Author Organization [employer] Address [address] [facility] [address] [place] [address] Care Team Providers Care Animal Husbandman Name Role Phone Richie Raines MD Primary Care Prov ider Reason for Visit * Reason Comments Med Change Request Encounter Details Date Type Department Care Team (Late st Contact Info) Description 11/02/2023 Refill [facility] WALK[facility] C[facility] [address] [place] [address] Matthias Maria MD [address] [place] [address] Chronic bilateral low back pain without sciatica [...] 1:00 PM EDT Office Visit [facility] ADULT DENTAL [address] [place] [address] Rod Ramos [address] [place] [address] documented as of this encounter Visit Diagnoses Diagnosis Chronic bilateral low back pain without sciatica documented in this encounter Additional Health Concerns Assessment Noted Time PHQ-9 Depression Total Score: 0 08/10/20 2:42 PM EST documented as of this encounter Care Teams Animal Husbandman Relationship Specialty Start Date End Date Richie Raines MD [address] [place] [address] PCP - General Internal Medicine 08/19/23 documented as of this encounter
--- OUTSIDE RECORDS SUMMARY | 2025-01-11 12:20 | XMS_ITS | Encounter Summary ---
Author Organization [employer] Address [address] [facility] [address] [place] [address] Care Team Providers Care Master Control Technician Name Role Phone Richie Raines MD Primary Care Prov ider Reason for Visit * Reason Comments Med Change Request Encounter Details Date Type Department Care Team (Late st Contact Info) Description 11/11/2023 Refill [facility] W[facility] [address] [place] [address] Matthias Maria MD [address] [place] [address] Chronic bilateral low back pain without sciatica [...] Description 01/17/2025 1:00 PM EDT Office Visit [facility] ADULT DENTAL [address] [place] [address] Rod Ramos [address] [place] [address] documented as of this encounter Visit Diagnoses Diagnosis Chronic bilateral low back pain without sciatica documented in this encounter Additional Health Concerns Assessment Noted Time PHQ-9 Depression Total Score: 0 08/10/20 2:42 PM EST documented as of this encounter Care Teams Master Control Technician Relationship Specialty Start Date End Date Richie Raines MD [address] [place] [address] PCP - General Internal Medicine 08/19/23 documented as of this encounter
--- OUTSIDE RECORDS SUMMARY | 2025-01-11 12:20 | XMS_ITS | Encounter Summary ---
Author Organization [employer] Address [address] [facility] [address] [place] [address] Care Team Providers Care Supervisor Pullet Farm Name Role Phone Richie Raines MD Primary Care Prov ider Encounter Details Date Type Department Care Team (Latest Contact Info) Description 01/10/2025 Travel Social History Tobacco Use Types Packs/Day [...] 1:00 PM EDT Office Visit [facility] ADULT DENT[facility] [address] [place] [address] Rod Ramos [address] [place] [address] documented as of this encounter Visit Diagnoses Not on filedocumented in this encounter Additional Health Concerns Assessment Noted Time PHQ-9 Depression Total Score: 9 11/29/19 25 9:59 AM EDT documented as of this encounter Care Teams Supervisor Pullet Farm Relationship Specialty Start Date End Date Richie Raiens MD [address] [place] [address] PCP - General Internal Medicine 08/19/23 documented as of this encounter
--- OUTSIDE RECORDS SUMMARY | 2025-01-11 12:20 | XMS_ITS | Encounter Summary ---
Author Organization [employer] Address [address] [facility] 7t [place] [address] Care Team Providers Care Cable Cutter And Swager Name Role Phone Richie Raines MD Primary Care Prov ider Reason for Visit * Reason Onset Date Comments Referral 11/29/2023 Encounter Details Date Type Department Care Team (Late st Contact Info) Description 11/29/2023 Telephone [facility] [address] [place] [address] Richie Raines MD [address] [place], [place] [phone] Referral Social History Tobacco Use Types Packs/Day [...] has a [place] [facility] but they're not scheduling out until April andpt is requesting a sooner appt. Pt would like to be referred to [facility] instead. Please contact pt at [phone]. documented in this encounter Plan of Treatment Upcoming Encounters Date Type Department Care Team (Late st Contact Info) Description 01/17/2025 1:00 PM EDT Office Visit [facility] ADULT DENTAL [address] [place] [address] RamosJd trinidadshawn [address] [place] [address] documented as of this encounter Visit Diagnoses Not on filedocumented in this encounter Additional Health Concerns Assessment Noted Time PHQ-9 Depression Total Score: 0 08/10/20 23 2:42 PM EST documented as of this encounter Care Teams Cable Cutter And Swager Relationship Specialty Start Date End Date Richie Raines MD [address] [place] [phone] PCP - General Internal Medicine 08/19/23 documented as of this encounter
== END 2025-01-11 13:23 | disposition home or self-care (01) ==
LOC: HO.HWS 11:48
PROVIDERS: Visit Provider Advanced Practice Midwife
DX: N92.4 Excessive bleeding in the premenopausal period (principal)
CPT/HCPCS: 99213

== ENCOUNTER 2025-02-09 19:21 | Outpatient (REF) | payer MEDICARE, MEDICAID, SELFPAY ==
--- NOTE | ~2025-02-09 | MR_ITS ---
CLINICAL HISTORY: chronic neck pain with right arm tingling Cervical MRI without contrast Comparison: None Findings: Minute degenerative appearing retrolisthesis of C4. Otherwise normal vertebral body height, alignment and precervical soft tissue thickness. No acute marrow signal changes. Intact craniocervical junction and C1-2. C2-3: Normal disc level. C3-4: Mild uncinate hypertrophy minimally effacing right C4 foramen. C4-5: Disc osteophyte complex with mild spinal stenosis. Cord contact without cord effacement or intradural signal abnormality. Mild effacement C5 foramina greater to the right. C5-6: Slight degenerative endplate changes. No canal or foraminal stenosis. C6-7: Small central protrusion. Otherwise normal disc level. C7-T1 mild left-sided facet arthritis. Patent C8 foramina. Otherwise normal disc level. No acute appearing abnormality of the included skull base structures. Mild mucoperiosteal thickening in the sphenoid sinus. No acute appearing abnormality of the paracervical soft tissues. Impression: Degenerative disc changes C4-5 with mild spinal stenosis. No cord effacement or intradural signal abnormality. Mild effacement of the C5 foramina. Mild uncinate hypertrophy C3-4 slightly effacing right C4 foramen. Remaining disc levels intact. This document has been electronically signed by: Yan Londono MD on 02/12/2025 08:53:11
== END 2025-02-09 19:22 | disposition home or self-care (01) ==
LOC: HO.MRI 19:21
PROVIDERS: Visit Provider Internal Medicine
DX: M54.2 Cervicalgia (principal)
CPT/HCPCS: 72141

== ENCOUNTER → 2025-02-09 19:26 | Outpatient (BNV) | payer MEDICARE, MEDICAID, SELFPAY | PROVIDERS: Visit Provider Radiology Diagnostic Radiology | DX: M54.2 Cervicalgia (principal) | CPT/HCPCS: 72141 ==

== ENCOUNTER 2025-03-08 10:36 | Outpatient (AMB) | payer MEDICARE, MEDICAID, SELFPAY ==
--- NOTE | 2025-03-08 10:51 | MHC.OFFVIS ---
Vital Signs 03/08/25 10:52 Height 5 ft 1 in Weight 164 lb BMI 31.0 BP 122/70 Blood Pressure Location Rt brachial Position Sitting Pulse 78 Pulse Source Pulse Oximeter Pulse Oximetry (%) 97 Oxygen Delivery Method Room Air Intake Visit Reasons: Follow Up 6mo Intake Note: Patient presents follow up migraine/sleep medication. MRI in chart Ad Terminal Makeup Operator Required: No Accompanied by: Self / Same As Patient Allergies Penicillins Adverse Reaction (Severe, Verified 03/08/25 10:52) rash HPI Comments Details: 49-year-old female presents for follow-up visit for headache and restless leg syndrome. However patient would also like to discuss recent C-spine MRI results. Pt is accompanied by her dtr. Patient recently underwent C-spine MRI ordered by her PCP. 02/12/2025, C-spine MRI without contrast, Impression: Degenerative disc changes C4-5 with mild spinal stenosis. No cord effacement or intradural signal abnormality. Mild effacement of the C5 foramina. Mild uncinate hypertrophy C3-4 slightly effacing right C4 foramen. Remaining disc levels intact. Patient reports she has been having bothersome neck pain, predominantly on the right side with pain that runs up and down the neck into the head and down the arm. This neck pain triggers her headaches. She also notes that she is increasingly prone to just dropping things from her hands. She states she has had this pain for quite some time. She has seen pain management before, and states that they only gave her naproxen. Review of pain management note, shows she has offered cervical injections, but declined at that time. She states she previously did palliative care coordinator for her neck, however she could not tolerate the TENs and heat therapy, so she stopped. She states she has done PT and number times. Her daughter wonders if her pain could be exacerbated by her underlying fibromyalgia. Patient states she has taken amitriptyline in the past for her left foot neuralgic pain. She is currently taking Pregabalin 150mg bid- and states that this is not very helpful. She states she is having constant headaches. States sumatriptan helps some. Is compliant w/ B2 and Mag. However, she never received the topiramate. Baseline headache characteristics: Headache: Moderate-severe right sided throbbing headache, which began in June. Associated symptoms: activity intolerance- needs to lay down, close her eyes, and rest. Time of day: headache can wake her up from sleep. She has also seen hematology, had infusion tx which resulted in improvement in anemia r/t alpha thalassemia trait, note pt also has sickle cell trait. 06/30/2024 In-lab PSG, did not show sleep apnea however did show periodic limb movements of sleep (PLMS)- AHI 0.2/hour of sleep, REM AHI 0/hour O2 june 89% with average SpO2 95%, soft to moderate snoring, average heart rate 74 bpm with highest heart rate of 108 bpm, PLMS 78/hr with PLMS arousal index of 12 per hour. [facility] Medical History Dysphagia RLS (restless legs syndrome) GERD (gastroesophageal reflux disease) Bilateral chronic knee pain Chronic back pain Fibromyalgia Chronic pain in left foot Anxiety Depression Hypothyroidism Surgical History History of esophagogastroduodenoscopy (EGD) H/O colonoscopy Family History (Updated 01/05/25 @ 11:05 by Liliya Mckeon CMA) Mother Diabetes Hypothyroid Family/Other Breast cancer Brother Hypothyroid Father Hypothyroid Daughter Hypothyroid Social History (Updated 01/05/25 @ 11:06 by Liliya Mckeon CMA) Household Members: Family Housing: Apartment Do you presently have visiting nurse or other home services: No Alcohol intake: never Patient Tobacco Use Status: Never used Tobacco Current occupational status: unemployed Sexual orientation: Straight/Heterosexual Gender identity: Female Physical Exam Vital Signs: Last Vital Signs Pulse 78 03/08/25 10:52 BP 122/70 03/08/25 10:52 Pulse Ox 97 03/08/25 10:52 Oxygen Delivery Method Room Air 03/08/25 10:52 BMI result Body Mass Index 31.0 Const General: cooperative and no acute distress Orientation/consciousness: patient oriented x3 Resp Effort & Inspection: normal respiratory effort and able to speak in complete sentences Neuro Other: Forward head and shoulder posture with bilateral posterior cervicaltightness. General: patient oriented x3 Cranial nerves: Yes CN's II-XII intact bilaterally Cognition (Neuro): normal cognition Gait exam (Neuro): Normal gait present Motor exam (neuro): 5/5 motor strength present throughout Deep tendon reflexes (DTR's): Right triceps reflex intensity grade: 2+, Left triceps reflex intensity grade: 2+, Rt Biceps (C5, C6): 2+, Left biceps reflex intensity grade: 2+, Right brachioradialis reflex intensity grade: 2+, Left brachioradialis reflex intensity grade: 2+, Right patellar reflex intensity grade: 2+ and Left patellar reflex intensity grade: 2+ Pupils: Normal pupillary reactivity/response: bilateral Psych Appearance: grossly normal Mental Status: mental status grossly normal Speech and movement: Normal speech and movement present Affect: normal affect Attitude: cooperative Thought process: Normal thought process present Telehealth Telehealth Telehealth Platform: [employer] Location of provider rendering services: practice address Location of patient: address on file Patient Identification confirmed using: Name, : Yes Telehealth method: video Patient verbally consented to treatment: Yes Patient verbally consented to billing insurance company: Yes Patient informed of any privacy concerns related to visit: Yes Minutes spent on Phone/Video with Pt.: 23 Assessment & Plan Assessment & Plan (1) New onset headache: Code(s): R51.9 - Headache, unspecified Category: Medical (2) Snoring: Code(s): R06.83 - Snoring Category: Medical (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 Code(s): G25.81 - Restless legs syndrome Category: Medical (6) Central stenosis of spinal canal: Code(s): M48.00 - Spinal stenosis, site unspecified Category: Medical (7) Cervical radiculopathy: Code(s): M54.12 - Radiculopathy, cervical region Category: Medical Plan For worsening neck pain w/ right radicular s/s: Reviewed c-spine MRI report and images w/ pt, showing mild central canal stenosis. Discussed tx options, such as NSAIds- ie Naproxen, pregabalin, as well as revisiting PT, trying yoga or water therapy, re-establishing care w/ pain management. Pt states PT and pain managment were not previously helpful. She wants to have the route cause of her pain treated. Thus, will request neurosurgery consult, though advised pt that they will assess her and make recommendations. Will start pt on amitriptyline, which may alleviate her radicular s/s as well as headaches- pt advised to monitor for s/e including exacerbation of RLS/PLMS s/s. Pt may also benefit from trying a non-pharmacological pain tx program, such as [facility]'s CBTi/ACT/pain re-processing psychological tx program- dtr and pt will review. For new onset headache: Brain MRI w/wo- unremarkable. Continue riboflavin 400 mg q.a.m. Continue magnesium 400 mg q.h.s. Discontinue Topiramate 25-50 mg q.h.s. order- pt started. Start Amitriptyline 25mg daily at bedtime. Potential side effects include but are not limited to fatigue, cardiac arrhythmias, mood changes. Continue Sumatriptan 100mg tab, 1/2 - 1 tab (50-100mg) at onset of headache, may repeat in 2 hours. Max of 2 tabs (200mg) per 24 hours. May take sumatriptan with OTC Tylenol 650-1,000mg every 4-6 hours prn. OTC mouth guard for bruxism. Future considerations- oral surgeon, PT. For RLS and periodic limb movements of sleep in setting of alpha thalassemia trait, anemia. Continue B-12 supplementation. Continue pregabalin. Follow-up with Hematology as scheduled. Follow-up with GI for dysphagia and celiac disease workup as scheduled. ENT consult as previously ordered. Orders: Referrals Neurosurgery Referral M48.00 - Spinal stenosis, site unspecified, M54.12 - Radiculopathy, cervical region Medications: New amitriptyline 25 mg PO BEDTIME 30 tabs 1RF 30 days Coding Level of Care Code Est Pt Level 4 (62593) Diagnoses New onset headache R51.9 Snoring R06.83 Retrognathia M26.19 Excessive daytime sleepiness G47.19 RLS (restless legs syndrome) G25.81 Central stenosis of spinal canal M48.00 Cervical radiculopathy M54.12
[2025-03-08 10:52] VITALS: BP 122/70; PULSE 78; O2SAT 97; BMI 31.0
--- OUTSIDE RECORDS SUMMARY | 2025-03-08 11:10 | XMS_ITS | Encounter Summary ---
Author Organization [employer] Address [address] [place] [address] Care Team Providers Care Risk Reduction Counselor Name Role Phone Richie Raines MD Primary Care Prov ider Encounter Details Date Type Department Care Team ([facility] st Contact Info) Description 04/09/2024 Orders Only [facility] [address] [place], [place] [phone] Richie Raines MD [address] [place] [address] Social History Tobacco Use Types Packs/Day Years [...] as of this encounter Plan of Treatment Not on file documented as of this encounter Visit Diagnoses Not on filedocumented in this encounter Additional Health Concerns Assessment Noted Time PHQ-9 Depression Total Score: 0 08/10/20 2:42 PM EST documented as of this encounter Care Teams Risk Reduction Counselor Relationship Specialty Start Date End Date Richie Raines MD [address] [place] [id number] PCP - General Internal Medicine 08/19/23 documented as of this encounter
== END 2025-03-08 12:36 | disposition home or self-care (01) ==
LOC: HO.HSMS 10:37
PROVIDERS: PCP Internal Medicine; Visit Provider Nurse Practitioner Family
DX: R51.9 Headache, unspecified (principal); R06.83 Snoring; M26.19 Other specified anomalies of jaw-cranial base relationship; G47.19 Other hypersomnia; G25.81 Restless legs syndrome; M48.00 Spinal stenosis, site unspecified; M54.12 Radiculopathy, cervical region
CPT/HCPCS: 99214

== ENCOUNTER → 2025-03-08 10:36 | Outpatient (BNVA) | payer MEDICARE, MEDICAID, SELFPAY | PROVIDERS: PCP Internal Medicine; Visit Provider Nurse Practitioner Family | DX: G47.19 Other hypersomnia (principal); G25.81 Restless legs syndrome; R51.9 Headache, unspecified; R06.83 Snoring; M48.00 Spinal stenosis, site unspecified; M54.12 Radiculopathy, cervical region; M26.19 Other specified anomalies of jaw-cranial base relationship; Z79.899 Other long term (current) drug therapy | CPT/HCPCS: 99212 ==

== ENCOUNTER 2025-03-21 13:00 | Outpatient (AMB) | payer MEDICARE, MEDICAID, SELFPAY ==
--- NOTE | 2025-03-21 13:12 | A.SPINEOV_ITS ---
Vital Signs 03/21/25 13:13 Height 5 ft 1 in Weight 167 lb BMI 31.6 Intake Visit Reasons: chronic right neck pain Intake Note: Ms. Deandra Vallejo is here today c/o chronic neck/arm pain that radiates down the right side. [employer] Internship Required: Yes [employer] Broadcasting Internship Name: Nicko (Daughter) Allergies Penicillins Adverse Reaction (Severe, Verified 03/21/25 13:14) rash Physical Exam Vital Signs: BMI result Body Mass Index 31.6 Assessment & Plan Assessment & Plan (1) Cervical radiculopathy: Code(s): M54.12 - Radiculopathy, cervical region Category: Medical Plan Dear Paris, Thank you for referring Mrs Vallejo to our office today. She is a very nice 50-year-old female who has had about a 5 year or more history of pain in her neck radiating into both trapezius but down the right arm into her hand. She saw someone in [place] a few years ago, was evaluated and was not deemed a surgical candidate. Since that time she has done a number of different conservative measures including physical therapy, chiropractic as well as cortisone injections. It looks like from the records that she had trigger point injections done here at [facility]. She was taking Naprosyn and Flexeril without any relief. She comes in today for review of her MRI showing mild foraminal stenosis at C4-5. PMH: She has a history of hypothyroidism, anemia, arthritis, fibromyalgia, left foot operation, ear surgery, cholecystectomy and breast surgery Social hx: She has not smoke, drink use any recreational drugs Medications: Amitriptyline, famotidine, lansoprazole, levothyroxine, magnesium, mirtazapine, naproxen, Lyrica, Topamax Allergies: Penicillin Physical exam: Awake alert oriented, she appears uncomfortable, has difficulty just lifting or moving her arm on the right side secondary to pain. Even gentle manipulation during reflex testing and motor testing gave her quite a bit of pain. I do not detect any focal motor deficits and her reflexes are intact. Imaging review: There is a cervical MRI done here at [facility] showing normal alignment, very mild disc degeneration at C4-5, with a report stating mild right C5 foraminal stenosis. There is no cord signal change or central canal stenosis. The rest of the cervical levels otherwise look normal and unremarkable. Impression: 50-year-old female who has had 5 years of what sounds like a C6 or C7 radiculopathy going down into her hand without any obvious explanation based on her MRI imaging. It could be related to her fibromyalgia or maybe she has some kind of radiculopathy that is not compressive in nature. I see the radiology report states that there is mild C5 foraminal stenosis but really it is nothing that we would consider meeting the level of surgical intervention. Unfortunately I do not think there is a surgical solution for her. I recommended she follow up with the pain management Center to see if there was more that they could do for her. Thank you for allowing us to care for your patient. The total time spent with this visit with this patient was 45 minutes reviewing history, physical exam, cervical MRI imaging review, and implementation of treatment plan or further diagnostic testing Kaushal Moya MD,PhD [facility] Coding Level of Care Code New Pt Level 4 (22183) Diagnoses Cervical radiculopathy M54.12
[2025-03-21 13:13] VITALS: BMI 31.6
--- OUTSIDE RECORDS SUMMARY | 2025-03-21 13:36 | XMS_ITS | Encounter Summary ---
Author Organization [employer] Address [address] [place] [address] Care Team Providers Care Senior Insight Manager International Name Role Phone Richie Raines MD Primary Care Prov ider Encounter Details Date Type Department Care Team ([facility] st Contact Info) Description 04/09/2024 Orders Only [facility] [address] [place], [place] [phone] Richie Raines MD [address] [place] [address] Social History Tobacco Use Types Packs/Day Years [...] documented as of this encounter Care Teams Senior Insight Manager International Relationship Specialty Start Date End Date Richie Raines MD [address] [place] [id number] PCP - General Internal Medicine 08/19/23 documented as of this encounter
== END 2025-03-21 13:54 | disposition home or self-care (01) ==
LOC: HO.HNS 13:01
PROVIDERS: PCP Internal Medicine; Referring Provider Nurse Practitioner Family; Visit Provider Physician Assistant
DX: M54.12 Radiculopathy, cervical region (principal)
CPT/HCPCS: 99204

== ENCOUNTER → 2025-03-21 13:00 | Outpatient (BNVA) | payer MEDICARE, MEDICAID, SELFPAY | PROVIDERS: PCP Internal Medicine; Referring Provider Nurse Practitioner Family; Visit Provider Physician Assistant | DX: M54.12 Radiculopathy, cervical region (principal) | CPT/HCPCS: 99202 ==